=== PATIENT | female | born 1950 | race Caucasian/White ===

== ENCOUNTER → 2019-10-11 17:50 | Outpatient (CLI) | payer MEDICARE, SELFPAY ==
--- NOTE | 2019-10-11 17:54 | DI.MRI.S_ITS ---
PROCEDURE: MR LUMBAR SPINE WO CON INDICATIONS: LUMBAGO WITH SCIATICA LEFT SIDE TECHNIQUE: Noncontrast sagittal T1 spin echo and T2 fast echo, sagittal STIR, axial T1 and T2 fast spin echo through the lumbar spine. In cases with scoliosis, additional coronal T2 fast spin echo may be performed. COMPARISON: None. FINDINGS: Image quality: Excellent. Alignment and Curvature: There is a mild degree of extra scoliosis centered at the thoracolumbar junction. Bone Marrow: Marrow is of normal overall signal. No acute vertebral body compression fractures. Spinal Cord: Conus medullaris terminates at the T12-L1 level. Visualized cord demonstrates normal signal and size. Paraspinous Soft Tissues: No paravertebral masses. L1-L2: Slight degenerative disc disease, no disc bulge or herniation. Minimal facet osteoarthritis without spinal or foraminal stenosis. L2-L3: Mild to moderate degenerative disc disease, mild facet osteoarthritis. A small Schmorl's node is present at the upper endplate of L3, with slight elevated fluid signal in the upper L3 vertebral body as a result. This likely is a subacute finding, and not associated with disc bulge or herniation peripherally. No significant spinal or foraminal stenosis. L3-L4: Moderate degenerative disc disease, and there is a posterior transverse broad-based disc bulge. The facet osteoarthritis at this level is moderate in severity with ligamentum flavum hypertrophy associated and mild bilateral right greater than left foraminal stenosis due to facet hyperostosis. L4-L5: Degenerative disc disease is severe at this level and facet osteoarthritis also is severe with both ligamentum flavum hypertrophy and osseous hypertrophy greater on the left than the right. This results in near severe left and moderately severe right foraminal stenosis and also effacement of CSF from the thecal sac surrounding individual nerve roots at this level indicating severe spinal stenosis. A disc herniation is not associated. L5-S1: Moderately severe degenerative disc disease but there is only a slight posterior midline disc bulge. Mild to moderate facet osteoarthritis is present. There is right greater than left foraminal stenosis due to asymmetric facet osteoarthritis and osteophytic spurring. No significant spinal stenosis. IMPRESSION: 1. A disc herniation is not found. 2. There is a mild Schmorl's node likely subacute by a signal character of the upper L3 vertebral body marrow space. This may be associated with significant low back pain but a wedge type compression fracture is not found. 3. Degenerative disc disease and facet osteoarthritis is most pronounced over the lower 3 levels of the LS-spine, with severe spinal and foraminal stenosis present at L4-L5 greater on the left than the right. Multilevel nerve root impingement likely is present from L3 inferiorly as discussed in detail by level and the body of the report above. Dictated by: Roel Farah M.D. on 10/12/2019 at 11:03 Approved by: Roel Farah M.D. on 10/12/2019 at 11:14
== END ==
PROVIDERS: Referring Provider Physician Assistant; Visit Provider Physician Assistant
DX: M51.16 Intervertebral disc disorders with radiculopathy, lumbar region (principal); M51.46 Schmorl's nodes, lumbar region; M48.061 Spinal stenosis, lumbar region without neurogenic claudication; M47.816 Spondylosis without myelopathy or radiculopathy, lumbar region; M54.5 Low back pain
CPT/HCPCS: 72148

== ENCOUNTER → 2019-10-30 14:48 | Outpatient (CLI) | payer MEDICARE, SELFPAY | PROVIDERS: PCP Internal Medicine; Referring Provider Physician Assistant; Visit Provider Physician Assistant | DX: M85.851 Other specified disorders of bone density and structure, right thigh (principal); Z78.0 Asymptomatic menopausal state | CPT/HCPCS: 77080 ==

== ENCOUNTER → 2019-11-30 16:48 | Outpatient (CLI) | payer MEDICARE, SELFPAY ==
--- NOTE | 2019-11-30 | DI.RAD.S_ITS ---
PROCEDURE: XR HIP W PEL IF DONE LT 2V INDICATIONS: PAIN IN LEFT HIP NO RECENT INJURY TECHNIQUE: AP pelvis with lateral view(s) of the left hip(s). COMPARISON: None. FINDINGS: Bones: No fractures or dislocations. Pelvic ring appears intact. No suspicious bony lesions. There is mild left hip joint space narrowing. Soft tissues: The visualized bowel gas pattern is normal. No suspicious soft tissue calcifications. IMPRESSION: Mild left hip osteoarthritis. Dictated by: Lata Pepe M.D. on 11/30/2019 at 16:24 Approved by: Lata Pepe M.D. on 11/30/2019 at 16:25
== END ==
PROVIDERS: PCP Internal Medicine; Referring Provider Physician Assistant; Visit Provider Physician Assistant
DX: M25.552 Pain in left hip (principal); M16.12 Unilateral primary osteoarthritis, left hip
CPT/HCPCS: 73502

== ENCOUNTER → 2019-12-28 17:34 | Outpatient (CLI) | payer MEDICARE, SELFPAY ==
--- NOTE | 2019-12-28 | DI.MRI.S_ITS ---
PROCEDURE: MR HIP LT WO CON INDICATIONS: PAIN IN LEFT HIP TECHNIQUE: Noncontrast coronal T1 spin echo and STIR through the bony pelvis. Coronal and axial T2 fast spin echo with fat saturation, sagittal T1 spin echo, and oblique axial T2 fast spin echo with fat saturation through the hip. COMPARISON: None. FINDINGS: Image quality: Excellent. Bones and joints: Moderate bilateral hip joint osteoarthritic changes are seen slightly worse on the left side with joint space narrowing, and subchondral sclerosis. No marrow edema. No intraosseous lesions or fractures. No avascular necrosis of the femoral heads. The visualized lower lumbar spine appears normally aligned. Degenerative disc disease in visualized lower lumbar spine is seen. Tendons and ligaments: Mild left gluteus medius and minimus tendinosis at their insertion on left greater trochanter is seen, without associated muscle atrophy. The nearby proximal iliotibial band also appears intact. The iliopsoas tendon appears intact, without adjacent bursal fluid collections or evidence for impingement syndrome. The origin of the hamstring tendon is intact at the ischial tuberosity, as well as the associated sacrotuberous ligament. The straight and reflected heads of the rectus femoris muscle origin appear intact, as well as the conjoint tendon. The ligamentum teres appears intact where visualized. Labrum and cartilage: The acetabular labrum appears intact in the absence of intra-articular contrast. Cartilage surface of the femoral head appears thinned. The alpha angle of the femur is within normal limits at less than 55 degrees. Soft tissues: Visualized muscles demonstrate normal bulk and internal signal. Quadratus femoris muscle demonstrates no internal edema to suggest ischiofemoral impingement. The proximal sciatic neurovascular bundle appears normal adjacent to the hamstring tendons. No free pelvic fluid. Bladder wall thickness is normal. Genitourinary structures and bowel loops appear normal where visualized. IMPRESSION: 1. Moderate bilateral hip joint osteoarthritis slightly worse on the left side. No marrow edema. No fracture or dislocation. No evidence of avascular necrosis of femoral head. 2. Mild left gluteus medius and minimus tendinosis at their insertion on the greater trochanter. No other muscle or tendon signal abnormality. 3. No evidence of focal left hip labral tear in the absence of intra-articular contrast. Dictated by: Sawyer Jones M.D. on 12/29/2019 at 8:39 Approved by: Sawyer Jones M.D. on 12/29/2019 at 9:19
== END ==
PROVIDERS: PCP Internal Medicine; Referring Provider Physician Assistant; Visit Provider Physician Assistant
DX: M25.552 Pain in left hip (principal); M16.0 Bilateral primary osteoarthritis of hip
CPT/HCPCS: 73721

== ENCOUNTER → 2020-05-15 10:06 | Outpatient (CLI) | payer OTHER, SELFPAY ==
[2020-05-15 10:45] LABS: Add Manual Diff / Slide Review NO; Basophils Absolute Auto 0 /uL (0-100); Basophils Percent Auto 0.5 % (0-2); Eosinophils Absolute Auto 100 /uL (0-450); Eosinophils Percent Auto 1.4 % (2-4); Lymphocytes Absolute Auto 2000 /uL (1100-4500); Lymphocytes Percent Auto 22.9 % (25-40); Mean Corpuscular HGB Conc 32.5 % (30-36); Mean Corpuscular Hemoglobin 26.1 PG (26-34); Mean Corpuscular Volume 80.1 fL (80-100); Monocytes Absolute Auto 800 /uL (0-900); Monocytes Percent Auto 9.1 % (3-14); Neutrophils Absolute Auto 5900 /uL (1500-7000); Neutrophils Percent Auto 66.1 % (50-75); Platelet Count 356 X10^3/uL (150-400); Red Blood Cell Count 5.36 X10^6/uL (4.0-5.2); Red Cell Distribution Width 13.8 % (11.6-14.8); White Blood Cell Count 8.8 X10^3/uL (4.5-11.0)
[2020-05-15 10:51] LABS: Hemoglobin A1C% w Est Avg Glu 6.3 % (4.0-6.0)
[2020-05-15 10:57] LABS: Alanine Aminotransferase 22 IU/L (<35); Albumin 4.4 g/dL (3.5-5.0); Albumin Globulin Ratio 1.3 (1.0-2.8); Alkaline Phosphatase 70 U/L (38-126); Aspartate Aminotransferase 28 IU/L (14-36); BUN Creatinine Ratio 22.2 (6-22); Bilirubin Total 0.5 mg/dL (0.2-1.3); Blood Urea Nitrogen 12 mg/dL (7-17); Calcium 9.1 mg/dL (8.4-10.2); Carbon Dioxide 27 mmol/L (22-32); Chloride 104 mmol/L (98-107); Cholesterol 172 mg/dL (140-199); Estimated Glomerular Filt Rate > 60.0 mL/min (>60); Globulin 3.3 g/dL (1.7-4.1); Glucose 130 mg/dL (80-110); HDL Cholesterol 43 mg/dL (40-60); HEMOLYSIS < 15 (0-50); LDL Cholesterol Calculated 104 mg/dL (<100); Potassium 3.7 mmol/L (3.4-5.1); Sodium 138 mmol/L (137-145); Total Protein 7.7 g/dL (6.3-8.2); Triglycerides 125 mg/dL (35-150)
[2020-05-15 11:11] LABS: Vitamin D 25 Hydroxy (D3) 95.4 ng/mL (30.0-100.0)
[2020-05-15 11:25] LABS: TSH w/ Reflex to FT4 1.01 uIU/mL (0.47-4.68)
== END ==
PROVIDERS: PCP Internal Medicine; Referring Provider Physician Assistant; Visit Provider Physician Assistant
DX: R73.03 Prediabetes (principal)
CPT/HCPCS: 36415; 80053; 80061; 82306; 83036; 84443; 85025

== ENCOUNTER → 2020-12-20 17:23 | Outpatient (CLI) | payer OTHER, SELFPAY ==
--- NOTE | 2020-12-20 | DI.RAD.S_ITS ---
PROCEDURE: XR HIP W PEL IF DONE LT 2V INDICATIONS: Pain In Left Hip TECHNIQUE: AP pelvis with lateral view of the left hip COMPARISON: None. FINDINGS: Bones: No acute fractures or dislocations. Pelvic ring appears intact. No suspicious bony lesions. Degenerative changes are seen in the included lumbar spine. Minimal degenerative changes in the hips. Soft tissues: The visualized bowel gas pattern is normal. A nonspecific calcification is seen projecting just superior to the right femoral neck, which is of uncertain location and may be within the joint space or likely within the soft tissues anteriorly or posteriorly. IMPRESSION: No acute osseous abnormality. If clinical suspicion and/or symptoms persist, additional imaging with repeat plain films, or advanced imaging (e.g. CT, MRI) may be helpful for further assessment. Dictated by: Abdulaziz Morales M.D. on 12/20/2020 at 18:35 Approved by: Abdulaziz Morales M.D. on 12/20/2020 at 18:37
--- NOTE | 2020-12-20 17:28 | DI.RAD.S_ITS ---
PROCEDURE: XR LUMBAR SPINE MIN 4V INDICATIONS: BACK PAIN TECHNIQUE: 5 views of the lumbar spine were acquired, including bilateral oblique views. COMPARISON: [facility], MR, MR LUMBAR SPINE WO CON, 10/11/2019, 18:02. FINDINGS: Bones: 5 nonrib-bearing vertebrae are present. There is mild dextroconvex curvature of the lumbar spine. Grade 1 anterolisthesis of L4 on L5 is seen that does not appear significantly changed when compared to the MRI from 10/11/2019. Multilevel disc space narrowing and degenerative endplate changes are seen. Facet hypertrophy is seen from L2-3 through L5-S1. No vertebral body compression fractures. No suspicious bony lesions. Soft tissues: Overlying bowel gas pattern is normal. No suspicious soft tissue calcifications. Oblique images: No pars defects. IMPRESSION: 1. No acute osseous abnormality. Multilevel spondylosis. 2. Mild dextroconvex curvature of the lumbar spine. 3. Grade 1 anterolisthesis of L4 on L5. Dictated by: Abdulaziz Morales M.D. on 12/20/2020 at 18:37 Approved by: Abdulaziz Morales M.D. on 12/20/2020 at 18:39
== END ==
PROVIDERS: Family Provider Physician Assistant; PCP Physician Assistant; Referring Provider Physician Assistant; Visit Provider Physician Assistant
DX: M25.552 Pain in left hip (principal); M54.9 Dorsalgia, unspecified
CPT/HCPCS: 72110; 73502

== ENCOUNTER → 2021-02-04 17:47 | Outpatient (CLI) | payer OTHER, SELFPAY ==
--- NOTE | 2021-02-04 | DI.MG.S_ITS ---
BILATERAL DIGITAL SCREENING MAMMOGRAM 3D/2D WITH CAD: 02/04/2021 CLINICAL: Routine screening. Baseline by default. Family history of breast cancer. No prior exams were available for comparison. There are scattered fibroglandular elements in both breasts. Current study was also evaluated with a Computer Aided Detection (CAD) system. There is possible irregular equal density architectural distortion with indistinct margins in the right breast middle depth superior region seen on the mediolateral oblique view only. There is an irregular equal density asymmetry with an indistinct margin in the left breast at 1 o'clock middle depth. No other significant masses or calcifications are seen in either breast. IMPRESSION: INCOMPLETE: NEEDS ADDITIONAL IMAGING EVALUATION The possible irregular equal density architectural distortion in the right breast middle depth superior region seen on the mediolateral oblique view only is indeterminate. Mediolateral and spot compression views as well as additional views with possible ultrasound are recommended. The irregular equal density asymmetry in the left breast at 1 o'clock middle depth is indeterminate. Mediolateral and spot compression views as well as additional views with possible ultrasound are recommended. This exam was interpreted at Station ID: [id number]. NOTE: For mammograms, a report in lay terms will be sent to the patient. Approximately 15% of breast malignancies will not be visualized mammographically. In the management of a palpable breast mass, a negative mammogram must not discourage biopsy of a clinically suspicious lesion. Electronically Signed By: Emanuel desir/:02/05/2021 08:35:13 letter sent: Additional Imaging Needed ACR BI-RADS Category 0: Incomplete [id number]
== END ==
PROVIDERS: Family Provider Physician Assistant; PCP Physician Assistant; Referring Provider Physician Assistant; Visit Provider Physician Assistant
DX: Z12.31 Encounter for screening mammogram for malignant neoplasm of breast (principal); Z80.3 Family history of malignant neoplasm of breast
CPT/HCPCS: 77063; 77067

== ENCOUNTER → 2021-05-08 13:46 | Outpatient (CLI) | payer OTHER, SELFPAY ==
--- NOTE | 2021-05-08 | DI.MG.S_ITS ---
BILATERAL DIGITAL DIAGNOSTIC MAMMOGRAM 3D/2D: 05/08/2021 CLINICAL: Additional evaluation requested from prior study. Comparison is made to exam dated: 02/04/2021 [facility], [place]. There are scattered fibroglandular elements in both breasts. The previously described irregular equal density architectural distortion with an indistinct margin in the right breast middle depth superior region seen on the mediolateral oblique view only is no longer seen and not confirmeed in today's additional views. Redemonstration of previously described irregular equal density asymmetry with an indistinct margin in the left breast at 1 o'clock middle depth. This is not definitively confirmed in today's additional views. It is less prominent and decreased in size. No other significant masses or calcifications are seen in either breast. IMPRESSION: INCOMPLETE: NEEDS ADDITIONAL IMAGING EVALUATION An ultrasound is recommended to confirm the no longer seen irregular equal density architectural distortion in the right breast middle depth superior region seen on the mediolateral oblique view only. The irregular equal density asymmetry in the left breast at 1 o'clock middle depth resembles fibroglandular tissue and is indeterminate. An ultrasound is recommended. The recommended ultrasound is scheduled to immediately follow this examination. This exam was interpreted at Station ID: [id number]. NOTE: For mammograms, a report in lay terms will be sent to the patient. Approximately 15% of breast malignancies will not be visualized mammographically. In the management of a palpable breast mass, a negative mammogram must not discourage biopsy of a clinically suspicious lesion. Electronically Signed By: Dalton Griffin M.D. aty/:05/08/2021 14:57:08 ACR BI-RADS Category 0: Incomplete [id number]
--- NOTE | 2021-05-08 | DI.US.S_ITS ---
ULTRASOUND OF RIGHT BREAST: 05/08/2021 CLINICAL: Patient returns today to evaluate an asymmetry in the right breast. Comparison is made to exams dated: 05/08/2021 mammogram and 02/04/2021 mammogram - [facility]. Real-time ultrasound of the right breast was performed. Carcamo scale images of the real-time examination were reviewed. No significant abnormalities were seen sonographically in the right breast. IMPRESSION: NEGATIVE There is no sonographic evidence of malignancy. There is no abnormality seen in the right breast to correspond with the area of clinical concern and mammography finding which likely represent normal fibroglandular tissue. A 1 year screening mammogram is recommended. Findings and recommendations were conveyed to the patient during today's evaluation. This exam was interpreted at Station ID: [id number]. Electronically Signed By: Dalton Griffin M.D. aty/:05/08/2021 14:58:01 Entry: - 05/09/2021 08:25:44 Ultrasound BI-RADS: 1 Negative
--- NOTE | 2021-05-08 | DI.US.S_ITS ---
ULTRASOUND OF LEFT BREAST: 05/08/2021 Comparison is made to exams dated: 05/08/2021 mammogram and 02/04/2021 mammogram - [facility]. Color flow and real-time ultrasound of the left breast were performed. Carcamo scale images of the real-time examination were reviewed. No significant abnormalities were seen sonographically in the left breast. IMPRESSION: NEGATIVE There is no sonographic evidence of malignancy. There is no abnormality seen in the left breast to correspond with the area of clinical concern and mammography finding which likely represent normal fibroglandular tissue. A 1 year screening mammogram is recommended. Findings and recommendations were conveyed to the patient during today's evaluation. This exam was interpreted at Station ID: [id number]. Electronically Signed By: Dalton Griffin M.D. aty/:05/08/2021 14:58:44 letter sent: Normal Exam Ultrasound BI-RADS: 1 Negative
== END ==
PROVIDERS: Family Provider Physician Assistant; PCP Physician Assistant; Referring Provider Physician Assistant; Visit Provider Physician Assistant
DX: R92.8 Other abnormal and inconclusive findings on diagnostic imaging of breast (principal); N64.89 Other specified disorders of breast
CPT/HCPCS: 76642; 77066; G0279

== ENCOUNTER → 2021-08-13 11:30 | Outpatient (CLI) | payer OTHER, SELFPAY ==
--- NOTE | 2021-08-13 | DI.US.S_ITS ---
PROCEDURE: US PERIPH VENOUS LOW EXTREM RT INDICATIONS: LOCALIZED EDEMA RIGHT LEG TECHNIQUE: Real-time imaging, as well as color and pulse Doppler interrogation, were performed of the lower extremity deep veins from the inguinal ligament to the popliteal fossa. COMPARISON: None. FINDINGS: The common femoral, femoral and popliteal veins are normally compressible, and free of intraluminal thrombus. Color and pulse Doppler demonstrate normal phasic intraluminal flow. There is normal augmentation response to distal compression maneuver. A tiny likely Velasco's cyst is seen that measures up to 9 mm. IMPRESSION: Negative for deep venous thrombosis. Dictated by: Zheng Gilmore M.D. on 08/13/2021 at 11:55 Approved by: Zheng Gilmore M.D. on 08/13/2021 at 11:56
== END ==
PROVIDERS: Family Provider Physician Assistant; PCP Physician Assistant; Referring Provider Internal Medicine; Visit Provider Internal Medicine
DX: R60.0 Localized edema (principal)
CPT/HCPCS: 93971

== ENCOUNTER 2021-10-01 12:45 | Outpatient (RCR) | payer OTHER, SELFPAY ==
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
--- NOTE | 2020-08-07 13:55 | PT.OPPOC ---
Physical, Occupational & Speech Therapy [facility] Current Diagnoses Pain in left hip (08/07/20) Trochanteric bursitis, left hip (08/07/20) Other bursitis of hip, left hip (08/07/20) Visit Care Team Role Provider Type Jessica Del Rosario PA-C Attending Provider Non-Staff Family Provider Primary Care Provider Referring Provider Specialty: Internal Medicine Address: [address] [place] [address], [id number] Email: [email or web address] Plan Of Care PT-OP-T Assessment and Plan Start: 06/12/20 11:59 Freq: Status: Active Protocol: Document 08/07/20 12:07 [facility] (Rec: 08/07/20 13:54 [facility] [email or web address]) Physical Therapy Assessment Goals left sided hip pain Impairment left sided hip pain rated 5/10 Short Term Goal (STG) as of 08/07/20 her pain is a 2/ 10 some intermittent pain spasms that go higher than that but for the most part it is a 2/10 . Her pain is no longer constant but intermittent STG Duration 5 weeks Cd Mixer Helper Goal (LTG) Katelyn is able to drop her pain levels down as her pelvic floor is relaxed and no longer guarded Excellent progress as baseline of the pelvic floor has dropped to 1.5 uv LTG Duration 8 weeks urinary stress incontinence Impairment Urinary stress incontinence Cd Mixer Helper Goal (LTG) Katelyn is able to fully relax her pelvic floor so that she can work towards improved strength of her levator ani. She is able to contract her pelvic floor and sustain a contraction for 10 seconds in supine. Some progress. Treatment has emphasized reducing tone of the pelvic floor first due to pain and will then focus more on the strengthening phase. Pt has noticed some good days without leakage and some days where she still leaks LTG Duration 8 weeks urinary urgency and frequency Impairment urinary urgency and frequency Short Term Goal (STG) pt is educated in urge deference technique and bladder retraining GOAL MET STG Duration 4 weeks Cd Mixer Helper Goal (LTG) Pt is able to void every 2-3 hours during the day and is waking only 1 xm at night to void good progress pt is voiding only 1 xm at night now and seems to be voiding 1.5 -2 hours. 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 She notes it is around 2/10 now with intermittent spasms instead of daily spasms. She has been able to resume walking 30 min approx 3 times per week. Treatment has emphasized pelvic floor iliiococcygeus release as well as strengthening program for her core which has helped her. She is still complaining of Urinary incontinence at times, her urgency has decreased. I have progressed slow with the pelvic floor strengthening as Katelyn was so guarded but now as she is better able to relax her pelvic floor I have added the strengthening piece in and she is tolerating this well. She would benefit from continued PT Physical Therapy Plan Therapeutic Interventions Therapeutic Interventions Home Exercise Program,Manual Therapy,Neuromuscular Re- education,Patient/Caregiver Education,Self-Care/Home Management,Soft Tissue Mobilization,Therapeutic Exercises Modalities Biofeedback Plan of Care Dates Plan of Care Start Date 08/07/20 Plan of Care End Date 10/02/20 Electronically Signed by: Essence Hernandez, PT 08/07/20 [id number] Please Sign and Return: I have reviewed this Plan of Care and certify that the skilled therapy services above are required to meet the patient?s needs. Physician Signature Date Printed Name and Credentials Clinical Instructor Signature Printed Name and Credentials
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
--- NOTE | 2020-10-02 13:48 | PT.OPPOC ---
Physical, Occupational & Speech Therapy At [facility] Current Diagnoses Pain in left hip (10/02/20) Trochanteric bursitis, left hip (10/02/20) Other bursitis of hip, left hip (10/02/20) Visit Care Team Role Provider Type Jessica Del Rosario PA-C Attending Provider Non-Staff Family Provider Primary Care Provider Referring Provider Specialty: Internal Medicine Address: [address] [place] [address], [id number] Email: [email or web address] Of Care PT-OP-T Assessment and Plan Start: 06/12/20 11:59 Freq: Status: Active Protocol: Document 10/02/20 12:45 AMH (Rec: 10/02/20 13:41 AMH [id number]) Physical Therapy Assessment Goals left sided hip pain Impairment left sided hip pain rated 5/10 Short Term Goal (STG) as of 10/02/20 her pain is a 2/ 10 some intermittent pain spasms that go higher than that but for the most part it is a 2/10 . Her pain is no longer constant but intermittent. Katelyn has been able to return to walking 34- 40 minutes at a time STG Duration 5 weeks Snf Goal (LTG) Katelyn is able to drop her pain levels down as her pelvic floor is relaxed and no longer guarded Excellent progress as baseline of the pelvic floor has dropped to 1.5 uv LTG Duration 8 weeks urinary stress incontinence Impairment Urinary stress incontinence Snf Goal (LTG) Katelyn is able to fully relax her pelvic floor so that she can work towards improved strength of her levator ani. She is able to contract her pelvic floor and sustain a contraction for 10 seconds in supine. Some progress. Treatment has emphasized reducing tone of the pelvic floor first due to pain and will then focus more on the strengthening phase. Pt has noticed some good days without leakage and some days where she still leaks LTG Duration 8 weeks urinary urgency and frequency Impairment urinary urgency and frequency Short Term Goal (STG) pt is educated in urge deference technique and bladder retraining GOAL MET STG Duration 4 weeks Cell Manager Goal (LTG) `Pt is able to void every 2-3 hours during the day and is waking only 1 xm at night to void good progress pt is voiding only 1 xm at night now and seems to be voiding 1.5 -2 hours. 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 Her muscle spasms seem to be more present first thing in the morning and then with her stretches she is able to reduce her spasms and pain. She has been able to return to walking 35 min 3-4 times per week. Katelyn would like to continue PT at 1 xm per week. Physical Therapy Plan Frequency and Duration Frequency of Treatment 1x/Week Duration of Treatment 8 Plan of Care Start Date 10/02/20 Plan of Care End Date 11/27/20 Therapeutic Interventions Therapeutic Interventions Home Exercise Program,Manual Therapy,Neuromuscular Re- education,Patient/Caregiver Education,Self-Care/Home Management,Soft Tissue Mobilization,Therapeutic Exercises Modalities Biofeedback Next Visit Focus/Plan Next Note Type Treatment Note Next Visit Plan continue progressing hip flexibility and hip ROM, pelvic floor contract and relax, hip strengthenin Plan of Care Dates Plan of Care Start Date 10/02/20 Plan of Care End Date 11/27/20 Electronically Signed by: Essence Hernandez, PT 10/02/20 [id number] Please Sign and Return: I have reviewed this Plan of Care and certify that the skilled therapy services above are required to meet the patient?s needs. Physician Signature Date Printed Name and Credentials Clinical Instructor Signature Printed Name and Credentials
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
--- NOTE | 2020-11-06 14:17 | PT.OPPOC ---
Physical, Occupational & Speech Therapy At [facility] Current Diagnoses Pain in left hip (11/06/20) Trochanteric bursitis, left hip (11/06/20) Other bursitis of hip, left hip (11/06/20) Visit Care Team Role Provider Type Jessica Del Rosario PA-C Attending Provider Non-Staff Family Provider Primary Care Provider Referring Provider Specialty: Internal Medicine Address: [address] [place] [address], [id number] Email: [email or web address] Plan Of Care PT-OP-T Assessment and Plan Start: 06/12/20 11:59 Freq: Status: Active Protocol: Document 11/06/20 12:07 AMH (Rec: 11/06/20 12:29 AMH [id number]) Physical Therapy Assessment Goals left sided hip pain Impairment left sided hip pain rated 5/10 Short Term Goal (STG) as of 11/06/20 her pain is a 2/ 10 some intermittent pain spasms that go higher than that but for the most part it is a 2/10 . Her pain is no longer constant but intermittent and the stretches between pain are increasing. I have tried to show Katelyn self release techniques for home and these are going well. Katelyn has been able to return to walking 34-40 minutes at a time STG Duration 5 weeks Lockstitch Waistline Joiner Goal (LTG) Katelyn is able to drop her pain levels down as her pelvic floor is relaxed and no longer guarded Excellent progress as baseline of the pelvic floor has dropped to 1.5 uv LTG Duration 8 weeks urinary stress incontinence Impairment Urinary stress incontinence Lockstitch Waistline Joiner Goal (LTG) Katelyn is able to fully relax her pelvic floor so that she can work towards improved strength of her levator ani. She is able to contract her pelvic floor and sustain a contraction for 10 seconds in supine. Some progress. Treatment has emphasized reducing tone of the pelvic floor first due to pain and will then focus more on the strengthening phase. Pt has noticed some good days without leakage and some days where she still leaks LTG Duration 8 weeks urinary urgency and frequency Impairment urinary urgency and frequency Short Term Goal (STG) pt is educated in urge deference technique and bladder retraining GOAL MET STG Duration 4 weeks Residential Goal (LTG) `Pt is able to void every 2-3 hours during the day and is waking only 1 xm at night to void good progress pt is voiding only 1 xm at night now and seems to be voiding 1.5 -2 hours. 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 She has been able to walk more and is noting decreased muscle spasms overall and decreased pain. Katelyn would like to continue PT for another 8 weeks as she is moving in the right direction and she is worried about stopping at this point. Katelyn will continue working with her [employer] for self MFR and her home stretching and strengthening program. The plan will be to progress her hip strengthening as tolerated Physical Therapy Plan Frequency and Duration Frequency of Treatment 1x/Week Duration of Treatment 8 Plan of Care Start Date 11/06/20 Plan of Care End Date 01/08/21 Therapeutic Interventions Therapeutic Interventions Home Exercise Program,Manual Therapy,Neuromuscular Re- education,Patient/Caregiver Education,Self-Care/Home Management,Soft Tissue Mobilization,Therapeutic Exercises Modalities Biofeedback Next Visit Focus/Plan Next Note Type Treatment Note Next Visit Plan progress strength of the hips as pt is feeling better overall Plan of Care Dates Plan of Care Start Date 11/06/20 Plan of Care End Date 01/08/21 Electronically Signed by: Essence Hernandez, PT 11/06/20 2925 Please Sign and Return: I have reviewed this Plan of Care and certify that the skilled therapy services above are required to meet the patient?s needs. Physician Signature Date Printed Name and Credentials Clinical Instructor Signature Printed Name and Credentials
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
--- NOTE | 2021-01-08 13:57 | PT.OPPOC ---
Physical, Occupational & Speech Therapy At [facility] Current Diagnoses Pain in left hip (01/08/21) Trochanteric bursitis, left hip (01/08/21) Other bursitis of hip, left hip (01/08/21) Visit Care Team Role Provider Type Jessica Del Rosario PA-C Attending Provider Non-Staff Family Provider Primary Care Provider Referring Provider Specialty: Internal Medicine Address: [address] [place] [address], [id number] Email: [email or web address] Of Care PT-OP-T Assessment and Plan Start: 06/12/20 11:59 Freq: Status: Active Protocol: Document 01/08/21 12:00 AMH (Rec: 01/08/21 13:55 AMH [email or web address]) Physical Therapy Assessment Goals Katelyn is independent with a Home program for her low back and hip [facility] Goal (LTG) Katelyn is I with a progressive HEP and ready to work on her own with exercises LTG Duration 8 weeks left sided hip pain Impairment left sided hip pain rated 5/10 Short Term Goal (STG) as of 01/08/21 her pain is a 2 /10 some intermittent pain spasms that go higher than that but for the most part it is a 2/10 . Her pain is no longer constant but intermittent and the stretches between pain are increasing. I have tried to show Katelyn self release techniques for home and these are going well. Katelyn has been able to return to walking 45 min 6 days per week now STG Duration 5 weeks [employer] Goal (LTG) Katelyn is able to drop her pain levels down as her pelvic floor is relaxed and no longer guarded Excellent progress as baseline of the pelvic floor has dropped to 1.5 uv LTG Duration 8 weeks urinary stress incontinence Impairment Urinary stress incontinence [employer] Goal (LTG) Katelyn is able to fully relax her pelvic floor so that she can work towards improved strength of her levator ani. She is able to contract her pelvic floor and sustain a contraction for 10 seconds in supine. Some progress. Treatment has emphasized reducing tone of the pelvic floor first due to pain and will then focus more on the strengthening phase. Pt has noticed some good days without leakage and some days where she still leaks LTG Duration 8 weeks urinary urgency and frequency Impairment urinary urgency and frequency Short Term Goal (STG) pt is educated in urge deference technique and bladder retraining GOAL MET STG Duration 4 weeks [facility] Goal (LTG) `Pt is able to void every 2-3 hours during the day and is waking only 1 xm at night to void good progress pt is voiding only 1 xm at night now and seems to be voiding 1.5 -2 hours. 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 She will still wake up with left leg spasms and has intermittent c/o left leg pain . Her hip ROM is doing much better and I feel her left leg symptoms are coming from her lumbar spine. IT is recommended by Dr. Carrion for a steriod injection in the left L4-5. In PT we will be progressing her to 2 visits a month after next scheduled visit to recheck and modify exercises as needed. Physical Therapy Plan Frequency and Duration Frequency of Treatment 1x/Week Duration of Treatment 8 Plan of Care Start Date 01/08/21 Plan of Care End Date 03/05/21 Therapeutic Interventions Therapeutic Interventions Home Exercise Program,Manual Therapy,Neuromuscular Re- education,Patient/Caregiver Education,Self-Care/Home Management,Soft Tissue Mobilization,Therapeutic Exercises Modalities Biofeedback Next Visit Focus/Plan Next Note Type Treatment Note Next Visit Plan continue working on stabilization and stretches, revisit anterior quad stretch Plan of Care Dates Plan of Care Start Date 01/08/21 Plan of Care End Date 03/05/21 Electronically Signed by: Essence Hernandez, PT 01/08/21 [id number] Please Sign and Return: I have reviewed this Plan of Care and certify that the skilled therapy services above are required to meet the patient?s needs. Physician Signature Date Printed Name and Credentials Clinical Instructor Signature Printed Name and Credentials
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
--- NOTE | 2021-05-15 13:18 | PT.OPPOC ---
Physical, Occupational & Speech Therapy At [facility] Current Diagnoses Pain in left hip (05/14/21) Trochanteric bursitis, left hip (05/14/21) Other bursitis of hip, left hip (05/14/21) Visit Care Team Role Provider Type Jessica Del Rosario PA-C Attending Provider Non-Staff Family Provider Primary Care Provider Referring Provider Specialty: Internal Medicine Address: [address] [place] [address], [address] Email: [email or web address] Of Care PT-OP-T Assessment and Plan Start: 06/12/20 11:59 Freq: Status: Active Protocol: Document 05/14/21 12:50 [facility] (Rec: 05/15/21 13:16 [facility] [id number]) Physical Therapy Assessment Goals Katelyn is independent with a Home program for her low back and hip Hardness Tester Goal (LTG) Katelyn is I with a progressive HEP and ready to work on her own with exercises GOAL MET and Katelyn is working hard on her HEP and walking program LTG Duration 8 weeks left sided hip pain Impairment left sided hip pain rated 5/10 Short Term Goal (STG) as of 05/14/21 her pain is still a 2/10 some intermittent pain spasms and some days without any pain. Her pain is no longer constant but intermittent and the stretches between pain are increasing. Katelyn has been able to continue walking 45 min 6 days per week now STG Duration 5 weeks Hardness Tester Goal (LTG) Katelyn is able to drop her pain levels down as her pelvic floor is relaxed and no longer guarded GOAL MET LTG Duration 8 weeks urinary stress incontinence Impairment Urinary stress incontinence Hardness Tester Goal (LTG) Katelyn is able to fully relax her pelvic floor so that she can work towards improved strength of her levator ani. She is able to contract her pelvic floor and sustain a contraction for 10 seconds in supine. Some progress. Treatment has emphasized reducing tone of the pelvic floor first due to pain and will then focus more on the strengthening phase. Pt has noticed some good days without leakage and some days where she still leaks SOME PROGRESS LTG Duration 8 weeks urinary urgency and frequency Impairment urinary urgency and frequency Short Term Goal (STG) pt is educated in urge deference technique and bladder retraining GOAL MET STG Duration 4 weeks Hardness Tester Goal (LTG) `Pt is able to void every 2-3 hours during the day and is waking only 1 xm at night to void good progress pt is voiding only 1 xm at night now and seems to be voidnging 1.5 -2 hours. GOAL NOT YET MET LTG Duration 8 weeks hypertonicity of the left wall of the levator ani Impairment Hypertonicity of the L greater than R wall of the levator ani Short Term Goal (STG) Katelyn is educated in stretches that can help relax the pelvic floor to reduce guarding and spasm GOAL MET STG Duration 4 weeks Hardness Tester Goal (LTG) Katelyn is able to relax her pelvic floor to baseline on EMG biofeedback Excellent progress LTG Duration 8 weeks Progress Towards Goals Progress Towards Goals Progressing Toward Goals Assessment Summary Assessment Katelyn continues to make good progress with her improved mobility and flexibility of her hip. She hasn't been seen in PT since March 20 and has been able to keep up with her walking 6 days a week. She feels her gait is normalizing and she is walking further distances. She still experiences intermittent hip pain but overall it is better. She would like to continue PT for her pelvic floor and for progression of hip exercises 2 xms per month Physical Therapy Plan Frequency and Duration Frequency of Treatment Every Other Week Duration of Treatment 8 Plan of Care Start Date 05/14/21 Plan of Care End Date 07/16/21 Therapeutic Interventions Therapeutic Interventions Home Exercise Program,Manual Therapy,Neuromuscular Re- education,Patient/Caregiver Education,Self-Care/Home Management,Soft Tissue Mobilization,Therapeutic Exercises Modalities Biofeedback Next Visit Focus/Plan Next Note Type Treatment Note Next Visit Plan continue working on decompression of the lumbar spine and improved mobilization of the thoracic spine. 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 Physician Signature Date Printed Name and Credentials Clinical Instructor Signature Printed Name and Credentials
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
--- NOTE | 2021-06-25 14:15 | PT.OPPOC ---
Physical, Occupational & Speech Therapy At [facility] Current Diagnoses Pain in left hip (06/25/21) Trochanteric bursitis, left hip (06/25/21) Other bursitis of hip, left hip (06/25/21) Visit Care Team Role Provider Type Jessica Del Rosario PA-C Attending Provider Non-Staff Family Provider Primary Care Provider Referring Provider Specialty: Internal Medicine Address: [address] [place] [address], [id number] Email: [email or web address] Of Care PT-OP-T Assessment and Plan Start: 06/12/20 11:59 Freq: Status: Active Protocol: Document 06/25/21 13:04 [facility] (Rec: 06/25/21 14:10 [facility] [id number]) Physical Therapy Assessment Goals increased walking speed on the [employer] train Impairment Katelyn feels her walking speed is decreased to where it was before she started experiencing hip pain. She would like to start increasing the speed of her gait without increased pain Assisted Goal (LTG) Katelyn is able to make it to the trestle from her parked car in 15 minutes which is approximately 3/4 mile Katelyn is independent with a Home program for her low back and hip Aesthetics Instructor Goal (LTG) Katelyn is I with a progressive HEP and ready to work on her own with exercises GOAL MET and Katelyn is working hard on her HEP and walking program LTG Duration 8 weeks left sided hip pain Impairment left sided hip pain rated 5/10 Short Term Goal (STG) as of 05/14/21 her pain is still a 2/10 some intermittent pain spasms and some days without any pain. Her pain is no longer constant but intermittent and the stretches between pain are increasing. Katelyn has been able to continue walking 45 min 6 days per week now STG Duration 5 weeks Assisted Goal (LTG) Katelyn is able to drop her pain levels down as her pelvic floor is relaxed and no longer guarded GOAL MET LTG Duration 8 weeks urinary stress incontinence Impairment Urinary stress incontinence Assisted Goal (LTG) Katelyn is able to fully relax her pelvic floor so that she can work towards improved strength of her levator ani. She is able to contract her pelvic floor and sustain a contraction for 10 seconds in supine. Some progress. Treatment has emphasized reducing tone of the pelvic floor first due to pain and will then focus more on the strengthening phase. Pt has noticed some good days without leakage and some days where she still leaks SOME PROGRESS LTG Duration 8 weeks urinary urgency and frequency Impairment urinary urgency and frequency Short Term Goal (STG) pt is educated in urge deference technique and bladder retraining GOAL MET STG Duration 4 weeks Aesthetics Instructor Goal (LTG) `Pt is able to void every 2-3 hours during the day and is waking only 1 xm at night to void good progress pt is voiding only 1 xm at night now and seems to be voiding 1.5 -2 hours. 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 She continues to be able to walk and now pt has a goal of wanting to increase her speed of her gait. She would like to continue PT for her hip mobility as she feels the manual treatment really helps keep her hips mobile for walking. Her urinary Incontinence now comes and goes. She can go overnight for several days without leaking. Then she reports out of the blue she will have leakage. Katelyn would benefit from continued PT. Physical Therapy Plan Frequency and Duration Frequency of Treatment Every Other Week Duration of Treatment 12 Plan of Care Start Date 06/25/21 Plan of Care End Date 09/03/21 Plan of Care Dates Plan of Care Start Date 06/25/21 Plan of Care End Date 09/03/21 Electronically Signed by: Essence Hernandez, PT 06/25/21 [id number] Please Sign and Return: I have reviewed this Plan of Care and certify that the skilled therapy services above are required to meet the patient?s needs. Physician Signature Date Printed Name and Credentials Clinical Instructor Signature Printed Name and Credentials
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
== END 2021-10-13 12:24 ==
LOC: PHYS 12:45
PROVIDERS: Family Provider Physician Assistant; PCP Physician Assistant; Referring Provider Physician Assistant; Visit Provider Physician Assistant
DX: M70.72 Other bursitis of hip, left hip (principal); M70.62 Trochanteric bursitis, left hip; M25.552 Pain in left hip
CPT/HCPCS: 97110; 97140; 97161

== ENCOUNTER 2023-02-10 12:15 | Outpatient (RCR) | payer OTHER, SELFPAY ==
--- NOTE | 2021-11-18 17:00 | PT.OIE ---
Current Diagnoses Other chronic pain (11/18/21) Lumbago with sciatica, right side (11/18/21) Lumbago with sciatica, left side (11/18/21) Past Medical History (Last Updated 01/06/21 @ 15:57 by Chris Carrion DO) Dextroscoliosis Gait instability Lumbosacral radiculopathy at L5 Spondylolisthesis at L4-L5 level Visit Care Team Role Provider Type Jessica Del Rosario PA-C Attending Provider Non-Staff Family Provider Primary Care Provider Referring Provider Specialty: Internal Medicine Address: [address] [place] [address], [facility] Email: [email or web address] Physical Therapy Initial Evaluation PT-OP-A Visit Information Start: 11/18/21 09:48 Freq: Status: Active Protocol: Document 11/18/21 09:49 [facility] (Rec: 11/18/21 09:56 [facility] [id number]) Out-Patient Physical Therapy Visit Information Visit Information Visit Type Initial Evaluation Visit Start Time 09:49 Visit Stop Time 10:30 Total Visit Minutes 41 Visit Number 1 Evaluation Information Evaluation Date 11/18/21 PT-OP-B Current Condition Start: 11/18/21 09:48 Freq: Status: Active Protocol: Document 11/18/21 09:49 [facility] (Rec: 11/18/21 09:56 [facility] [id number]) Current Condition History of Current Condition Onset Date chronic with new onset of right sided neck pain Current Complaints left hip pain, lowback stiffness, right neck History of Current Condition stiffness in her low back and right sided neck tightness. Katelyn reports she underwent dental work tht had her in the dental chair x 5 hours. SInce that time she has had right sided neck and jaw discomfort. She is working on her home stretches for the left hip and back but continues to note discomfort and tightness. Katelyn reports has figured out how to make her exercises part of her routine, she has been trying to stretch first thing and is using the miracle balls . Treatment Goals Patient/Caregiver Goals pts goals include pain reduction to allow her to continue working and walking daily Current Functional Impairments (Reported) Functional Limitations- ADL's pain prevents her from sitting more than 1 hour and standing more than 30 min PT-OP-C Subjective Start: 11/18/21 09:48 Freq: Status: Active Protocol: Document 11/18/21 09:49 [facility] (Rec: 11/20/21 15:13 [facility] [id number]) Patient Questionnaires Oswestry Low Back Index Oswestry Score 16 Oswestry Impairment 1 to 19% Impaired (Score 1-19) OP-PT Pain Assessment Pain Assessment Grid Paper Pain Assessment Grid Completed Yes Location right sided neck pain Pain Location Details right sided neck pain Intensity 4 Scale Used Numeric (0 - 10) bilateral low back Intensity 6 Scale Used Numeric (0 - 10) left posterior hip Pain Location Details left posterior hip Intensity 5 Scale Used Numeric (0 - 10) PT-OP-J Posture/Palpation/Skin Start: 11/18/21 09:48 Freq: Status: Active Protocol: Document 11/18/21 09:49 [facility] (Rec: 11/20/21 15:10 [facility] [id number]) Posture Evaluation Position Sitting Evaluation View Lateral Head/C-Spine Posture Flexed T-Spine Posture Increased Kyphosis Comments Posture Comments pt is presenting with a increasing kyphotic posture with forward head and shoulders Palpation Assessment Location left piriformis Palpation Location left piriformis Palpation Findings Soft Tissue Tightness,Muscle Guarding,Tenderness R SCM Palpation Location R SCM Palpation Findings Soft Tissue Tightness,Muscle Guarding Palpation Details tightness and guarding from mastoid process to insertion at the clavicle PT-OP-K Range of Motion Start: 11/18/21 09:48 Freq: Status: Active Protocol: Document 11/18/21 09:49 [facility] (Rec: 11/18/21 10:30 [facility] [id number]) Cervical Spine Range of Motion Cervical Spine Active Testing Position Sitting Lateral Flexion Left 5 Lateral Flexion Right 5 ROM Limitations Soft Tissue Tightness,Pain Comments sidebend left is painful on the right side, turningher head to the right is painful Hip Goniometric Range of Motion Hip left Hip ROM WFL No Testing Position Supine Flexion w/Knee Flexed 120 Straight Leg Raise 50 Abduction 20 Internal Rotation 15 External Rotation 30 Comments no pain with hip ROM today, limited by tightness PT-OP-M Strength Start: 11/18/21 09:48 Freq: Status: Active Protocol: Document 11/18/21 09:49 [facility] (Rec: 11/20/21 15:10 [facility] [id number]) Hip Strength Hip Manual Muscle Testing Left Flexion (L2) 3 Fair Abduction 3 Fair External Rotation 3 Fair Internal Rotation 3 Fair PT-OP-Q Treatments Start: 11/18/21 09:48 Freq: Status: Active Protocol: Document 11/18/21 09:49 [facility] (Rec: 11/20/21 15:10 [facility] [id number]) Manual Therapy Treatment Soft Tissue Mobilization manual MFR over the SCM on the right side Body Location Right SCM Mobilization Type Myofascial Release Intensity/Depth Superficial Body Position Hooklying PT-OP-T Assessment and Plan Start: 11/18/21 09:48 Freq: Status: Active Protocol: Document 11/18/21 09:49 [facility] (Rec: 11/25/21 17:00 [facility] [id number]) Physical Therapy Assessment Rehab Potential Rehabilitation Potential Good Evaluation Complexity Number of Personal Factors/Comorbidities 0 Number of Body Systems Impaired 1-2 Clinical Presentation at Evaluation Stable Impairments Impairments Activity Tolerance,Functional Activities,Functional Mobility ,Gait,Pain,Posture,ROM,Soft Tissue Mobility,Tone Goals 4 Impairment left sided hip apin rated 5-6/ 10 with tightness and guarding in the piriformis Residential Goal (LTG) Katelyn reports a overall reduction in left sided hip pain and guarding is reduced LTG Duration 12 weeks 3 Impairment muscle guarding and spasm of the right SCM, suboccipitals, left piriformis Short Term Goal (STG) Katelyn is educated on stretches for her neck and she notes improved ability to turn her head while driving Residential Goal (LTG) Katelyn presents with a overall reducation in muscle spasm and guarding LTG Duration 12 weeks 2 Impairment Decreased cervical spine ROM Extractor Operator Helper Goal (LTG) Katelyn is able to perform pain free cervical spine ROM WFL LTG Duration 12 weeks 1 Impairment decreased walking speed with gait Residential Goal (LTG) Katelyn is able to walk 400-600 m on the 6 min walk test and she notes she is able to go further distance on [place] [address] increased walking speed on the [employer] train Impairment pt notes her walking spee Assessment Summary Assessment Katelyn is a 71 year old female who returns to PT with left sided posterior hip pain, low back pain and c/o right sided neck pain. Pt notes she had 5 hours of dental work done and after this started feeling the right sided neck pain. She has been walking daily and has been doing her home stretches for her hip. Her neck pain is rated 4/10 and is in the suboccipitals and SCM on the right. She is limited with cervcial ROM in all directions. Her thoracic spine is hypomobile with kyphosis and lumbar spine is guarded and weak. Decreased core strength. Hip ROM is WNL except for hip ER which is tight. She is sore in the region of the piriformis and I feel that she guards in this area to compenstate for her back. Katelyn is a good candidate for PT Physical Therapy Plan Frequency and Duration Frequency of Treatment 2x/Week Duration of Treatment 12 Plan of Care Start Date 11/25/21 Plan of Care End Date 02/25/22 Therapeutic Interventions Therapeutic Interventions Home Exercise Program,Manual Therapy,Patient/Caregiver Education,Self-Care/Home Management,Soft Tissue Mobilization,Therapeutic Exercises Next Visit Focus/Plan Next Note Type Treatment Note Next Visit Plan begin postural strengthening, stretches for the cervical spine and core stabilization exercises, manual work on the SCM and suboccipitals, left piriformis
--- NOTE | 2021-11-18 17:00 | PT.OPPOC ---
Physical, Occupational & Speech Therapy At [facility] Current Diagnoses Other chronic pain (11/18/21) Lumbago with sciatica, right side (11/18/21) Lumbago with sciatica, left side (11/18/21) Visit Care Team Role Provider Type Jessica Del Rosario PA-C Attending Provider Non-Staff Family Provider Primary Care Provider Referring Provider Specialty: Internal Medicine Address: [address] [place] [address], [id number] Email: [email or web address] Plan Of Care PT-OP-T Assessment and Plan Start: 11/18/21 09:48 Freq: Status: Active Protocol: Document 11/18/21 09:49 [facility] (Rec: 11/25/21 17:00 [facility] [id number]) Physical Therapy Assessment Rehab Potential Rehabilitation Potential Good Evaluation Complexity Number of Personal Factors/Comorbidities 0 Number of Body Systems Impaired 1-2 Clinical Presentation at Evaluation Stable Impairments Impairments Activity Tolerance,Functional Activities,Functional Mobility ,Gait,Pain,Posture,ROM,Soft Tissue Mobility,Tone Goals 4 Impairment left sided hip pain rated 5-6/ 10 with tightness and guarding in the piriformis Fpc Goal (LTG) Katelyn reports a overall reduction in left sided hip pain and guarding is reduced LTG Duration 12 weeks 3 Impairment muscle guarding and spasm of the right SCM, suboccipitals, left piriformis Short Term Goal (STG) Katelyn is educated on stretches for her neck and she notes improved ability to turn her head while driving Fpc Goal (LTG) Katelyn presents with a overall reduction in muscle spasm and guarding LTG Duration 12 weeks 2 Impairment Decreased cervical spine ROM Architectural Administrative Assistant Goal (LTG) Katelyn is able to perform pain free cervical spine ROM WFL LTG Duration 12 weeks 1 Impairment decreased walking speed with gait Architectural Administrative Assistant Goal (LTG) Katelyn is able to walk 400-600 m on the 6 min walk test and she notes she is able to go further distance on [employer] trail increased walking speed on the [place] train Impairment pt notes her walking spee Assessment Summary Assessment Katelyn is a 71 year old female who returns to PT with left sided posterior hip pain, low back pain and c/o right sided neck pain. Pt notes she had 5 hours of dental work done and after this started feeling the right sided neck pain. She has been walking daily and has been doing her home stretches for her hip. Her neck pain is rated 4/10 and is in the suboccipitals and SCM on the right. She is limited with cervcial ROM in all directions. Her thoracic spine is hypomobile with kyphosis and lumbar spine is guarded and weak. Decreased core strength. Hip ROM is WNL except for hip ER which is tight. She is sore in the region of the piriformis and I feel that she guards in this area to compensate for her back. Katelyn is a good candidate for PT Physical Therapy Plan Frequency and Duration Frequency of Treatment 2x/Week Duration of Treatment 12 Plan of Care Start Date 11/25/21 Plan of Care End Date 02/25/22 Therapeutic Interventions Therapeutic Interventions Home Exercise Program,Manual Therapy,Patient/Caregiver Education,Self-Care/Home Management,Soft Tissue Mobilization,Therapeutic Exercises Next Visit Focus/Plan Next Note Type Treatment Note Next Visit Plan begin postural strengthening, stretches for the cervical spine and core stabilization exercises, manual work on the SCM and suboccipitals, left piriformis Plan of Care Dates Plan of Care Start Date 11/25/21 Plan of Care End Date 02/25/22 Electronically Signed by: Essence Hernandez, PT 11/25/21 1700 If you are in agreement with this Plan of Care, please return a signed and dated copy. I have reviewed this Plan of Care and certify that the skilled therapy services above are required to meet the patient?s needs. Physician Signature Date Printed Name and Credentials Clinical Instructor Signature Printed Name and Credentials
--- NOTE | 2021-11-26 13:53 | PT.OTN ---
Current Diagnoses Other chronic pain (11/26/21) Lumbago with sciatica, right side (11/26/21) Lumbago with sciatica, left side (11/26/21) Physical Therapy Treatment Note PT-OP-A Visit Information Start: 11/18/21 09:48 Freq: Status: Active Protocol: Document 11/26/21 12:56 [facility] (Rec: 11/26/21 13:53 [facility] [id number]) Out-Patient Physical Therapy Visit Information Visit Information Visit Type Treatment Note Visit Start Time 12:55 Visit Stop Time 13:35 Total Visit Minutes 40 Visit Number 2 PT-OP-B Current Condition Start: 11/18/21 09:48 Freq: Status: Active Protocol: Document 11/18/21 09:49 [facility] (Rec: 11/18/21 09:56 [facility] [id number]) Current Condition History of Current Condition Onset Date chronic with new onset of right sided neck pain Current Complaints left hip pain, lowback stiffness, right neck History of Current Condition stiffness in her low back and right sided neck tightness. Katelyn reports she underwent dental work tht had her in the dental chair x 5 hours. SInce that time she has had right sided neck and jaw discomfort. She is working on her home stretches for the left hip and back but continues to note discomfort and tightness. Katelyn reports has figured out how to make her exercises part of her routine, she has been trying to stretch first thing and is using the miracle balls . Treatment Goals Patient/Caregiver Goals pts goals include pain reduction to allow her to continue working and walking daily Current Functional Impairments (Reported) Functional Limitations- ADL's pain prevents her from sitting more than 1 hour and standing more than 30 min PT-OP-C Subjective Start: 11/18/21 09:48 Freq: Status: Active Protocol: Document 11/26/21 12:56 [facility] (Rec: 11/26/21 13:53 [facility] [id number]) OP-PT Subjective Patient Comments Patient Comments pt notes last visit really helped and he neck is not as tight PT-OP-J Posture/Palpation/Skin Start: 11/18/21 09:48 Freq: Status: Active Protocol: Document 11/18/21 09:49 [facility] (Rec: 11/20/21 15:10 [facility] [id number]) Posture Evaluation Position Sitting Evaluation View Lateral Head/C-Spine Posture Flexed T-Spine Posture Increased Kyphosis Comments Posture Comments pt is presenting with a increasing kyphotic posture with forward head and shoulders Palpation Assessment Location left piriformis Palpation Location left piriformis Palpation Findings Soft Tissue Tightness,Muscle Guarding,Tenderness R SCM Palpation Location R SCM Palpation Findings Soft Tissue Tightness,Muscle Guarding Palpation Details tightness and guarding from mastoid process to insertion at the clavicle PT-OP-K Range of Motion Start: 11/18/21 09:48 Freq: Status: Active Protocol: Document 11/18/21 09:49 [facility] (Rec: 11/18/21 10:30 [facility] [id number]) Cervical Spine Range of Motion Cervical Spine Active Testing Position Sitting Lateral Flexion Left 5 Lateral Flexion Right 5 ROM Limitations Soft Tissue Tightness,Pain Comments sidebend left is painful on the right side, turningher head to the right is painful Hip Goniometric Range of Motion Hip left Hip ROM WFL No Testing Position Supine Flexion w/Knee Flexed 120 Straight Leg Raise 50 Abduction 20 Internal Rotation 15 External Rotation 30 Comments no pain with hip ROM today, limited by tightness PT-OP-M Strength Start: 11/18/21 09:48 Freq: Status: Active Protocol: Document 11/18/21 09:49 [facility] (Rec: 11/20/21 15:10 [facility] [id number]) Hip Strength Hip Manual Muscle Testing Left Flexion (L2) 3 Fair Abduction 3 Fair External Rotation 3 Fair Internal Rotation 3 Fair PT-OP-Q Treatments Start: 11/18/21 09:48 Freq: Status: Active Protocol: Document 11/26/21 12:56 [facility] (Rec: 11/26/21 13:53 [facility] [id number]) Manual Therapy Treatment Soft Tissue Mobilization piriformis release left side Body Location left piriformis Mobilization Type Myofascial Release Intensity/Depth Superficial Body Position Prone manual MFR over the SCM on the right side Body Location Right SCM Mobilization Type Myofascial Release Intensity/Depth Superficial Body Position Hooklying Manual Techniques sacral decompression Type MET for sacral decompression Reps/Duration x 5 reps Comments MET for sacral decompression and into sacral counternutation thoracic spine mobilizations Body Location thoracic spine Body Position Prone Comments PA glides thoracic spine, good tolerance PT-OP-T Assessment and Plan Start: 11/18/21 09:48 Freq: Status: Active Protocol: Document 11/26/21 12:56 [facility] (Rec: 11/26/21 13:53 [facility] [id number]) Physical Therapy Assessment Assessment Summary Assessment Katelyn presented with decreased tightness today on the right side of her neck, SCM was not as tight and ROM is improving. She needs continued work on her thoracic mobility and she is using miracle balls at home for chest opening. Left piriformis tightness is still present. Will do the 6 minute walk test next visit to look at gait speed Physical Therapy Plan Frequency and Duration Frequency of Treatment 2x/Week Duration of Treatment 12 Plan of Care Start Date 11/25/21 Plan of Care End Date 02/25/22 Therapeutic Interventions Therapeutic Interventions Home Exercise Program,Manual Therapy,Patient/Caregiver Education,Self-Care/Home Management,Soft Tissue Mobilization,Therapeutic Exercises Next Visit Focus/Plan Next Note Type Treatment Note Next Visit Plan time pt on the 6 min walk test next visit, continue with POC
--- NOTE | 2021-12-10 13:58 | PT.OTN ---
Current Diagnoses Other chronic pain (12/10/21) Lumbago with sciatica, right side (12/10/21) Lumbago with sciatica, left side (12/10/21) Physical Therapy Treatment Note PT-OP-A Visit Information Start: 11/18/21 09:48 Freq: Status: Active Protocol: Document 12/10/21 10:31 [facility] (Rec: 12/10/21 10:38 [facility] [id number]) Out-Patient Physical Therapy Visit Information Visit Information Visit Type Treatment Note Visit Start Time 10:35 Visit Stop Time 11:15 Total Visit Minutes 40 Visit Number 3 PT-OP-B Current Condition Start: 11/18/21 09:48 Freq: Status: Active Protocol: Document 11/18/21 09:49 [facility] (Rec: 11/18/21 09:56 [facility] [id number]) Current Condition History of Current Condition Onset Date chronic with new onset of right sided neck pain Current Complaints left hip pain, lowback stiffness, right neck History of Current Condition stiffness in her low back and right sided neck tightness. Katelyn reports she underwent dental work tht had her in the dental chair x 5 hours. SInce that time she has had right sided neck and jaw discomfort. She is working on her home stretches for the left hip and back but continues to note discomfort and tightness. Katelyn reports has figured out how to make her exercises part of her routine, she has been trying to stretch first thing and is using the miracle balls . Treatment Goals Patient/Caregiver Goals pts goals include pain reduction to allow her to continue working and walking daily Current Functional Impairments (Reported) Functional Limitations- ADL's pain prevents her from sitting more than 1 hour and standing more than 30 min PT-OP-C Subjective Start: 11/18/21 09:48 Freq: Status: Active Protocol: Document 12/10/21 10:31 [facility] (Rec: 12/10/21 10:38 [facility] [id number]) OP-PT Subjective Patient Comments Patient Comments pt reports she spent 4.5 hours in the dental chair yesterday and her neck is tight today PT-OP-J Posture/Palpation/Skin Start: 11/18/21 09:48 Freq: Status: Active Protocol: Document 11/18/21 09:49 [facility] (Rec: 11/20/21 15:10 [facility] [id number]) Posture Evaluation Position Sitting Evaluation View Lateral Head/C-Spine Posture Flexed T-Spine Posture Increased Kyphosis Comments Posture Comments pt is presenting with a increasing kyphotic posture with forward head and shoulders Palpation Assessment Location left piriformis Palpation Location left piriformis Palpation Findings Soft Tissue Tightness,Muscle Guarding,Tenderness R SCM Palpation Location R SCM Palpation Findings Soft Tissue Tightness,Muscle Guarding Palpation Details tightness and guarding from mastoid process to insertion at the clavicle PT-OP-K Range of Motion Start: 11/18/21 09:48 Freq: Status: Active Protocol: Document 11/18/21 09:49 [facility] (Rec: 11/18/21 10:30 [facility] [id number]) Cervical Spine Range of Motion Cervical Spine Active Testing Position Sitting Lateral Flexion Left 5 Lateral Flexion Right 5 ROM Limitations Soft Tissue Tightness,Pain Comments sidebend left is painful on the right side, turningher head to the right is painful Hip Goniometric Range of Motion Hip left Hip ROM WFL No Testing Position Supine Flexion w/Knee Flexed 120 Straight Leg Raise 50 Abduction 20 Internal Rotation 15 External Rotation 30 Comments no pain with hip ROM today, limited by tightness PT-OP-M Strength Start: 11/18/21 09:48 Freq: Status: Active Protocol: Document 11/18/21 09:49 [facility] (Rec: 11/20/21 15:10 [facility] [id number]) Hip Strength Hip Manual Muscle Testing Left Flexion (L2) 3 Fair Abduction 3 Fair External Rotation 3 Fair Internal Rotation 3 Fair PT-OP-Q Treatments Start: 11/18/21 09:48 Freq: Status: Active Protocol: Document 12/10/21 10:31 [facility] (Rec: 12/10/21 10:38 [facility] [id number]) Manual Therapy Treatment Soft Tissue Mobilization manual MFR over the SCM on the right side Body Location Right SCM Mobilization Type Myofascial Release Intensity/Depth Superficial Body Position Hooklying Manual Techniques sacral decompression Type MET for sacral decompression Reps/Duration x 5 reps Comments MET for sacral decompression and into sacral counternutation thoracic spine mobilizations Body Location thoracic spine Body Position Prone Comments PA glides thoracic spine, good tolerance PT-OP-T Assessment and Plan Start: 11/18/21 09:48 Freq: Status: Active Protocol: Document 12/10/21 10:30 [facility] (Rec: 12/10/21 13:58 [facility] [id number]) Physical Therapy Assessment Assessment Summary Assessment Katelyn presented with decreased guarding today both in the right cervical spine as well as the left hip. She is walkign 5-6 times per week. Thoracic spine still is presenting with hypomobility, pt is workign on HEP for posture and using miracle balls Physical Therapy Plan Frequency and Duration Frequency of Treatment 2x/Week Duration of Treatment 12 Plan of Care Start Date 11/25/21 Plan of Care End Date 02/25/22 Therapeutic Interventions Therapeutic Interventions Home Exercise Program,Manual Therapy,Patient/Caregiver Education,Self-Care/Home Management,Soft Tissue Mobilization,Therapeutic Exercises Next Visit Focus/Plan Next Note Type Treatment Note Next Visit Plan time pt on the 6 min walk test next visit, continue with POC
--- NOTE | 2021-12-17 13:58 | PT.OTN ---
Current Diagnoses Other chronic pain (12/17/21) Lumbago with sciatica, right side (12/17/21) Lumbago with sciatica, left side (12/17/21) Physical Therapy Treatment Note PT-OP-A Visit Information Start: 11/18/21 09:48 Freq: Status: Active Protocol: Document 12/17/21 12:05 [facility] (Rec: 12/17/21 12:12 [facility] [id number]) Out-Patient Physical Therapy Visit Information Visit Information Visit Type Treatment Note Visit Start Time 12:05 Visit Stop Time 12:45 Total Visit Minutes 40 Visit Number 4 PT-OP-B Current Condition Start: 11/18/21 09:48 Freq: Status: Active Protocol: Document 11/18/21 09:49 [facility] (Rec: 11/18/21 09:56 [facility] [id number]) Current Condition History of Current Condition Onset Date chronic with new onset of right sided neck pain Current Complaints left hip pain, lowback stiffness, right neck History of Current Condition stiffness in her low back and right sided neck tightness. Katelyn reports she underwent dental work tht had her in the dental chair x 5 hours. SInce that time she has had right sided neck and jaw discomfort. She is working on her home stretches for the left hip and back but continues to note discomfort and tightness. Katelyn reports has figured out how to make her exercises part of her routine, she has been trying to stretch first thing and is using the miracle balls . 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 She is using her miracle balls and feels they are really helping her hip PT-OP-J Posture/Palpation/Skin Start: 11/18/21 09:48 Freq: Status: Active Protocol: Document 11/18/21 09:49 [facility] (Rec: 11/20/21 15:10 [facility] [id number]) Posture Evaluation Position Sitting Evaluation View Lateral Head/C-Spine Posture Flexed T-Spine Posture Increased Kyphosis Comments Posture Comments pt is presenting with a increasing kyphotic posture with forward head and shoulders Palpation Assessment Location left piriformis Palpation Location left piriformis Palpation Findings Soft Tissue Tightness,Muscle Guarding,Tenderness R SCM Palpation Location R SCM Palpation Findings Soft Tissue Tightness,Muscle Guarding Palpation Details tightness and guarding from mastoid process to insertion at the clavicle PT-OP-K Range of Motion Start: 11/18/21 09:48 Freq: Status: Active Protocol: Document 11/18/21 09:49 [facility] (Rec: 11/18/21 10:30 [facility] [id number]) Cervical Spine Range of Motion Cervical Spine Active Testing Position Sitting Lateral Flexion Left 5 Lateral Flexion Right 5 ROM Limitations Soft Tissue Tightness,Pain Comments sidebend left is painful on the right side, turningher head to the right is painful Hip Goniometric Range of Motion Hip left Hip ROM WFL No Testing Position Supine Flexion w/Knee Flexed 120 Straight Leg Raise 50 Abduction 20 Internal Rotation 15 External Rotation 30 Comments no pain with hip ROM today, limited by tightness PT-OP-M Strength Start: 11/18/21 09:48 Freq: Status: Active Protocol: Document 11/18/21 09:49 [facility] (Rec: 11/20/21 15:10 [facility] [id number]) Hip Strength Hip Manual Muscle Testing Left Flexion (L2) 3 Fair Abduction 3 Fair External Rotation 3 Fair Internal Rotation 3 Fair PT-OP-Q Treatments Start: 11/18/21 09:48 Freq: Status: Active Protocol: Document 12/17/21 12:05 [facility] (Rec: 12/17/21 13:58 [facility] [id number]) Manual Therapy Treatment Soft Tissue Mobilization piriformis release left side Body Location left piriformis Mobilization Type Myofascial Release Intensity/Depth Superficial Body Position Prone manual MFR over the SCM on the right side Body Location Right SCM Mobilization Type Myofascial Release Intensity/Depth Superficial Body Position Hooklying Nerve Glides median nerve glides Body Position Supine Comments ULTT1 median nerve glides, tight R>L Manual Techniques sacral decompression Type MET for sacral decompression Reps/Duration x 5 reps Comments MET for sacral decompression and into sacral counternutation thoracic spine mobilizations Body Location thoracic spine Body Position Prone Comments PA glides thoracic spine, good tolerance PT-OP-T Assessment and Plan Start: 11/18/21 09:48 Freq: Status: Active Protocol: Document 12/17/21 12:05 [facility] (Rec: 12/17/21 13:58 [facility] [id number]) Physical Therapy Assessment Assessment Summary Assessment worked on the right side of the neck today and introduced nerve glides to help with carpal tunnel symptoms. Pt tolerated this well Physical Therapy Plan Frequency and Duration Frequency of Treatment 2x/Week Duration of Treatment 12 Plan of Care Start Date 11/25/21 Plan of Care End Date 02/25/22 Next Visit Focus/Plan Next Note Type Treatment Note Next Visit Plan continue working on the cervical spine and neck musculature, postural exercises and stretches to decrease median nerve tightness
--- NOTE | 2021-12-25 11:15 | PT.OTN ---
Current Diagnoses Other chronic pain (12/25/21) Lumbago with sciatica, right side (12/25/21) Lumbago with sciatica, left side (12/25/21) Physical Therapy Treatment Note PT-OP-A Visit Information Start: 11/18/21 09:48 Freq: Status: Active Protocol: Document 12/25/21 10:35 [facility] (Rec: 12/25/21 14:43 [facility] [id number]) Out-Patient Physical Therapy Visit Information Visit Information Visit Type Treatment Note Visit Start Time 10:35 Visit Stop Time 11:15 Total Visit Minutes 40 Visit Number 5 PT-OP-B Current Condition Start: 11/18/21 09:48 Freq: Status: Active Protocol: Document 11/18/21 09:49 [facility] (Rec: 11/18/21 09:56 [facility] [id number]) Current Condition History of Current Condition Onset Date chronic with new onset of right sided neck pain Current Complaints left hip pain, lowback stiffness, right neck History of Current Condition stiffness in her low back and right sided neck tightness. Katelyn reports she underwent dental work tht had her in the dental chair x 5 hours. SInce that time she has had right sided neck and jaw discomfort. She is working on her home stretches for the left hip and back but continues to note discomfort and tightness. Katelyn reports has figured out how to make her exercises part of her routine, she has been trying to stretch first thing and is using the miracle balls . Treatment Goals Patient/Caregiver Goals pts goals include pain reduction to allow her to continue working and walking daily Current Functional Impairments (Reported) Functional Limitations- ADL's pain prevents her from sitting more than 1 hour and standing more than 30 min PT-OP-C Subjective Start: 11/18/21 09:48 Freq: Status: Active Protocol: Document 12/25/21 10:35 [facility] (Rec: 12/25/21 14:43 [facility] [id number]) OP-PT Subjective Patient Comments Patient Comments pt notes she has been using DMSO in a rollar bottle on her wrists and it really helped. Her hips are feeling so much better Patient Reported Progress Improving PT-OP-J Posture/Palpation/Skin Start: 11/18/21 09:48 Freq: Status: Active Protocol: Document 11/18/21 09:49 [facility] (Rec: 11/20/21 15:10 [facility] [id number]) Posture Evaluation Position Sitting Evaluation View Lateral Head/C-Spine Posture Flexed T-Spine Posture Increased Kyphosis Comments Posture Comments pt is presenting with a increasing kyphotic posture with forward head and shoulders Palpation Assessment Location left piriformis Palpation Location left piriformis Palpation Findings Soft Tissue Tightness,Muscle Guarding,Tenderness R SCM Palpation Location R SCM Palpation Findings Soft Tissue Tightness,Muscle Guarding Palpation Details tightness and guarding from mastoid process to insertion at the clavicle PT-OP-K Range of Motion Start: 11/18/21 09:48 Freq: Status: Active Protocol: Document 11/18/21 09:49 [facility] (Rec: 11/18/21 10:30 [facility] [id number]) Cervical Spine Range of Motion Cervical Spine Active Testing Position Sitting Lateral Flexion Left 5 Lateral Flexion Right 5 ROM Limitations Soft Tissue Tightness,Pain Comments sidebend left is painful on the right side, turningher head to the right is painful Hip Goniometric Range of Motion Hip left Hip ROM WFL No Testing Position Supine Flexion w/Knee Flexed 120 Straight Leg Raise 50 Abduction 20 Internal Rotation 15 External Rotation 30 Comments no pain with hip ROM today, limited by tightness PT-OP-M Strength Start: 11/18/21 09:48 Freq: Status: Active Protocol: Document 11/18/21 09:49 [facility] (Rec: 11/20/21 15:10 [facility] [id number]) Hip Strength Hip Manual Muscle Testing Left Flexion (L2) 3 Fair Abduction 3 Fair External Rotation 3 Fair Internal Rotation 3 Fair PT-OP-Q Treatments Start: 11/18/21 09:48 Freq: Status: Active Protocol: Document 12/25/21 10:35 [facility] (Rec: 12/25/21 14:43 [facility] [id number]) Therapeutic Exercises Standing Exercises doorway pec stretch Reps/Minutes hold 1-2 min Manual Therapy Treatment Soft Tissue Mobilization pec minor release B Body Location pec minor Mobilization Type Myofascial Release manual MFR over the SCM on the right side Body Location Right SCM Mobilization Type Myofascial Release Intensity/Depth Superficial Body Position Hooklying Nerve Glides median nerve glides Body Position Hooklying Comments ULTT1 median nerve glides, decreased tightness today Manual Techniques manual pec minor stretch Body Location pec minor B Body Position Hooklying thoracic spine mobilizations Body Location thoracic spine Body Position Prone Comments PA glides thoracic spine, good tolerance PT-OP-T Assessment and Plan Start: 11/18/21 09:48 Freq: Status: Active Protocol: Document 12/25/21 10:35 [facility] (Rec: 12/28/21 08:37 [facility] [id number]) Physical Therapy Assessment Assessment Summary Assessment Katelyn is doing better overall and making progress. Her hip is not as sore on the left and she is getting relief from her neck. Decreased c/o radicular symptoms into wrists Physical Therapy Plan Frequency and Duration Frequency of Treatment 2x/Week Duration of treatment (weeks) 12 Plan of Care Start Date 11/25/21 Plan of Care End Date 04/24/22 Therapeutic Interventions Therapeutic Interventions Home Exercise Program,Manual Therapy,Patient/Caregiver Education,Self-Care/Home Management,Soft Tissue Mobilization,Therapeutic Exercises Next Visit Focus/Plan Next Note Type Treatment Note Next Visit Plan continue working on the cervical spine and neck musculature, postural exercises and stretches to decrease median nerve tightness
--- NOTE | 2021-12-31 14:18 | PT.OTN ---
Current Diagnoses Other chronic pain (12/31/21) Lumbago with sciatica, right side (12/31/21) Lumbago with sciatica, left side (12/31/21) Physical Therapy Treatment Note PT-OP-A Visit Information Start: 11/18/21 09:48 Freq: Status: Active Protocol: Document 12/31/21 12:00 [facility] (Rec: 12/31/21 14:18 [facility] [id number]) Out-Patient Physical Therapy Visit Information Visit Information Visit Type Treatment Note Visit Start Time 12:05 Visit Stop Time 12:50 Total Visit Minutes 45 Visit Number 6 PT-OP-B Current Condition Start: 11/18/21 09:48 Freq: Status: Active Protocol: Document 11/18/21 09:49 [facility] (Rec: 11/18/21 09:56 [facility] [id number]) Current Condition History of Current Condition Onset Date chronic with new onset of right sided neck pain Current Complaints left hip pain, lowback stiffness, right neck History of Current Condition stiffness in her low back and right sided neck tightness. Katelyn reports she underwent dental work tht had her in the dental chair x 5 hours. SInce that time she has had right sided neck and jaw discomfort. She is working on her home stretches for the left hip and back but continues to note discomfort and tightness. Katelyn reports has figured out how to make her exercises part of her routine, she has been trying to stretch first thing and is using the miracle balls . Treatment Goals Patient/Caregiver Goals pts goals include pain reduction to allow her to continue working and walking daily Current Functional Impairments (Reported) Functional Limitations- ADL's pain prevents her from sitting more than 1 hour and standing more than 30 min PT-OP-C Subjective Start: 11/18/21 09:48 Freq: Status: Active Protocol: Document 12/31/21 12:00 [facility] (Rec: 12/31/21 14:18 [facility] [id number]) OP-PT Subjective Patient Comments Patient Comments pt notes she is getting better , her wrists feel better with supports and treatments are helping her neck PT-OP-J Posture/Palpation/Skin Start: 11/18/21 09:48 Freq: Status: Active Protocol: Document 11/18/21 09:49 [facility] (Rec: 11/20/21 15:10 [facility] [id number]) Posture Evaluation Position Sitting Evaluation View Lateral Head/C-Spine Posture Flexed T-Spine Posture Increased Kyphosis Comments Posture Comments pt is presenting with a increasing kyphotic posture with forward head and shoulders Palpation Assessment Location left piriformis Palpation Location left piriformis Palpation Findings Soft Tissue Tightness,Muscle Guarding,Tenderness R SCM Palpation Location R SCM Palpation Findings Soft Tissue Tightness,Muscle Guarding Palpation Details tightness and guarding from mastoid process to insertion at the clavicle PT-OP-K Range of Motion Start: 11/18/21 09:48 Freq: Status: Active Protocol: Document 11/18/21 09:49 [facility] (Rec: 11/18/21 10:30 [facility] [id number]) Cervical Spine Range of Motion Cervical Spine Active Testing Position Sitting Lateral Flexion Left 5 Lateral Flexion Right 5 ROM Limitations Soft Tissue Tightness,Pain Comments sidebend left is painful on the right side, turningher head to the right is painful Hip Goniometric Range of Motion Hip left Hip ROM WFL No Testing Position Supine Flexion w/Knee Flexed 120 Straight Leg Raise 50 Abduction 20 Internal Rotation 15 External Rotation 30 Comments no pain with hip ROM today, limited by tightness PT-OP-M Strength Start: 11/18/21 09:48 Freq: Status: Active Protocol: Document 11/18/21 09:49 [facility] (Rec: 11/20/21 15:10 [facility] [id number]) Hip Strength Hip Manual Muscle Testing Left Flexion (L2) 3 Fair Abduction 3 Fair External Rotation 3 Fair Internal Rotation 3 Fair PT-OP-Q Treatments Start: 11/18/21 09:48 Freq: Status: Active Protocol: Document 12/31/21 12:00 [facility] (Rec: 12/31/21 14:18 [facility] [id number]) Manual Therapy Treatment Soft Tissue Mobilization pec minor release B Body Location pec minor Mobilization Type Myofascial Release manual MFR over the SCM on the right side Body Location Right SCM Mobilization Type Myofascial Release Intensity/Depth Superficial Body Position Hooklying Nerve Glides ulnar nerve glides Comments ULTT 2 ulnar nerve glides median nerve glides Body Position Hooklying Comments ULTT1 median nerve glides, decreased tightness today Manual Techniques manual pec minor stretch Body Location pec minor B Body Position Hooklying PT-OP-T Assessment and Plan Start: 11/18/21 09:48 Freq: Status: Active Protocol: Document 12/31/21 12:00 [facility] (Rec: 12/31/21 14:18 [facility] [id number]) Physical Therapy Assessment Assessment Summary Assessment improved mobility in the pectoralis today, pt working on door way stretch for home Physical Therapy Plan Frequency and Duration Frequency of Treatment 2x/Week Duration of treatment (weeks) 12 Plan of Care Start Date 11/25/21 Plan of Care End Date 04/30/22 Therapeutic Interventions Therapeutic Interventions Home Exercise Program,Manual Therapy,Patient/Caregiver Education,Self-Care/Home Management,Soft Tissue Mobilization,Therapeutic Exercises
--- NOTE | 2022-01-06 13:57 | PT.OTN ---
Current Diagnoses Other chronic pain (01/06/22) Lumbago with sciatica, right side (01/06/22) Lumbago with sciatica, left side (01/06/22) Physical Therapy Treatment Note PT-OP-A Visit Information Start: 11/18/21 09:48 Freq: Status: Active Protocol: Document 01/06/22 13:00 [facility] (Rec: 01/06/22 13:57 [facility] [id number]) Out-Patient Physical Therapy Visit Information Visit Information Visit Type Treatment Note Visit Start Time 13:00 Visit Stop Time 13:45 Total Visit Minutes 45 Visit Number 7 PT-OP-B Current Condition Start: 11/18/21 09:48 Freq: Status: Active Protocol: Document 11/18/21 09:49 [facility] (Rec: 11/18/21 09:56 [facility] [id number]) Current Condition History of Current Condition Onset Date chronic with new onset of right sided neck pain Current Complaints left hip pain, lowback stiffness, right neck History of Current Condition stiffness in her low back and right sided neck tightness. Katelyn reports she underwent dental work tht had her in the dental chair x 5 hours. SInce that time she has had right sided neck and jaw discomfort. She is working on her home stretches for the left hip and back but continues to note discomfort and tightness. Katelyn reports has figured out how to make her exercises part of her routine, she has been trying to stretch first thing and is using the miracle balls . Treatment Goals Patient/Caregiver Goals pts goals include pain reduction to allow her to continue working and walking daily Current Functional Impairments (Reported) Functional Limitations- ADL's pain prevents her from sitting more than 1 hour and standing more than 30 min PT-OP-C Subjective Start: 11/18/21 09:48 Freq: Status: Active Protocol: Document 01/06/22 13:00 [facility] (Rec: 01/06/22 13:57 [facility] [id number]) OP-PT Subjective Patient Comments Patient Comments Katelyn reports she continues to note progress PT-OP-J Posture/Palpation/Skin Start: 11/18/21 09:48 Freq: Status: Active Protocol: Document 11/18/21 09:49 [facility] (Rec: 11/20/21 15:10 [facility] [id number]) Posture Evaluation Position Sitting Evaluation View Lateral Head/C-Spine Posture Flexed T-Spine Posture Increased Kyphosis Comments Posture Comments pt is presenting with a increasing kyphotic posture with forward head and shoulders Palpation Assessment Location left piriformis Palpation Location left piriformis Palpation Findings Soft Tissue Tightness,Muscle Guarding,Tenderness R SCM Palpation Location R SCM Palpation Findings Soft Tissue Tightness,Muscle Guarding Palpation Details tightness and guarding from mastoid process to insertion at the clavicle PT-OP-K Range of Motion Start: 11/18/21 09:48 Freq: Status: Active Protocol: Document 11/18/21 09:49 [facility] (Rec: 11/18/21 10:30 [facility] [id number]) Cervical Spine Range of Motion Cervical Spine Active Testing Position Sitting Lateral Flexion Left 5 Lateral Flexion Right 5 ROM Limitations Soft Tissue Tightness,Pain Comments sidebend left is painful on the right side, turningher head to the right is painful Hip Goniometric Range of Motion Hip left Hip ROM WFL No Testing Position Supine Flexion w/Knee Flexed 120 Straight Leg Raise 50 Abduction 20 Internal Rotation 15 External Rotation 30 Comments no pain with hip ROM today, limited by tightness PT-OP-M Strength Start: 11/18/21 09:48 Freq: Status: Active Protocol: Document 11/18/21 09:49 [facility] (Rec: 11/20/21 15:10 [facility] [id number]) Hip Strength Hip Manual Muscle Testing Left Flexion (L2) 3 Fair Abduction 3 Fair External Rotation 3 Fair Internal Rotation 3 Fair PT-OP-Q Treatments Start: 11/18/21 09:48 Freq: Status: Active Protocol: Document 01/06/22 13:00 [facility] (Rec: 01/06/22 13:57 [facility] [id number]) Manual Therapy Treatment Soft Tissue Mobilization pec minor release B Body Location pec minor Mobilization Type Myofascial Release piriformis release left side Body Location left piriformis Mobilization Type Myofascial Release Intensity/Depth Superficial Body Position Prone manual MFR over the SCM on the right side Body Location Right SCM Mobilization Type Myofascial Release Intensity/Depth Superficial Body Position Hooklying Nerve Glides ulnar nerve glides Comments ULTT 2 ulnar nerve glides median nerve glides Body Position Hooklying Comments ULTT1 median nerve glides, decreased tightness today Manual Techniques sacral decompression Type MET for sacral decompression Reps/Duration x 5 reps Comments MET for sacral decompression and into sacral counternutation thoracic spine mobilizations Body Location thoracic spine Body Position Prone Comments PA glides thoracic spine, good tolerance PT-OP-T Assessment and Plan Start: 11/18/21 09:48 Freq: Status: Active Protocol: Document 01/06/22 13:00 [facility] (Rec: 01/06/22 13:57 [facility] [id number]) Physical Therapy Assessment Assessment Summary Assessment pt experiencing decreased c/o radicular symptoms, hip pain continues to decrease. Emphasis on posture and opening up the thoracic spine for HEP Physical Therapy Plan Frequency and Duration Frequency of Treatment 2x/Week Duration of treatment (weeks) 12 Plan of Care Start Date 11/25/21 Plan of Care End Date 04/30/22 Therapeutic Interventions Therapeutic Interventions Home Exercise Program,Manual Therapy,Patient/Caregiver Education,Self-Care/Home Management,Soft Tissue Mobilization,Therapeutic Exercises Next Visit Focus/Plan Next Note Type Treatment Note Next Visit Plan continue working on the cervical spine and neck musculature, postural exercises and stretches to decrease median nerve tightness
--- NOTE | 2022-01-15 16:10 | PT.OTN ---
Current Diagnoses Other chronic pain (01/15/22) Lumbago with sciatica, right side (01/15/22) Lumbago with sciatica, left side (01/15/22) Physical Therapy Treatment Note PT-OP-A Visit Information Start: 11/18/21 09:48 Freq: Status: Active Protocol: Document 01/15/22 15:18 [facility] (Rec: 01/15/22 16:04 [facility] [id number]) Out-Patient Physical Therapy Visit Information Visit Information Visit Type Treatment Note Visit Start Time 15:15 Visit Stop Time 16:00 Total Visit Minutes 45 Visit Number 8 PT-OP-B Current Condition Start: 11/18/21 09:48 Freq: Status: Active Protocol: Document 11/18/21 09:49 [facility] (Rec: 11/18/21 09:56 [facility] [id number]) Current Condition History of Current Condition Onset Date chronic with new onset of right sided neck pain Current Complaints left hip pain, lowback stiffness, right neck History of Current Condition stiffness in her low back and right sided neck tightness. Katelyn reports she underwent dental work tht had her in the dental chair x 5 hours. SInce that time she has had right sided neck and jaw discomfort. She is working on her home stretches for the left hip and back but continues to note discomfort and tightness. Katelyn reports has figured out how to make her exercises part of her routine, she has been trying to stretch first thing and is using the miracle balls . Treatment Goals Patient/Caregiver Goals pts goals include pain reduction to allow her to continue working and walking daily Current Functional Impairments (Reported) Functional Limitations- ADL's pain prevents her from sitting more than 1 hour and standing more than 30 min PT-OP-C Subjective Start: 11/18/21 09:48 Freq: Status: Active Protocol: Document 01/15/22 15:18 [facility] (Rec: 01/15/22 16:04 [facility] [id number]) OP-PT Subjective Patient Comments Patient Comments Katelyn reports she had her final dental appt yesterday and she had 8 fillings, her neck feels tense today. She is doing better overall with her wrists Patient Reported Progress Improving PT-OP-J Posture/Palpation/Skin Start: 11/18/21 09:48 Freq: Status: Active Protocol: Document 11/18/21 09:49 [facility] (Rec: 11/20/21 15:10 [facility] [id number]) Posture Evaluation Position Sitting Evaluation View Lateral Head/C-Spine Posture Flexed T-Spine Posture Increased Kyphosis Comments Posture Comments pt is presenting with a increasing kyphotic posture with forward head and shoulders Palpation Assessment Location left piriformis Palpation Location left piriformis Palpation Findings Soft Tissue Tightness,Muscle Guarding,Tenderness R SCM Palpation Location R SCM Palpation Findings Soft Tissue Tightness,Muscle Guarding Palpation Details tightness and guarding from mastoid process to insertion at the clavicle PT-OP-K Range of Motion Start: 11/18/21 09:48 Freq: Status: Active Protocol: Document 11/18/21 09:49 [facility] (Rec: 11/18/21 10:30 [facility] [id number]) Cervical Spine Range of Motion Cervical Spine Active Testing Position Sitting Lateral Flexion Left 5 Lateral Flexion Right 5 ROM Limitations Soft Tissue Tightness,Pain Comments sidebend left is painful on the right side, turningher head to the right is painful Hip Goniometric Range of Motion Hip left Hip ROM WFL No Testing Position Supine Flexion w/Knee Flexed 120 Straight Leg Raise 50 Abduction 20 Internal Rotation 15 External Rotation 30 Comments no pain with hip ROM today, limited by tightness PT-OP-M Strength Start: 11/18/21 09:48 Freq: Status: Active Protocol: Document 11/18/21 09:49 [facility] (Rec: 11/20/21 15:10 [facility] [id number]) Hip Strength Hip Manual Muscle Testing Left Flexion (L2) 3 Fair Abduction 3 Fair External Rotation 3 Fair Internal Rotation 3 Fair PT-OP-Q Treatments Start: 11/18/21 09:48 Freq: Status: Active Protocol: Document 01/15/22 15:15 [facility] (Rec: 01/15/22 16:10 [facility] [id number]) Manual Therapy Treatment Soft Tissue Mobilization pec minor release B Body Location pec minor Mobilization Type Myofascial Release piriformis release left side Body Location left piriformis Mobilization Type Myofascial Release Intensity/Depth Superficial Body Position Prone manual MFR over the SCM on the right side Body Location Right SCM Mobilization Type Myofascial Release Intensity/Depth Superficial Body Position Hooklying Nerve Glides ulnar nerve glides Comments ULTT 2 ulnar nerve glides median nerve glides Body Position Hooklying Comments ULTT1 median nerve glides, decreased tightness today PT-OP-T Assessment and Plan Start: 11/18/21 09:48 Freq: Status: Active Protocol: Document 01/15/22 15:15 [facility] (Rec: 01/15/22 16:10 [facility] [id number]) Physical Therapy Assessment Assessment Summary Assessment pt is no longer experiencing the extent of her wrist issues and she has been able to continue with typing activities Physical Therapy Plan Frequency and Duration Frequency of Treatment 2x/Week Duration of treatment (weeks) 12 Plan of Care Start Date 11/25/21 Plan of Care End Date 04/30/22 Therapeutic Interventions Therapeutic Interventions Home Exercise Program,Manual Therapy,Patient/Caregiver Education,Self-Care/Home Management,Soft Tissue Mobilization,Therapeutic Exercises Next Visit Focus/Plan Next Note Type Treatment Note Next Visit Plan continue working on the cervical spine and neck musculature, postural exercises and stretches to decrease median nerve tightness
--- NOTE | 2022-01-29 16:15 | PT.OTN ---
Current Diagnoses Other chronic pain (01/29/22) Lumbago with sciatica, right side (01/29/22) Lumbago with sciatica, left side (01/29/22) Physical Therapy Treatment Note PT-OP-A Visit Information Start: 11/18/21 09:48 Freq: Status: Active Protocol: Document 01/29/22 15:22 [facility] (Rec: 01/29/22 16:00 [facility] [id number]) Out-Patient Physical Therapy Visit Information Visit Information Visit Type Treatment Note Visit Start Time 15:20 Visit Stop Time 16:00 Total Visit Minutes 40 Visit Number 9 PT-OP-B Current Condition Start: 11/18/21 09:48 Freq: Status: Active Protocol: Document 11/18/21 09:49 [facility] (Rec: 11/18/21 09:56 [facility] [id number]) Current Condition History of Current Condition Onset Date chronic with new onset of right sided neck pain Current Complaints left hip pain, lowback stiffness, right neck History of Current Condition stiffness in her low back and right sided neck tightness. Katelyn reports she underwent dental work tht had her in the dental chair x 5 hours. SInce that time she has had right sided neck and jaw discomfort. She is working on her home stretches for the left hip and back but continues to note discomfort and tightness. Katelyn reports has figured out how to make her exercises part of her routine, she has been trying to stretch first thing and is using the miracle balls . Treatment Goals Patient/Caregiver Goals pts goals include pain reduction to allow her to continue working and walking daily Current Functional Impairments (Reported) Functional Limitations- ADL's pain prevents her from sitting more than 1 hour and standing more than 30 min PT-OP-C Subjective Start: 11/18/21 09:48 Freq: Status: Active Protocol: Document 01/29/22 15:22 [facility] (Rec: 01/29/22 16:00 [facility] [id number]) OP-PT Subjective Patient Comments Patient Comments pt notes her wrists have been a little more achey, the hip is crankly but its not screaming like it used to be PT-OP-J Posture/Palpation/Skin Start: 11/18/21 09:48 Freq: Status: Active Protocol: Document 11/18/21 09:49 [facility] (Rec: 11/20/21 15:10 [facility] [id number]) Posture Evaluation Position Sitting Evaluation View Lateral Head/C-Spine Posture Flexed T-Spine Posture Increased Kyphosis Comments Posture Comments pt is presenting with a increasing kyphotic posture with forward head and shoulders Palpation Assessment Location left piriformis Palpation Location left piriformis Palpation Findings Soft Tissue Tightness,Muscle Guarding,Tenderness R SCM Palpation Location R SCM Palpation Findings Soft Tissue Tightness,Muscle Guarding Palpation Details tightness and guarding from mastoid process to insertion at the clavicle PT-OP-K Range of Motion Start: 11/18/21 09:48 Freq: Status: Active Protocol: Document 11/18/21 09:49 [facility] (Rec: 11/18/21 10:30 [facility] [id number]) Cervical Spine Range of Motion Cervical Spine Active Testing Position Sitting Lateral Flexion Left 5 Lateral Flexion Right 5 ROM Limitations Soft Tissue Tightness,Pain Comments sidebend left is painful on the right side, turningher head to the right is painful Hip Goniometric Range of Motion Hip left Hip ROM WFL No Testing Position Supine Flexion w/Knee Flexed 120 Straight Leg Raise 50 Abduction 20 Internal Rotation 15 External Rotation 30 Comments no pain with hip ROM today, limited by tightness PT-OP-M Strength Start: 11/18/21 09:48 Freq: Status: Active Protocol: Document 11/18/21 09:49 [facility] (Rec: 11/20/21 15:10 [facility] [id number]) Hip Strength Hip Manual Muscle Testing Left Flexion (L2) 3 Fair Abduction 3 Fair External Rotation 3 Fair Internal Rotation 3 Fair PT-OP-Q Treatments Start: 11/18/21 09:48 Freq: Status: Active Protocol: Document 01/29/22 15:20 [facility] (Rec: 01/29/22 16:11 [facility] [id number]) Manual Therapy Treatment Soft Tissue Mobilization suboccipital release Intensity/Depth supine pec minor release B Body Location pec minor Mobilization Type Myofascial Release manual MFR over the SCM on the right side Body Location B SCM Mobilization Type Myofascial Release Intensity/Depth Superficial Body Position Hooklying Nerve Glides ulnar nerve glides Comments ULTT 2 ulnar nerve glides median nerve glides Body Position Hooklying Comments ULTT1 median nerve glides, decreased tightness today Manual Techniques scalene stretch bilaterally Reps/Duration 2 reps holding 1-2 min each side PT-OP-T Assessment and Plan Start: 11/18/21 09:48 Freq: Status: Active Protocol: Document 01/29/22 15:20 [facility] (Rec: 01/29/22 16:11 [facility] [id number]) Physical Therapy Assessment Assessment Summary Assessment pt given reminders to continue with her foam roll stretches to open up her chest at home and wearing wrist splints for neutral wrists Physical Therapy Plan Frequency and Duration Frequency of Treatment 2x/Week Duration of treatment (weeks) 12 Plan of Care Start Date 11/25/21 Plan of Care End Date 04/30/22 Therapeutic Interventions Therapeutic Interventions Home Exercise Program,Manual Therapy,Patient/Caregiver Education,Self-Care/Home Management,Soft Tissue Mobilization,Therapeutic Exercises Next Visit Focus/Plan Next Note Type Treatment Note Next Visit Plan continue working on the cervical spine and neck musculature, postural exercises and stretches to decrease median nerve tightness
--- NOTE | 2022-02-17 17:36 | PT.OTN ---
Current Diagnoses Other chronic pain (02/17/22) Lumbago with sciatica, right side (02/17/22) Lumbago with sciatica, left side (02/17/22) Physical Therapy Treatment Note PT-OP-A Visit Information Start: 11/18/21 09:48 Freq: Status: Active Protocol: Document 02/17/22 11:15 [facility] (Rec: 02/17/22 11:25 [facility] [id number]) Out-Patient Physical Therapy Visit Information Visit Information Visit Type Progress Note Visit Start Time 11:15 Visit Stop Time 12:00 Total Visit Minutes 45 Visit Number 10 PT-OP-B Current Condition Start: 11/18/21 09:48 Freq: Status: Active Protocol: Document 11/18/21 09:49 [facility] (Rec: 11/18/21 09:56 [facility] [id number]) Current Condition History of Current Condition Onset Date chronic with new onset of right sided neck pain Current Complaints left hip pain, lowback stiffness, right neck History of Current Condition stiffness in her low back and right sided neck tightness. Katelyn reports she underwent dental work tht had her in the dental chair x 5 hours. SInce that time she has had right sided neck and jaw discomfort. She is working on her home stretches for the left hip and back but continues to note discomfort and tightness. Katelyn reports has figured out how to make her exercises part of her routine, she has been trying to stretch first thing and is using the miracle balls . Treatment Goals Patient/Caregiver Goals pts goals include pain reduction to allow her to continue working and walking daily Current Functional Impairments (Reported) Functional Limitations- ADL's pain prevents her from sitting more than 1 hour and standing more than 30 min PT-OP-C Subjective Start: 11/18/21 09:48 Freq: Status: Active Protocol: Document 02/17/22 11:15 [facility] (Rec: 02/17/22 11:25 [facility] [id number]) OP-PT Subjective Patient Comments Patient Comments pt notes her wrists seem to be better this week. SHe is trying to work on opening up her palms towards the ceiling when laying down PT-OP-J Posture/Palpation/Skin Start: 11/18/21 09:48 Freq: Status: Active Protocol: Document 11/18/21 09:49 [facility] (Rec: 11/20/21 15:10 [facility] [id number]) Posture Evaluation Position Sitting Evaluation View Lateral Head/C-Spine Posture Flexed T-Spine Posture Increased Kyphosis Comments Posture Comments pt is presenting with a increasing kyphotic posture with forward head and shoulders Palpation Assessment Location left piriformis Palpation Location left piriformis Palpation Findings Soft Tissue Tightness,Muscle Guarding,Tenderness R SCM Palpation Location R SCM Palpation Findings Soft Tissue Tightness,Muscle Guarding Palpation Details tightness and guarding from mastoid process to insertion at the clavicle PT-OP-K Range of Motion Start: 11/18/21 09:48 Freq: Status: Active Protocol: Document 11/18/21 09:49 [facility] (Rec: 11/18/21 10:30 [facility] [id number]) Cervical Spine Range of Motion Cervical Spine Active Testing Position Sitting Lateral Flexion Left 5 Lateral Flexion Right 5 ROM Limitations Soft Tissue Tightness,Pain Comments sidebend left is painful on the right side, turningher head to the right is painful Hip Goniometric Range of Motion Hip left Hip ROM WFL No Testing Position Supine Flexion w/Knee Flexed 120 Straight Leg Raise 50 Abduction 20 Internal Rotation 15 External Rotation 30 Comments no pain with hip ROM today, limited by tightness PT-OP-M Strength Start: 11/18/21 09:48 Freq: Status: Active Protocol: Document 11/18/21 09:49 [facility] (Rec: 11/20/21 15:10 [facility] [id number]) Hip Strength Hip Manual Muscle Testing Left Flexion (L2) 3 Fair Abduction 3 Fair External Rotation 3 Fair Internal Rotation 3 Fair PT-OP-Q Treatments Start: 11/18/21 09:48 Freq: Status: Active Protocol: Document 02/17/22 11:15 [facility] (Rec: 02/17/22 17:28 [facility] [id number]) Manual Therapy Treatment Soft Tissue Mobilization suboccipital release Intensity/Depth supine pec minor release B Body Location pec minor Mobilization Type Myofascial Release manual MFR over the SCM on the right side Body Location B SCM Mobilization Type Myofascial Release Intensity/Depth Superficial Body Position Hooklying Manual Techniques scalene stretch bilaterally Reps/Duration 2 reps holding 1-2 min each side PT-OP-T Assessment and Plan Start: 11/18/21 09:48 Freq: Status: Active Protocol: Document 02/17/22 11:15 [facility] (Rec: 02/17/22 11:25 [facility] [id number]) Physical Therapy Assessment Goals 4 Impairment left sided hip apin rated 5-6/ 10 with tightness and guarding in the piriformis Fdc Goal (LTG) Katelyn reports a overall reduction in left sided hip pain and guarding is reduced GOAL MET LTG Duration 12 weeks 3 Impairment muscle guarding and spasm of the right SCM, suboccipitals, left piriformis Short Term Goal (STG) Katelyn is educated on stretches for her neck and she notes improved ability to turn her head while driving GOAL MET Fdc Goal (LTG) Kaetlyn presents with a overall reducation in muscle spasm and guarding GOOD PROGRESS LTG Duration 12 weeks 2 Impairment Decreased cervical spine ROM Fdc Goal (LTG) Katelyn is able to perform pain free cervical spine ROM WFL GOOD PROGRESS, Katelyn remains limited in her cervical sidebending, rotation is improved bilaterally LTG Duration 12 weeks 1 Impairment decreased walking speed with gait Fdc Goal (LTG) Good progress, Katelyn is able to walk 400-600 m on the 6 min walk test and she notes she is able to go further distance on [place] trail Progress Towards Goals Progress Towards Goals Progressing Toward Goals Assessment Summary Assessment Katelyn is doing better overall with her posture and is able to continue with her typing without the pain she was experiencing. She notes her walking speed with gait continues to improve and she is trying to walk daily now. She is still noting neck tightness but this is slowly improving. We will continue to work on scalene stretches and postural modifications Physical Therapy Plan Frequency and Duration Frequency of Treatment 2x/Week Duration of treatment (weeks) 12 Plan of Care Start Date 02/17/22 Plan of Care End Date 05/19/22 Therapeutic Interventions Therapeutic Interventions Home Exercise Program,Manual Therapy,Patient/Caregiver Education,Self-Care/Home Management,Soft Tissue Mobilization,Therapeutic Exercises Next Visit Focus/Plan Next Note Type Treatment Note Next Visit Plan continue working on postural modifications, pec minor release, scalene stretching, manual therapy techniques
--- NOTE | 2022-02-17 17:37 | PT.OPPOC ---
Physical, Occupational & Speech Therapy At [facility] Current Diagnoses Other chronic pain (02/17/22) Lumbago with sciatica, right side (02/17/22) Lumbago with sciatica, left side (02/17/22) Visit Care Team Role Provider Type Jessica Del Rosario PA-C Attending Provider Physician Entry Level Installation Technician Family Provider Primary Care Provider Referring Provider Specialty: Medical Address: [address] [place] [address], [id number] Email: [email or web address] Plan Of Care PT-OP-T Assessment and Plan Start: 11/18/21 09:48 Freq: Status: Active Protocol: Document 02/17/22 11:15 [facility] (Rec: 02/17/22 11:25 [facility] [id number]) Physical Therapy Assessment Goals 4 Impairment left sided hip pain rated 5-6/ 10 with tightness and guarding in the piriformis Top Icer Goal (LTG) Katelyn reports a overall reduction in left sided hip pain and guarding is reduced GOAL MET LTG Duration 12 weeks 3 Impairment muscle guarding and spasm of the right SCM, suboccipitals, left piriformis Short Term Goal (STG) Katelyn is educated on stretches for her neck and she notes improved ability to turn her head while driving GOAL MET Top Icer Goal (LTG) Katelyn presents with a overall re-education in muscle spasm and guarding GOOD PROGRESS LTG Duration 12 weeks 2 Impairment Decreased cervical spine ROM Alf Goal (LTG) Katelyn is able to perform pain free cervical spine ROM WFL GOOD PROGRESS, Katelyn remains limited in her cervical sidebending, rotation is improved bilaterally LTG Duration 12 weeks 1 Impairment decreased walking speed with gait Alf Goal (LTG) Good progress, Katelyn is able to walk 400-600 m on the 6 min walk test and she notes she is able to go further distance on [employer] trail Progress Towards Goals Progress Towards Goals Progressing Toward Goals Assessment Summary Assessment Katelyn is doing better overall with her posture and is able to continue with her typing without the pain she was experiencing. She notes her walking speed with gait continues to improve and she is trying to walk daily now. She is still noting neck tightness but this is slowly improving. We will continue to work on scalene stretches and postural modifications Physical Therapy Plan Frequency and Duration Frequency of Treatment 2x/Week Duration of treatment (weeks) 12 Plan of Care Start Date 02/17/22 Plan of Care End Date 05/19/22 Therapeutic Interventions Therapeutic Interventions Home Exercise Program,Manual Therapy,Patient/Caregiver Education,Self-Care/Home Management,Soft Tissue Mobilization,Therapeutic Exercises Next Visit Focus/Plan Next Note Type Treatment Note Next Visit Plan continue working on postural modifications, pec minor release, scalene stretching, manual therapy techniques Plan of Care Dates Plan of Care Start Date 02/17/22 Plan of Care End Date 05/19/22 Electronically Signed by: Essence Hernandez, PT 02/17/22 [id number] If you are in agreement with this Plan of Care, please return a signed and dated copy. I have reviewed this Plan of Care and certify that the skilled therapy services above are required to meet the patient?s needs. Physician Signature Date Printed Name and Credentials Clinical Instructor Signature Printed Name and Credentials
--- NOTE | 2022-03-04 13:49 | PT.OTN ---
Current Diagnoses Other chronic pain (03/04/22) Lumbago with sciatica, right side (03/04/22) Lumbago with sciatica, left side (03/04/22) Physical Therapy Treatment Note PT-OP-A Visit Information Start: 11/18/21 09:48 Freq: Status: Active Protocol: Document 03/04/22 12:51 [facility] (Rec: 03/04/22 13:48 [facility] [id number]) Out-Patient Physical Therapy Visit Information Visit Information Visit Type Treatment Note Visit Start Time 12:50 Visit Stop Time 13:35 Total Visit Minutes 45 Visit Number 11 PT-OP-B Current Condition Start: 11/18/21 09:48 Freq: Status: Active Protocol: Document 11/18/21 09:49 [facility] (Rec: 11/18/21 09:56 [facility] [id number]) Current Condition History of Current Condition Onset Date chronic with new onset of right sided neck pain Current Complaints left hip pain, lowback stiffness, right neck History of Current Condition stiffness in her low back and right sided neck tightness. Katelyn reports she underwent dental work tht had her in the dental chair x 5 hours. SInce that time she has had right sided neck and jaw discomfort. She is working on her home stretches for the left hip and back but continues to note discomfort and tightness. Katelyn reports has figured out how to make her exercises part of her routine, she has been trying to stretch first thing and is using the miracle balls . Treatment Goals Patient/Caregiver Goals pts goals include pain reduction to allow her to continue working and walking daily Current Functional Impairments (Reported) Functional Limitations- ADL's pain prevents her from sitting more than 1 hour and standing more than 30 min PT-OP-C Subjective Start: 11/18/21 09:48 Freq: Status: Active Protocol: Document 03/04/22 12:51 [facility] (Rec: 03/04/22 13:48 [facility] [id number]) OP-PT Subjective Patient Comments Patient Comments pt notes she has more pain today in her neck and hip, she notes she has been trying to work on her postural exercises PT-OP-J Posture/Palpation/Skin Start: 11/18/21 09:48 Freq: Status: Active Protocol: Document 11/18/21 09:49 [facility] (Rec: 11/20/21 15:10 [facility] [id number]) Posture Evaluation Position Sitting Evaluation View Lateral Head/C-Spine Posture Flexed T-Spine Posture Increased Kyphosis Comments Posture Comments pt is presenting with a increasing kyphotic posture with forward head and shoulders Palpation Assessment Location left piriformis Palpation Location left piriformis Palpation Findings Soft Tissue Tightness,Muscle Guarding,Tenderness R SCM Palpation Location R SCM Palpation Findings Soft Tissue Tightness,Muscle Guarding Palpation Details tightness and guarding from mastoid process to insertion at the clavicle PT-OP-K Range of Motion Start: 11/18/21 09:48 Freq: Status: Active Protocol: Document 11/18/21 09:49 [facility] (Rec: 11/18/21 10:30 [facility] [id number]) Cervical Spine Range of Motion Cervical Spine Active Testing Position Sitting Lateral Flexion Left 5 Lateral Flexion Right 5 ROM Limitations Soft Tissue Tightness,Pain Comments sidebend left is painful on the right side, turningher head to the right is painful Hip Goniometric Range of Motion Hip left Hip ROM WFL No Testing Position Supine Flexion w/Knee Flexed 120 Straight Leg Raise 50 Abduction 20 Internal Rotation 15 External Rotation 30 Comments no pain with hip ROM today, limited by tightness PT-OP-M Strength Start: 11/18/21 09:48 Freq: Status: Active Protocol: Document 11/18/21 09:49 [facility] (Rec: 11/20/21 15:10 [facility] [id number]) Hip Strength Hip Manual Muscle Testing Left Flexion (L2) 3 Fair Abduction 3 Fair External Rotation 3 Fair Internal Rotation 3 Fair PT-OP-Q Treatments Start: 11/18/21 09:48 Freq: Status: Active Protocol: Document 03/04/22 12:51 [facility] (Rec: 03/04/22 13:48 [facility] [id number]) Manual Therapy Treatment Soft Tissue Mobilization suboccipital release Intensity/Depth supine pec minor release B Body Location pec minor Mobilization Type Myofascial Release piriformis release left side Body Location left piriformis Mobilization Type Myofascial Release Intensity/Depth Superficial Body Position Prone manual MFR over the SCM on the right side Body Location B SCM Mobilization Type Myofascial Release Intensity/Depth Superficial Body Position Hooklying PT-OP-T Assessment and Plan Start: 11/18/21 09:48 Freq: Status: Active Protocol: Document 03/04/22 12:51 [facility] (Rec: 03/04/22 13:48 [facility] [id number]) Physical Therapy Assessment Assessment Summary Assessment Katelyn was complaining of both neck as well as hip pain today . She had company x 5 days and felt she was holding tension when her company was here. She also has been typing a lot more. She felt relief following manual work today and her HEP for stretching her anterior chest, neck, and hip with HEP. Pt continues to walk daily Physical Therapy Plan Frequency and Duration Frequency of Treatment 2x/Week Duration of treatment (weeks) 12 Plan of Care Start Date 02/17/22 Plan of Care End Date 05/19/22
--- NOTE | 2022-03-18 13:44 | PT.OTN ---
Current Diagnoses Other chronic pain (03/18/22) Lumbago with sciatica, right side (03/18/22) Lumbago with sciatica, left side (03/18/22) Physical Therapy Treatment Note PT-OP-A Visit Information Start: 11/18/21 09:48 Freq: Status: Active Protocol: Document 03/18/22 12:50 [facility] (Rec: 03/18/22 13:44 [facility] [id number]) Out-Patient Physical Therapy Visit Information Visit Information Visit Type Treatment Note Visit Start Time 12:50 Visit Stop Time 13:35 Total Visit Minutes 45 Visit Number 12 PT-OP-B Current Condition Start: 11/18/21 09:48 Freq: Status: Active Protocol: Document 11/18/21 09:49 [facility] (Rec: 11/18/21 09:56 [facility] [id number]) Current Condition History of Current Condition Onset Date chronic with new onset of right sided neck pain Current Complaints left hip pain, lowback stiffness, right neck History of Current Condition stiffness in her low back and right sided neck tightness. Katelyn reports she underwent dental work tht had her in the dental chair x 5 hours. SInce that time she has had right sided neck and jaw discomfort. She is working on her home stretches for the left hip and back but continues to note discomfort and tightness. Katelyn reports has figured out how to make her exercises part of her routine, she has been trying to stretch first thing and is using the miracle balls . Treatment Goals Patient/Caregiver Goals pts goals include pain reduction to allow her to continue working and walking daily Current Functional Impairments (Reported) Functional Limitations- ADL's pain prevents her from sitting more than 1 hour and standing more than 30 min PT-OP-C Subjective Start: 11/18/21 09:48 Freq: Status: Active Protocol: Document 03/18/22 12:50 [facility] (Rec: 03/18/22 13:44 [facility] [id number]) OP-PT Subjective Patient Comments Patient Comments pt notes she tripped over a cord on wednesday with her left leg and emily her hip PT-OP-J Posture/Palpation/Skin Start: 11/18/21 09:48 Freq: Status: Active Protocol: Document 11/18/21 09:49 [facility] (Rec: 11/20/21 15:10 [facility] [id number]) Posture Evaluation Position Sitting Evaluation View Lateral Head/C-Spine Posture Flexed T-Spine Posture Increased Kyphosis Comments Posture Comments pt is presenting with a increasing kyphotic posture with forward head and shoulders Palpation Assessment Location left piriformis Palpation Location left piriformis Palpation Findings Soft Tissue Tightness,Muscle Guarding,Tenderness R SCM Palpation Location R SCM Palpation Findings Soft Tissue Tightness,Muscle Guarding Palpation Details tightness and guarding from mastoid process to insertion at the clavicle PT-OP-K Range of Motion Start: 11/18/21 09:48 Freq: Status: Active Protocol: Document 11/18/21 09:49 [facility] (Rec: 11/18/21 10:30 [facility] [id number]) Cervical Spine Range of Motion Cervical Spine Active Testing Position Sitting Lateral Flexion Left 5 Lateral Flexion Right 5 ROM Limitations Soft Tissue Tightness,Pain Comments sidebend left is painful on the right side, turningher head to the right is painful Hip Goniometric Range of Motion Hip left Hip ROM WFL No Testing Position Supine Flexion w/Knee Flexed 120 Straight Leg Raise 50 Abduction 20 Internal Rotation 15 External Rotation 30 Comments no pain with hip ROM today, limited by tightness PT-OP-M Strength Start: 11/18/21 09:48 Freq: Status: Active Protocol: Document 11/18/21 09:49 [facility] (Rec: 11/20/21 15:10 [facility] [id number]) Hip Strength Hip Manual Muscle Testing Left Flexion (L2) 3 Fair Abduction 3 Fair External Rotation 3 Fair Internal Rotation 3 Fair PT-OP-Q Treatments Start: 11/18/21 09:48 Freq: Status: Active Protocol: Document 03/18/22 12:50 [facility] (Rec: 03/18/22 13:44 [facility] [id number]) Therapeutic Exercises Supine Exercises piriformis stretch Reps/Minutes hold 1-2 minutes Prone Exercises prone hip IR/ER Reps/Minutes x 10 Manual Therapy Treatment Soft Tissue Mobilization upper trapezius release B Mobilization Type Myofascial Release Body Position prone with body pillow piriformis release left side Body Location left piriformis Mobilization Type Myofascial Release Intensity/Depth Superficial Body Position Prone Manual Techniques sacral decompression Type MET for sacral decompression Reps/Duration x 5 reps Comments MET for sacral decompression and into sacral counternutation thoracic spine mobilizations Body Location thoracic spine Body Position Prone Comments PA glides thoracic spine, good tolerance PT-OP-T Assessment and Plan Start: 11/18/21 09:48 Freq: Status: Active Protocol: Document 03/18/22 12:50 [facility] (Rec: 03/18/22 13:44 [facility] [id number]) Physical Therapy Assessment Assessment Summary Assessment Treatment today focused on aligning the sacrum as Katelyn was nutated and rotated to the left. Her piriformis was guarded and tight on the left side as well. I also worked on thoracic spine mobilizations and releasing the upper trapezius region Physical Therapy Plan Frequency and Duration Frequency of Treatment 2x/Week Duration of treatment (weeks) 12 Plan of Care Start Date 02/17/22 Plan of Care End Date 05/19/22 Therapeutic Interventions Therapeutic Interventions Home Exercise Program,Manual Therapy,Patient/Caregiver Education,Self-Care/Home Management,Soft Tissue Mobilization,Therapeutic Exercises Next Visit Focus/Plan Next Note Type Treatment Note Next Visit Plan continue working on postural modifications, pec minor release, scalene stretching, manual therapy techniques, reassess left sided hip tightness next visit
--- NOTE | 2022-04-01 14:03 | PT.OTN ---
Current Diagnoses Other chronic pain (04/01/22) Lumbago with sciatica, right side (04/01/22) Lumbago with sciatica, left side (04/01/22) Physical Therapy Treatment Note PT-OP-A Visit Information Start: 11/18/21 09:48 Freq: Status: Active Protocol: Document 04/01/22 13:02 [facility] (Rec: 04/01/22 14:02 [facility] [id number]) Out-Patient Physical Therapy Visit Information Visit Information Visit Type Treatment Note Visit Start Time 13:00 Visit Stop Time 13:45 Total Visit Minutes 45 Visit Number 13 PT-OP-B Current Condition Start: 11/18/21 09:48 Freq: Status: Active Protocol: Document 11/18/21 09:49 [facility] (Rec: 11/18/21 09:56 [facility] [id number]) Current Condition History of Current Condition Onset Date chronic with new onset of right sided neck pain Current Complaints left hip pain, lowback stiffness, right neck History of Current Condition stiffness in her low back and right sided neck tightness. Katelyn reports she underwent dental work tht had her in the dental chair x 5 hours. SInce that time she has had right sided neck and jaw discomfort. She is working on her home stretches for the left hip and back but continues to note discomfort and tightness. Katelyn reports has figured out how to make her exercises part of her routine, she has been trying to stretch first thing and is using the miracle balls . Treatment Goals Patient/Caregiver Goals pts goals include pain reduction to allow her to continue working and walking daily Current Functional Impairments (Reported) Functional Limitations- ADL's pain prevents her from sitting more than 1 hour and standing more than 30 min PT-OP-C Subjective Start: 11/18/21 09:48 Freq: Status: Active Protocol: Document 04/01/22 13:02 [facility] (Rec: 04/01/22 14:02 [facility] [id number]) OP-PT Subjective Patient Comments Patient Comments pt notes she hasn't been able to seeher chiropractor and she feels pain into her arms and both sides of hips PT-OP-J Posture/Palpation/Skin Start: 11/18/21 09:48 Freq: Status: Active Protocol: Document 11/18/21 09:49 [facility] (Rec: 11/20/21 15:10 [facility] [id number]) Posture Evaluation Position Sitting Evaluation View Lateral Head/C-Spine Posture Flexed T-Spine Posture Increased Kyphosis Comments Posture Comments pt is presenting with a increasing kyphotic posture with forward head and shoulders Palpation Assessment Location left piriformis Palpation Location left piriformis Palpation Findings Soft Tissue Tightness,Muscle Guarding,Tenderness R SCM Palpation Location R SCM Palpation Findings Soft Tissue Tightness,Muscle Guarding Palpation Details tightness and guarding from mastoid process to insertion at the clavicle PT-OP-K Range of Motion Start: 11/18/21 09:48 Freq: Status: Active Protocol: Document 11/18/21 09:49 [facility] (Rec: 11/18/21 10:30 [facility] [id number]) Cervical Spine Range of Motion Cervical Spine Active Testing Position Sitting Lateral Flexion Left 5 Lateral Flexion Right 5 ROM Limitations Soft Tissue Tightness,Pain Comments sidebend left is painful on the right side, turningher head to the right is painful Hip Goniometric Range of Motion Hip left Hip ROM WFL No Testing Position Supine Flexion w/Knee Flexed 120 Straight Leg Raise 50 Abduction 20 Internal Rotation 15 External Rotation 30 Comments no pain with hip ROM today, limited by tightness PT-OP-M Strength Start: 11/18/21 09:48 Freq: Status: Active Protocol: Document 11/18/21 09:49 [facility] (Rec: 11/20/21 15:10 [facility] [id number]) Hip Strength Hip Manual Muscle Testing Left Flexion (L2) 3 Fair Abduction 3 Fair External Rotation 3 Fair Internal Rotation 3 Fair PT-OP-Q Treatments Start: 11/18/21 09:48 Freq: Status: Active Protocol: Document 04/01/22 13:02 [facility] (Rec: 04/01/22 14:02 [facility] [id number]) Manual Therapy Treatment Soft Tissue Mobilization upper trapezius release B Mobilization Type Myofascial Release Body Position prone with body pillow suboccipital release Intensity/Depth supine piriformis release left side Body Location bilateral piriformis release Mobilization Type Myofascial Release Intensity/Depth Superficial Body Position Prone Comments pt has been sore on B sides after she tripped and emily herself a few weeks ago manual MFR over the SCM on the right side Body Location B SCM Mobilization Type Myofascial Release Intensity/Depth Superficial Body Position Hooklying Comments Katelyn has been having right sided jaw tightness. We discussed her stretches and using a heat pack followed by ROM exercises at home Manual Techniques scalene stretch bilaterally Reps/Duration 2 reps holding 1-2 min each side thoracic spine mobilizations Body Location thoracic spine Body Position Prone Comments PA glides thoracic spine, good tolerance PT-OP-T Assessment and Plan Start: 11/18/21 09:48 Freq: Status: Active Protocol: Document 04/01/22 13:02 [facility] (Rec: 04/01/22 14:02 [facility] [id number]) Physical Therapy Assessment Assessment Summary Assessment Katelyn has been sore since she tripped a couple of weeks ago. I worked today on releasing the thoracic spine and the tightness around her hips as well as in the upper neck region. Katelyn was advised to try heat at home on her neck followed by stretches Physical Therapy Plan Frequency and Duration Frequency of Treatment 2x/Week Duration of treatment (weeks) 12 Plan of Care Start Date 02/17/22 Plan of Care End Date 05/19/22 Therapeutic Interventions Therapeutic Interventions Home Exercise Program,Manual Therapy,Patient/Caregiver Education,Self-Care/Home Management,Soft Tissue Mobilization,Therapeutic Exercises Next Visit Focus/Plan Next Note Type Treatment Note Next Visit Plan continue working on postural modifications, pec minor release, scalene stretching, manual therapy techniques, reassess left sided hip tightness next visit
--- NOTE | 2022-04-14 17:41 | PT.OTN ---
Current Diagnoses Other chronic pain (04/14/22) Lumbago with sciatica, right side (04/14/22) Lumbago with sciatica, left side (04/14/22) Physical Therapy Treatment Note PT-OP-A Visit Information Start: 11/18/21 09:48 Freq: Status: Active Protocol: Document 04/14/22 14:35 [facility] (Rec: 04/14/22 15:15 [facility] [id number]) Out-Patient Physical Therapy Visit Information Visit Information Visit Type Treatment Note Visit Start Time 14:30 Visit Stop Time 15:15 Total Visit Minutes 45 Visit Number 14 PT-OP-B Current Condition Start: 11/18/21 09:48 Freq: Status: Active Protocol: Document 11/18/21 09:49 [facility] (Rec: 11/18/21 09:56 [facility] [id number]) Current Condition History of Current Condition Onset Date chronic with new onset of right sided neck pain Current Complaints left hip pain, lowback stiffness, right neck History of Current Condition stiffness in her low back and right sided neck tightness. Katelyn reports she underwent dental work tht had her in the dental chair x 5 hours. SInce that time she has had right sided neck and jaw discomfort. She is working on her home stretches for the left hip and back but continues to note discomfort and tightness. Katelyn reports has figured out how to make her exercises part of her routine, she has been trying to stretch first thing and is using the miracle balls . Treatment Goals Patient/Caregiver Goals pts goals include pain reduction to allow her to continue working and walking daily Current Functional Impairments (Reported) Functional Limitations- ADL's pain prevents her from sitting more than 1 hour and standing more than 30 min PT-OP-C Subjective Start: 11/18/21 09:48 Freq: Status: Active Protocol: Document 04/14/22 14:35 [facility] (Rec: 04/14/22 15:15 [facility] [id number]) OP-PT Subjective Patient Comments Patient Comments both her hands and her hips are really bothering her today PT-OP-J Posture/Palpation/Skin Start: 11/18/21 09:48 Freq: Status: Active Protocol: Document 11/18/21 09:49 [facility] (Rec: 11/20/21 15:10 [facility] [id number]) Posture Evaluation Position Sitting Evaluation View Lateral Head/C-Spine Posture Flexed T-Spine Posture Increased Kyphosis Comments Posture Comments pt is presenting with a increasing kyphotic posture with forward head and shoulders Palpation Assessment Location left piriformis Palpation Location left piriformis Palpation Findings Soft Tissue Tightness,Muscle Guarding,Tenderness R SCM Palpation Location R SCM Palpation Findings Soft Tissue Tightness,Muscle Guarding Palpation Details tightness and guarding from mastoid process to insertion at the clavicle PT-OP-K Range of Motion Start: 11/18/21 09:48 Freq: Status: Active Protocol: Document 11/18/21 09:49 [facility] (Rec: 11/18/21 10:30 [facility] [id number]) Cervical Spine Range of Motion Cervical Spine Active Testing Position Sitting Lateral Flexion Left 5 Lateral Flexion Right 5 ROM Limitations Soft Tissue Tightness,Pain Comments sidebend left is painful on the right side, turningher head to the right is painful Hip Goniometric Range of Motion Hip left Hip ROM WFL No Testing Position Supine Flexion w/Knee Flexed 120 Straight Leg Raise 50 Abduction 20 Internal Rotation 15 External Rotation 30 Comments no pain with hip ROM today, limited by tightness PT-OP-M Strength Start: 11/18/21 09:48 Freq: Status: Active Protocol: Document 11/18/21 09:49 [facility] (Rec: 11/20/21 15:10 [facility] [id number]) Hip Strength Hip Manual Muscle Testing Left Flexion (L2) 3 Fair Abduction 3 Fair External Rotation 3 Fair Internal Rotation 3 Fair PT-OP-Q Treatments Start: 11/18/21 09:48 Freq: Status: Active Protocol: Document 04/14/22 14:30 [facility] (Rec: 04/14/22 17:41 [facility] [id number]) Therapeutic Exercises Other Exercises thread the needle Reps/Minutes x 10 each side Comments in quadruped position cat cow Reps/Minutes x 10 reps Manual Therapy Treatment Soft Tissue Mobilization piriformis release left side Body Location bilateral piriformis release Mobilization Type Myofascial Release Intensity/Depth Superficial Body Position Prone Comments pt has been sore on B sides after she tripped and emily herself a few weeks ago Manual Techniques sacral decompression Type MET for sacral decompression Reps/Duration x 5 reps Comments MET for sacral decompression and into sacral counternutation thoracic spine mobilizations Body Location thoracic spine Body Position Prone Comments PA glides thoracic spine, good tolerance PT-OP-T Assessment and Plan Start: 11/18/21 09:48 Freq: Status: Active Protocol: Document 04/14/22 14:35 [facility] (Rec: 04/14/22 15:15 [facility] [id number]) Physical Therapy Assessment Assessment Summary Assessment I added in quadruped cat cow and thread the needle for Katelyn and she tolerated this well. This is in a effort to increase movement in her thoracic spine. Physical Therapy Plan Frequency and Duration Frequency of Treatment 2x/Week Duration of treatment (weeks) 12 Plan of Care Start Date 02/17/22 Plan of Care End Date 05/19/22 Next Visit Focus/Plan Next Note Type Treatment Note Next Visit Plan continue working on postural modifications, pec minor release, scalene stretching, manual therapy techniques, reassess left sided hip tightness next visit Reassess new exercises in quadruped next visit
--- NOTE | 2022-05-07 10:47 | PT.OTN ---
Current Diagnoses Other chronic pain (05/07/22) Lumbago with sciatica, right side (05/07/22) Lumbago with sciatica, left side (05/07/22) Physical Therapy Treatment Note PT-OP-A Visit Information Start: 11/18/21 09:48 Freq: Status: Active Protocol: Document 05/07/22 09:49 [facility] (Rec: 05/07/22 10:34 [facility]ES [facility] [id number]) Out-Patient Physical Therapy Visit Information Visit Information Visit Type Treatment Note Visit Start Time 09:47 Visit Stop Time 10:30 Total Visit Minutes 45 Visit Number 15 PT-OP-B Current Condition Start: 11/18/21 09:48 Freq: Status: Active Protocol: Document 11/18/21 09:49 [facility] (Rec: 11/18/21 09:56 [facility] [id number]) Current Condition History of Current Condition Onset Date chronic with new onset of right sided neck pain Current Complaints left hip pain, lowback stiffness, right neck History of Current Condition stiffness in her low back and right sided neck tightness. Katelyn reports she underwent dental work tht had her in the dental chair x 5 hours. SInce that time she has had right sided neck and jaw discomfort. She is working on her home stretches for the left hip and back but continues to note discomfort and tightness. Katelyn reports has figured out how to make her exercises part of her routine, she has been trying to stretch first thing and is using the miracle balls . Treatment Goals Patient/Caregiver Goals pts goals include pain reduction to allow her to continue working and walking daily Current Functional Impairments (Reported) Functional Limitations- ADL's pain prevents her from sitting more than 1 hour and standing more than 30 min PT-OP-C Subjective Start: 11/18/21 09:48 Freq: Status: Active Protocol: Document 05/07/22 09:49 [facility] (Rec: 05/07/22 10:34 [facility]CLUDES THE [facility] [id number]) OP-PT Subjective Patient Comments Patient Comments Katelyn is feeling stiffness in her mid back today. SHe notes it seized up yesterday. She has been typing more. PT-OP-J Posture/Palpation/Skin Start: 11/18/21 09:48 Freq: Status: Active Protocol: Document 11/18/21 09:49 [facility] (Rec: 11/20/21 15:10 [facility] [id number]) Posture Evaluation Position Sitting Evaluation View Lateral Head/C-Spine Posture Flexed T-Spine Posture Increased Kyphosis Comments Posture Comments pt is presenting with a increasing kyphotic posture with forward head and shoulders Palpation Assessment Location left piriformis Palpation Location left piriformis Palpation Findings Soft Tissue Tightness,Muscle Guarding,Tenderness R SCM Palpation Location R SCM Palpation Findings Soft Tissue Tightness,Muscle Guarding Palpation Details tightness and guarding from mastoid process to insertion at the clavicle PT-OP-K Range of Motion Start: 11/18/21 09:48 Freq: Status: Active Protocol: Document 11/18/21 09:49 [facility] (Rec: 11/18/21 10:30 COUNT INCLUDES THE [facility] [id number]) Cervical Spine Range of Motion Cervical Spine Active Testing Position Sitting Lateral Flexion Left 5 Lateral Flexion Right 5 ROM Limitations Soft Tissue Tightness,Pain Comments sidebend left is painful on the right side, turningher head to the right is painful Hip Goniometric Range of Motion Hip left Hip ROM WFL No Testing Position Supine Flexion w/Knee Flexed 120 Straight Leg Raise 50 Abduction 20 Internal Rotation 15 External Rotation 30 Comments no pain with hip ROM today, limited by tightness PT-OP-M Strength Start: 11/18/21 09:48 Freq: Status: Active Protocol: Document 11/18/21 09:49 [facility] (Rec: 11/20/21 15:10 [facility] [id number]) Hip Strength Hip Manual Muscle Testing Left Flexion (L2) 3 Fair Abduction 3 Fair External Rotation 3 Fair Internal Rotation 3 Fair PT-OP-Q Treatments Start: 11/18/21 09:48 Freq: Status: Active Protocol: Document 05/07/22 10:45 [facility] (Rec: 05/07/22 10:47 [facility] [id number]) Therapeutic Exercises Supine Exercises piriformis stretch Reps/Minutes hold 1-2 minutes Prone Exercises prone hip IR/ER Reps/Minutes x 10 Standing Exercises standing rows Equipment Used level 2 theraband Reps/Minutes 3 x 10 reps Manual Therapy Treatment Soft Tissue Mobilization piriformis release left side Body Location bilateral piriformis release Mobilization Type Myofascial Release Intensity/Depth Superficial Body Position Prone Comments pt has been sore on B sides after she tripped and emily herself a few weeks ago Manual Techniques sacral decompression Type MET for sacral decompression Reps/Duration x 5 reps Comments MET for sacral decompression and into sacral counternutation thoracic spine mobilizations Body Location thoracic spine Body Position Prone Comments PA glides thoracic spine, good tolerance PT-OP-T Assessment and Plan Start: 11/18/21 09:48 Freq: Status: Active Protocol: Document 05/07/22 10:45 COUNT INCLUDES THE [facility] (Rec: 05/07/22 10:47 COUNT INCLUDES THE [facility] [id number]) Physical Therapy Assessment Assessment Summary Assessment Katelyn needs continued work on the thoracic spine region as she is doing more typing at home. Added in standing rows with level 2 theraband for her and reviewed HEP Physical Therapy Plan Frequency and Duration Frequency of Treatment 2x/Week Duration of treatment (weeks) 12 Plan of Care Start Date 02/17/22 Plan of Care End Date 05/19/22 Therapeutic Interventions Therapeutic Interventions Home Exercise Program,Manual Therapy,Patient/Caregiver Education,Self-Care/Home Management,Soft Tissue Mobilization,Therapeutic Exercises Next Visit Focus/Plan Next Note Type Treatment Note Next Visit Plan continue working on postural modifications, pec minor release, scalene stretching, manual therapy techniques, reassess left sided hip tightness next visit Reassess new exercises in quadruped next visit
--- NOTE | 2022-06-10 13:49 | PT.OTN ---
Current Diagnoses Other chronic pain (06/10/22) Lumbago with sciatica, right side (06/10/22) Lumbago with sciatica, left side (06/10/22) Physical Therapy Treatment Note PT-OP-A Visit Information Start: 11/18/21 09:48 Freq: Status: Active Protocol: Document 06/10/22 13:44 [facility] (Rec: 06/10/22 13:48 [facility] [id number]) Out-Patient Physical Therapy Visit Information Visit Information Visit Type Progress Note Visit Start Time 12:50 Visit Stop Time 13:30 Total Visit Minutes 45 Visit Number 16 PT-OP-B Current Condition Start: 11/18/21 09:48 Freq: Status: Active Protocol: Document 11/18/21 09:49 [facility] (Rec: 11/18/21 09:56 [facility] [id number]) Current Condition History of Current Condition Onset Date chronic with new onset of right sided neck pain Current Complaints left hip pain, lowback stiffness, right neck History of Current Condition stiffness in her low back and right sided neck tightness. Katelyn reports she underwent dental work tht had her in the dental chair x 5 hours. SInce that time she has had right sided neck and jaw discomfort. She is working on her home stretches for the left hip and back but continues to note discomfort and tightness. Katelyn reports has figured out how to make her exercises part of her routine, she has been trying to stretch first thing and is using the miracle balls . Treatment Goals Patient/Caregiver Goals pts goals include pain reduction to allow her to continue working and walking daily Current Functional Impairments (Reported) Functional Limitations- ADL's pain prevents her from sitting more than 1 hour and standing more than 30 min PT-OP-C Subjective Start: 11/18/21 09:48 Freq: Status: Active Protocol: Document 06/10/22 13:44 [facility] (Rec: 06/10/22 13:48 [facility] [id number]) OP-PT Subjective Patient Comments Patient Comments pr reports she is doing better overall with her walking and hip pain is slowly decreasing. She has been able to continue with typing as well. She is describing lateral calf pain that has been bothering her with walking PT-OP-J Posture/Palpation/Skin Start: 11/18/21 09:48 Freq: Status: Active Protocol: Document 11/18/21 09:49 [facility] (Rec: 11/20/21 15:10 [facility] [id number]) Posture Evaluation Position Sitting Evaluation View Lateral Head/C-Spine Posture Flexed T-Spine Posture Increased Kyphosis Comments Posture Comments pt is presenting with a increasing kyphotic posture with forward head and shoulders Palpation Assessment Location left piriformis Palpation Location left piriformis Palpation Findings Soft Tissue Tightness,Muscle Guarding,Tenderness R SCM Palpation Location R SCM Palpation Findings Soft Tissue Tightness,Muscle Guarding Palpation Details tightness and guarding from mastoid process to insertion at the clavicle PT-OP-K Range of Motion Start: 11/18/21 09:48 Freq: Status: Active Protocol: Document 11/18/21 09:49 [facility] (Rec: 11/18/21 10:30 [facility] [id number]) Cervical Spine Range of Motion Cervical Spine Active Testing Position Sitting Lateral Flexion Left 5 Lateral Flexion Right 5 ROM Limitations Soft Tissue Tightness,Pain Comments sidebend left is painful on the right side, turningher head to the right is painful Hip Goniometric Range of Motion Hip left Hip ROM WFL No Testing Position Supine Flexion w/Knee Flexed 120 Straight Leg Raise 50 Abduction 20 Internal Rotation 15 External Rotation 30 Comments no pain with hip ROM today, limited by tightness PT-OP-M Strength Start: 11/18/21 09:48 Freq: Status: Active Protocol: Document 11/18/21 09:49 [facility] (Rec: 11/20/21 15:10 [facility] [id number]) Hip Strength Hip Manual Muscle Testing Left Flexion (L2) 3 Fair Abduction 3 Fair External Rotation 3 Fair Internal Rotation 3 Fair PT-OP-Q Treatments Start: 11/18/21 09:48 Freq: Status: Active Protocol: Document 06/10/22 13:44 [facility] (Rec: 06/10/22 13:48 [facility] [id number]) Therapeutic Exercises Supine Exercises itb stretch Reps/Minutes hold 1-2 min piriformis stretch Reps/Minutes hold 1-2 minutes Prone Exercises prone hip IR/ER Reps/Minutes x 10 Standing Exercises standing rows Equipment Used level 2 theraband Reps/Minutes 3 x 10 reps doorway pec stretch Reps/Minutes hold 1-2 min Manual Therapy Treatment Soft Tissue Mobilization piriformis release left side Body Location bilateral piriformis release Mobilization Type Myofascial Release Intensity/Depth Superficial Body Position Prone Comments pt has been sore on B sides after she tripped and emily herself a few weeks ago Manual Techniques sacral decompression Type MET for sacral decompression Reps/Duration x 5 reps Comments MET for sacral decompression and into sacral counternutation thoracic spine mobilizations Body Location thoracic spine Body Position Prone Comments PA glides thoracic spine, good tolerance PT-OP-T Assessment and Plan Start: 11/18/21 09:48 Freq: Status: Active Protocol: Document 06/10/22 13:44 [facility] (Rec: 06/10/22 13:48 [facility] [id number]) Physical Therapy Assessment Goals 4 Impairment left sided hip apin rated 5-6/ 10 with tightness and guarding in the piriformis Assisted Goal (LTG) Katelyn reports a overall reduction in left sided hip pain and guarding is reduced GOAL MET LTG Duration 12 weeks 3 Impairment muscle guarding and spasm of the right SCM, suboccipitals, left piriformis Short Term Goal (STG) Katelyn is educated on stretches for her neck and she notes improved ability to turn her head while driving GOAL MET De Alcoholizer Goal (LTG) Katelyn presents with a overall reducation in muscle spasm and guarding GOOD PROGRESS LTG Duration 12 weeks 2 Impairment Decreased cervical spine ROM De Alcoholizer Goal (LTG) Katelyn is able to perform pain free cervical spine ROM WFL GOOD PROGRESS, Katelyn remains limited in her cervical sidebending, rotation is improved bilaterally LTG Duration 12 weeks 1 Impairment decreased walking speed with gait De Alcoholizer Goal (LTG) Good progress, Katelyn is able to walk 400-600 m on the 6 min walk test and she notes she is able to go further distance on [employer] trail Assessment Summary Assessment Katelyn is progressing overall and hip pain is decreased. She is still noting the decreased speed with gait and neck tightness. 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 Katelyn would benefit from continued PT Physical Therapy Plan Frequency and Duration Frequency of Treatment Every Other Week Duration of treatment (weeks) 12 Plan of Care Start Date 05/19/22 Plan of Care End Date 08/18/22 Therapeutic Interventions Therapeutic Interventions Home Exercise Program,Manual Therapy,Patient/Caregiver Education,Self-Care/Home Management,Soft Tissue Mobilization,Therapeutic Exercises
--- NOTE | 2022-06-10 13:49 | PT.OPPOC ---
Physical, Occupational & Speech Therapy At [facility] Current Diagnoses Other chronic pain (06/10/22) Lumbago with sciatica, right side (06/10/22) Lumbago with sciatica, left side (06/10/22) Visit Care Team Role Provider Type Jessica Del Rosario PA-C Attending Provider Physician Manager Furniture Family Provider Primary Care Provider Referring Provider Specialty: Medical Address: [address] [place] [address], [id number] Email: [email or web address] Plan Of Care PT-OP-T Assessment and Plan Start: 11/18/21 09:48 Freq: Status: Active Protocol: Document 06/10/22 13:44 [facility] (Rec: 06/10/22 13:48 [facility] [id number]) Physical Therapy Assessment Goals 4 Impairment left sided hip apin rated 5-6/ 10 with tightness and guarding in the piriformis Hoist Operator Goal (LTG) Katelyn reports a overall reduction in left sided hip pain and guarding is reduced GOAL MET LTG Duration 12 weeks 3 Impairment muscle guarding and spasm of the right SCM, suboccipitals, left piriformis Short Term Goal (STG) Katelyn is educated on stretches for her neck and she notes improved ability to turn her head while driving GOAL MET Hoist Operator Goal (LTG) Katelyn presents with a overall reducation in muscle spasm and guarding GOOD PROGRESS LTG Duration 12 weeks 2 Impairment Decreased cervical spine ROM Hoist Operator Goal (LTG) Katelyn is able to perform pain free cervical spine ROM WFL GOOD PROGRESS, Katelyn remains limited in her cervical sidebending, rotation is improved bilaterally LTG Duration 12 weeks 1 Impairment decreased walking speed with gait Hoist Operator Goal (LTG) Good progress, Katelyn is able to walk 400-600 m on the 6 min walk test and she notes she is able to go further distance on [employer] trail Assessment Summary Assessment Katelyn is progressing overall and hip pain is decreased. She is still noting the decreased speed with gait and neck tightness. 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 Katelyn would benefit from continued PT Physical Therapy Plan Frequency and Duration Frequency of Treatment Every Other Week Duration of treatment (weeks) 12 Plan of Care Start Date 05/19/22 Plan of Care End Date 08/18/22 Therapeutic Interventions Therapeutic Interventions Home Exercise Program,Manual Therapy,Patient/Caregiver Education,Self-Care/Home Management,Soft Tissue Mobilization,Therapeutic Exercises Plan of Care Dates Plan of Care Start Date 05/19/22 Plan of Care End Date 08/18/22 Electronically Signed by: Essence Hernandez, PT 06/10/22 3054 If you are in agreement with this Plan of Care, please return a signed and dated copy. I have reviewed this Plan of Care and certify that the skilled therapy services above are required to meet the patient?s needs. Physician Signature Date Printed Name and Credentials Clinical Instructor Signature Printed Name and Credentials
--- NOTE | 2022-06-23 09:52 | PT.OTN ---
Current Diagnoses Other chronic pain (06/23/22) Lumbago with sciatica, right side (06/23/22) Lumbago with sciatica, left side (06/23/22) Physical Therapy Treatment Note PT-OP-A Visit Information Start: 11/18/21 09:48 Freq: Status: Active Protocol: Document 06/23/22 09:05 [facility] (Rec: 06/23/22 09:46 [facility] [id number]) Out-Patient Physical Therapy Visit Information Visit Information Visit Type Treatment Note Visit Start Time 09:05 Visit Stop Time 09:45 Total Visit Minutes 40 Visit Number 17 PT-OP-B Current Condition Start: 11/18/21 09:48 Freq: Status: Active Protocol: Document 11/18/21 09:49 [facility] (Rec: 11/18/21 09:56 [facility] [id number]) Current Condition History of Current Condition Onset Date chronic with new onset of right sided neck pain Current Complaints left hip pain, lowback stiffness, right neck History of Current Condition stiffness in her low back and right sided neck tightness. Katelyn reports she underwent dental work tht had her in the dental chair x 5 hours. SInce that time she has had right sided neck and jaw discomfort. She is working on her home stretches for the left hip and back but continues to note discomfort and tightness. Katelyn reports has figured out how to make her exercises part of her routine, she has been trying to stretch first thing and is using the miracle balls . Treatment Goals Patient/Caregiver Goals pts goals include pain reduction to allow her to continue working and walking daily Current Functional Impairments (Reported) Functional Limitations- ADL's pain prevents her from sitting more than 1 hour and standing more than 30 min PT-OP-C Subjective Start: 11/18/21 09:48 Freq: Status: Active Protocol: Document 06/23/22 09:05 [facility] (Rec: 06/23/22 09:46 [facility] [id number]) OP-PT Subjective Patient Comments Patient Comments pt reports she has been working with the miracle balls on her back to open up her chest and has been doing her rows. She is still walking 6 days per week. PT-OP-J Posture/Palpation/Skin Start: 11/18/21 09:48 Freq: Status: Active Protocol: Document 11/18/21 09:49 [facility] (Rec: 11/20/21 15:10 [facility] [id number]) Posture Evaluation Position Sitting Evaluation View Lateral Head/C-Spine Posture Flexed T-Spine Posture Increased Kyphosis Comments Posture Comments pt is presenting with a increasing kyphotic posture with forward head and shoulders Palpation Assessment Location left piriformis Palpation Location left piriformis Palpation Findings Soft Tissue Tightness,Muscle Guarding,Tenderness R SCM Palpation Location R SCM Palpation Findings Soft Tissue Tightness,Muscle Guarding Palpation Details tightness and guarding from mastoid process to insertion at the clavicle PT-OP-K Range of Motion Start: 11/18/21 09:48 Freq: Status: Active Protocol: Document 11/18/21 09:49 [facility] (Rec: 11/18/21 10:30 [facility] [id number]) Cervical Spine Range of Motion Cervical Spine Active Testing Position Sitting Lateral Flexion Left 5 Lateral Flexion Right 5 ROM Limitations Soft Tissue Tightness,Pain Comments sidebend left is painful on the right side, turningher head to the right is painful Hip Goniometric Range of Motion Hip left Hip ROM WFL No Testing Position Supine Flexion w/Knee Flexed 120 Straight Leg Raise 50 Abduction 20 Internal Rotation 15 External Rotation 30 Comments no pain with hip ROM today, limited by tightness PT-OP-M Strength Start: 11/18/21 09:48 Freq: Status: Active Protocol: Document 11/18/21 09:49 [facility] (Rec: 11/20/21 15:10 [facility] [id number]) Hip Strength Hip Manual Muscle Testing Left Flexion (L2) 3 Fair Abduction 3 Fair External Rotation 3 Fair Internal Rotation 3 Fair PT-OP-Q Treatments Start: 11/18/21 09:48 Freq: Status: Active Protocol: Document 06/23/22 09:49 [facility] (Rec: 06/23/22 09:50 [facility] [id number]) Manual Therapy Treatment Soft Tissue Mobilization piriformis release left side Body Location bilateral piriformis release Mobilization Type Myofascial Release Intensity/Depth Superficial Body Position Prone Comments pt has been sore on B sides after she tripped and emily herself a few weeks ago Manual Techniques sacral decompression Type MET for sacral decompression Reps/Duration x 5 reps Comments MET for sacral decompression and into sacral counternutation thoracic spine mobilizations Body Location thoracic spine Body Position Prone Comments PA glides thoracic spine, good tolerance PT-OP-T Assessment and Plan Start: 11/18/21 09:48 Freq: Status: Active Protocol: Document 06/23/22 09:05 [facility] (Rec: 06/23/22 09:46 [facility] [id number]) Physical Therapy Assessment Assessment Summary Assessment Katelyn has been able to continue walking 6 days per week. Worked on thoracic mobility today and Katelyn needs to continue with her stretches and strengthening for mid back Physical Therapy Plan Frequency and Duration Frequency of Treatment Every Other Week Duration of treatment (weeks) 12 Plan of Care Start Date 05/19/22 Plan of Care End Date 08/18/22 Next Visit Focus/Plan Next Note Type Treatment Note Next Visit Plan continue working on postural modifications, pec minor release, scalene stretching, manual therapy techniques, reassess left sided hip tightness next visit Reassess new exercises in quadruped next visit
--- NOTE | 2022-07-16 15:09 | PT.OTN ---
Current Diagnoses Other chronic pain (07/16/22) Lumbago with sciatica, right side (07/16/22) Lumbago with sciatica, left side (07/16/22) Physical Therapy Treatment Note PT-OP-A Visit Information Start: 11/18/21 09:48 Freq: Status: Active Protocol: Document 07/16/22 09:58 [facility] (Rec: 07/16/22 09:59 [facility] [id number]) Out-Patient Physical Therapy Visit Information Visit Information Visit Type Treatment Note Visit Start Time 09:50 Visit Stop Time 10:30 Total Visit Minutes 40 Visit Number 18 PT-OP-B Current Condition Start: 11/18/21 09:48 Freq: Status: Active Protocol: Document 11/18/21 09:49 [facility] (Rec: 11/18/21 09:56 [facility] [id number]) Current Condition History of Current Condition Onset Date chronic with new onset of right sided neck pain Current Complaints left hip pain, lowback stiffness, right neck History of Current Condition stiffness in her low back and right sided neck tightness. Katelyn reports she underwent dental work tht had her in the dental chair x 5 hours. SInce that time she has had right sided neck and jaw discomfort. She is working on her home stretches for the left hip and back but continues to note discomfort and tightness. Katelyn reports has figured out how to make her exercises part of her routine, she has been trying to stretch first thing and is using the miracle balls . Treatment Goals Patient/Caregiver Goals pts goals include pain reduction to allow her to continue working and walking daily Current Functional Impairments (Reported) Functional Limitations- ADL's pain prevents her from sitting more than 1 hour and standing more than 30 min PT-OP-C Subjective Start: 11/18/21 09:48 Freq: Status: Active Protocol: Document 07/16/22 09:58 [facility] (Rec: 07/16/22 09:59 [facility] [id number]) OP-PT Subjective Patient Comments Patient Comments pt notes she has been walking 7 days per week now Patient Reported Progress Improving PT-OP-J Posture/Palpation/Skin Start: 11/18/21 09:48 Freq: Status: Active Protocol: Document 11/18/21 09:49 [facility] (Rec: 11/20/21 15:10 [facility] [id number]) Posture Evaluation Position Sitting Evaluation View Lateral Head/C-Spine Posture Flexed T-Spine Posture Increased Kyphosis Comments Posture Comments pt is presenting with a increasing kyphotic posture with forward head and shoulders Palpation Assessment Location left piriformis Palpation Location left piriformis Palpation Findings Soft Tissue Tightness,Muscle Guarding,Tenderness R SCM Palpation Location R SCM Palpation Findings Soft Tissue Tightness,Muscle Guarding Palpation Details tightness and guarding from mastoid process to insertion at the clavicle PT-OP-K Range of Motion Start: 11/18/21 09:48 Freq: Status: Active Protocol: Document 11/18/21 09:49 [facility] (Rec: 11/18/21 10:30 [facility] [id number]) Cervical Spine Range of Motion Cervical Spine Active Testing Position Sitting Lateral Flexion Left 5 Lateral Flexion Right 5 ROM Limitations Soft Tissue Tightness,Pain Comments sidebend left is painful on the right side, turningher head to the right is painful Hip Goniometric Range of Motion Hip left Hip ROM WFL No Testing Position Supine Flexion w/Knee Flexed 120 Straight Leg Raise 50 Abduction 20 Internal Rotation 15 External Rotation 30 Comments no pain with hip ROM today, limited by tightness PT-OP-M Strength Start: 11/18/21 09:48 Freq: Status: Active Protocol: Document 11/18/21 09:49 [facility] (Rec: 11/20/21 15:10 [facility] [id number]) Hip Strength Hip Manual Muscle Testing Left Flexion (L2) 3 Fair Abduction 3 Fair External Rotation 3 Fair Internal Rotation 3 Fair PT-OP-Q Treatments Start: 11/18/21 09:48 Freq: Status: Active Protocol: Document 07/16/22 15:07 [facility] (Rec: 07/16/22 15:09 [facility] [id number]) Therapeutic Exercises Standing Exercises standing calf stretch Reps/Minutes hold 1-2 min Manual Therapy Treatment Soft Tissue Mobilization piriformis release left side Body Location bilateral piriformis release Mobilization Type Myofascial Release Intensity/Depth Superficial Body Position Prone Comments pt has been sore on B sides after she tripped and emily herself a few weeks ago Manual Techniques sacral decompression Type MET for sacral decompression Reps/Duration x 5 reps Comments MET for sacral decompression and into sacral counternutation thoracic spine mobilizations Body Location thoracic spine Body Position Prone Comments PA glides thoracic spine, good tolerance PT-OP-T Assessment and Plan Start: 11/18/21 09:48 Freq: Status: Active Protocol: Document 07/16/22 15:07 [facility] (Rec: 07/16/22 15:09 [facility] [id number]) Physical Therapy Assessment Assessment Summary Assessment katelyn continues to make progress, she was tight in her calf muscles today with the increase in walking, I added on standing calf stretch to her program. She is tolerating her exercises well Physical Therapy Plan Frequency and Duration Frequency of Treatment Every Other Week Duration of treatment (weeks) 12 Plan of Care Start Date 05/19/22 Plan of Care End Date 08/18/22 Next Visit Focus/Plan Next Note Type Treatment Note Next Visit Plan reassess core stabilization exercises next visit, continue with sacral release and piriformis release with manual therapy
--- NOTE | 2022-07-30 14:53 | PT.OTN ---
Current Diagnoses Other chronic pain (07/30/22) Lumbago with sciatica, right side (07/30/22) Lumbago with sciatica, left side (07/30/22) Physical Therapy Treatment Note PT-OP-A Visit Information Start: 11/18/21 09:48 Freq: Status: Active Protocol: Document 07/30/22 14:37 [facility] (Rec: 07/30/22 14:51 [facility] [id number]) Out-Patient Physical Therapy Visit Information Visit Information Visit Type Treatment Note Visit Note treatment number 4 on new plan of care Visit Start Time 13:50 Visit Stop Time 14:35 Total Visit Minutes 45 Visit Number 19 PT-OP-B Current Condition Start: 11/18/21 09:48 Freq: Status: Active Protocol: Document 11/18/21 09:49 [facility] (Rec: 11/18/21 09:56 [facility] [id number]) Current Condition History of Current Condition Onset Date chronic with new onset of right sided neck pain Current Complaints left hip pain, lowback stiffness, right neck History of Current Condition stiffness in her low back and right sided neck tightness. Katelyn reports she underwent dental work tht had her in the dental chair x 5 hours. SInce that time she has had right sided neck and jaw discomfort. She is working on her home stretches for the left hip and back but continues to note discomfort and tightness. Katelyn reports has figured out how to make her exercises part of her routine, she has been trying to stretch first thing and is using the miracle balls . Treatment Goals Patient/Caregiver Goals pts goals include pain reduction to allow her to continue working and walking daily Current Functional Impairments (Reported) Functional Limitations- ADL's pain prevents her from sitting more than 1 hour and standing more than 30 min PT-OP-C Subjective Start: 11/18/21 09:48 Freq: Status: Active Protocol: Document 07/30/22 13:55 [facility] (Rec: 07/30/22 13:57 [facility] [id number]) OP-PT Subjective Patient Comments Patient Comments pt notes she feels really stiff across her mid back PT-OP-J Posture/Palpation/Skin Start: 11/18/21 09:48 Freq: Status: Active Protocol: Document 11/18/21 09:49 [facility] (Rec: 11/20/21 15:10 [facility] [id number]) Posture Evaluation Position Sitting Evaluation View Lateral Head/C-Spine Posture Flexed T-Spine Posture Increased Kyphosis Comments Posture Comments pt is presenting with a increasing kyphotic posture with forward head and shoulders Palpation Assessment Location left piriformis Palpation Location left piriformis Palpation Findings Soft Tissue Tightness,Muscle Guarding,Tenderness R SCM Palpation Location R SCM Palpation Findings Soft Tissue Tightness,Muscle Guarding Palpation Details tightness and guarding from mastoid process to insertion at the clavicle PT-OP-K Range of Motion Start: 11/18/21 09:48 Freq: Status: Active Protocol: Document 11/18/21 09:49 [facility] (Rec: 11/18/21 10:30 [facility] [id number]) Cervical Spine Range of Motion Cervical Spine Active Testing Position Sitting Lateral Flexion Left 5 Lateral Flexion Right 5 ROM Limitations Soft Tissue Tightness,Pain Comments sidebend left is painful on the right side, turningher head to the right is painful Hip Goniometric Range of Motion Hip left Hip ROM WFL No Testing Position Supine Flexion w/Knee Flexed 120 Straight Leg Raise 50 Abduction 20 Internal Rotation 15 External Rotation 30 Comments no pain with hip ROM today, limited by tightness PT-OP-M Strength Start: 11/18/21 09:48 Freq: Status: Active Protocol: Document 11/18/21 09:49 [facility] (Rec: 11/20/21 15:10 [facility] [id number]) Hip Strength Hip Manual Muscle Testing Left Flexion (L2) 3 Fair Abduction 3 Fair External Rotation 3 Fair Internal Rotation 3 Fair PT-OP-Q Treatments Start: 11/18/21 09:48 Freq: Status: Active Protocol: Document 07/30/22 14:37 [facility] (Rec: 07/30/22 14:51 [facility] [id number]) Manual Therapy Treatment Soft Tissue Mobilization upper trapezius release B Mobilization Type Myofascial Release Body Position prone with body pillow piriformis release left side Body Location bilateral piriformis release Mobilization Type Myofascial Release Intensity/Depth Superficial Body Position Prone Comments pt has been sore on B sides after she tripped and emily herself a few weeks ago Manual Techniques sacral decompression Type MET for sacral decompression Reps/Duration x 5 reps Comments MET for sacral decompression and into sacral counternutation thoracic spine mobilizations Body Location thoracic spine Body Position Prone Comments PA glides thoracic spine, good tolerance PT-OP-T Assessment and Plan Start: 11/18/21 09:48 Freq: Status: Active Protocol: Document 07/30/22 13:57 [facility] (Rec: 07/30/22 14:36 [facility] [id number]) Physical Therapy Assessment Assessment Summary Assessment katelyn is progressing well and is now walking 7 days per week . 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 She was reminded of her home exercise program for posture and thoracic spine was tighter today Physical Therapy Plan Frequency and Duration Frequency of Treatment Every Other Week Duration of treatment (weeks) 12 Plan of Care Start Date 05/19/22 Plan of Care End Date 08/18/22 Therapeutic Interventions Therapeutic Interventions Home Exercise Program,Manual Therapy,Patient/Caregiver Education,Self-Care/Home Management,Soft Tissue Mobilization,Therapeutic Exercises Next Visit Focus/Plan Next Note Type Progress Note Next Visit Plan reassess core stabilization exercises next visit, continue with sacral release and piriformis release with manual therapy
--- NOTE | 2022-08-13 14:21 | PT.OTN ---
Current Diagnoses Other chronic pain (08/13/22) Lumbago with sciatica, right side (08/13/22) Lumbago with sciatica, left side (08/13/22) Physical Therapy Treatment Note PT-OP-A Visit Information Start: 11/18/21 09:48 Freq: Status: Active Protocol: Document 08/13/22 12:15 [facility] (Rec: 08/13/22 13:30 [facility] [id number]) Out-Patient Physical Therapy Visit Information Visit Information Visit Type Treatment Note Visit Start Time 12:20 Visit Stop Time 13:00 Total Visit Minutes 40 Visit Number 20 PT-OP-B Current Condition Start: 11/18/21 09:48 Freq: Status: Active Protocol: Document 11/18/21 09:49 [facility] (Rec: 11/18/21 09:56 [facility] [id number]) Current Condition History of Current Condition Onset Date chronic with new onset of right sided neck pain Current Complaints left hip pain, lowback stiffness, right neck History of Current Condition stiffness in her low back and right sided neck tightness. Katelyn reports she underwent dental work tht had her in the dental chair x 5 hours. SInce that time she has had right sided neck and jaw discomfort. She is working on her home stretches for the left hip and back but continues to note discomfort and tightness. Katelyn reports has figured out how to make her exercises part of her routine, she has been trying to stretch first thing and is using the miracle balls . Treatment Goals Patient/Caregiver Goals pts goals include pain reduction to allow her to continue working and walking daily Current Functional Impairments (Reported) Functional Limitations- ADL's pain prevents her from sitting more than 1 hour and standing more than 30 min PT-OP-C Subjective Start: 11/18/21 09:48 Freq: Status: Active Protocol: Document 08/13/22 12:15 [facility] (Rec: 08/13/22 13:39 [facility] [id number]) OP-PT Subjective Patient Comments Patient Comments pt reports she decided to stop using the walking stick as she felt like she was gripping it with her right hand creating more wrist pain Patient Reported Progress Improving PT-OP-J Posture/Palpation/Skin Start: 11/18/21 09:48 Freq: Status: Active Protocol: Document 11/18/21 09:49 [facility] (Rec: 11/20/21 15:10 [facility] [id number]) Posture Evaluation Position Sitting Evaluation View Lateral Head/C-Spine Posture Flexed T-Spine Posture Increased Kyphosis Comments Posture Comments pt is presenting with a increasing kyphotic posture with forward head and shoulders Palpation Assessment Location left piriformis Palpation Location left piriformis Palpation Findings Soft Tissue Tightness,Muscle Guarding,Tenderness R SCM Palpation Location R SCM Palpation Findings Soft Tissue Tightness,Muscle Guarding Palpation Details tightness and guarding from mastoid process to insertion at the clavicle PT-OP-K Range of Motion Start: 11/18/21 09:48 Freq: Status: Active Protocol: Document 11/18/21 09:49 [facility] (Rec: 11/18/21 10:30 [facility] [id number]) Cervical Spine Range of Motion Cervical Spine Active Testing Position Sitting Lateral Flexion Left 5 Lateral Flexion Right 5 ROM Limitations Soft Tissue Tightness,Pain Comments sidebend left is painful on the right side, turningher head to the right is painful Hip Goniometric Range of Motion Hip left Hip ROM WFL No Testing Position Supine Flexion w/Knee Flexed 120 Straight Leg Raise 50 Abduction 20 Internal Rotation 15 External Rotation 30 Comments no pain with hip ROM today, limited by tightness PT-OP-M Strength Start: 11/18/21 09:48 Freq: Status: Active Protocol: Document 11/18/21 09:49 [facility] (Rec: 11/20/21 15:10 [facility] [id number]) Hip Strength Hip Manual Muscle Testing Left Flexion (L2) 3 Fair Abduction 3 Fair External Rotation 3 Fair Internal Rotation 3 Fair PT-OP-Q Treatments Start: 11/18/21 09:48 Freq: Status: Active Protocol: Document 08/13/22 12:15 [facility] (Rec: 08/13/22 13:45 [facility] [id number]) Therapeutic Exercises Standing Exercises standing sidebends to the left Reps/Minutes 1-2 reps hold 30-60 sec Comments to open up the right side as pt is leaning right Manual Therapy Treatment Soft Tissue Mobilization piriformis release left side Body Location bilateral piriformis release Mobilization Type Myofascial Release Intensity/Depth Superficial Body Position Prone Comments pt has been sore on B sides after she tripped and emily herself a few weeks ago Manual Techniques sacral decompression Type MET for sacral decompression Reps/Duration x 5 reps Comments MET for sacral decompression and into sacral counternutation thoracic spine mobilizations Body Location thoracic spine Body Position Prone Comments PA glides thoracic spine, good tolerance PT-OP-T Assessment and Plan Start: 11/18/21 09:48 Freq: Status: Active Protocol: Document 08/13/22 12:15 [facility] (Rec: 08/13/22 13:45 [facility] [id number]) Physical Therapy Assessment Goals 4 Impairment left sided hip apin rated 5-6/ 10 with tightness and guarding in the piriformis Enamel Drier Goal (LTG) Katelyn reports a overall reduction in left sided hip pain and guarding is reduced GOAL MET LTG Duration 12 weeks 3 Impairment muscle guarding and spasm of the right SCM, suboccipitals, left piriformis Short Term Goal (STG) Katelyn is educated on stretches for her neck and she notes improved ability to turn her head while driving GOAL MET Enamel Drier Goal (LTG) Katelyn presents with a overall reducation in muscle spasm and guarding GOOD PROGRESS LTG Duration 12 weeks 2 Impairment Decreased cervical spine ROM Residential Goal (LTG) Katelyn is able to perform pain free cervical spine ROM WFL GOOD PROGRESS, Katelyn remains limited in her cervical sidebending, rotation is improved bilaterally LTG Duration 12 weeks 1 Impairment decreased walking speed with gait Enamel Drier Goal (LTG) Good progress, Katelyn is able to walk 400-600 m on the 6 min walk test and she notes she is able to go further distance on [employer] trail Assessment Summary Assessment Katelyn continues to make progress. She feels the PT is helping her continue with being able to walk 7 days per week. Physical Therapy Plan Frequency and Duration Frequency of Treatment Every Other Week Duration of treatment (weeks) 8 Plan of Care Start Date 08/13/22 Plan of Care End Date 10/08/22 Next Visit Focus/Plan Next Note Type Treatment Note Next Visit Plan reassess core stabilization exercises next visit, continue with sacral release and piriformis release with manual therapy
--- NOTE | 2022-08-13 16:25 | PT.OPPOC ---
Physical, Occupational & Speech Therapy At [facility] Current Diagnoses Other chronic pain (08/13/22) Lumbago with sciatica, right side (08/13/22) Lumbago with sciatica, left side (08/13/22) Visit Care Team Role Provider Type Jessica Del Rosario PA-C Attending Provider Non-Staff Family Provider Primary Care Provider Referring Provider Specialty: Medical Address: [address] [place] [address], [id number] Email: [email or web address] Of Care PT-OP-T Assessment and Plan Start: 11/18/21 09:48 Freq: Status: Active Protocol: Document 08/13/22 12:15 [facility] (Rec: 08/13/22 13:45 [facility] [id number]) Physical Therapy Assessment Goals 4 Impairment left sided hip apin rated 5-6/ 10 with tightness and guarding in the piriformis Senior Care Goal (LTG) Katelyn reports a overall reduction in left sided hip pain and guarding is reduced GOAL MET LTG Duration 12 weeks 3 Impairment muscle guarding and spasm of the right SCM, suboccipitals, left piriformis Short Term Goal (STG) Katelyn is educated on stretches for her neck and she notes improved ability to turn her head while driving GOAL MET Senior Care Goal (LTG) Katelyn presents with a overall reducation in muscle spasm and guarding GOOD PROGRESS LTG Duration 12 weeks 2 Impairment Decreased cervical spine ROM Senior Care Goal (LTG) Katelyn is able to perform pain free cervical spine ROM WFL GOOD PROGRESS, Katelyn remains limited in her cervical sidebending, rotation is improved bilaterally LTG Duration 12 weeks 1 Impairment decreased walking speed with gait Senior Care Goal (LTG) Good progress, Katelyn is able to walk 400-600 m on the 6 min walk test and she notes she is able to go further distance on [address] [facility] trail Assessment Summary Assessment Katelyn continues to make progress. She feels the PT is helping her continue with being able to walk 7 days per week. Physical Therapy Plan Frequency and Duration Frequency of Treatment Every Other Week Duration of treatment (weeks) 8 Plan of Care Start Date 08/13/22 Plan of Care End Date 10/08/22 Next Visit Focus/Plan Next Note Type Treatment Note Next Visit Plan reassess core stabilization exercises next visit, continue with sacral release and piriformis release with manual therapy Plan of Care Dates Plan of Care Start Date 08/13/22 Plan of Care End Date 10/08/22 Electronically Signed by: Essence Hernandez, PT 08/13/22 0358 If you are in agreement with this Plan of Care, please return a signed and dated copy. I have reviewed this Plan of Care and certify that the skilled therapy services above are required to meet the patient?s needs. Physician Signature Date Printed Name and Credentials Clinical Instructor Signature Printed Name and Credentials
--- NOTE | 2022-08-27 14:42 | PT.OTN ---
Current Diagnoses Other chronic pain (08/27/22) Lumbago with sciatica, right side (08/27/22) Lumbago with sciatica, left side (08/27/22) Physical Therapy Treatment Note PT-OP-A Visit Information Start: 11/18/21 09:48 Freq: Status: Active Protocol: Document 08/27/22 12:17 [facility] (Rec: 08/27/22 13:03 [facility] [id number]) Out-Patient Physical Therapy Visit Information Visit Information Visit Type Treatment Note Visit Start Time 12:15 Visit Stop Time 13:00 Total Visit Minutes 45 Visit Number 21 PT-OP-B Current Condition Start: 11/18/21 09:48 Freq: Status: Active Protocol: Document 11/18/21 09:49 [facility] (Rec: 11/18/21 09:56 [facility] [id number]) Current Condition History of Current Condition Onset Date chronic with new onset of right sided neck pain Current Complaints left hip pain, lowback stiffness, right neck History of Current Condition stiffness in her low back and right sided neck tightness. Katelyn reports she underwent dental work tht had her in the dental chair x 5 hours. SInce that time she has had right sided neck and jaw discomfort. She is working on her home stretches for the left hip and back but continues to note discomfort and tightness. Katelyn reports has figured out how to make her exercises part of her routine, she has been trying to stretch first thing and is using the miracle balls . Treatment Goals Patient/Caregiver Goals pts goals include pain reduction to allow her to continue working and walking daily Current Functional Impairments (Reported) Functional Limitations- ADL's pain prevents her from sitting more than 1 hour and standing more than 30 min PT-OP-C Subjective Start: 11/18/21 09:48 Freq: Status: Active Protocol: Document 08/27/22 12:17 [facility] (Rec: 08/27/22 13:03 [facility] [id number]) OP-PT Subjective Patient Comments Patient Comments pt reports she felt like a claw grabbed her mid back and she went into spasm She is walking 2 times per day x 30 min PT-OP-J Posture/Palpation/Skin Start: 11/18/21 09:48 Freq: Status: Active Protocol: Document 11/18/21 09:49 [facility] (Rec: 11/20/21 15:10 [facility] [id number]) Posture Evaluation Position Sitting Evaluation View Lateral Head/C-Spine Posture Flexed T-Spine Posture Increased Kyphosis Comments Posture Comments pt is presenting with a increasing kyphotic posture with forward head and shoulders Palpation Assessment Location left piriformis Palpation Location left piriformis Palpation Findings Soft Tissue Tightness,Muscle Guarding,Tenderness R SCM Palpation Location R SCM Palpation Findings Soft Tissue Tightness,Muscle Guarding Palpation Details tightness and guarding from mastoid process to insertion at the clavicle PT-OP-K Range of Motion Start: 11/18/21 09:48 Freq: Status: Active Protocol: Document 11/18/21 09:49 [facility] (Rec: 11/18/21 10:30 [facility] [id number]) Cervical Spine Range of Motion Cervical Spine Active Testing Position Sitting Lateral Flexion Left 5 Lateral Flexion Right 5 ROM Limitations Soft Tissue Tightness,Pain Comments sidebend left is painful on the right side, turningher head to the right is painful Hip Goniometric Range of Motion Hip left Hip ROM WFL No Testing Position Supine Flexion w/Knee Flexed 120 Straight Leg Raise 50 Abduction 20 Internal Rotation 15 External Rotation 30 Comments no pain with hip ROM today, limited by tightness PT-OP-M Strength Start: 11/18/21 09:48 Freq: Status: Active Protocol: Document 11/18/21 09:49 [facility] (Rec: 11/20/21 15:10 [facility] [id number]) Hip Strength Hip Manual Muscle Testing Left Flexion (L2) 3 Fair Abduction 3 Fair External Rotation 3 Fair Internal Rotation 3 Fair PT-OP-Q Treatments Start: 11/18/21 09:48 Freq: Status: Active Protocol: Document 08/27/22 14:40 [facility] (Rec: 08/27/22 14:42 [facility] [id number]) Manual Therapy Treatment Soft Tissue Mobilization piriformis release left side Body Location bilateral piriformis release Mobilization Type Myofascial Release Intensity/Depth Superficial Body Position Prone Comments pt has been sore on B sides after she tripped and emily herself a few weeks ago Manual Techniques sacral decompression Type MET for sacral decompression Reps/Duration x 5 reps Comments MET for sacral decompression and into sacral counternutation thoracic spine mobilizations Body Location thoracic spine Body Position Prone Comments PA glides thoracic spine, good tolerance PT-OP-T Assessment and Plan Start: 11/18/21 09:48 Freq: Status: Active Protocol: Document 08/27/22 14:40 [facility] (Rec: 08/27/22 14:42 [facility] [id number]) Physical Therapy Assessment Assessment Summary Assessment Katelyn is now able to walk 2 times per day x 30 min each. She is making good functinal progress Physical Therapy Plan Frequency and Duration Frequency of Treatment Every Other Week Duration of treatment (weeks) 8 Plan of Care Start Date 08/13/22 Plan of Care End Date 10/08/22 Therapeutic Interventions Therapeutic Interventions Home Exercise Program,Manual Therapy,Patient/Caregiver Education,Self-Care/Home Management,Soft Tissue Mobilization,Therapeutic Exercises Next Visit Focus/Plan Next Note Type Treatment Note Next Visit Plan reassess core stabilization exercises next visit, continue with sacral release and piriformis release with manual therapy
--- NOTE | 2022-09-17 17:22 | PT.OTN ---
Current Diagnoses Other chronic pain (09/17/22) Lumbago with sciatica, right side (09/17/22) Lumbago with sciatica, left side (09/17/22) Physical Therapy Treatment Note PT-OP-A Visit Information Start: 11/18/21 09:48 Freq: Status: Active Protocol: Document 09/17/22 15:46 [facility] (Rec: 09/17/22 16:03 [facility] [id number]) Out-Patient Physical Therapy Visit Information Visit Information Visit Type Treatment Note Visit Start Time 15:05 Visit Stop Time 15:45 Total Visit Minutes 40 Visit Number 22 PT-OP-B Current Condition Start: 11/18/21 09:48 Freq: Status: Active Protocol: Document 11/18/21 09:49 [facility] (Rec: 11/18/21 09:56 [facility] [id number]) Current Condition History of Current Condition Onset Date chronic with new onset of right sided neck pain Current Complaints left hip pain, lowback stiffness, right neck History of Current Condition stiffness in her low back and right sided neck tightness. Katelyn reports she underwent dental work tht had her in the dental chair x 5 hours. SInce that time she has had right sided neck and jaw discomfort. She is working on her home stretches for the left hip and back but continues to note discomfort and tightness. Katelyn reports has figured out how to make her exercises part of her routine, she has been trying to stretch first thing and is using the miracle balls . Treatment Goals Patient/Caregiver Goals pts goals include pain reduction to allow her to continue working and walking daily Current Functional Impairments (Reported) Functional Limitations- ADL's pain prevents her from sitting more than 1 hour and standing more than 30 min PT-OP-C Subjective Start: 11/18/21 09:48 Freq: Status: Active Protocol: Document 09/17/22 17:09 [facility] (Rec: 09/17/22 17:21 [facility] [id number]) OP-PT Subjective Patient Comments Patient Comments pt notes her right medial scapula is really tight and she is concerned that her scoliosis is worsening. She continues to walk 2 times per day and notes she is able to walk further now as she has a faster speed Patient Reported Progress Improving PT-OP-J Posture/Palpation/Skin Start: 11/18/21 09:48 Freq: Status: Active Protocol: Document 11/18/21 09:49 [facility] (Rec: 11/20/21 15:10 [facility] [id number]) Posture Evaluation Position Sitting Evaluation View Lateral Head/C-Spine Posture Flexed T-Spine Posture Increased Kyphosis Comments Posture Comments pt is presenting with a increasing kyphotic posture with forward head and shoulders Palpation Assessment Location left piriformis Palpation Location left piriformis Palpation Findings Soft Tissue Tightness,Muscle Guarding,Tenderness R SCM Palpation Location R SCM Palpation Findings Soft Tissue Tightness,Muscle Guarding Palpation Details tightness and guarding from mastoid process to insertion at the clavicle PT-OP-K Range of Motion Start: 11/18/21 09:48 Freq: Status: Active Protocol: Document 11/18/21 09:49 [facility] (Rec: 11/18/21 10:30 [facility] [id number]) Cervical Spine Range of Motion Cervical Spine Active Testing Position Sitting Lateral Flexion Left 5 Lateral Flexion Right 5 ROM Limitations Soft Tissue Tightness,Pain Comments sidebend left is painful on the right side, turningher head to the right is painful Hip Goniometric Range of Motion Hip left Hip ROM WFL No Testing Position Supine Flexion w/Knee Flexed 120 Straight Leg Raise 50 Abduction 20 Internal Rotation 15 External Rotation 30 Comments no pain with hip ROM today, limited by tightness PT-OP-M Strength Start: 11/18/21 09:48 Freq: Status: Active Protocol: Document 11/18/21 09:49 [facility] (Rec: 11/20/21 15:10 [facility] [id number]) Hip Strength Hip Manual Muscle Testing Left Flexion (L2) 3 Fair Abduction 3 Fair External Rotation 3 Fair Internal Rotation 3 Fair PT-OP-Q Treatments Start: 11/18/21 09:48 Freq: Status: Active Protocol: Document 09/17/22 17:09 [facility] (Rec: 09/17/22 17:21 [facility] [id number]) Therapeutic Exercises Supine Exercises piriformis stretch Reps/Minutes hold 1-2 minutes Prone Exercises prone cobra stretch Reps/Minutes x 10 reps holding 5 seconds prone hip IR/ER Reps/Minutes x 10 Manual Therapy Treatment Soft Tissue Mobilization piriformis release left side Body Location bilateral piriformis release Mobilization Type Myofascial Release Intensity/Depth Superficial Body Position Prone Comments pt has been sore on B sides after she tripped and emily herself a few weeks ago Manual Techniques sacral decompression Type MET for sacral decompression Reps/Duration x 5 reps Comments MET for sacral decompression and into sacral counternutation thoracic spine mobilizations Body Location thoracic spine Body Position Prone Comments PA glides thoracic spine, good tolerance PT-OP-T Assessment and Plan Start: 11/18/21 09:48 Freq: Status: Active Protocol: Document 09/17/22 17:09 [facility] (Rec: 09/17/22 17:21 [facility] [id number]) Physical Therapy Assessment Assessment Summary Assessment Added in cobra stretch for thoracic extension today. Her pain pain is decreasing and she is able to tolerate increased speed with gait. Pt was tight in thoracic spine today and lacks thoracic extension. Scoliosis curve is to the right and she does feel tighter today. Encouraged home foam roll stretch Physical Therapy Plan Frequency and Duration Frequency of Treatment Every Other Week Duration of treatment (weeks) 8 Plan of Care Start Date 08/13/22 Plan of Care End Date 10/08/22 Therapeutic Interventions Therapeutic Interventions Home Exercise Program,Manual Therapy,Patient/Caregiver Education,Self-Care/Home Management,Soft Tissue Mobilization,Therapeutic Exercises Next Visit Focus/Plan Next Note Type Treatment Note Next Visit Plan review cobra stretch and foam roll stretches continue with thoracic mobilizations and manual stretches
--- NOTE | 2022-10-01 17:06 | PT.OPPOC ---
Physical, Occupational & Speech Therapy At Current Diagnoses Other chronic pain (10/01/22) Lumbago with sciatica, right side (10/01/22) Lumbago with sciatica, left side (10/01/22) Visit Care Team Role Provider Type Jessica Del Rosario PA-C Attending Provider Non-Staff Family Provider Primary Care Provider Referring Provider Specialty: Medical Address: [address] [place] [address], [id number] Email: [email or web address] Plan Of Care PT-OP-T Assessment and Plan Start: 11/18/21 09:48 Freq: Status: Active Protocol: Document 10/01/22 16:59 [facility] (Rec: 10/01/22 17:05 [facility] [id number]) Physical Therapy Assessment Goals 4 Impairment left sided hip apin rated 5-6/ 10 with tightness and guarding in the piriformis Usp Goal (LTG) Katelyn reports a overall reduction in left sided hip pain and guarding is reduced GOAL MET LTG Duration 12 weeks 3 Impairment muscle guarding and spasm of the right SCM, suboccipitals, left piriformis Short Term Goal (STG) Katelyn is educated on stretches for her neck and she notes improved ability to turn her head while driving GOAL MET Usp Goal (LTG) Katelyn presents with a overall reducation in muscle spasm and guarding GOOD PROGRESS she is still having guarding in the left piriformis LTG Duration 12 weeks 2 Impairment Decreased cervical spine ROM Principal Web Developer Goal (LTG) Katelyn is able to perform pain free cervical spine ROM WFL GOAL MET LTG Duration 12 weeks 1 Impairment decreased walking speed with gait Principal Web Developer Goal (LTG) excellent progress, Katelyn is able to walk 400-600 m on the 6 min walk test and she notes she is able to go further distance on [address] Assessment Summary Assessment I added in hamstring stretches and double knee to chest and Katelyn tolerated well. She has been doing great with her walking and is able to walk 2 times per day now at a faster speed. Katelyn would like to continue PT at 2 times per month to continue working on the left hip. Physical Therapy Plan Frequency and Duration Frequency of Treatment Every Other Week Duration of treatment (weeks) 8 Plan of Care Start Date 10/01/22 Plan of Care End Date 11/26/22 Therapeutic Interventions Therapeutic Interventions Home Exercise Program,Manual Therapy,Patient/Caregiver Education,Self-Care/Home Management,Soft Tissue Mobilization,Therapeutic Exercises Next Visit Focus/Plan Next Note Type Treatment Note Next Visit Plan reassess core stabilization exercises next visit, continue with sacral release and piriformis release with manual therapy Plan of Care Dates Plan of Care Start Date 10/01/22 Plan of Care End Date 11/26/22 Electronically Signed by: Essence Hernandez, PT 10/01/22 [id number] If you are in agreement with this Plan of Care, please return a signed and dated copy. I have reviewed this Plan of Care and certify that the skilled therapy services above are required to meet the patient?s needs. Physician Signature Date Printed Name and Credentials Clinical Instructor Signature Printed Name and Credentials
--- NOTE | 2022-10-01 17:06 | PT.OTN ---
Current Diagnoses Other chronic pain (10/01/22) Lumbago with sciatica, right side (10/01/22) Lumbago with sciatica, left side (10/01/22) Physical Therapy Treatment Note PT-OP-A Visit Information Start: 11/18/21 09:48 Freq: Status: Active Protocol: Document 10/01/22 14:19 [facility] (Rec: 10/01/22 15:00 [facility] [id number]) Out-Patient Physical Therapy Visit Information Visit Information Visit Type Progress Note Visit Start Time 14:15 Visit Stop Time 15:00 Total Visit Minutes 45 Visit Number 23 PT-OP-B Current Condition Start: 11/18/21 09:48 Freq: Status: Active Protocol: Document 11/18/21 09:49 [facility] (Rec: 11/18/21 09:56 [facility] [id number]) Current Condition History of Current Condition Onset Date chronic with new onset of right sided neck pain Current Complaints left hip pain, lowback stiffness, right neck History of Current Condition stiffness in her low back and right sided neck tightness. Katelyn reports she underwent dental work tht had her in the dental chair x 5 hours. SInce that time she has had right sided neck and jaw discomfort. She is working on her home stretches for the left hip and back but continues to note discomfort and tightness. Katelyn reports has figured out how to make her exercises part of her routine, she has been trying to stretch first thing and is using the miracle balls . Treatment Goals Patient/Caregiver Goals pts goals include pain reduction to allow her to continue working and walking daily Current Functional Impairments (Reported) Functional Limitations- ADL's pain prevents her from sitting more than 1 hour and standing more than 30 min PT-OP-C Subjective Start: 11/18/21 09:48 Freq: Status: Active Protocol: Document 10/01/22 14:19 [facility] (Rec: 10/01/22 15:00 [facility] [id number]) OP-PT Subjective Patient Comments Patient Comments pt has been walking 2 times per day, the scapula pain has gone away and her low back feels achey today PT-OP-J Posture/Palpation/Skin Start: 11/18/21 09:48 Freq: Status: Active Protocol: Document 11/18/21 09:49 [facility] (Rec: 11/20/21 15:10 [facility] [id number]) Posture Evaluation Position Sitting Evaluation View Lateral Head/C-Spine Posture Flexed T-Spine Posture Increased Kyphosis Comments Posture Comments pt is presenting with a increasing kyphotic posture with forward head and shoulders Palpation Assessment Location left piriformis Palpation Location left piriformis Palpation Findings Soft Tissue Tightness,Muscle Guarding,Tenderness R SCM Palpation Location R SCM Palpation Findings Soft Tissue Tightness,Muscle Guarding Palpation Details tightness and guarding from mastoid process to insertion at the clavicle PT-OP-K Range of Motion Start: 11/18/21 09:48 Freq: Status: Active Protocol: Document 11/18/21 09:49 [facility] (Rec: 11/18/21 10:30 [facility] [id number]) Cervical Spine Range of Motion Cervical Spine Active Testing Position Sitting Lateral Flexion Left 5 Lateral Flexion Right 5 ROM Limitations Soft Tissue Tightness,Pain Comments sidebend left is painful on the right side, turningher head to the right is painful Hip Goniometric Range of Motion Hip left Hip ROM WFL No Testing Position Supine Flexion w/Knee Flexed 120 Straight Leg Raise 50 Abduction 20 Internal Rotation 15 External Rotation 30 Comments no pain with hip ROM today, limited by tightness PT-OP-M Strength Start: 11/18/21 09:48 Freq: Status: Active Protocol: Document 11/18/21 09:49 [facility] (Rec: 11/20/21 15:10 [facility] [id number]) Hip Strength Hip Manual Muscle Testing Left Flexion (L2) 3 Fair Abduction 3 Fair External Rotation 3 Fair Internal Rotation 3 Fair PT-OP-Q Treatments Start: 11/18/21 09:48 Freq: Status: Active Protocol: Document 10/01/22 14:19 [facility] (Rec: 10/01/22 15:00 [facility] [id number]) Therapeutic Exercises Supine Exercises double knee to chest stretch Reps/Minutes hold 30 sec x 2 reps hamstring stretch Reps/Minutes hands behind the knee and straighten leg 1-2 reps holding 30 sec Prone Exercises prone cobra stretch Reps/Minutes x 10 reps holding 5 seconds Manual Therapy Treatment Soft Tissue Mobilization piriformis release left side Body Location bilateral piriformis release Mobilization Type Myofascial Release Intensity/Depth Superficial Body Position Prone Comments pt has been sore on B sides after she tripped and emily herself a few weeks ago Manual Techniques lumbar paraspinal MFR Body Location lumbar spine Body Position Prone sacral decompression Type MET for sacral decompression Reps/Duration x 5 reps Comments MET for sacral decompression and into sacral counternutation thoracic spine mobilizations Body Location thoracic spine Body Position Prone Comments PA glides thoracic spine, good tolerance PT-OP-T Assessment and Plan Start: 11/18/21 09:48 Freq: Status: Active Protocol: Document 10/01/22 16:59 [facility] (Rec: 10/01/22 17:05 [facility] [id number]) Physical Therapy Assessment Goals 4 Impairment left sided hip apin rated 5-6/ 10 with tightness and guarding in the piriformis Prison Goal (LTG) Katelyn reports a overall reduction in left sided hip pain and guarding is reduced GOAL MET LTG Duration 12 weeks 3 Impairment muscle guarding and spasm of the right SCM, suboccipitals, left piriformis Short Term Goal (STG) Katelyn is educated on stretches for her neck and she notes improved ability to turn her head while driving GOAL MET Prison Goal (LTG) Katelyn presents with a overall reducation in muscle spasm and guarding GOOD PROGRESS she is still having guarding in the left piriformis LTG Duration 12 weeks 2 Impairment Decreased cervical spine ROM Grade Checker Goal (LTG) Katelyn is able to perform pain free cervical spine ROM WFL GOAL MET LTG Duration 12 weeks 1 Impairment decreased walking speed with gait Prison Goal (LTG) excellent progress, Katelyn is able to walk 400-600 m on the 6 min walk test and she notes she is able to go further distance on [place] [address] Assessment Summary Assessment I added in hamstring stretches and double knee to chest and Katelyn tolerated well. She has been doing great with her walking and is able to walk 2 times per day now at a faster speed. Katelyn would like to continue PT at 2 times per month to continue working on the left hip. Physical Therapy Plan Frequency and Duration Frequency of Treatment Every Other Week Duration of treatment (weeks) 8 Plan of Care Start Date 10/01/22 Plan of Care End Date 11/26/22 Therapeutic Interventions Therapeutic Interventions Home Exercise Program,Manual Therapy,Patient/Caregiver Education,Self-Care/Home Management,Soft Tissue Mobilization,Therapeutic Exercises Next Visit Focus/Plan Next Note Type Treatment Note Next Visit Plan reassess core stabilization exercises next visit, continue with sacral release and piriformis release with manual therapy
--- NOTE | 2022-10-22 16:34 | PT.OTN ---
Current Diagnoses Other chronic pain (10/22/22) Lumbago with sciatica, right side (10/22/22) Lumbago with sciatica, left side (10/22/22) Physical Therapy Treatment Note PT-OP-A Visit Information Start: 11/18/21 09:48 Freq: Status: Active Protocol: Document 10/22/22 14:11 [facility] (Rec: 10/22/22 15:01 [facility] [id number]) Out-Patient Physical Therapy Visit Information Visit Information Visit Type Treatment Note Visit Start Time 14:05 Visit Stop Time 14:50 Total Visit Minutes 45 Visit Number 24 PT-OP-B Current Condition Start: 11/18/21 09:48 Freq: Status: Active Protocol: Document 11/18/21 09:49 [facility] (Rec: 11/18/21 09:56 [facility] [id number]) Current Condition History of Current Condition Onset Date chronic with new onset of right sided neck pain Current Complaints left hip pain, lowback stiffness, right neck History of Current Condition stiffness in her low back and right sided neck tightness. Katelyn reports she underwent dental work tht had her in the dental chair x 5 hours. SInce that time she has had right sided neck and jaw discomfort. She is working on her home stretches for the left hip and back but continues to note discomfort and tightness. Katelyn reports has figured out how to make her exercises part of her routine, she has been trying to stretch first thing and is using the miracle balls . Treatment Goals Patient/Caregiver Goals pts goals include pain reduction to allow her to continue working and walking daily Current Functional Impairments (Reported) Functional Limitations- ADL's pain prevents her from sitting more than 1 hour and standing more than 30 min PT-OP-C Subjective Start: 11/18/21 09:48 Freq: Status: Active Protocol: Document 10/22/22 16:29 [facility] (Rec: 10/22/22 16:33 [facility] [id number]) OP-PT Subjective Patient Comments Patient Comments Katelyn reports she is now able to walk from the [place] the [place] the [place] of the [place] in 15 min. She is happy with her increase in speed. She is feeling tight in her upper traps and thoracic spine today. PT-OP-J Posture/Palpation/Skin Start: 11/18/21 09:48 Freq: Status: Active Protocol: Document 11/18/21 09:49 [facility] (Rec: 11/20/21 15:10 [facility] [id number]) Posture Evaluation Position Sitting Evaluation View Lateral Head/C-Spine Posture Flexed T-Spine Posture Increased Kyphosis Comments Posture Comments pt is presenting with a increasing kyphotic posture with forward head and shoulders Palpation Assessment Location left piriformis Palpation Location left piriformis Palpation Findings Soft Tissue Tightness,Muscle Guarding,Tenderness R SCM Palpation Location R SCM Palpation Findings Soft Tissue Tightness,Muscle Guarding Palpation Details tightness and guarding from mastoid process to insertion at the clavicle PT-OP-K Range of Motion Start: 11/18/21 09:48 Freq: Status: Active Protocol: Document 11/18/21 09:49 [facility] (Rec: 11/18/21 10:30 [facility] [id number]) Cervical Spine Range of Motion Cervical Spine Active Testing Position Sitting Lateral Flexion Left 5 Lateral Flexion Right 5 ROM Limitations Soft Tissue Tightness,Pain Comments sidebend left is painful on the right side, turningher head to the right is painful Hip Goniometric Range of Motion Hip left Hip ROM WFL No Testing Position Supine Flexion w/Knee Flexed 120 Straight Leg Raise 50 Abduction 20 Internal Rotation 15 External Rotation 30 Comments no pain with hip ROM today, limited by tightness PT-OP-M Strength Start: 11/18/21 09:48 Freq: Status: Active Protocol: Document 11/18/21 09:49 [facility] (Rec: 11/20/21 15:10 [facility] [id number]) Hip Strength Hip Manual Muscle Testing Left Flexion (L2) 3 Fair Abduction 3 Fair External Rotation 3 Fair Internal Rotation 3 Fair PT-OP-Q Treatments Start: 11/18/21 09:48 Freq: Status: Active Protocol: Document 10/22/22 16:29 [facility] (Rec: 10/22/22 16:33 [facility] [id number]) Manual Therapy Treatment Soft Tissue Mobilization upper trapezius release B Mobilization Type Myofascial Release Body Position prone with body pillow piriformis release left side Body Location bilateral piriformis release Mobilization Type Myofascial Release Intensity/Depth Superficial Body Position Prone Comments pt has been sore on B sides after she tripped and emily herself a few weeks ago PT-OP-T Assessment and Plan Start: 11/18/21 09:48 Freq: Status: Active Protocol: Document 10/22/22 16:29 [facility] (Rec: 10/22/22 16:33 [facility] [id number]) Physical Therapy Assessment Assessment Summary Assessment Katelyn is working hard on her stretches at home and this has been helping with her walking speed and ability to walk the distance she wants to walk Physical Therapy Plan Frequency and Duration Frequency of Treatment Every Other Week Duration of treatment (weeks) 8 Plan of Care Start Date 10/01/22 Plan of Care End Date 11/26/22 Therapeutic Interventions Therapeutic Interventions Home Exercise Program,Manual Therapy,Patient/Caregiver Education,Self-Care/Home Management,Soft Tissue Mobilization,Therapeutic Exercises Next Visit Focus/Plan Next Note Type Treatment Note Next Visit Plan continue working on piriformis and sacral release and progress stabilization exercises
--- NOTE | 2022-10-29 14:58 | PT.OTN ---
Current Diagnoses Other chronic pain (10/29/22) Lumbago with sciatica, right side (10/29/22) Lumbago with sciatica, left side (10/29/22) Physical Therapy Treatment Note PT-OP-A Visit Information Start: 11/18/21 09:48 Freq: Status: Active Protocol: Document 10/29/22 14:00 [facility] (Rec: 10/29/22 14:58 [facility] [id number]) Out-Patient Physical Therapy Visit Information Visit Information Visit Type Treatment Note Visit Start Time 14:00 Visit Stop Time 14:45 Total Visit Minutes 45 Visit Number 25 PT-OP-B Current Condition Start: 11/18/21 09:48 Freq: Status: Active Protocol: Document 11/18/21 09:49 [facility] (Rec: 11/18/21 09:56 [facility] [id number]) Current Condition History of Current Condition Onset Date chronic with new onset of right sided neck pain Current Complaints left hip pain, lowback stiffness, right neck History of Current Condition stiffness in her low back and right sided neck tightness. Katelyn reports she underwent dental work tht had her in the dental chair x 5 hours. SInce that time she has had right sided neck and jaw discomfort. She is working on her home stretches for the left hip and back but continues to note discomfort and tightness. Katelyn reports has figured out how to make her exercises part of her routine, she has been trying to stretch first thing and is using the miracle balls . Treatment Goals Patient/Caregiver Goals pts goals include pain reduction to allow her to continue working and walking daily Current Functional Impairments (Reported) Functional Limitations- ADL's pain prevents her from sitting more than 1 hour and standing more than 30 min PT-OP-C Subjective Start: 11/18/21 09:48 Freq: Status: Active Protocol: Document 10/29/22 14:00 [facility] (Rec: 10/29/22 14:58 [facility] [id number]) OP-PT Subjective Patient Comments Patient Comments Katelyn continues to note she is doing her exercises and is aware of her posture with walking PT-OP-J Posture/Palpation/Skin Start: 11/18/21 09:48 Freq: Status: Active Protocol: Document 11/18/21 09:49 [facility] (Rec: 11/20/21 15:10 [facility] [id number]) Posture Evaluation Position Sitting Evaluation View Lateral Head/C-Spine Posture Flexed T-Spine Posture Increased Kyphosis Comments Posture Comments pt is presenting with a increasing kyphotic posture with forward head and shoulders Palpation Assessment Location left piriformis Palpation Location left piriformis Palpation Findings Soft Tissue Tightness,Muscle Guarding,Tenderness R SCM Palpation Location R SCM Palpation Findings Soft Tissue Tightness,Muscle Guarding Palpation Details tightness and guarding from mastoid process to insertion at the clavicle PT-OP-K Range of Motion Start: 11/18/21 09:48 Freq: Status: Active Protocol: Document 11/18/21 09:49 [facility] (Rec: 11/18/21 10:30 [facility] [id number]) Cervical Spine Range of Motion Cervical Spine Active Testing Position Sitting Lateral Flexion Left 5 Lateral Flexion Right 5 ROM Limitations Soft Tissue Tightness,Pain Comments sidebend left is painful on the right side, turningher head to the right is painful Hip Goniometric Range of Motion Hip left Hip ROM WFL No Testing Position Supine Flexion w/Knee Flexed 120 Straight Leg Raise 50 Abduction 20 Internal Rotation 15 External Rotation 30 Comments no pain with hip ROM today, limited by tightness PT-OP-M Strength Start: 11/18/21 09:48 Freq: Status: Active Protocol: Document 11/18/21 09:49 [facility] (Rec: 11/20/21 15:10 [facility] [id number]) Hip Strength Hip Manual Muscle Testing Left Flexion (L2) 3 Fair Abduction 3 Fair External Rotation 3 Fair Internal Rotation 3 Fair PT-OP-Q Treatments Start: 11/18/21 09:48 Freq: Status: Active Protocol: Document 10/29/22 14:00 [facility] (Rec: 10/29/22 14:58 [facility] [id number]) Therapeutic Exercises Standing Exercises standing sidebends to the left Reps/Minutes 1-2 reps hold 30-60 sec Comments to open up the right side as pt is leaning right standing calf stretch Reps/Minutes hold 1-2 min Manual Therapy Treatment Soft Tissue Mobilization upper trapezius release B Mobilization Type Myofascial Release Body Position prone with body pillow piriformis release left side Body Location bilateral piriformis release Mobilization Type Myofascial Release Intensity/Depth Superficial Body Position Prone Comments pt has been sore on B sides after she tripped and emily herself a few weeks ago Manual Techniques lumbar paraspinal MFR Body Location lumbar spine Body Position Prone sacral decompression Type MET for sacral decompression Reps/Duration x 5 reps Comments MET for sacral decompression and into sacral counternutation thoracic spine mobilizations Body Location thoracic spine Body Position Prone Comments PA glides thoracic spine, good tolerance PT-OP-T Assessment and Plan Start: 11/18/21 09:48 Freq: Status: Active Protocol: Document 10/29/22 14:00 [facility] (Rec: 10/29/22 14:58 [facility] [id number]) Physical Therapy Assessment Assessment Summary Assessment Katelyn is making continued progress with stride length and speed of gait, no longer needing her walking sticks Physical Therapy Plan Frequency and Duration Frequency of Treatment Every Other Week Duration of treatment (weeks) 8 Plan of Care Start Date 10/01/22 Plan of Care End Date 11/26/22 Therapeutic Interventions Therapeutic Interventions Home Exercise Program,Manual Therapy,Patient/Caregiver Education,Self-Care/Home Management,Soft Tissue Mobilization,Therapeutic Exercises Next Visit Focus/Plan Next Note Type Treatment Note Next Visit Plan continue working on piriformis and sacral release and progress stabilization exercises
--- NOTE | 2022-11-10 14:07 | PT.OTN ---
Current Diagnoses Other chronic pain (11/10/22) Lumbago with sciatica, right side (11/10/22) Lumbago with sciatica, left side (11/10/22) Physical Therapy Treatment Note PT-OP-A Visit Information Start: 11/18/21 09:48 Freq: Status: Active Protocol: Document 11/10/22 13:25 [facility] (Rec: 11/10/22 14:07 [facility] [id number]) Out-Patient Physical Therapy Visit Information Visit Information Visit Type Treatment Note Visit Start Time 13:20 Visit Stop Time 14:00 Total Visit Minutes 40 Visit Number 26 PT-OP-B Current Condition Start: 11/18/21 09:48 Freq: Status: Active Protocol: Document 11/18/21 09:49 [facility] (Rec: 11/18/21 09:56 [facility] [id number]) Current Condition History of Current Condition Onset Date chronic with new onset of right sided neck pain Current Complaints left hip pain, lowback stiffness, right neck History of Current Condition stiffness in her low back and right sided neck tightness. Katelyn reports she underwent dental work tht had her in the dental chair x 5 hours. SInce that time she has had right sided neck and jaw discomfort. She is working on her home stretches for the left hip and back but continues to note discomfort and tightness. Katelyn reports has figured out how to make her exercises part of her routine, she has been trying to stretch first thing and is using the miracle balls . Treatment Goals Patient/Caregiver Goals pts goals include pain reduction to allow her to continue working and walking daily Current Functional Impairments (Reported) Functional Limitations- ADL's pain prevents her from sitting more than 1 hour and standing more than 30 min PT-OP-C Subjective Start: 11/18/21 09:48 Freq: Status: Active Protocol: Document 11/10/22 13:25 [facility] (Rec: 11/10/22 14:07 [facility] [id number]) OP-PT Subjective Patient Comments Patient Comments katelyn notes her sacrum felt out of alignment this week. She has continued to work on her exercises and walking PT-OP-J Posture/Palpation/Skin Start: 11/18/21 09:48 Freq: Status: Active Protocol: Document 11/18/21 09:49 [facility] (Rec: 11/20/21 15:10 [facility] [id number]) Posture Evaluation Position Sitting Evaluation View Lateral Head/C-Spine Posture Flexed T-Spine Posture Increased Kyphosis Comments Posture Comments pt is presenting with a increasing kyphotic posture with forward head and shoulders Palpation Assessment Location left piriformis Palpation Location left piriformis Palpation Findings Soft Tissue Tightness,Muscle Guarding,Tenderness R SCM Palpation Location R SCM Palpation Findings Soft Tissue Tightness,Muscle Guarding Palpation Details tightness and guarding from mastoid process to insertion at the clavicle PT-OP-K Range of Motion Start: 11/18/21 09:48 Freq: Status: Active Protocol: Document 11/18/21 09:49 [facility] (Rec: 11/18/21 10:30 [facility] [id number]) Cervical Spine Range of Motion Cervical Spine Active Testing Position Sitting Lateral Flexion Left 5 Lateral Flexion Right 5 ROM Limitations Soft Tissue Tightness,Pain Comments sidebend left is painful on the right side, turningher head to the right is painful Hip Goniometric Range of Motion Hip left Hip ROM WFL No Testing Position Supine Flexion w/Knee Flexed 120 Straight Leg Raise 50 Abduction 20 Internal Rotation 15 External Rotation 30 Comments no pain with hip ROM today, limited by tightness PT-OP-M Strength Start: 11/18/21 09:48 Freq: Status: Active Protocol: Document 11/18/21 09:49 [facility] (Rec: 11/20/21 15:10 [facility] [id number]) Hip Strength Hip Manual Muscle Testing Left Flexion (L2) 3 Fair Abduction 3 Fair External Rotation 3 Fair Internal Rotation 3 Fair PT-OP-Q Treatments Start: 11/18/21 09:48 Freq: Status: Active Protocol: Document 11/10/22 13:25 [facility] (Rec: 11/10/22 14:07 [facility] [id number]) Manual Therapy Treatment Soft Tissue Mobilization piriformis release left side Body Location bilateral piriformis release Mobilization Type Myofascial Release Intensity/Depth Superficial Body Position Prone Comments pt has been sore on B sides after she tripped and emily herself a few weeks ago Manual Techniques MET for left anterior innominant rotation Reps/Duration x 5 reps lumbar paraspinal MFR Body Location lumbar spine Body Position Prone sacral decompression Type MET for sacral decompression Reps/Duration x 5 reps Comments MET for sacral decompression and into sacral counternutation thoracic spine mobilizations Body Location thoracic spine Body Position Prone Comments PA glides thoracic spine, good tolerance PT-OP-T Assessment and Plan Start: 11/18/21 09:48 Freq: Status: Active Protocol: Document 11/10/22 13:25 [facility] (Rec: 11/10/22 14:07 [facility] [id number]) Physical Therapy Assessment Assessment Summary Assessment Katelyn's leg length was left leg longer but after MET she was even. She has been able to continue with her walking. She was tight in her piriformis today Physical Therapy Plan Frequency and Duration Frequency of Treatment Every Other Week Duration of treatment (weeks) 8 Plan of Care Start Date 10/01/22 Plan of Care End Date 11/26/22 Therapeutic Interventions Therapeutic Interventions Home Exercise Program,Manual Therapy,Patient/Caregiver Education,Self-Care/Home Management,Soft Tissue Mobilization,Therapeutic Exercises Next Visit Focus/Plan Next Note Type Treatment Note Next Visit Plan continue working on piriformis and sacral release and progress stabilization exercises
--- NOTE | 2022-11-24 14:25 | PT.OTN ---
Current Diagnoses Other chronic pain (11/24/22) Lumbago with sciatica, right side (11/24/22) Lumbago with sciatica, left side (11/24/22) Physical Therapy Treatment Note PT-OP-A Visit Information Start: 11/18/21 09:48 Freq: Status: Active Protocol: Document 11/24/22 12:35 [facility] (Rec: 11/24/22 13:19 [facility] [id number]) Out-Patient Physical Therapy Visit Information Visit Information Visit Type Treatment Note Visit Start Time 12:35 Visit Stop Time 13:15 Total Visit Minutes 40 Visit Number 27 PT-OP-B Current Condition Start: 11/18/21 09:48 Freq: Status: Active Protocol: Document 11/18/21 09:49 [facility] (Rec: 11/18/21 09:56 [facility] [id number]) Current Condition History of Current Condition Onset Date chronic with new onset of right sided neck pain Current Complaints left hip pain, lowback stiffness, right neck History of Current Condition stiffness in her low back and right sided neck tightness. Katelyn reports she underwent dental work tht had her in the dental chair x 5 hours. SInce that time she has had right sided neck and jaw discomfort. She is working on her home stretches for the left hip and back but continues to note discomfort and tightness. Katelyn reports has figured out how to make her exercises part of her routine, she has been trying to stretch first thing and is using the miracle balls . Treatment Goals Patient/Caregiver Goals pts goals include pain reduction to allow her to continue working and walking daily Current Functional Impairments (Reported) Functional Limitations- ADL's pain prevents her from sitting more than 1 hour and standing more than 30 min PT-OP-C Subjective Start: 11/18/21 09:48 Freq: Status: Active Protocol: Document 11/24/22 12:35 [facility] (Rec: 11/24/22 13:19 [facility] [id number]) OP-PT Subjective Patient Comments Patient Comments pt reports she is getting some tingling into her left anterior chand PT-OP-J Posture/Palpation/Skin Start: 11/18/21 09:48 Freq: Status: Active Protocol: Document 11/18/21 09:49 [facility] (Rec: 11/20/21 15:10 [facility] [id number]) Posture Evaluation Position Sitting Evaluation View Lateral Head/C-Spine Posture Flexed T-Spine Posture Increased Kyphosis Comments Posture Comments pt is presenting with a increasing kyphotic posture with forward head and shoulders Palpation Assessment Location left piriformis Palpation Location left piriformis Palpation Findings Soft Tissue Tightness,Muscle Guarding,Tenderness R SCM Palpation Location R SCM Palpation Findings Soft Tissue Tightness,Muscle Guarding Palpation Details tightness and guarding from mastoid process to insertion at the clavicle PT-OP-K Range of Motion Start: 11/18/21 09:48 Freq: Status: Active Protocol: Document 11/18/21 09:49 [facility] (Rec: 11/18/21 10:30 [facility] [id number]) Cervical Spine Range of Motion Cervical Spine Active Testing Position Sitting Lateral Flexion Left 5 Lateral Flexion Right 5 ROM Limitations Soft Tissue Tightness,Pain Comments sidebend left is painful on the right side, turningher head to the right is painful Hip Goniometric Range of Motion Hip left Hip ROM WFL No Testing Position Supine Flexion w/Knee Flexed 120 Straight Leg Raise 50 Abduction 20 Internal Rotation 15 External Rotation 30 Comments no pain with hip ROM today, limited by tightness PT-OP-M Strength Start: 11/18/21 09:48 Freq: Status: Active Protocol: Document 11/18/21 09:49 [facility] (Rec: 11/20/21 15:10 [facility] [id number]) Hip Strength Hip Manual Muscle Testing Left Flexion (L2) 3 Fair Abduction 3 Fair External Rotation 3 Fair Internal Rotation 3 Fair PT-OP-Q Treatments Start: 11/18/21 09:48 Freq: Status: Active Protocol: Document 11/24/22 12:30 [facility] (Rec: 11/24/22 14:24 [facility] [id number]) Therapeutic Exercises Supine Exercises double knee to chest stretch Reps/Minutes hold 30 sec x 2 reps Sitting Exercises seated chin tucks Reps/Minutes x 10 reps hold x 5 seconds each Standing Exercises standing rows Equipment Used level 2 theraband Reps/Minutes 3 x 10 reps doorway pec stretch Reps/Minutes hold 1-2 min Manual Therapy Treatment Soft Tissue Mobilization piriformis release left side Body Location bilateral piriformis release Mobilization Type Myofascial Release Intensity/Depth Superficial Body Position Prone Comments pt has been sore on B sides after she tripped and emily herself a few weeks ago Manual Techniques sacral decompression Type MET for sacral decompression Reps/Duration x 5 reps Comments MET for sacral decompression and into sacral counternutation thoracic spine mobilizations Body Location thoracic spine Body Position Prone Comments PA glides thoracic spine, good tolerance PT-OP-T Assessment and Plan Start: 11/18/21 09:48 Freq: Status: Active Protocol: Document 11/24/22 12:30 [facility] (Rec: 11/24/22 14:24 [facility] [id number]) Physical Therapy Assessment Goals 4 Impairment left sided hip apin rated 5-6/ 10 with tightness and guarding in the piriformis Tray Line Supervisor Goal (LTG) Katelyn reports a overall reduction in left sided hip pain and guarding is reduced Good progress LTG Duration 12 weeks 3 Impairment muscle guarding and spasm of the right SCM, suboccipitals, left piriformis Short Term Goal (STG) Katelyn is educated on stretches for her neck and she notes improved ability to turn her head while driving GOAL MET Skilled Nursing Goal (LTG) Katelyn presents with a overall reducation in muscle spasm and guarding GOOD PROGRESS she is still having guarding in the left piriformis but pain is much reduced LTG Duration 12 weeks 2 Impairment Decreased cervical spine ROM Skilled Nursing Goal (LTG) Katleyn is able to perform pain free cervical spine ROM WFL GOAL MET LTG Duration 12 weeks 1 Impairment decreased walking speed with gait Tray Line Supervisor Goal (LTG) excellent progress, Katelyn is able to walk 400-600 m on the 6 min walk test and she notes she is able to go further distance on [employer] [place] Assessment Summary Assessment Kateyln continues to make progress and has been able to take two walks daily. She has not been able to see her chiropractor as he is out with a injury so she has been feeling much tighter in her neck and upper back. Postural exercises were reviewed today Physical Therapy Plan Frequency and Duration Frequency of Treatment Every Other Week Duration of treatment (weeks) 8 Plan of Care Start Date 11/24/22 Plan of Care End Date 01/19/23 Therapeutic Interventions Therapeutic Interventions Home Exercise Program,Manual Therapy,Patient/Caregiver Education,Self-Care/Home Management,Soft Tissue Mobilization,Therapeutic Exercises Next Visit Focus/Plan Next Note Type Treatment Note Next Visit Plan review postural exercises next visit and stabilization exercises, manual therapy techniques for hips and low back
--- NOTE | 2022-11-24 14:26 | PT.OPPOC ---
Physical, Occupational & Speech Therapy At [facility] Current Diagnoses Other chronic pain (11/24/22) Lumbago with sciatica, right side (11/24/22) Lumbago with sciatica, left side (11/24/22) Visit Care Team Role Provider Type Jessica Del Rosario PA-C Attending Provider Non-Staff Family Provider Primary Care Provider Referring Provider Specialty: Medical Address: [address] [place] [address], [id number] Email: [email or web address] Plan Of Care PT-OP-T Assessment and Plan Start: 11/18/21 09:48 Freq: Status: Active Protocol: Document 11/24/22 12:30 [facility] (Rec: 11/24/22 14:24 [facility] [id number]) Physical Therapy Assessment Goals 4 Impairment left sided hip apin rated 5-6/ 10 with tightness and guarding in the piriformis Fpc Goal (LTG) Katelyn reports a overall reduction in left sided hip pain and guarding is reduced Good progress LTG Duration 12 weeks 3 Impairment muscle guarding and spasm of the right SCM, suboccipitals, left piriformis Short Term Goal (STG) Katelyn is educated on stretches for her neck and she notes improved ability to turn her head while driving GOAL MET Piano Machine Operator Goal (LTG) Katelyn presents with a overall re-education in muscle spasm and guarding GOOD PROGRESS she is still having guarding in the left piriformis but pain is much reduced LTG Duration 12 weeks 2 Impairment Decreased cervical spine ROM Fpc Goal (LTG) Katelyn is able to perform pain free cervical spine ROM WFL GOAL MET LTG Duration 12 weeks 1 Impairment decreased walking speed with gait Piano Machine Operator Goal (LTG) excellent progress, Katelyn is able to walk 400-600 m on the 6 min walk test and she notes she is able to go further distance [place] [address] Assessment Summary Assessment Katelyn continues to make progress and has been able to take two walks daily. She has not been able to see her chiropractor as he is out with a injury so she has been feeling much tighter in her neck and upper back. Postural exercises were reviewed today Physical Therapy Plan Frequency and Duration Frequency of Treatment Every Other Week Duration of treatment (weeks) 8 Plan of Care Start Date 11/24/22 Plan of Care End Date 01/19/23 Therapeutic Interventions Therapeutic Interventions Home Exercise Program,Manual Therapy,Patient/Caregiver Education,Self-Care/Home Management,Soft Tissue Mobilization,Therapeutic Exercises Next Visit Focus/Plan Next Note Type Treatment Note Next Visit Plan review postural exercises next visit and stabilization exercises, manual therapy techniques for hips and low back Plan of Care Dates Plan of Care Start Date 11/24/22 Plan of Care End Date 01/19/23 Electronically Signed by: Essence Hernandez, PT 11/24/22 0810 If you are in agreement with this Plan of Care, please return a signed and dated copy. I have reviewed this Plan of Care and certify that the skilled therapy services above are required to meet the patient?s needs. Physician Signature Date Printed Name and Credentials Clinical Instructor Signature Printed Name and Credentials
--- NOTE | 2022-11-24 14:29 | PT-OP ANOTE ---
plan of care was sent to pts provider Jessica Del Rosario however she is no longer at [facility]
--- NOTE | 2022-12-23 13:12 | PT.OTN ---
Current Diagnoses Other chronic pain (12/23/22) Lumbago with sciatica, right side (12/23/22) Lumbago with sciatica, left side (12/23/22) Physical Therapy Treatment Note PT-OP-A Visit Information Start: 11/18/21 09:48 Freq: Status: Active Protocol: Document 12/23/22 10:38 [facility] (Rec: 12/23/22 11:19 [facility] [id number]) Out-Patient Physical Therapy Visit Information Visit Information Visit Type Treatment Note Visit Start Time 10:35 Visit Stop Time 11:15 Total Visit Minutes 40 Visit Number 28 PT-OP-B Current Condition Start: 11/18/21 09:48 Freq: Status: Active Protocol: Document 11/18/21 09:49 [facility] (Rec: 11/18/21 09:56 [facility] [id number]) Current Condition History of Current Condition Onset Date chronic with new onset of right sided neck pain Current Complaints left hip pain, lowback stiffness, right neck History of Current Condition stiffness in her low back and right sided neck tightness. Katelyn reports she underwent dental work tht had her in the dental chair x 5 hours. SInce that time she has had right sided neck and jaw discomfort. She is working on her home stretches for the left hip and back but continues to note discomfort and tightness. Katelyn reports has figured out how to make her exercises part of her routine, she has been trying to stretch first thing and is using the miracle balls . Treatment Goals Patient/Caregiver Goals pts goals include pain reduction to allow her to continue working and walking daily Current Functional Impairments (Reported) Functional Limitations- ADL's pain prevents her from sitting more than 1 hour and standing more than 30 min PT-OP-C Subjective Start: 11/18/21 09:48 Freq: Status: Active Protocol: Document 12/23/22 10:38 [facility] (Rec: 12/23/22 11:19 [facility] [id number]) OP-PT Subjective Patient Comments Patient Comments Katelyn states she feels achey today and has had a cold so she is not sure if the acheyness is from being sick or not. She has still been able to do her two walks per day Patient Reported Progress Improving PT-OP-J Posture/Palpation/Skin Start: 11/18/21 09:48 Freq: Status: Active Protocol: Document 11/18/21 09:49 [facility] (Rec: 11/20/21 15:10 [facility] [id number]) Posture Evaluation Position Sitting Evaluation View Lateral Head/C-Spine Posture Flexed T-Spine Posture Increased Kyphosis Comments Posture Comments pt is presenting with a increasing kyphotic posture with forward head and shoulders Palpation Assessment Location left piriformis Palpation Location left piriformis Palpation Findings Soft Tissue Tightness,Muscle Guarding,Tenderness R SCM Palpation Location R SCM Palpation Findings Soft Tissue Tightness,Muscle Guarding Palpation Details tightness and guarding from mastoid process to insertion at the clavicle PT-OP-K Range of Motion Start: 11/18/21 09:48 Freq: Status: Active Protocol: Document 11/18/21 09:49 [facility] (Rec: 11/18/21 10:30 [facility] [id number]) Cervical Spine Range of Motion Cervical Spine Active Testing Position Sitting Lateral Flexion Left 5 Lateral Flexion Right 5 ROM Limitations Soft Tissue Tightness,Pain Comments sidebend left is painful on the right side, turningher head to the right is painful Hip Goniometric Range of Motion Hip left Hip ROM WFL No Testing Position Supine Flexion w/Knee Flexed 120 Straight Leg Raise 50 Abduction 20 Internal Rotation 15 External Rotation 30 Comments no pain with hip ROM today, limited by tightness PT-OP-M Strength Start: 11/18/21 09:48 Freq: Status: Active Protocol: Document 11/18/21 09:49 [facility] (Rec: 11/20/21 15:10 [facility] [id number]) Hip Strength Hip Manual Muscle Testing Left Flexion (L2) 3 Fair Abduction 3 Fair External Rotation 3 Fair Internal Rotation 3 Fair PT-OP-Q Treatments Start: 11/18/21 09:48 Freq: Status: Active Protocol: Document 12/23/22 10:35 [facility] (Rec: 12/23/22 13:12 [facility] [id number]) Manual Therapy Treatment Soft Tissue Mobilization upper trapezius release B Mobilization Type Myofascial Release Body Position prone with body pillow piriformis release left side Body Location bilateral piriformis release Mobilization Type Myofascial Release Intensity/Depth Superficial Body Position Prone Comments pt has been sore on B sides after she tripped and emily herself a few weeks ago Manual Techniques lumbar paraspinal MFR Body Location lumbar spine Body Position Prone sacral decompression Type MET for sacral decompression Reps/Duration x 5 reps Comments MET for sacral decompression and into sacral counternutation thoracic spine mobilizations Body Location thoracic spine Body Position Prone Comments PA glides thoracic spine, good tolerance PT-OP-T Assessment and Plan Start: 11/18/21 09:48 Freq: Status: Active Protocol: Document 12/23/22 10:38 [facility] (Rec: 12/23/22 11:19 [facility] [id number]) Physical Therapy Assessment Assessment Summary Assessment Katelyn has not been seen x 1 month and she did feel a little tighter today in her upper back but has also been sick. She has been able to keep up with her walking but has not been able to see her chiropractor since he has been injured. Walking has not been affected. Physical Therapy Plan Frequency and Duration Frequency of Treatment Every Other Week Duration of treatment (weeks) 8 Plan of Care Start Date 11/24/22 Plan of Care End Date 01/19/23 Therapeutic Interventions Therapeutic Interventions Home Exercise Program,Manual Therapy,Patient/Caregiver Education,Self-Care/Home Management,Soft Tissue Mobilization,Therapeutic Exercises Next Visit Focus/Plan Next Note Type Treatment Note Next Visit Plan review postural exercises next visit and stabilization exercises, manual therapy techniques for hips and low back
--- NOTE | 2022-12-30 12:19 | PT.OTN ---
Current Diagnoses Other chronic pain (12/30/22) Lumbago with sciatica, right side (12/30/22) Lumbago with sciatica, left side (12/30/22) Physical Therapy Treatment Note PT-OP-A Visit Information Start: 11/18/21 09:48 Freq: Status: Active Protocol: Document 12/30/22 10:33 [facility] (Rec: 12/30/22 11:20 [facility] [id number]) Out-Patient Physical Therapy Visit Information Visit Information Visit Type Treatment Note Visit Start Time 10:33 Visit Stop Time 11:15 Total Visit Minutes 43 Visit Number 29 PT-OP-B Current Condition Start: 11/18/21 09:48 Freq: Status: Active Protocol: Document 11/18/21 09:49 [facility] (Rec: 11/18/21 09:56 [facility] [id number]) Current Condition History of Current Condition Onset Date chronic with new onset of right sided neck pain Current Complaints left hip pain, lowback stiffness, right neck History of Current Condition stiffness in her low back and right sided neck tightness. Katelyn reports she underwent dental work tht had her in the dental chair x 5 hours. SInce that time she has had right sided neck and jaw discomfort. She is working on her home stretches for the left hip and back but continues to note discomfort and tightness. Katelyn reports has figured out how to make her exercises part of her routine, she has been trying to stretch first thing and is using the miracle balls . Treatment Goals Patient/Caregiver Goals pts goals include pain reduction to allow her to continue working and walking daily Current Functional Impairments (Reported) Functional Limitations- ADL's pain prevents her from sitting more than 1 hour and standing more than 30 min PT-OP-C Subjective Start: 11/18/21 09:48 Freq: Status: Active Protocol: Document 12/30/22 10:33 [facility] (Rec: 12/30/22 11:20 [facility] [id number]) OP-PT Subjective Patient Comments Patient Comments Katelyn notes he cold has till been lingering but she tested and does not have covid, Katelyn states she has deon ble to keep with walking 2 times each day and she is happy she is able to do that Patient Reported Progress Improving PT-OP-J Posture/Palpation/Skin Start: 11/18/21 09:48 Freq: Status: Active Protocol: Document 11/18/21 09:49 [facility] (Rec: 11/20/21 15:10 [facility] [id number]) Posture Evaluation Position Sitting Evaluation View Lateral Head/C-Spine Posture Flexed T-Spine Posture Increased Kyphosis Comments Posture Comments pt is presenting with a increasing kyphotic posture with forward head and shoulders Palpation Assessment Location left piriformis Palpation Location left piriformis Palpation Findings Soft Tissue Tightness,Muscle Guarding,Tenderness R SCM Palpation Location R SCM Palpation Findings Soft Tissue Tightness,Muscle Guarding Palpation Details tightness and guarding from mastoid process to insertion at the clavicle PT-OP-K Range of Motion Start: 11/18/21 09:48 Freq: Status: Active Protocol: Document 11/18/21 09:49 [facility] (Rec: 11/18/21 10:30 [facility] [id number]) Cervical Spine Range of Motion Cervical Spine Active Testing Position Sitting Lateral Flexion Left 5 Lateral Flexion Right 5 ROM Limitations Soft Tissue Tightness,Pain Comments sidebend left is painful on the right side, turningher head to the right is painful Hip Goniometric Range of Motion Hip left Hip ROM WFL No Testing Position Supine Flexion w/Knee Flexed 120 Straight Leg Raise 50 Abduction 20 Internal Rotation 15 External Rotation 30 Comments no pain with hip ROM today, limited by tightness PT-OP-M Strength Start: 11/18/21 09:48 Freq: Status: Active Protocol: Document 11/18/21 09:49 [facility] (Rec: 11/20/21 15:10 [facility] [id number]) Hip Strength Hip Manual Muscle Testing Left Flexion (L2) 3 Fair Abduction 3 Fair External Rotation 3 Fair Internal Rotation 3 Fair PT-OP-Q Treatments Start: 11/18/21 09:48 Freq: Status: Active Protocol: Document 12/30/22 10:33 [facility] (Rec: 12/30/22 12:17 [facility] [id number]) Manual Therapy Treatment Soft Tissue Mobilization piriformis release left side Body Location bilateral piriformis release Mobilization Type Myofascial Release Intensity/Depth Superficial Body Position Prone Comments pt has been sore on B sides after she tripped and emily herself a few weeks ago Manual Techniques lumbar paraspinal MFR Body Location lumbar spine Body Position Prone Comments worked on B lumbar paraspinals asd both were tight today sacral decompression Type MET for sacral decompression Reps/Duration x 5 reps Comments MET for sacral decompression and into sacral counternutation thoracic spine mobilizations Body Location thoracic spine Body Position Prone Comments PA glides thoracic spine, good tolerance PT-OP-T Assessment and Plan Start: 11/18/21 09:48 Freq: Status: Active Protocol: Document 12/30/22 10:33 [facility] (Rec: 12/30/22 11:20 [facility] [id number]) Physical Therapy Assessment Assessment Summary Assessment Katelyn continues to present with a cold but has been able to continue walking. I have encouraged her to continue with her stretching routine for her hips as she was tight today in the left piriformis. Physical Therapy Plan Frequency and Duration Frequency of Treatment Every Other Week Duration of treatment (weeks) 8 Plan of Care Start Date 11/24/22 Plan of Care End Date 01/19/23 Next Visit Focus/Plan Next Note Type Treatment Note Next Visit Plan next visit will be Katelyn's last visit on this referral. Review full HEP
--- NOTE | 2023-01-20 13:35 | PT.OTN ---
Current Diagnoses Other chronic pain (01/20/23) Lumbago with sciatica, right side (01/20/23) Lumbago with sciatica, left side (01/20/23) Physical Therapy Treatment Note PT-OP-A Visit Information Start: 11/18/21 09:48 Freq: Status: Active Protocol: Document 01/20/23 10:32 [facility] (Rec: 01/20/23 11:16 [facility] [id number]) Out-Patient Physical Therapy Visit Information Visit Information Visit Type Progress Note Visit Start Time 10:30 Visit Stop Time 11:15 Total Visit Minutes 45 Visit Number 30 PT-OP-B Current Condition Start: 11/18/21 09:48 Freq: Status: Active Protocol: Document 11/18/21 09:49 [facility] (Rec: 11/18/21 09:56 [facility] [id number]) Current Condition History of Current Condition Onset Date chronic with new onset of right sided neck pain Current Complaints left hip pain, lowback stiffness, right neck History of Current Condition stiffness in her low back and right sided neck tightness. Katelyn reports she underwent dental work tht had her in the dental chair x 5 hours. SInce that time she has had right sided neck and jaw discomfort. She is working on her home stretches for the left hip and back but continues to note discomfort and tightness. Katelyn reports has figured out how to make her exercises part of her routine, she has been trying to stretch first thing and is using the miracle balls . Treatment Goals Patient/Caregiver Goals pts goals include pain reduction to allow her to continue working and walking daily Current Functional Impairments (Reported) Functional Limitations- ADL's pain prevents her from sitting more than 1 hour and standing more than 30 min PT-OP-C Subjective Start: 11/18/21 09:48 Freq: Status: Active Protocol: Document 01/20/23 10:32 [facility] (Rec: 01/20/23 11:16 [facility] [id number]) OP-PT Subjective Patient Comments Patient Comments pt notes she is getting a tingling througout her whole body. SHe feels that she has not had a appitite. SHe is feeling pain in her thoracic spine at the bra line. PT-OP-J Posture/Palpation/Skin Start: 11/18/21 09:48 Freq: Status: Active Protocol: Document 11/18/21 09:49 [facility] (Rec: 11/20/21 15:10 [facility] [id number]) Posture Evaluation Position Sitting Evaluation View Lateral Head/C-Spine Posture Flexed T-Spine Posture Increased Kyphosis Comments Posture Comments pt is presenting with a increasing kyphotic posture with forward head and shoulders Palpation Assessment Location left piriformis Palpation Location left piriformis Palpation Findings Soft Tissue Tightness,Muscle Guarding,Tenderness R SCM Palpation Location R SCM Palpation Findings Soft Tissue Tightness,Muscle Guarding Palpation Details tightness and guarding from mastoid process to insertion at the clavicle PT-OP-K Range of Motion Start: 11/18/21 09:48 Freq: Status: Active Protocol: Document 11/18/21 09:49 [facility] (Rec: 11/18/21 10:30 [facility] [id number]) Cervical Spine Range of Motion Cervical Spine Active Testing Position Sitting Lateral Flexion Left 5 Lateral Flexion Right 5 ROM Limitations Soft Tissue Tightness,Pain Comments sidebend left is painful on the right side, turningher head to the right is painful Hip Goniometric Range of Motion Hip left Hip ROM WFL No Testing Position Supine Flexion w/Knee Flexed 120 Straight Leg Raise 50 Abduction 20 Internal Rotation 15 External Rotation 30 Comments no pain with hip ROM today, limited by tightness PT-OP-M Strength Start: 11/18/21 09:48 Freq: Status: Active Protocol: Document 11/18/21 09:49 [facility] (Rec: 11/20/21 15:10 [facility] [id number]) Hip Strength Hip Manual Muscle Testing Left Flexion (L2) 3 Fair Abduction 3 Fair External Rotation 3 Fair Internal Rotation 3 Fair PT-OP-Q Treatments Start: 11/18/21 09:48 Freq: Status: Active Protocol: Document 01/20/23 10:32 [facility] (Rec: 01/20/23 13:30 [facility] [id number]) Therapeutic Exercises Standing Exercises standing rows Equipment Used level 2 theraband Reps/Minutes 3 x 10 reps Manual Therapy Treatment Soft Tissue Mobilization piriformis release left side Body Location bilateral piriformis release Mobilization Type Myofascial Release Intensity/Depth Superficial Body Position Prone Comments pt has been sore on B sides after she tripped and emily herself a few weeks ago Manual Techniques sacral decompression Type MET for sacral decompression Reps/Duration x 5 reps Comments MET for sacral decompression and into sacral counternutation thoracic spine mobilizations Body Location thoracic spine Body Position Prone Comments PA glides thoracic spine, good tolerance PT-OP-T Assessment and Plan Start: 11/18/21 09:48 Freq: Status: Active Protocol: Document 01/20/23 10:32 [facility] (Rec: 01/20/23 13:30 [facility] [id number]) Physical Therapy Assessment Goals 4 Impairment left sided hip pain rated 5-6/ 10 with tightness and guarding in the piriformis Production Line Mechanic Goal (LTG) Katelyn reports a overall reduction in left sided hip pain and guarding is reduced Good progress LTG Duration 12 weeks 3 Impairment muscle guarding and spasm of the right SCM, suboccipitals, left piriformis Short Term Goal (STG) Katelyn is educated on stretches for her neck and she notes improved ability to turn her head while driving GOAL MET Long-Term Goal (LTG) Katelyn presents with a overall reducation in muscle spasm and guarding GOOD PROGRESS she is still having guarding in the left piriformis but pain is much reduced LTG Duration 12 weeks 2 Impairment Decreased cervical spine ROM Long-Term Goal (LTG) Katelyn is able to perform pain free cervical spine ROM WFL GOAL MET LTG Duration 12 weeks 1 Impairment decreased walking speed with gait Production Line Mechanic Goal (LTG) excellent progress, Katelyn is able to walk 400-600 m on the 6 min walk test and she notes she is able to go further distance on [employer] trail GOAL MET Progress Towards Goals Progress Towards Goals Progressing Toward Goals Assessment Summary Assessment Katelyn has been sick the past few weeks and felt pretty shakey today. we reviewed standing rows with her as her mid thoracic spine is giving her more pain today. She felt a little dizzy after that so exercises were stopped and the focus was on manual therapy to help reduce tension. She has been able to continue walking 1-2 times per day. She has two visits left with PT to ensure full HEP and after that will be discharged to a I HEP Physical Therapy Plan Frequency and Duration Frequency of Treatment Every Other Week Duration of treatment (weeks) 4 Plan of Care Start Date 01/20/23 Plan of Care End Date 02/16/23 Next Visit Focus/Plan Next Note Type Treatment Note Next Visit Plan Katelyn has 2 visits left scheduled and will then be discharged. Review HEP
--- NOTE | 2023-01-20 13:36 | PT.OPPOC ---
Physical, Occupational & Speech Therapy At [facility] Current Diagnoses Other chronic pain (01/20/23) Lumbago with sciatica, right side (01/20/23) Lumbago with sciatica, left side (01/20/23) Visit Care Team Role Provider Type Jessica Del Rosario PA-C Attending Provider Non-Staff Family Provider Primary Care Provider Referring Provider Specialty: Medical Address: [address] [place] [address], [id number] Email: [email or web address] Plan Of Care PT-OP-T Assessment and Plan Start: 11/18/21 09:48 Freq: Status: Active Protocol: Document 01/20/23 10:32 [facility] (Rec: 01/20/23 13:30 [facility] [id number]) Physical Therapy Assessment Goals 4 Impairment left sided hip pain rated 5-6/ 10 with tightness and guarding in the piriformis Jail Goal (LTG) Katelyn reports a overall reduction in left sided hip pain and guarding is reduced Good progress LTG Duration 12 weeks 3 Impairment muscle guarding and spasm of the right SCM, suboccipitals, left piriformis Short Term Goal (STG) Katelyn is educated on stretches for her neck and she notes improved ability to turn her head while driving GOAL MET Awning Frame Maker Goal (LTG) Katelyn presents with a overall reducation in muscle spasm and guarding GOOD PROGRESS she is still having guarding in the left piriformis but pain is much reduced LTG Duration 12 weeks 2 Impairment Decreased cervical spine ROM Jail Goal (LTG) Katelyn is able to perform pain free cervical spine ROM WFL GOAL MET LTG Duration 12 weeks 1 Impairment decreased walking speed with gait Jail Goal (LTG) excellent progress, Katelyn is able to walk 400-600 m on the 6 min walk test and she notes she is able to go further distance on [address] GOAL MET Progress Towards Goals Progress Towards Goals Progressing Toward Goals Assessment Summary Assessment Katelyn has been sick the past few weeks and felt pretty shakey today. we reviewed standing rows with her as her mid thoracic spine is giving her more pain today. She felt a little dizzy after that so exercises were stopped and the focus was on manual therapy to help reduce tension. She has been able to continue walking 1-2 times per day. She has two visits left with PT to ensure full HEP and after that will be discharged to a HEP Physical Therapy Plan Frequency and Duration Frequency of Treatment Every Other Week Duration of treatment (weeks) 4 Plan of Care Start Date 01/20/23 Plan of Care End Date 02/16/23 Next Visit Focus/Plan Next Note Type Treatment Note Next Visit Plan Katelyn has 2 visits left scheduled and will then be discharged. Review HEP Plan of Care Dates Plan of Care Start Date 01/20/23 Plan of Care End Date 02/16/23 Electronically Signed by: Essence Hernandez, PT 01/20/23 [id number] If you are in agreement with this Plan of Care, please return a signed and dated copy. I have reviewed this Plan of Care and certify that the skilled therapy services above are required to meet the patient?s needs. Physician Signature Date Printed Name and Credentials Clinical Instructor Signature Printed Name and Credentials
--- NOTE | 2023-01-27 13:25 | PT.OTN ---
Current Diagnoses Other chronic pain (01/27/23) Lumbago with sciatica, right side (01/27/23) Lumbago with sciatica, left side (01/27/23) Physical Therapy Treatment Note PT-OP-A Visit Information Start: 11/18/21 09:48 Freq: Status: Active Protocol: Document 01/27/23 11:34 [facility] (Rec: 01/27/23 12:15 [facility] [id number]) Out-Patient Physical Therapy Visit Information Visit Information Visit Type Treatment Note Visit Start Time 11:32 Visit Stop Time 12:15 Total Visit Minutes 43 Visit Number 31 PT-OP-B Current Condition Start: 11/18/21 09:48 Freq: Status: Active Protocol: Document 11/18/21 09:49 [facility] (Rec: 11/18/21 09:56 [facility] [id number]) Current Condition History of Current Condition Onset Date chronic with new onset of right sided neck pain Current Complaints left hip pain, lowback stiffness, right neck History of Current Condition stiffness in her low back and right sided neck tightness. Katelyn reports she underwent dental work tht had her in the dental chair x 5 hours. SInce that time she has had right sided neck and jaw discomfort. She is working on her home stretches for the left hip and back but continues to note discomfort and tightness. Katelyn reports has figured out how to make her exercises part of her routine, she has been trying to stretch first thing and is using the miracle balls . Treatment Goals Patient/Caregiver Goals pts goals include pain reduction to allow her to continue working and walking daily Current Functional Impairments (Reported) Functional Limitations- ADL's pain prevents her from sitting more than 1 hour and standing more than 30 min PT-OP-C Subjective Start: 11/18/21 09:48 Freq: Status: Active Protocol: Document 01/27/23 11:34 [facility] (Rec: 01/27/23 12:15 [facility] [id number]) OP-PT Subjective Patient Comments Patient Comments pt notes the tingling has let up a little bit, her mid back is not as bad today. She has been able to continue her walking PT-OP-J Posture/Palpation/Skin Start: 11/18/21 09:48 Freq: Status: Active Protocol: Document 11/18/21 09:49 [facility] (Rec: 11/20/21 15:10 [facility] [id number]) Posture Evaluation Position Sitting Evaluation View Lateral Head/C-Spine Posture Flexed T-Spine Posture Increased Kyphosis Comments Posture Comments pt is presenting with a increasing kyphotic posture with forward head and shoulders Palpation Assessment Location left piriformis Palpation Location left piriformis Palpation Findings Soft Tissue Tightness,Muscle Guarding,Tenderness R SCM Palpation Location R SCM Palpation Findings Soft Tissue Tightness,Muscle Guarding Palpation Details tightness and guarding from mastoid process to insertion at the clavicle PT-OP-K Range of Motion Start: 11/18/21 09:48 Freq: Status: Active Protocol: Document 11/18/21 09:49 [facility] (Rec: 11/18/21 10:30 [facility] [id number]) Cervical Spine Range of Motion Cervical Spine Active Testing Position Sitting Lateral Flexion Left 5 Lateral Flexion Right 5 ROM Limitations Soft Tissue Tightness,Pain Comments sidebend left is painful on the right side, turningher head to the right is painful Hip Goniometric Range of Motion Hip left Hip ROM WFL No Testing Position Supine Flexion w/Knee Flexed 120 Straight Leg Raise 50 Abduction 20 Internal Rotation 15 External Rotation 30 Comments no pain with hip ROM today, limited by tightness PT-OP-M Strength Start: 11/18/21 09:48 Freq: Status: Active Protocol: Document 11/18/21 09:49 [facility] (Rec: 11/20/21 15:10 [facility] [id number]) Hip Strength Hip Manual Muscle Testing Left Flexion (L2) 3 Fair Abduction 3 Fair External Rotation 3 Fair Internal Rotation 3 Fair PT-OP-Q Treatments Start: 11/18/21 09:48 Freq: Status: Active Protocol: Document 01/27/23 11:34 [facility] (Rec: 01/27/23 12:15 [facility] [id number]) Manual Therapy Treatment Soft Tissue Mobilization piriformis release left side Body Location bilateral piriformis release Mobilization Type Myofascial Release Intensity/Depth Superficial Body Position Prone Comments pt has been sore on B sides after she tripped and emily herself a few weeks ago Manual Techniques lumbar paraspinal MFR Body Location lumbar spine Body Position Prone Comments worked on B lumbar paraspinals asd both were tight today sacral decompression Type MET for sacral decompression Reps/Duration x 5 reps Comments MET for sacral decompression and into sacral counternutation thoracic spine mobilizations Body Location thoracic spine Body Position Prone Comments PA glides thoracic spine, good tolerance PT-OP-T Assessment and Plan Start: 11/18/21 09:48 Freq: Status: Active Protocol: Document 01/27/23 11:30 [facility] (Rec: 01/27/23 13:25 [facility] [id number]) Physical Therapy Assessment Assessment Summary Assessment Katelyn is doing better overall. She has one visit left to review HEP and she will then be discharged from PT Physical Therapy Plan Frequency and Duration Frequency of Treatment Every Other Week Duration of treatment (weeks) 4 Plan of Care Start Date 01/20/23 Plan of Care End Date 02/16/23 Therapeutic Interventions Therapeutic Interventions Home Exercise Program,Manual Therapy,Patient/Caregiver Education,Self-Care/Home Management,Soft Tissue Mobilization,Therapeutic Exercises Next Visit Focus/Plan Next Note Type Treatment Note Next Visit Plan This will be Katelyn's last PT apointment. Review all established exercises for HEP
--- NOTE | 2023-02-10 13:12 | PT.OTN ---
Current Diagnoses Other chronic pain (02/10/23) Lumbago with sciatica, right side (02/10/23) Lumbago with sciatica, left side (02/10/23) Physical Therapy Treatment Note PT-OP-A Visit Information Start: 11/18/21 09:48 Freq: Status: Active Protocol: Document 02/10/23 12:16 [facility] (Rec: 02/10/23 13:11 [facility] [id number]) Out-Patient Physical Therapy Visit Information Visit Information Visit Type Treatment Note Visit Start Time 12:15 Visit Stop Time 13:00 Total Visit Minutes 45 Visit Number 32 PT-OP-B Current Condition Start: 11/18/21 09:48 Freq: Status: Active Protocol: Document 11/18/21 09:49 [facility] (Rec: 11/18/21 09:56 [facility] [id number]) Current Condition History of Current Condition Onset Date chronic with new onset of right sided neck pain Current Complaints left hip pain, lowback stiffness, right neck History of Current Condition stiffness in her low back and right sided neck tightness. Katelyn reports she underwent dental work tht had her in the dental chair x 5 hours. SInce that time she has had right sided neck and jaw discomfort. She is working on her home stretches for the left hip and back but continues to note discomfort and tightness. Katelyn reports has figured out how to make her exercises part of her routine, she has been trying to stretch first thing and is using the miracle balls . Treatment Goals Patient/Caregiver Goals pts goals include pain reduction to allow her to continue working and walking daily Current Functional Impairments (Reported) Functional Limitations- ADL's pain prevents her from sitting more than 1 hour and standing more than 30 min PT-OP-C Subjective Start: 11/18/21 09:48 Freq: Status: Active Protocol: Document 02/10/23 12:16 [facility] (Rec: 02/10/23 13:11 [facility] [id number]) OP-PT Subjective Patient Comments Patient Comments Katelyn notes her wrists are more effected now and she feels like she has a tremor in her wrists. This is aggravated with typing. She also is noting some dizzyness that seems to be with her all day. SHe feels more wobbly on her feet. PT-OP-J Posture/Palpation/Skin Start: 11/18/21 09:48 Freq: Status: Active Protocol: Document 11/18/21 09:49 [facility] (Rec: 11/20/21 15:10 [facility] [id number]) Posture Evaluation Position Sitting Evaluation View Lateral Head/C-Spine Posture Flexed T-Spine Posture Increased Kyphosis Comments Posture Comments pt is presenting with a increasing kyphotic posture with forward head and shoulders Palpation Assessment Location left piriformis Palpation Location left piriformis Palpation Findings Soft Tissue Tightness,Muscle Guarding,Tenderness R SCM Palpation Location R SCM Palpation Findings Soft Tissue Tightness,Muscle Guarding Palpation Details tightness and guarding from mastoid process to insertion at the clavicle PT-OP-K Range of Motion Start: 11/18/21 09:48 Freq: Status: Active Protocol: Document 11/18/21 09:49 [facility] (Rec: 11/18/21 10:30 [facility] [id number]) Cervical Spine Range of Motion Cervical Spine Active Testing Position Sitting Lateral Flexion Left 5 Lateral Flexion Right 5 ROM Limitations Soft Tissue Tightness,Pain Comments sidebend left is painful on the right side, turningher head to the right is painful Hip Goniometric Range of Motion Hip left Hip ROM WFL No Testing Position Supine Flexion w/Knee Flexed 120 Straight Leg Raise 50 Abduction 20 Internal Rotation 15 External Rotation 30 Comments no pain with hip ROM today, limited by tightness PT-OP-M Strength Start: 11/18/21 09:48 Freq: Status: Active Protocol: Document 11/18/21 09:49 [facility] (Rec: 11/20/21 15:10 [facility] [id number]) Hip Strength Hip Manual Muscle Testing Left Flexion (L2) 3 Fair Abduction 3 Fair External Rotation 3 Fair Internal Rotation 3 Fair PT-OP-Q Treatments Start: 11/18/21 09:48 Freq: Status: Active Protocol: Document 02/10/23 12:16 [facility] (Rec: 02/10/23 13:11 [facility] [id number]) Therapeutic Exercises Supine Exercises median nerve gliding exercise Reps/Minutes x 10 reps each side piriformis stretch Reps/Minutes hold 1-2 minutes Prone Exercises prone hip IR/ER Reps/Minutes x 10 Standing Exercises doorway pec stretch Reps/Minutes hold 1-2 min Manual Therapy Treatment Soft Tissue Mobilization upper trapezius release B Mobilization Type Myofascial Release Body Position prone with body pillow pec minor release B Body Location pec minor Mobilization Type Myofascial Release piriformis release left side Body Location bilateral piriformis release Mobilization Type Myofascial Release Intensity/Depth Superficial Body Position Prone Comments pt has been sore on B sides after she tripped and emily herself a few weeks ago Nerve Glides median nerve glides Body Position Hooklying Comments ULTT1 median nerve glides, decreased tightness today Manual Techniques lumbar paraspinal MFR Body Location lumbar spine Body Position Prone Comments worked on B lumbar paraspinals asd both were tight today manual pec minor stretch Body Location pec minor B Body Position Hooklying sacral decompression Type MET for sacral decompression Reps/Duration x 5 reps Comments MET for sacral decompression and into sacral counternutation thoracic spine mobilizations Body Location thoracic spine Body Position Prone Comments PA glides thoracic spine, good tolerance PT-OP-T Assessment and Plan Start: 11/18/21 09:48 Freq: Status: Active Protocol: Document 02/10/23 12:16 [facility] (Rec: 02/10/23 13:11 [facility] [id number]) Physical Therapy Assessment Goals 4 Impairment left sided hip pain rated 5-6/ 10 with tightness and guarding in the piriformis Wage And Salary Administrator Goal (LTG) Katelyn reports a overall reduction in left sided hip pain and guarding is reduced Goal met LTG Duration 12 weeks 3 Impairment muscle guarding and spasm of the right SCM, suboccipitals, left piriformis Short Term Goal (STG) Katelyn is educated on stretches for her neck and she notes improved ability to turn her head while driving GOAL MET Halfway Goal (LTG) Katelyn presents with a overall reducation in muscle spasm and guarding GOal met LTG Duration 12 weeks 2 Impairment Decreased cervical spine ROM Halfway Goal (LTG) Katelyn is able to perform pain free cervical spine ROM WFL GOAL MET LTG Duration 12 weeks 1 Impairment decreased walking speed with gait Halfway Goal (LTG) excellent progress, Katelyn is able to walk 400-600 m on the 6 min walk test and she notes she is able to go further distance on [address] GOAL MET Assessment Summary Assessment Katelyn will be discharged at this time to a [facility]. She is feeling better overall and has been able to continue with her walks 2 times per day. She will be seeing a new doctor and will let him know of her symptoms of dizzyness. Physical Therapy Plan Discharge Physical Therapy Discharge Reasons Goals Met Discharge Comments overall hip pain is no longer a problem and she has been able to continue walking
== END 2023-02-16 10:00 | disposition home or self-care (01) ==
LOC: PHYS 12:15
PROVIDERS: Family Provider Physician Assistant; PCP Physician Assistant; Referring Provider Physician Assistant; Visit Provider Physician Assistant
DX: M54.42 Lumbago with sciatica, left side (principal); M54.41 Lumbago with sciatica, right side; G89.29 Other chronic pain
CPT/HCPCS: 97110; 97140; 97161

== ENCOUNTER → 2023-06-14 09:21 | Outpatient (CLI) | payer OTHER, SELFPAY ==
[2023-06-14 10:29] LABS: Hematocrit 41.2 % (36-46); Hemoglobin 13.9 g/dL (12.0-16.0); Mean Corpuscular HGB Conc 33.6 % (30-36); Mean Corpuscular Hemoglobin 27.5 PG (26-34); Mean Corpuscular Volume 81.7 fL (80-100); Platelet Count 310 X10^3/uL (150-400); Red Blood Cell Count 5.04 X10^6/uL (4.0-5.2); Red Cell Distribution Width 13.4 % (11.6-14.8)
[2023-06-14 10:49] LABS: Alanine Aminotransferase 30 IU/L (<35); Albumin Globulin Ratio 1.4 (1.0-2.8); Alkaline Phosphatase 72 U/L (38-126); Aspartate Aminotransferase 30 IU/L (14-36); BUN Creatinine Ratio 16.4 (6-22); Blood Urea Nitrogen 12 mg/dL (7-17); Calcium 9.3 mg/dL (8.4-10.2); Carbon Dioxide 28 mmol/L (22-32); Chloride 108 mmol/L (98-107); Cholesterol 141 mg/dL (140-199); Estimated Glomerular Filt Rate > 60 mL/min (>60); Globulin 2.9 g/dL (1.7-4.1); Glucose 113 mg/dL (80-110); HDL Cholesterol 53 mg/dL (40-60); HEMOLYSIS < 15 (0-50); LDL Cholesterol Calculated 73 mg/dL (<100); Sodium 140 mmol/L (137-145); Total Protein 6.9 g/dL (6.3-8.2); Triglycerides 74 mg/dL (35-150)
[2023-06-14 11:19] LABS: TSH w/ Reflex to FT4 2.04 uIU/mL (0.47-4.68)
== END ==
PROVIDERS: Family Provider Physician Assistant; PCP Registered Nurse Diabetes Educator; Referring Provider Registered Nurse Diabetes Educator; Visit Provider Registered Nurse Diabetes Educator
DX: I25.10 Atherosclerotic heart disease of native coronary artery without angina pectoris (principal); I10 Essential (primary) hypertension
CPT/HCPCS: 36415; 80053; 80061; 84443; 85027

== ENCOUNTER 2023-10-06 09:45 | Outpatient (RCR) | payer MEDICARE, SELFPAY ==
--- NOTE | 2023-03-17 17:45 | PT.OIE ---
Current Diagnoses Other chronic pain (03/17/23) Lumbago with sciatica, left side (03/17/23) Past Medical History (Last Updated 01/06/21 @ 15:57 by Chris Carrion DO) Dextroscoliosis Gait instability Lumbosacral radiculopathy at L5 Spondylolisthesis at L4-L5 level Visit Care Team Role Provider Type Jessica Del Rosario PA-C Family Provider Non-Staff Specialty: Medical Address: [address] [place] [address], [id number] Email: [email or web address] Rachael Mitchell PA-C Attending Provider Advanced Pretzel Twister Primary Care Provider Referring Provider Specialty: Medical Address: [address] [place] [address], [address] Email: Physical Therapy Initial Evaluation PT-OP-A Visit Information Start: 03/17/23 10:02 Freq: Status: Active Protocol: Document 03/17/23 10:08 [facility] (Rec: 03/17/23 10:48 [facility] [id number]) Out-Patient Physical Therapy Visit Information Visit Information Visit Type Initial Evaluation Visit Start Time 09:55 Visit Stop Time 10:45 Total Visit Minutes 40 Visit Number 1 Evaluation Information Evaluation Date 03/17/23 PT-OP-B Current Condition Start: 03/17/23 10:02 Freq: Status: Active Protocol: Document 03/17/23 09:45 [facility] (Rec: 03/23/23 17:44 [facility] [id number]) Current Condition History of Current Condition Onset Date chronic Current Complaints thoracic pain, stiffness in the neck, low back and hip pain with sciatic sx History of Current Condition Puja is a 73 year old female who returns to PT today with ongoing thoracic and lumbar pain as well as left hip pain with sciatic symtoms. 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 She has noted increased thightness in her thoracic spine and low back with this. Treatment Goals Patient/Caregiver Goals Puja's goals include decreasing pain and allowing her to continue with her walking routine and typing without increased pain PT-OP-C Subjective Start: 03/17/23 10:02 Freq: Status: Active Protocol: Document 03/17/23 09:45 [facility] (Rec: 03/23/23 17:44 [facility] [id number]) Patient Questionnaires Oswestry Low Back Index Oswestry Score 21 Oswestry Impairment 20 to 39% Impaired (Score 20- 39) OP-PT Pain Assessment Pain Assessment Grid Paper Pain Assessment Grid Completed Yes Location right hip Intensity 4 Scale Used Numeric (0 - 10) Description Pressure,Spasm left hip Intensity 6 Scale Used Numeric (0 - 10) Description Radiating,Spasm,Throbbing,With Movement right side thoracic pain Pain Location Details right side thoracic pain Intensity 6 Scale Used Numeric (0 - 10) Description Pressure,Pulling,Tightness Frequency Frequent Pain Duration worse with sitting and typing Pain Aggravating Factors Sitting PT-OP-F Manual Assessment Start: 03/17/23 10:50 Freq: Status: Active Protocol: Document 03/17/23 09:45 [facility] (Rec: 03/23/23 17:44 [facility] [id number]) Manual Assessments Soft Tissue Assessment Soft Tissue Mobility Assessment left piriformis tightness and soft tissue guarding thoracic paraspinal guarding and tightness R SCM tightness and guarding Joint Mobility Assessment Joint Mobility Assessment hypomobility thoracic spine with increased kyphosis PT-OP-K Range of Motion Start: 03/17/23 10:50 Freq: Status: Active Protocol: Document 03/17/23 09:45 [facility] (Rec: 03/23/23 17:44 [facility] [id number]) Cervical Spine Range of Motion Cervical Spine Active Rotation Left 10 Rotation Right 10 Lateral Flexion Left 5 Lateral Flexion Right 5 ROM Limitations Soft Tissue Tightness Hip Goniometric Range of Motion Hip Left Testing Position Supine Flexion w/Knee Flexed 110 Straight Leg Raise 55 Abduction 20 Internal Rotation 15 Hip ROM Limitations Hip ROM Limitations Soft Tissue Tightness Comments hamstring, piriformis, and adductor tightness, PT-OP-Q Treatments Start: 03/17/23 10:50 Freq: Status: Active Protocol: Document 03/17/23 10:50 [facility] (Rec: 03/17/23 10:51 [facility] [id number]) Therapeutic Exercises Supine Exercises iliopsoas stretch Reps/Minutes hold 1-2 min Comments in contreras test position Standing Exercises standing hamstring curls Side bilateral Reps/Minutes x 10 reps each leg Comments working on dynamically stretching out the quad PT-OP-T Assessment and Plan Start: 03/17/23 10:50 Freq: Status: Active Protocol: Document 03/17/23 09:45 [facility] (Rec: 03/23/23 17:44 [facility] [id number]) Physical Therapy Assessment Rehab Potential Rehabilitation Potential Excellent Evaluation Complexity Number of Personal Factors/Comorbidities 0 Number of Body Systems Impaired 1-2 Clinical Presentation at Evaluation Stable Impairments Impairments Activity Tolerance,Functional Activities,Functional Mobility ,Pain,Posture,Soft Tissue Mobility Goals 4 Impairment left sided hip pain rated 5-6/ 10 with tightness and guarding in the piriformis Short Term Goal (STG) Puja is educated on a HEP to reduce piriformis tightness and guarding STG Duration 4 weeks 3 Impairment muscle guarding and spasm of the right SCM, suboccipitals, left piriformis Head Paper Tester Goal (LTG) Puja presents with improved cervical spine ROM as well as improve thoracic mobility to decrease strain to the cervical spine LTG Duration 12 weeks 2 Impairment Decreased cervical spine ROM Snf Goal (LTG) puja presents with pain free cervical spine ROM that is WFL 1 Impairment modified oswestry score of 21 Snf Goal (LTG) Puja has been able to lower her score on the modified oswestry by 5-10 points demonstrating improved function LTG Duration 12 weeks Assessment Summary Assessment Puja is a 73 year old female who returns to PT today with left sided posterior hip pain, low back pain, neck pain, with referral of pain into the gluteals. She has started working towards her degree in [employer] work and this involves a great deal of computer work. She is also complaining of hand numbness and I told her she needs to talk to her doctor about including this in her PT referral or obtaining a seperate referral for this. She has been walking 2 times her day. She stands in a kyphotic posture with rounded thoracic spine and shoulder IR . There is tightness in the thoracic and lumbar paraspinals as well as the piriformis. Puja will benefit from a home stretching and strengtheing program and manual therapy techniques to reduce tension and muscle spasm. She is a good candidate for PT Physical Therapy Plan Frequency and Duration Frequency of Treatment 1x/Week Duration of treatment (weeks) 12 Plan of Care Start Date 03/17/23 Plan of Care End Date 06/09/23 Therapeutic Interventions Therapeutic Interventions Home Exercise Program,Joint Mobilizations,Manual Therapy, Patient/Caregiver Education, Self-Care/Home Management,Soft Tissue Mobilization, Therapeutic Exercises
--- NOTE | 2023-03-17 17:45 | PT.OPPOC ---
Physical, Occupational & Speech Therapy At [facility] Current Diagnoses Other chronic pain (03/17/23) Lumbago with sciatica, left side (03/17/23) Visit Care Team Role Provider Type Jessica Del Rosario PA-C Family Provider Non-Staff Specialty: Medical Address: [address] [place] [address], [id number] Email: [email or web address] Rachael Mitchell PA-C Attending Provider Advanced Dye Automation Operator Primary Care Provider Referring Provider Specialty: Medical Address: [address] [place] [address], [id number] Email: Plan Of Care PT-OP-T Assessment and Plan Start: 03/17/23 10:50 Freq: Status: Active Protocol: Document 03/17/23 09:45 [facility] (Rec: 03/23/23 17:44 [facility] [id number]) Physical Therapy Assessment Rehab Potential Rehabilitation Potential Excellent Evaluation Complexity Number of Personal Factors/Comorbidities 0 Number of Body Systems Impaired 1-2 Clinical Presentation at Evaluation Stable Impairments Impairments Activity Tolerance,Functional Activities,Functional Mobility ,Pain,Posture,Soft Tissue Mobility Goals 4 Impairment left sided hip pain rated 5-6/ 10 with tightness and guarding in the piriformis Short Term Goal (STG) Puja is educated on a HEP to reduce piriformis tightness and guarding STG Duration 4 weeks 3 Impairment muscle guarding and spasm of the right SCM, suboccipitals, left piriformis Milk Route Supervisor Goal (LTG) Puja presents with improved cervical spine ROM as well as improve thoracic mobility to decrease strain to the cervical spine LTG Duration 12 weeks 2 Impairment Decreased cervical spine ROM Longterm Goal (LTG) puja presents with pain free cervical spine ROM that is WFL 1 Impairment modified oswestry score of 21 Milk Route Supervisor Goal (LTG) Puja has been able to lower her score on the modified oswestry by 5-10 points demonstrating improved function LTG Duration 12 weeks Assessment Summary Assessment Puja is a 73 year old female who returns to PT today with left sided posterior hip pain, low back pain, neck pain, with referral of pain into the gluteals. 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 She is also complaining of hand numbness and I told her she needs to talk to her doctor about including this in her PT referral or obtaining a separate referral for this. She has been walking 2 times her day. She stands in a kyphotic posture with rounded thoracic spine and shoulder IR . There is tightness in the thoracic and lumbar paraspinals as well as the piriformis. Puja will benefit from a home stretching and strengthening program and manual therapy techniques to reduce tension and muscle spasm. She is a good candidate for PT Physical Therapy Plan Frequency and Duration Frequency of Treatment 1x/Week Duration of treatment (weeks) 12 Plan of Care Start Date 03/17/23 Plan of Care End Date 06/09/23 Therapeutic Interventions Therapeutic Interventions Home Exercise Program,Joint Mobilizations,Manual Therapy, Patient/Caregiver Education, Self-Care/Home Management,Soft Tissue Mobilization, Therapeutic Exercises Plan of Care Dates Plan of Care Start Date 03/17/23 Plan of Care End Date 06/09/23 Electronically Signed by: Essence Hernandez, PT 03/23/23 [id number] If you are in agreement with this Plan of Care, please return a signed and dated copy. I have reviewed this Plan of Care and certify that the skilled therapy services above are required to meet the patient?s needs. Physician Signature Date Printed Name and Credentials Clinical Instructor Signature Printed Name and Credentials
--- NOTE | 2023-03-30 15:45 | PT.OTN ---
Current Diagnoses Other chronic pain (03/30/23) Lumbago with sciatica, left side (03/30/23) Physical Therapy Treatment Note PT-OP-A Visit Information Start: 03/17/23 10:02 Freq: Status: Active Protocol: Document 03/30/23 11:20 [facility] (Rec: 03/30/23 12:04 [facility] [id number]) Out-Patient Physical Therapy Visit Information Visit Information Visit Type Treatment Note Visit Start Time 11:20 Visit Stop Time 12:00 Total Visit Minutes 40 Visit Number 2 Evaluation Information Evaluation Date 03/17/23 PT-OP-B Current Condition Start: 03/17/23 10:02 Freq: Status: Active Protocol: Document 03/17/23 09:45 [facility] (Rec: 03/23/23 17:44 [facility] [id number]) Current Condition History of Current Condition Onset Date chronic Current Complaints thoracic pain, stiffness in the neck, low back and hip pain with sciatic sx History of Current Condition Katelyn is a 73 year old female who returns to PT today with ongoing thoracic and lumbar pain as well as left hip pain with sciatic symtoms. 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 She has noted increased thightness in her thoracic spine and low back with this. Treatment Goals Patient/Caregiver Goals Katelyn's goals include decreasing pain and allowing her to continue with her walking routine and typing without increased pain PT-OP-C Subjective Start: 03/17/23 10:02 Freq: Status: Active Protocol: Document 03/30/23 11:20 [facility] (Rec: 03/30/23 12:04 [facility] [id number]) OP-PT Subjective Patient Comments Patient Comments pt reports she is not sure what she did to her low back yesterday but it is sore today PT-OP-F Manual Assessment Start: 03/17/23 10:50 Freq: Status: Active Protocol: Document 03/17/23 09:45 [facility] (Rec: 03/23/23 17:44 [facility] [id number]) Manual Assessments Soft Tissue Assessment Soft Tissue Mobility Assessment left piriformis tightness and soft tissue guarding thoracic paraspinal guarding and tightness R SCM tightness and guarding Joint Mobility Assessment Joint Mobility Assessment hypomobility thoracic spine with increased kyphosis PT-OP-K Range of Motion Start: 03/17/23 10:50 Freq: Status: Active Protocol: Document 03/17/23 09:45 [facility] (Rec: 03/23/23 17:44 [facility] [id number]) Cervical Spine Range of Motion Cervical Spine Active Rotation Left 10 Rotation Right 10 Lateral Flexion Left 5 Lateral Flexion Right 5 ROM Limitations Soft Tissue Tightness Hip Goniometric Range of Motion Hip Left Testing Position Supine Flexion w/Knee Flexed 110 Straight Leg Raise 55 Abduction 20 Internal Rotation 15 Hip ROM Limitations Hip ROM Limitations Soft Tissue Tightness Comments hamstring, piriformis, and adductor tightness, PT-OP-Q Treatments Start: 03/17/23 10:50 Freq: Status: Active Protocol: Document 03/30/23 11:20 [facility] (Rec: 03/30/23 12:04 [facility] [id number]) Therapeutic Exercises Supine Exercises piriformis stretch Side bilateral Reps/Minutes hold 1 min each side hamstring stretch Side bilateral Reps/Minutes hold 1 min each single knee to chest stretch Side bilateral Reps/Minutes hold 30 sec x 2 iliopsoas stretch Side bilateral Reps/Minutes hold 1 min each Comments in contreras test position Manual Therapy Treatment Soft Tissue Mobilization manual release of the left piriformis Body Location left piriformis Mobilization Type Myofascial Release Intensity/Depth Superficial Body Position Prone Joint Mobilizations thoracic T2-T10 PA mobs Direction PA Grade II Body Position Prone Manual Techniques sacral counternutation Type MET Body Location sacrum Body Position Prone PT-OP-T Assessment and Plan Start: 03/17/23 10:50 Freq: Status: Active Protocol: Document 03/30/23 11:20 [facility] (Rec: 03/30/23 13:44 [facility] [id number]) Physical Therapy Assessment Assessment Summary Assessment left greater than right sided hip tightness today and left anterior innominant rotation. Katelyn was educated in stretches for the hip and I worked on sacral alignment as well as innominant alignment. Katelyn tolerated this well Physical Therapy Plan Frequency and Duration Frequency of Treatment 1x/Week Duration of treatment (weeks) 12 Plan of Care Start Date 03/17/23 Plan of Care End Date 06/09/23 Therapeutic Interventions Therapeutic Interventions Home Exercise Program,Joint Mobilizations,Manual Therapy, Patient/Caregiver Education, Self-Care/Home Management,Soft Tissue Mobilization, Therapeutic Exercises Next Visit Focus/Plan Next Note Type Treatment Note Next Visit Plan review all exercises, begin TB rows and lat pull down for posture and abdominal stabilization
--- NOTE | 2023-04-06 16:22 | PT.OTN ---
Current Diagnoses Other chronic pain (04/06/23) Lumbago with sciatica, left side (04/06/23) Physical Therapy Treatment Note PT-OP-A Visit Information Start: 03/17/23 10:02 Freq: Status: Active Protocol: Document 04/06/23 10:34 [facility] (Rec: 04/06/23 11:30 [facility] [id number]) Out-Patient Physical Therapy Visit Information Visit Information Visit Type Treatment Note Visit Start Time 10:34 Visit Stop Time 11:20 Total Visit Minutes 44 Visit Number 3 PT-OP-B Current Condition Start: 03/17/23 10:02 Freq: Status: Active Protocol: Document 03/17/23 09:45 [facility] (Rec: 03/23/23 17:44 [facility] [id number]) Current Condition History of Current Condition Onset Date chronic Current Complaints thoracic pain, stiffness in the neck, low back and hip pain with sciatic sx History of Current Condition Katelyn is a 73 year old female who returns to PT today with ongoing thoracic and lumbar pain as well as left hip pain with sciatic symtoms. 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 She has noted increased thightness in her thoracic spine and low back with this. Treatment Goals Patient/Caregiver Goals Katelyn's goals include decreasing pain and allowing her to continue with her walking routine and typing without increased pain PT-OP-C Subjective Start: 03/17/23 10:02 Freq: Status: Active Protocol: Document 04/06/23 10:34 [facility] (Rec: 04/06/23 11:30 [facility] [id number]) OP-PT Subjective Patient Comments Patient Comments pt notes she woke up with wrist pain, she hasn't been on the computer much at all. she is still doing the two wallks per day. SHe will feel the hip pain when she starts and then it fades. PT-OP-F Manual Assessment Start: 03/17/23 10:50 Freq: Status: Active Protocol: Document 03/17/23 09:45 [facility] (Rec: 03/23/23 17:44 [facility] [id number]) Manual Assessments Soft Tissue Assessment Soft Tissue Mobility Assessment left piriformis tightness and soft tissue guarding thoracic paraspinal guarding and tightness R SCM tightness and guarding Joint Mobility Assessment Joint Mobility Assessment hypomobility thoracic spine with increased kyphosis PT-OP-K Range of Motion Start: 03/17/23 10:50 Freq: Status: Active Protocol: Document 03/17/23 09:45 [facility] (Rec: 03/23/23 17:44 [facility] [id number]) Cervical Spine Range of Motion Cervical Spine Active Rotation Left 10 Rotation Right 10 Lateral Flexion Left 5 Lateral Flexion Right 5 ROM Limitations Soft Tissue Tightness Hip Goniometric Range of Motion Hip Left Testing Position Supine Flexion w/Knee Flexed 110 Straight Leg Raise 55 Abduction 20 Internal Rotation 15 Hip ROM Limitations Hip ROM Limitations Soft Tissue Tightness Comments hamstring, piriformis, and adductor tightness, PT-OP-Q Treatments Start: 03/17/23 10:50 Freq: Status: Active Protocol: Document 04/06/23 10:34 [facility] (Rec: 04/06/23 11:30 [facility] [id number]) Therapeutic Exercises Other Exercises shoulder wall slides Reps/Minutes x 10 each side standing pec minor stretch Reps/Minutes hold 1-2 min standing shoulder extension Reps/Minutes x 10 reps theraband shoulder extension Reps/Minutes 3 x 10 reps theraband rows Reps/Minutes 3 x 10 reps Manual Therapy Treatment Soft Tissue Mobilization Right upper trap Body Location right upper trap Mobilization Type Myofascial Release Comments worked on releasing the upper trap on the right Joint Mobilizations thoracic T2-T10 PA mobs Direction PA Grade II Body Position Prone Manual Techniques median nerve glides R Reps/Duration x 10 reps Comments good tolerance PT-OP-T Assessment and Plan Start: 03/17/23 10:50 Freq: Status: Active Protocol: Document 04/06/23 10:34 [facility] (Rec: 04/06/23 11:30 [facility] [id number]) Physical Therapy Assessment Assessment Summary Assessment Treatment focused on postural exercises today and improving thoracic mobility as well as stretching the anterior chest as pt has been typing a lot lately and is presenting with tightness of the anterior chest and rounding of the thoracic spine. Katelyn tolerated exercises well and felt better afterwards Physical Therapy Plan Frequency and Duration Frequency of Treatment 1x/Week Duration of treatment (weeks) 12 Plan of Care Start Date 03/17/23 Plan of Care End Date 06/09/23 Therapeutic Interventions Therapeutic Interventions Home Exercise Program,Joint Mobilizations,Manual Therapy, Patient/Caregiver Education, Self-Care/Home Management,Soft Tissue Mobilization, Therapeutic Exercises Next Visit Focus/Plan Next Note Type Treatment Note Next Visit Plan review exersises that were established today and trial of 1/2 foam roll for stretching
--- NOTE | 2023-04-13 16:41 | PT.OTN ---
Current Diagnoses Other chronic pain (04/13/23) Lumbago with sciatica, left side (04/13/23) Physical Therapy Treatment Note PT-OP-A Visit Information Start: 03/17/23 10:02 Freq: Status: Active Protocol: Document 04/13/23 10:35 [facility] (Rec: 04/13/23 10:47 [facility] [id number]) Out-Patient Physical Therapy Visit Information Visit Information Visit Type Treatment Note Visit Start Time 10:35 Visit Stop Time 11:15 Total Visit Minutes 40 Visit Number 4 PT-OP-B Current Condition Start: 03/17/23 10:02 Freq: Status: Active Protocol: Document 03/17/23 09:45 [facility] (Rec: 03/23/23 17:44 [facility] [id number]) Current Condition History of Current Condition Onset Date chronic Current Complaints thoracic pain, stiffness in the neck, low back and hip pain with sciatic sx History of Current Condition Katelyn is a 73 year old female who returns to PT today with ongoing thoracic and lumbar pain as well as left hip pain with sciatic symtoms. 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 She has noted increased thightness in her thoracic spine and low back with this. Treatment Goals Patient/Caregiver Goals Katelyn's goals include decreasing pain and allowing her to continue with her walking routine and typing without increased pain PT-OP-C Subjective Start: 03/17/23 10:02 Freq: Status: Active Protocol: Document 04/13/23 10:35 [facility] (Rec: 04/13/23 16:41 [facility] [id number]) OP-PT Subjective Patient Comments Patient Comments Katelyn notes she felt better in her wrist after last visit Patient Reported Progress Improving PT-OP-F Manual Assessment Start: 03/17/23 10:50 Freq: Status: Active Protocol: Document 03/17/23 09:45 [facility] (Rec: 03/23/23 17:44 [facility] [id number]) Manual Assessments Soft Tissue Assessment Soft Tissue Mobility Assessment left piriformis tightness and soft tissue guarding thoracic paraspinal guarding and tightness R SCM tightness and guarding Joint Mobility Assessment Joint Mobility Assessment hypomobility thoracic spine with increased kyphosis PT-OP-K Range of Motion Start: 03/17/23 10:50 Freq: Status: Active Protocol: Document 03/17/23 09:45 [facility] (Rec: 03/23/23 17:44 [facility] [id number]) Cervical Spine Range of Motion Cervical Spine Active Rotation Left 10 Rotation Right 10 Lateral Flexion Left 5 Lateral Flexion Right 5 ROM Limitations Soft Tissue Tightness Hip Goniometric Range of Motion Hip Left Testing Position Supine Flexion w/Knee Flexed 110 Straight Leg Raise 55 Abduction 20 Internal Rotation 15 Hip ROM Limitations Hip ROM Limitations Soft Tissue Tightness Comments hamstring, piriformis, and adductor tightness, PT-OP-Q Treatments Start: 03/17/23 10:50 Freq: Status: Active Protocol: Document 04/13/23 10:35 [facility] (Rec: 04/13/23 10:47 [facility] [id number]) Therapeutic Exercises Other Exercises shoulder wall slides Reps/Minutes x 10 each side standing pec minor stretch Reps/Minutes hold 1-2 min standing shoulder extension Reps/Minutes x 10 reps theraband shoulder extension Reps/Minutes 3 x 10 reps Manual Therapy Treatment Soft Tissue Mobilization Right upper trap Body Location right upper trap Mobilization Type Myofascial Release Comments worked on releasing the upper trap on the right PT-OP-T Assessment and Plan Start: 03/17/23 10:50 Freq: Status: Active Protocol: Document 04/13/23 10:35 [facility] (Rec: 04/13/23 16:41 [facility] [id number]) Physical Therapy Assessment Assessment Summary Assessment Katelyn is doing well with postural activities and thoracic pain has decreased. Physical Therapy Plan Frequency and Duration Frequency of Treatment 1x/Week Duration of treatment (weeks) 12 Plan of Care Start Date 03/17/23 Plan of Care End Date 06/09/23 Therapeutic Interventions Therapeutic Interventions Home Exercise Program,Joint Mobilizations,Manual Therapy, Patient/Caregiver Education, Self-Care/Home Management,Soft Tissue Mobilization, Therapeutic Exercises Next Visit Focus/Plan Next Note Type Treatment Note Next Visit Plan continue with postural exercises and stretches
--- NOTE | 2023-04-20 16:34 | PT.OTN ---
Current Diagnoses Other chronic pain (04/20/23) Lumbago with sciatica, left side (04/20/23) Physical Therapy Treatment Note PT-OP-A Visit Information Start: 03/17/23 10:02 Freq: Status: Active Protocol: Document 04/20/23 16:30 [facility] (Rec: 04/20/23 16:33 [facility] [id number]) Out-Patient Physical Therapy Visit Information Visit Information Visit Type Treatment Note Visit Start Time 10:35 Visit Stop Time 11:15 Total Visit Minutes 40 Visit Number 5 PT-OP-B Current Condition Start: 03/17/23 10:02 Freq: Status: Active Protocol: Document 03/17/23 09:45 [facility] (Rec: 03/23/23 17:44 [facility] [id number]) Current Condition History of Current Condition Onset Date chronic Current Complaints thoracic pain, stiffness in the neck, low back and hip pain with sciatic sx History of Current Condition Katelyn is a 73 year old female who returns to PT today with ongoing thoracic and lumbar pain as well as left hip pain with sciatic symtoms. 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 She has noted increased thightness in her thoracic spine and low back with this. Treatment Goals Patient/Caregiver Goals Katelyn's goals include decreasing pain and allowing her to continue with her walking routine and typing without increased pain PT-OP-C Subjective Start: 03/17/23 10:02 Freq: Status: Active Protocol: Document 04/20/23 16:30 [facility] (Rec: 04/20/23 16:33 [facility] [id number]) OP-PT Subjective Patient Comments Patient Comments Katelyn reports right sided thoracic pain today as if something is caught in her posterior shoulder blade PT-OP-F Manual Assessment Start: 03/17/23 10:50 Freq: Status: Active Protocol: Document 03/17/23 09:45 [facility] (Rec: 03/23/23 17:44 [facility] [id number]) Manual Assessments Soft Tissue Assessment Soft Tissue Mobility Assessment left piriformis tightness and soft tissue guarding thoracic paraspinal guarding and tightness R SCM tightness and guarding Joint Mobility Assessment Joint Mobility Assessment hypomobility thoracic spine with increased kyphosis PT-OP-K Range of Motion Start: 03/17/23 10:50 Freq: Status: Active Protocol: Document 03/17/23 09:45 [facility] (Rec: 03/23/23 17:44 [facility] [id number]) Cervical Spine Range of Motion Cervical Spine Active Rotation Left 10 Rotation Right 10 Lateral Flexion Left 5 Lateral Flexion Right 5 ROM Limitations Soft Tissue Tightness Hip Goniometric Range of Motion Hip Left Testing Position Supine Flexion w/Knee Flexed 110 Straight Leg Raise 55 Abduction 20 Internal Rotation 15 Hip ROM Limitations Hip ROM Limitations Soft Tissue Tightness Comments hamstring, piriformis, and adductor tightness, PT-OP-Q Treatments Start: 03/17/23 10:50 Freq: Status: Active Protocol: Document 04/20/23 16:30 [facility] (Rec: 04/20/23 16:33 [facility] [id number]) Therapeutic Exercises Other Exercises shoulder wall slides Reps/Minutes x 10 each side standing pec minor stretch Reps/Minutes hold 1-2 min standing shoulder extension Reps/Minutes x 10 reps theraband shoulder extension Reps/Minutes 3 x 10 reps theraband rows Reps/Minutes 3 x 10 reps Manual Therapy Treatment Soft Tissue Mobilization MFR over the thoracic paraspinals Mobilization Type Myofascial Release Intensity/Depth Moderate Body Position prone over body pillow Joint Mobilizations thoracic T2-T10 PA mobs Direction PA Grade II Body Position Prone PT-OP-T Assessment and Plan Start: 03/17/23 10:50 Freq: Status: Active Protocol: Document 04/20/23 16:30 [facility] (Rec: 04/20/23 16:33 [facility] [id number]) Physical Therapy Assessment Assessment Summary Assessment Katelyn tolerates all exercises well and she did feel a little loser today after her exercises on the right side Physical Therapy Plan Frequency and Duration Frequency of Treatment 1x/Week Duration of treatment (weeks) 12 Plan of Care Start Date 03/17/23 Plan of Care End Date 06/09/23 Therapeutic Interventions Therapeutic Interventions Home Exercise Program,Joint Mobilizations,Manual Therapy, Patient/Caregiver Education, Self-Care/Home Management,Soft Tissue Mobilization, Therapeutic Exercises Next Visit Focus/Plan Next Note Type Treatment Note Next Visit Plan continue with postural exercises and stretches
--- NOTE | 2023-04-27 11:23 | PT.OTN ---
Current Diagnoses Other chronic pain (04/27/23) Lumbago with sciatica, left side (04/27/23) Physical Therapy Treatment Note PT-OP-A Visit Information Start: 03/17/23 10:02 Freq: Status: Active Protocol: Document 04/27/23 10:37 [facility] (Rec: 04/27/23 10:38 [facility] [id number]) Out-Patient Physical Therapy Visit Information Visit Information Visit Type Treatment Note Visit Start Time 10:35 Visit Stop Time 11:15 Total Visit Minutes 40 PT-OP-B Current Condition Start: 03/17/23 10:02 Freq: Status: Active Protocol: Document 03/17/23 09:45 [facility] (Rec: 03/23/23 17:44 [facility] [id number]) Current Condition History of Current Condition Onset Date chronic Current Complaints thoracic pain, stiffness in the neck, low back and hip pain with sciatic sx History of Current Condition Katelyn is a 73 year old female who returns to PT today with ongoing thoracic and lumbar pain as well as left hip pain with sciatic symtoms. 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 She has noted increased thightness in her thoracic spine and low back with this. Treatment Goals Patient/Caregiver Goals Katelyn's goals include decreasing pain and allowing her to continue with her walking routine and typing without increased pain PT-OP-C Subjective Start: 03/17/23 10:02 Freq: Status: Active Protocol: Document 04/27/23 11:17 [facility] (Rec: 04/27/23 11:22 [facility] [id number]) OP-PT Subjective Patient Comments Patient Comments Katelyn reports she was house bound with the weather and felt her hips locked up on her PT-OP-F Manual Assessment Start: 03/17/23 10:50 Freq: Status: Active Protocol: Document 03/17/23 09:45 [facility] (Rec: 03/23/23 17:44 [facility] [id number]) Manual Assessments Soft Tissue Assessment Soft Tissue Mobility Assessment left piriformis tightness and soft tissue guarding thoracic paraspinal guarding and tightness R SCM tightness and guarding Joint Mobility Assessment Joint Mobility Assessment hypomobility thoracic spine with increased kyphosis PT-OP-K Range of Motion Start: 03/17/23 10:50 Freq: Status: Active Protocol: Document 03/17/23 09:45 [facility] (Rec: 03/23/23 17:44 [facility] [id number]) Cervical Spine Range of Motion Cervical Spine Active Rotation Left 10 Rotation Right 10 Lateral Flexion Left 5 Lateral Flexion Right 5 ROM Limitations Soft Tissue Tightness Hip Goniometric Range of Motion Hip Left Testing Position Supine Flexion w/Knee Flexed 110 Straight Leg Raise 55 Abduction 20 Internal Rotation 15 Hip ROM Limitations Hip ROM Limitations Soft Tissue Tightness Comments hamstring, piriformis, and adductor tightness, PT-OP-Q Treatments Start: 03/17/23 10:50 Freq: Status: Active Protocol: Document 04/27/23 11:17 [facility] (Rec: 04/27/23 11:22 [facility] [id number]) Therapeutic Exercises Prone Exercises prone thora ic extension with scapular slide Reps/Minutes x 10 reps, palms face table Other Exercises shoulder wall slides Reps/Minutes x 10 each side standing pec minor stretch Reps/Minutes hold 1-2 min standing shoulder extension Reps/Minutes x 10 reps theraband shoulder extension Reps/Minutes 3 x 10 reps theraband rows Reps/Minutes 3 x 10 reps Manual Therapy Treatment Soft Tissue Mobilization MFR over the thoracic paraspinals Mobilization Type Myofascial Release Intensity/Depth Moderate Body Position prone over body pillow Right upper trap Body Location right upper trap Mobilization Type Myofascial Release Comments worked on releasing the upper trap on the right manual release of the left piriformis Body Location left piriformis Mobilization Type Myofascial Release Intensity/Depth Superficial Body Position Prone Joint Mobilizations thoracic T2-T10 PA mobs Direction PA Grade II Body Position Prone PT-OP-T Assessment and Plan Start: 03/17/23 10:50 Freq: Status: Active Protocol: Document 04/27/23 11:17 [facility] (Rec: 04/27/23 11:22 [facility] [id number]) Physical Therapy Assessment Goals 4 Impairment left sided hip pain rated 5-6/ 10 with tightness and guarding in the piriformis Short Term Goal (STG) Katelyn is educated on a HEP to reduce piriformis tightness and guarding STG Duration 4 weeks 3 Impairment muscle guarding and spasm of the right SCM, suboccipitals, left piriformis Fdc Goal (LTG) Katelyn presents with improved cervical spine ROM as well as improve thoracic mobility to decrease strain to the cervical spine LTG Duration 12 weeks 2 Impairment Decreased cervical spine ROM Paper Counter Goal (LTG) katelyn presents with pain free cervical spine ROM that is WFL 1 Impairment modified oswestry score of 21 Paper Counter Goal (LTG) Katelyn has been able to lower her score on the modified oswestry by 5-10 points demonstrating improved function LTG Duration 12 weeks Assessment Summary Assessment Katelyn was tighter in the left piriformis today. She was able to return to walking which has helped. She is still experiencing the right sided wrist pain. She is tighter on the right side in her upper trap as well as right side thoracic paraspinals Physical Therapy Plan Frequency and Duration Frequency of Treatment 1x/Week Duration of treatment (weeks) 12 Plan of Care Start Date 03/17/23 Plan of Care End Date 06/09/23 Therapeutic Interventions Therapeutic Interventions Home Exercise Program,Joint Mobilizations,Manual Therapy, Patient/Caregiver Education, Self-Care/Home Management,Soft Tissue Mobilization, Therapeutic Exercises Next Visit Focus/Plan Next Note Type Treatment Note Next Visit Plan add in upper trapezius stretches next visit and revisit all of the LE stretches
--- NOTE | 2023-05-04 17:00 | PT.OTN ---
Current Diagnoses Other chronic pain (05/04/23) Lumbago with sciatica, left side (05/04/23) Physical Therapy Treatment Note PT-OP-A Visit Information Start: 03/17/23 10:02 Freq: Status: Active Protocol: Document 05/04/23 10:35 [facility] (Rec: 05/04/23 10:43 [facility] [id number]) Out-Patient Physical Therapy Visit Information Visit Information Visit Type Treatment Note Visit Start Time 10:35 Visit Stop Time 11:15 Visit Number 7 PT-OP-B Current Condition Start: 03/17/23 10:02 Freq: Status: Active Protocol: Document 03/17/23 09:45 [facility] (Rec: 03/23/23 17:44 [facility] [id number]) Current Condition History of Current Condition Onset Date chronic Current Complaints thoracic pain, stiffness in the neck, low back and hip pain with sciatic sx History of Current Condition Katelyn is a 73 year old female who returns to PT today with ongoing thoracic and lumbar pain as well as left hip pain with sciatic symtoms. 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 She has noted increased thightness in her thoracic spine and low back with this. Treatment Goals Patient/Caregiver Goals Katelyn's goals include decreasing pain and allowing her to continue with her walking routine and typing without increased pain PT-OP-C Subjective Start: 03/17/23 10:02 Freq: Status: Active Protocol: Document 05/04/23 10:35 [facility] (Rec: 05/04/23 11:22 [facility] [id number]) OP-PT Subjective Patient Comments Patient Comments Katelyn notes she has been feeling a little more of tremmors and left hip feels tight at the beginning of her walks but she has been able to keep walking 2 xms per day for a hour total PT-OP-F Manual Assessment Start: 03/17/23 10:50 Freq: Status: Active Protocol: Document 03/17/23 09:45 [facility] (Rec: 03/23/23 17:44 [facility] [id number]) Manual Assessments Soft Tissue Assessment Soft Tissue Mobility Assessment left piriformis tightness and soft tissue guarding thoracic paraspinal guarding and tightness R SCM tightness and guarding Joint Mobility Assessment Joint Mobility Assessment hypomobility thoracic spine with increased kyphosis PT-OP-K Range of Motion Start: 03/17/23 10:50 Freq: Status: Active Protocol: Document 03/17/23 09:45 [facility] (Rec: 03/23/23 17:44 [facility] [id number]) Cervical Spine Range of Motion Cervical Spine Active Rotation Left 10 Rotation Right 10 Lateral Flexion Left 5 Lateral Flexion Right 5 ROM Limitations Soft Tissue Tightness Hip Goniometric Range of Motion Hip Left Testing Position Supine Flexion w/Knee Flexed 110 Straight Leg Raise 55 Abduction 20 Internal Rotation 15 Hip ROM Limitations Hip ROM Limitations Soft Tissue Tightness Comments hamstring, piriformis, and adductor tightness, PT-OP-Q Treatments Start: 03/17/23 10:50 Freq: Status: Active Protocol: Document 05/04/23 10:35 [facility] (Rec: 05/04/23 11:22 [facility] [id number]) Therapeutic Exercises Other Exercises shoulder wall slides Reps/Minutes x 10 each side standing pec minor stretch Reps/Minutes hold 1-2 min standing shoulder extension Reps/Minutes x 10 reps theraband shoulder extension Reps/Minutes 3 x 10 reps theraband rows Reps/Minutes 3 x 10 reps Manual Therapy Treatment Soft Tissue Mobilization MFR over the thoracic paraspinals Mobilization Type Myofascial Release Intensity/Depth Moderate Body Position prone over body pillow manual release of the left piriformis Body Location left piriformis Mobilization Type Myofascial Release Intensity/Depth Superficial Body Position Prone Joint Mobilizations thoracic T2-T10 PA mobs Direction PA Grade II Body Position Prone PT-OP-T Assessment and Plan Start: 03/17/23 10:50 Freq: Status: Active Protocol: Document 05/04/23 10:35 [facility] (Rec: 05/04/23 11:22 [facility] [id number]) Physical Therapy Assessment Assessment Summary Assessment Katelyn has complaints of right sided wrist pain that I encouraged her to talk to her doctor about at today's visit. Continue progressing postural exercises as thoracic paraspinals are guarded and tight. Physical Therapy Plan Frequency and Duration Frequency of Treatment 1x/Week Duration of treatment (weeks) 12 Plan of Care Start Date 03/17/23 Plan of Care End Date 06/09/23 Therapeutic Interventions Therapeutic Interventions Home Exercise Program,Joint Mobilizations,Manual Therapy, Patient/Caregiver Education, Self-Care/Home Management,Soft Tissue Mobilization, Therapeutic Exercises Next Visit Focus/Plan Next Note Type Treatment Note Next Visit Plan add in upper trapezius stretches next visit and revisit all of the LE stretches, progress postural exercises
--- NOTE | 2023-05-20 16:44 | PT.OTN ---
Current Diagnoses Other chronic pain (05/20/23) Lumbago with sciatica, left side (05/20/23) Physical Therapy Treatment Note PT-OP-A Visit Information Start: 03/17/23 10:02 Freq: Status: Active Protocol: Document 05/20/23 13:22 [facility] (Rec: 05/20/23 13:46 [facility] [id number]) Out-Patient Physical Therapy Visit Information Visit Information Visit Type Treatment Note Visit Start Time 13:00 Visit Stop Time 13:45 Visit Number 8 PT-OP-B Current Condition Start: 03/17/23 10:02 Freq: Status: Active Protocol: Document 03/17/23 09:45 [facility] (Rec: 03/23/23 17:44 [facility] [id number]) Current Condition History of Current Condition Onset Date chronic Current Complaints thoracic pain, stiffness in the neck, low back and hip pain with sciatic sx History of Current Condition Katelyn is a 73 year old female who returns to PT today with ongoing thoracic and lumbar pain as well as left hip pain with sciatic symtoms. 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 She has noted increased thightness in her thoracic spine and low back with this. Treatment Goals Patient/Caregiver Goals Katelyn's goals include decreasing pain and allowing her to continue with her walking routine and typing without increased pain PT-OP-C Subjective Start: 03/17/23 10:02 Freq: Status: Active Protocol: Document 05/20/23 13:10 [facility] (Rec: 05/20/23 13:10 [facility] [id number]) OP-PT Subjective Patient Comments Patient Comments Katelyn notes she has felt a shift in her thoracic spine and she feels she is leaning more to the right now PT-OP-F Manual Assessment Start: 03/17/23 10:50 Freq: Status: Active Protocol: Document 03/17/23 09:45 [facility] (Rec: 03/23/23 17:44 [facility] [id number]) Manual Assessments Soft Tissue Assessment Soft Tissue Mobility Assessment left piriformis tightness and soft tissue guarding thoracic paraspinal guarding and tightness R SCM tightness and guarding Joint Mobility Assessment Joint Mobility Assessment hypomobility thoracic spine with increased kyphosis PT-OP-K Range of Motion Start: 03/17/23 10:50 Freq: Status: Active Protocol: Document 03/17/23 09:45 [facility] (Rec: 03/23/23 17:44 [facility] [id number]) Cervical Spine Range of Motion Cervical Spine Active Rotation Left 10 Rotation Right 10 Lateral Flexion Left 5 Lateral Flexion Right 5 ROM Limitations Soft Tissue Tightness Hip Goniometric Range of Motion Hip Left Testing Position Supine Flexion w/Knee Flexed 110 Straight Leg Raise 55 Abduction 20 Internal Rotation 15 Hip ROM Limitations Hip ROM Limitations Soft Tissue Tightness Comments hamstring, piriformis, and adductor tightness, PT-OP-Q Treatments Start: 03/17/23 10:50 Freq: Status: Active Protocol: Document 05/20/23 16:41 [facility] (Rec: 05/20/23 16:44 [facility] [id number]) Therapeutic Exercises Prone Exercises prone thora ic extension with scapular slide Reps/Minutes x 10 reps, palms face table Other Exercises standing sidebends left Reps/Minutes x 10 reps shoulder wall slides Reps/Minutes x 10 each side standing pec minor stretch Reps/Minutes hold 1-2 min standing shoulder extension Reps/Minutes x 10 reps theraband shoulder extension Reps/Minutes 3 x 10 reps theraband rows Reps/Minutes 3 x 10 reps Manual Therapy Treatment Soft Tissue Mobilization MFR over the thoracic paraspinals Mobilization Type Myofascial Release Intensity/Depth Moderate Body Position prone over body pillow Joint Mobilizations thoracic T2-T10 PA mobs Direction PA Grade II Body Position Prone PT-OP-T Assessment and Plan Start: 03/17/23 10:50 Freq: Status: Active Protocol: Document 05/20/23 16:41 [facility] (Rec: 05/20/23 16:44 [facility] [id number]) Physical Therapy Assessment Assessment Summary Assessment Katelyn was more shifted to the right side today in standing and she notes increased pain this past week in her mid thoracic spine. We worked on thoracic extension and i added in left sided sidebends for her as well Physical Therapy Plan Frequency and Duration Frequency of Treatment 1x/Week Duration of treatment (weeks) 12 Plan of Care Start Date 03/17/23 Plan of Care End Date 06/09/23 Therapeutic Interventions Therapeutic Interventions Home Exercise Program,Joint Mobilizations,Manual Therapy, Patient/Caregiver Education, Self-Care/Home Management,Soft Tissue Mobilization, Therapeutic Exercises Next Visit Focus/Plan Next Note Type Treatment Note Next Visit Plan review postural exercises next visit and continue progressing thoracic extension
--- NOTE | 2023-06-02 08:06 | PT.OTN ---
Current Diagnoses Other chronic pain (06/01/23) Lumbago with sciatica, left side (06/01/23) Physical Therapy Treatment Note PT-OP-A Visit Information Start: 03/17/23 10:02 Freq: Status: Active Protocol: Document 06/01/23 13:00 [facility] (Rec: 06/01/23 13:47 [facility] [id number]) Out-Patient Physical Therapy Visit Information Visit Information Visit Type Progress Note Visit Start Time 13:00 Visit Stop Time 13:45 Visit Number 9 PT-OP-B Current Condition Start: 03/17/23 10:02 Freq: Status: Active Protocol: Document 03/17/23 09:45 [facility] (Rec: 03/23/23 17:44 [facility] [id number]) Current Condition History of Current Condition Onset Date chronic Current Complaints thoracic pain, stiffness in the neck, low back and hip pain with sciatic sx History of Current Condition Katelyn is a 73 year old female who returns to PT today with ongoing thoracic and lumbar pain as well as left hip pain with sciatic symtoms. 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 She has noted increased thightness in her thoracic spine and low back with this. Treatment Goals Patient/Caregiver Goals Katelyn's goals include decreasing pain and allowing her to continue with her walking routine and typing without increased pain PT-OP-C Subjective Start: 03/17/23 10:02 Freq: Status: Active Protocol: Document 06/01/23 13:00 [facility] (Rec: 06/01/23 17:12 [facility] [id number]) OP-PT Subjective Patient Comments Patient Comments Katelyn notes she is not feeling the right sided back discomfort she was feeling last week and she feels the stretching exercise to the left is really helping Patient Reported Progress Improving PT-OP-F Manual Assessment Start: 03/17/23 10:50 Freq: Status: Active Protocol: Document 03/17/23 09:45 [facility] (Rec: 03/23/23 17:44 [facility] [id number]) Manual Assessments Soft Tissue Assessment Soft Tissue Mobility Assessment left piriformis tightness and soft tissue guarding thoracic paraspinal guarding and tightness R SCM tightness and guarding Joint Mobility Assessment Joint Mobility Assessment hypomobility thoracic spine with increased kyphosis PT-OP-K Range of Motion Start: 03/17/23 10:50 Freq: Status: Active Protocol: Document 03/17/23 09:45 [facility] (Rec: 03/23/23 17:44 [facility] [id number]) Cervical Spine Range of Motion Cervical Spine Active Rotation Left 10 Rotation Right 10 Lateral Flexion Left 5 Lateral Flexion Right 5 ROM Limitations Soft Tissue Tightness Hip Goniometric Range of Motion Hip Left Testing Position Supine Flexion w/Knee Flexed 110 Straight Leg Raise 55 Abduction 20 Internal Rotation 15 Hip ROM Limitations Hip ROM Limitations Soft Tissue Tightness Comments hamstring, piriformis, and adductor tightness, PT-OP-Q Treatments Start: 03/17/23 10:50 Freq: Status: Active Protocol: Document 06/01/23 13:00 [facility] (Rec: 06/01/23 17:12 [facility] [id number]) Therapeutic Exercises Prone Exercises prone thora ic extension with scapular slide Reps/Minutes x 10 reps, palms face table Other Exercises standing sidebends left Reps/Minutes x 10 reps shoulder wall slides Reps/Minutes x 10 each side standing pec minor stretch Reps/Minutes hold 1-2 min standing shoulder extension Reps/Minutes x 10 reps theraband shoulder extension Reps/Minutes 3 x 10 reps theraband rows Reps/Minutes 3 x 10 reps Manual Therapy Treatment Soft Tissue Mobilization MFR over the thoracic paraspinals Mobilization Type Myofascial Release Intensity/Depth Moderate Body Position prone over body pillow manual release of the left piriformis Body Location left piriformis Mobilization Type Myofascial Release Intensity/Depth Superficial Body Position Prone PT-OP-T Assessment and Plan Start: 03/17/23 10:50 Freq: Status: Active Protocol: Document 06/01/23 13:00 [facility] (Rec: 06/01/23 17:12 [facility] [id number]) Physical Therapy Assessment Goals 4 Impairment left sided hip pain rated 5-6/ 10 with tightness and guarding in the piriformis Short Term Goal (STG) Katelyn is educated on a HEP to reduce piriformis tightness and guarding excellent progress and decreased compaints of hip pain to 2-3/10 STG Duration 4 weeks 3 Impairment muscle guarding and spasm of the right SCM, suboccipitals, left piriformis [place] [employer] Goal (LTG) Katelyn presents with improved cervical spine ROM as well as improve thoracic mobility to decrease strain to the cervical spine Good progress and still working on this goal LTG Duration 12 weeks 2 Impairment Decreased cervical spine ROM Long-Term Goal (LTG) katelyn presents with pain free cervical spine ROM that is WFL Good progress 1 Impairment decreased walking speed with gait [employer]er Goal (LTG) Katelyn has been able to lower her score on the modified oswestry by 5-10 points demonstrating improved function LTG Duration 12 weeks Assessment Summary Assessment katelyn is doing better overall with her thoracic stabilization and stretching program, tightness is decreasing in both the thoracic and hip regions. Katelyn would benefit from continuing PT to focus on HEP stabilization exercises Physical Therapy Plan Frequency and Duration Frequency of Treatment 1x/Week Duration of treatment (weeks) 8 Plan of Care Start Date 06/01/23 Plan of Care End Date 07/27/23 Therapeutic Interventions Therapeutic Interventions Home Exercise Program,Joint Mobilizations,Manual Therapy, Patient/Caregiver Education, Self-Care/Home Management,Soft Tissue Mobilization, Therapeutic Exercises Next Visit Focus/Plan Next Note Type Progress Note Next Visit Plan review postural exercises next visit and continue progressing thoracic extension , continue with manual therapy techniques for the thoracic paraspinals
--- NOTE | 2023-06-02 08:09 | PT.OPPOC ---
Physical, Occupational & Speech Therapy At [facility] Current Diagnoses Other chronic pain (06/01/23) Lumbago with sciatica, left side (06/01/23) Visit Care Team Role Provider Type Jessica Del Rosario PA-C Family Provider Non-Staff Specialty: Medical Address: [address] [place] [address], [id number] Email: [email or web address] [facility] Rachael Mitchell PA-C Attending Provider [employer] Director Primary Care Provider Referring Provider Specialty: Medical Address: [address] [place] [address], [id number] Email: Plan Of Care PT-OP-T Assessment and Plan Start: 03/17/23 10:50 Freq: Status: Active Protocol: Document 06/01/23 13:00 [facility] (Rec: 06/01/23 17:12 [facility] [id number]) Physical Therapy Assessment Goals 4 Impairment left sided hip pain rated 5-6/ 10 with tightness and guarding in the piriformis Short Term Goal (STG) Puja is educated on a HEP to reduce piriformis tightness and guarding excellent progress and decreased compaints of hip pain to 2-3/10 STG Duration 4 weeks 3 Impairment muscle guarding and spasm of the right SCM, suboccipitals, left piriformis Research Physiologist Goal (LTG) Puja presents with improved cervical spine ROM as well as improve thoracic mobility to decrease strain to the cervical spine Good progress and still working on this goal LTG Duration 8 weeks 2 Impairment Decreased cervical spine ROM [facility] Goal (LTG) puja presents with pain free cervical spine ROM that is WFL Good progress LTG Duration 8 weeks 1 Impairment decreased walking speed with gait Research Physiologist Goal (LTG) Puja has been able to lower her score on the modified oswestry by 5-10 points demonstrating improved function good progress and Puja is walking 2 times per day now LTG Duration 8 weeks Assessment Summary Assessment puja is doing better overall with her thoracic stabilization and stretching program, tightness is decreasing in both the thoracic and hip regions. Puja would benefit from continuing PT to focus on HEP stabilization exercises Physical Therapy Plan Frequency and Duration Frequency of Treatment 1x/Week Duration of treatment (weeks) 8 Plan of Care Start Date 06/01/23 Plan of Care End Date 07/27/23 Therapeutic Interventions Therapeutic Interventions Home Exercise Program,Joint Mobilizations,Manual Therapy, Patient/Caregiver Education, Self-Care/Home Management,Soft Tissue Mobilization, Therapeutic Exercises Next Visit Focus/Plan Next Note Type Progress Note Next Visit Plan review postural exercises next visit and continue progressing thoracic extension , continue with manual therapy techniques for the thoracic paraspinals Plan of Care Dates Plan of Care Start Date 06/01/23 Plan of Care End Date 07/27/23 Electronically Signed by: Essence Hernandez, PT 06/02/23 0809 If you are in agreement with this Plan of Care, please return a signed and dated copy. I have reviewed this Plan of Care and certify that the skilled therapy services above are required to meet the patient?s needs. Physician Signature Date Printed Name and Credentials Clinical Instructor Signature Printed Name and Credentials
--- NOTE | 2023-06-15 17:04 | PT.OTN ---
Current Diagnoses Other chronic pain (06/15/23) Lumbago with sciatica, left side (06/15/23) Physical Therapy Treatment Note PT-OP-A Visit Information Start: 03/17/23 10:02 Freq: Status: Active Protocol: Document 06/15/23 17:00 [facility] (Rec: 06/15/23 17:03 [facility] [id number]) Out-Patient Physical Therapy Visit Information Visit Information Visit Type Treatment Note Visit Start Time 10:30 Visit Stop Time 11:15 Visit Number 10 PT-OP-B Current Condition Start: 03/17/23 10:02 Freq: Status: Active Protocol: Document 03/17/23 09:45 [facility] (Rec: 03/23/23 17:44 [facility] [id number]) Current Condition History of Current Condition Onset Date chronic Current Complaints thoracic pain, stiffness in the neck, low back and hip pain with sciatic sx History of Current Condition Katelyn is a 73 year old female who returns to PT today with ongoing thoracic and lumbar pain as well as left hip pain with sciatic symtoms. 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 She has noted increased thightness in her thoracic spine and low back with this. Treatment Goals Patient/Caregiver Goals Katelyn's goals include decreasing pain and allowing her to continue with her walking routine and typing without increased pain PT-OP-C Subjective Start: 03/17/23 10:02 Freq: Status: Active Protocol: Document 06/15/23 17:00 [facility] (Rec: 06/15/23 17:03 [facility] [id number]) OP-PT Subjective Patient Comments Patient Comments katelyn notes the right side of her back is feeling better and she is not feeling the gluteal pain as much now. She has been working on a lot of sidebend stretches PT-OP-F Manual Assessment Start: 03/17/23 10:50 Freq: Status: Active Protocol: Document 03/17/23 09:45 [facility] (Rec: 03/23/23 17:44 [facility] [id number]) Manual Assessments Soft Tissue Assessment Soft Tissue Mobility Assessment left piriformis tightness and soft tissue guarding thoracic paraspinal guarding and tightness R SCM tightness and guarding Joint Mobility Assessment Joint Mobility Assessment hypomobility thoracic spine with increased kyphosis PT-OP-K Range of Motion Start: 03/17/23 10:50 Freq: Status: Active Protocol: Document 03/17/23 09:45 [facility] (Rec: 03/23/23 17:44 [facility] [id number]) Cervical Spine Range of Motion Cervical Spine Active Rotation Left 10 Rotation Right 10 Lateral Flexion Left 5 Lateral Flexion Right 5 ROM Limitations Soft Tissue Tightness Hip Goniometric Range of Motion Hip Left Testing Position Supine Flexion w/Knee Flexed 110 Straight Leg Raise 55 Abduction 20 Internal Rotation 15 Hip ROM Limitations Hip ROM Limitations Soft Tissue Tightness Comments hamstring, piriformis, and adductor tightness, PT-OP-Q Treatments Start: 03/17/23 10:50 Freq: Status: Active Protocol: Document 06/15/23 17:00 [facility] (Rec: 06/15/23 17:03 [facility] [id number]) Therapeutic Exercises Supine Exercises piriformis stretch Side bilateral Reps/Minutes hold 1 min each side Other Exercises standing sidebends left Reps/Minutes x 10 reps shoulder wall slides Reps/Minutes x 10 each side standing pec minor stretch Reps/Minutes hold 1-2 min standing shoulder extension Reps/Minutes x 10 reps theraband shoulder extension Reps/Minutes 3 x 10 reps theraband rows Reps/Minutes 3 x 10 reps Manual Therapy Treatment Soft Tissue Mobilization MFR over the thoracic paraspinals Mobilization Type Myofascial Release Intensity/Depth Moderate Body Position prone over body pillow Right upper trap Body Location right upper trap Mobilization Type Myofascial Release Comments worked on releasing the upper trap on the right manual release of the left piriformis Body Location left piriformis Mobilization Type Myofascial Release Intensity/Depth Superficial Body Position Prone Joint Mobilizations thoracic T2-T10 PA mobs Direction PA Grade II Body Position Prone PT-OP-T Assessment and Plan Start: 03/17/23 10:50 Freq: Status: Active Protocol: Document 06/15/23 17:00 [facility] (Rec: 06/15/23 17:03 [facility] [id number]) Physical Therapy Assessment Assessment Summary Assessment Katelyn is doing well with her home program and has been adding stretches more into her walking routine Physical Therapy Plan Frequency and Duration Frequency of Treatment 1x/Week Duration of treatment (weeks) 8 Plan of Care Start Date 06/01/23 Plan of Care End Date 07/27/23 Next Visit Focus/Plan Next Note Type Treatment Note Next Visit Plan review all of her hip stretches next visit to make sure she continues with these, start adding in core stabilization for her spine
--- NOTE | 2023-07-01 12:52 | PT.OTN ---
Current Diagnoses Other chronic pain (07/01/23) Lumbago with sciatica, left side (07/01/23) Physical Therapy Treatment Note PT-OP-A Visit Information Start: 03/17/23 10:02 Freq: Status: Active Protocol: Document 07/01/23 12:48 [facility] (Rec: 07/01/23 12:52 [facility] [id number]) Out-Patient Physical Therapy Visit Information Visit Information Visit Type Treatment Note Visit Start Time 11:15 Visit Stop Time 12:00 Visit Number 11 PT-OP-B Current Condition Start: 03/17/23 10:02 Freq: Status: Active Protocol: Document 03/17/23 09:45 [facility] (Rec: 03/23/23 17:44 [facility] [id number]) Current Condition History of Current Condition Onset Date chronic Current Complaints thoracic pain, stiffness in the neck, low back and hip pain with sciatic sx History of Current Condition Katelyn is a 73 year old female who returns to PT today with ongoing thoracic and lumbar pain as well as left hip pain with sciatic symtoms. 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 She has noted increased thightness in her thoracic spine and low back with this. Treatment Goals Patient/Caregiver Goals Katelyn's goals include decreasing pain and allowing her to continue with her walking routine and typing without increased pain PT-OP-C Subjective Start: 03/17/23 10:02 Freq: Status: Active Protocol: Document 07/01/23 11:19 [facility] (Rec: 07/01/23 11:31 [facility] [id number]) OP-PT Subjective Patient Comments Patient Comments pt notes she bumped the front of her right chand and it has been sore this week. Her back is feeling better and she has been really working on her home exercise program. She is wanting to combine walks to one, the hip has been pretty quite Patient Reported Progress Improving PT-OP-F Manual Assessment Start: 03/17/23 10:50 Freq: Status: Active Protocol: Document 03/17/23 09:45 [facility] (Rec: 03/23/23 17:44 [facility] [id number]) Manual Assessments Soft Tissue Assessment Soft Tissue Mobility Assessment left piriformis tightness and soft tissue guarding thoracic paraspinal guarding and tightness R SCM tightness and guarding Joint Mobility Assessment Joint Mobility Assessment hypomobility thoracic spine with increased kyphosis PT-OP-K Range of Motion Start: 03/17/23 10:50 Freq: Status: Active Protocol: Document 03/17/23 09:45 [facility] (Rec: 03/23/23 17:44 [facility] [id number]) Cervical Spine Range of Motion Cervical Spine Active Rotation Left 10 Rotation Right 10 Lateral Flexion Left 5 Lateral Flexion Right 5 ROM Limitations Soft Tissue Tightness Hip Goniometric Range of Motion Hip Left Testing Position Supine Flexion w/Knee Flexed 110 Straight Leg Raise 55 Abduction 20 Internal Rotation 15 Hip ROM Limitations Hip ROM Limitations Soft Tissue Tightness Comments hamstring, piriformis, and adductor tightness, PT-OP-Q Treatments Start: 03/17/23 10:50 Freq: Status: Active Protocol: Document 07/01/23 12:48 [facility] (Rec: 07/01/23 12:52 [facility] [id number]) Therapeutic Exercises Supine Exercises piriformis stretch Side bilateral Reps/Minutes hold 1 min each side hamstring stretch Side bilateral Reps/Minutes hold 1 min each single knee to chest stretch Side bilateral Reps/Minutes hold 30 sec x 2 iliopsoas stretch Side bilateral Reps/Minutes hold 1 min each Comments in contreras test position Other Exercises standing sidebends left Reps/Minutes x 10 reps shoulder wall slides Reps/Minutes x 10 each side standing pec minor stretch Reps/Minutes hold 1-2 min standing shoulder extension Reps/Minutes x 10 reps theraband shoulder extension Reps/Minutes 3 x 10 reps theraband rows Reps/Minutes 3 x 10 reps Manual Therapy Treatment Soft Tissue Mobilization MFR over the thoracic paraspinals Mobilization Type Myofascial Release Intensity/Depth Moderate Body Position prone over body pillow Joint Mobilizations thoracic T2-T10 PA mobs Direction PA Grade II Body Position Prone PT-OP-T Assessment and Plan Start: 03/17/23 10:50 Freq: Status: Active Protocol: Document 07/01/23 12:48 [facility] (Rec: 07/01/23 12:52 [facility] [id number]) Physical Therapy Assessment Assessment Summary Assessment Katelyn continues to progress well and her back pain is decreasing. She is working on combining her two walks into one longer walk Physical Therapy Plan Frequency and Duration Frequency of Treatment 1x/Week Duration of treatment (weeks) 8 Plan of Care Start Date 06/01/23 Plan of Care End Date 07/27/23 Therapeutic Interventions Therapeutic Interventions Home Exercise Program,Joint Mobilizations,Manual Therapy, Patient/Caregiver Education, Self-Care/Home Management,Soft Tissue Mobilization, Therapeutic Exercises Next Visit Focus/Plan Next Note Type Treatment Note Next Visit Plan continue working on spinal stabilization and exercises for posture and core, manual therapy techniques
--- NOTE | 2023-07-22 12:30 | PT.OTN ---
Current Diagnoses Other chronic pain (07/22/23) Lumbago with sciatica, left side (07/22/23) Physical Therapy Treatment Note PT-OP-A Visit Information Start: 03/17/23 10:02 Freq: Status: Active Protocol: Document 07/22/23 09:50 [facility] (Rec: 07/22/23 10:30 [facility] [id number]) Out-Patient Physical Therapy Visit Information Visit Information Visit Type Treatment Note Visit Start Time 09:50 Visit Stop Time 10:30 Visit Number 12 PT-OP-B Current Condition Start: 03/17/23 10:02 Freq: Status: Active Protocol: Document 03/17/23 09:45 [facility] (Rec: 03/23/23 17:44 [facility] [id number]) Current Condition History of Current Condition Onset Date chronic Current Complaints thoracic pain, stiffness in the neck, low back and hip pain with sciatic sx History of Current Condition Katelyn is a 73 year old female who returns to PT today with ongoing thoracic and lumbar pain as well as left hip pain with sciatic symtoms. 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 She has noted increased thightness in her thoracic spine and low back with this. Treatment Goals Patient/Caregiver Goals Katelyn's goals include decreasing pain and allowing her to continue with her walking routine and typing without increased pain PT-OP-C Subjective Start: 03/17/23 10:02 Freq: Status: Active Protocol: Document 07/22/23 09:50 [facility] (Rec: 07/22/23 10:30 [facility] [id number]) OP-PT Subjective Patient Comments Patient Comments pt notes she has been having some anterior leg pain with walking PT-OP-F Manual Assessment Start: 03/17/23 10:50 Freq: Status: Active Protocol: Document 03/17/23 09:45 [facility] (Rec: 03/23/23 17:44 [facility] [id number]) Manual Assessments Soft Tissue Assessment Soft Tissue Mobility Assessment left piriformis tightness and soft tissue guarding thoracic paraspinal guarding and tightness R SCM tightness and guarding Joint Mobility Assessment Joint Mobility Assessment hypomobility thoracic spine with increased kyphosis PT-OP-K Range of Motion Start: 03/17/23 10:50 Freq: Status: Active Protocol: Document 03/17/23 09:45 [facility] (Rec: 03/23/23 17:44 [facility] [id number]) Cervical Spine Range of Motion Cervical Spine Active Rotation Left 10 Rotation Right 10 Lateral Flexion Left 5 Lateral Flexion Right 5 ROM Limitations Soft Tissue Tightness Hip Goniometric Range of Motion Hip Left Testing Position Supine Flexion w/Knee Flexed 110 Straight Leg Raise 55 Abduction 20 Internal Rotation 15 Hip ROM Limitations Hip ROM Limitations Soft Tissue Tightness Comments hamstring, piriformis, and adductor tightness, PT-OP-Q Treatments Start: 03/17/23 10:50 Freq: Status: Active Protocol: Document 07/22/23 09:50 [facility] (Rec: 07/22/23 10:30 [facility] [id number]) Therapeutic Exercises Supine Exercises piriformis stretch Side bilateral Reps/Minutes hold 1 min each side hamstring stretch Side bilateral Reps/Minutes hold 1 min each single knee to chest stretch Side bilateral Reps/Minutes hold 30 sec x 2 iliopsoas stretch Side bilateral Reps/Minutes hold 1 min each Comments in contreras test position Other Exercises standing calf stretch Other Exercise Name standing calf stretch Side bilateral Reps/Minutes hold 1-2 min Manual Therapy Treatment Manual Techniques manual calf release Body Location bilateral gastroc/soleus Body Position Supine PT-OP-T Assessment and Plan Start: 03/17/23 10:50 Freq: Status: Active Protocol: Document 07/22/23 09:50 [facility] (Rec: 07/22/23 10:37 [facility] [id number]) Physical Therapy Assessment Assessment Summary Assessment worked on calf stretches today for Karens walking program and worked on side body stretches for the right side of her body to reduce compression on the right side Physical Therapy Plan Frequency and Duration Frequency of Treatment 1x/Week Duration of treatment (weeks) 8 Plan of Care Start Date 06/01/23 Plan of Care End Date 07/27/23
--- NOTE | 2023-08-12 16:00 | PT.OPPOC ---
Physical, Occupational & Speech Therapy At [facility] Current Diagnoses Other chronic pain (08/12/23) Lumbago with sciatica, left side (08/12/23) Visit Care Team Role Provider Type Jessica Del Rosario PA-C Family Provider Non-Staff Specialty: Medical Address: [address] [place] [address], [id number] Email: [email or web address] Mitchell PA-C Attending Provider [employer] Cook Primary Care Provider Referring Provider Specialty: Medical Address: [address] [place] [address], [id number] Email: Plan Of Care PT-OP-T Assessment and Plan Start: 03/17/23 10:50 Freq: Status: Active Protocol: Document 08/12/23 09:45 [facility] (Rec: 08/17/23 08:56 [facility] [id number]) Physical Therapy Assessment Goals 4 Impairment left sided hip pain rated 5-6/ 10 with tightness and guarding in the piriformis Short Term Goal (STG) Puja is educated on a HEP to reduce piriformis tightness and guarding excellent progress and decreased complaints of hip pain to 2-3/10 STG Duration 4 weeks 3 Impairment muscle guarding and spasm of the right SCM, suboccipitals, left piriformis Jail Goal (LTG) Puja presents with improved cervical spine ROM as well as improve thoracic mobility to decrease strain to the cervical spine Good progress and still working on this goal LTG Duration 8 weeks 2 Impairment Decreased cervical spine ROM Jail Goal (LTG) puja presents with pain free cervical spine ROM that is WFL Good progress LTG Duration 8 weeks 1 Impairment decreased walking speed with gait Medical Clerk Goal (LTG) Puja has been able to lower her score on the modified oswestry by 5-10 points demonstrating improved function good progress and Puja is walking 2 times per day now LTG Duration 8 weeks Physical Therapy Plan Frequency and Duration Frequency of Treatment 1x/Week Duration of treatment (weeks) 8 Plan of Care Start Date 08/12/23 Plan of Care End Date 10/07/23 Therapeutic Interventions Therapeutic Interventions Home Exercise Program,Joint Mobilizations,Manual Therapy, Patient/Caregiver Education, Self-Care/Home Management,Soft Tissue Mobilization, Therapeutic Exercises Next Visit Focus/Plan Next Note Type Treatment Note Next Visit Plan continue working on spinal stabilization and exercises for posture and core, manual therapy techniques Plan of Care Dates Plan of Care Start Date 08/12/23 Plan of Care End Date 10/07/23 Electronically Signed by: Essence Hernandez, PT 08/17/23 0857 If you are in agreement with this Plan of Care, please return a signed and dated copy. I have reviewed this Plan of Care and certify that the skilled therapy services above are required to meet the patient?s needs. Physician Signature Date Printed Name and Credentials Clinical Instructor Signature Printed Name and Credentials
--- NOTE | 2023-08-12 16:00 | PT.OTN ---
Current Diagnoses Other chronic pain (08/12/23) Lumbago with sciatica, left side (08/12/23) Physical Therapy Treatment Note PT-OP-A Visit Information Start: 03/17/23 10:02 Freq: Status: Active Protocol: Document 08/12/23 09:45 [facility] (Rec: 08/17/23 08:56 [facility] [id number]) Out-Patient Physical Therapy Visit Information Visit Information Visit Type Progress Note Visit Start Time 09:45 Visit Stop Time 10:30 Visit Number 13 PT-OP-B Current Condition Start: 03/17/23 10:02 Freq: Status: Active Protocol: Document 03/17/23 09:45 [facility] (Rec: 03/23/23 17:44 [facility] [id number]) Current Condition History of Current Condition Onset Date chronic Current Complaints thoracic pain, stiffness in the neck, low back and hip pain with sciatic sx History of Current Condition Katelyn is a 73 year old female who returns to PT today with ongoing thoracic and lumbar pain as well as left hip pain with sciatic symtoms. 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 She has noted increased thightness in her thoracic spine and low back with this. Treatment Goals Patient/Caregiver Goals Katelyn's goals include decreasing pain and allowing her to continue with her walking routine and typing without increased pain PT-OP-C Subjective Start: 03/17/23 10:02 Freq: Status: Active Protocol: Document 08/12/23 09:48 [facility] (Rec: 08/12/23 10:32 [facility] [id number]) OP-PT Subjective Patient Comments Patient Comments Katelyn reports she feels that the thoracic vertebra are more sensitve this week, she is getting more tingling in the right>Left LE. PT-OP-F Manual Assessment Start: 03/17/23 10:50 Freq: Status: Active Protocol: Document 03/17/23 09:45 [facility] (Rec: 03/23/23 17:44 [facility] [id number]) Manual Assessments Soft Tissue Assessment Soft Tissue Mobility Assessment left piriformis tightness and soft tissue guarding thoracic paraspinal guarding and tightness R SCM tightness and guarding Joint Mobility Assessment Joint Mobility Assessment hypomobility thoracic spine with increased kyphosis PT-OP-K Range of Motion Start: 03/17/23 10:50 Freq: Status: Active Protocol: Document 03/17/23 09:45 [facility] (Rec: 03/23/23 17:44 [facility] [id number]) Cervical Spine Range of Motion Cervical Spine Active Rotation Left 10 Rotation Right 10 Lateral Flexion Left 5 Lateral Flexion Right 5 ROM Limitations Soft Tissue Tightness Hip Goniometric Range of Motion Hip Left Testing Position Supine Flexion w/Knee Flexed 110 Straight Leg Raise 55 Abduction 20 Internal Rotation 15 Hip ROM Limitations Hip ROM Limitations Soft Tissue Tightness Comments hamstring, piriformis, and adductor tightness, PT-OP-Q Treatments Start: 03/17/23 10:50 Freq: Status: Active Protocol: Document 08/12/23 09:48 [facility] (Rec: 08/12/23 10:32 [facility] [id number]) Therapeutic Exercises Supine Exercises soft foam roll stretch Equipment Used flexion, abduction, ER Reps/Minutes 5 min Other Exercises standing foam roll on wall thoracic extension Reps/Minutes x 20 reps PT-OP-T Assessment and Plan Start: 03/17/23 10:50 Freq: Status: Active Protocol: Document 08/12/23 09:45 [facility] (Rec: 08/17/23 08:56 [facility] [id number]) Physical Therapy Assessment Goals 4 Impairment left sided hip pain rated 5-6/ 10 with tightness and guarding in the piriformis Short Term Goal (STG) Katelyn is educated on a HEP to reduce piriformis tightness and guarding excellent progress and decreased compaints of hip pain to 2-3/10 STG Duration 4 weeks 3 Impairment muscle guarding and spasm of the right SCM, suboccipitals, left piriformis Regulatory Technician Goal (LTG) Katelyn presents with improved cervical spine ROM as well as improve thoracic mobility to decrease strain to the cervical spine Good progress and still working on this goal LTG Duration 8 weeks 2 Impairment Decreased cervical spine ROM [facility] Living Goal (LTG) katelyn presents with pain free cervical spine ROM that is WFL Good progress LTG Duration 8 weeks 1 Impairment decreased walking speed with gait Regulatory Technician Goal (LTG) Katelyn has been able to lower her score on the modified oswestry by 5-10 points demonstrating improved function good progress and Katelyn is walking 2 times per day now LTG Duration 8 weeks Physical Therapy Plan Frequency and Duration Frequency of Treatment 1x/Week Duration of treatment (weeks) 8 Plan of Care Start Date 08/12/23 Plan of Care End Date 10/07/23 Therapeutic Interventions Therapeutic Interventions Home Exercise Program,Joint Mobilizations,Manual Therapy, Patient/Caregiver Education, Self-Care/Home Management,Soft Tissue Mobilization, Therapeutic Exercises Next Visit Focus/Plan Next Note Type Treatment Note Next Visit Plan continue working on spinal stabilization and exercises for posture and core, manual therapy techniques
--- NOTE | 2023-09-07 17:30 | PT.OTN ---
Current Diagnoses Other chronic pain (09/07/23) Lumbago with sciatica, left side (09/07/23) Physical Therapy Treatment Note PT-OP-A Visit Information Start: 03/17/23 10:02 Freq: Status: Active Protocol: Document 09/07/23 10:37 [facility] (Rec: 09/07/23 11:16 [facility] [id number]) Out-Patient Physical Therapy Visit Information Visit Information Visit Type Treatment Note Visit Start Time 10:35 Visit Stop Time 11:15 Visit Number 14 PT-OP-B Current Condition Start: 03/17/23 10:02 Freq: Status: Active Protocol: Document 03/17/23 09:45 [facility] (Rec: 03/23/23 17:44 [facility] [id number]) Current Condition History of Current Condition Onset Date chronic Current Complaints thoracic pain, stiffness in the neck, low back and hip pain with sciatic sx History of Current Condition Katelyn is a 73 year old female who returns to PT today with ongoing thoracic and lumbar pain as well as left hip pain with sciatic symtoms. 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 She has noted increased thightness in her thoracic spine and low back with this. Treatment Goals Patient/Caregiver Goals Katelyn's goals include decreasing pain and allowing her to continue with her walking routine and typing without increased pain PT-OP-C Subjective Start: 03/17/23 10:02 Freq: Status: Active Protocol: Document 09/07/23 10:37 [facility] (Rec: 09/07/23 11:16 [facility] [id number]) OP-PT Subjective Patient Comments Patient Comments Katelyn reports her back is feeling a little better this week PT-OP-F Manual Assessment Start: 03/17/23 10:50 Freq: Status: Active Protocol: Document 03/17/23 09:45 [facility] (Rec: 03/23/23 17:44 [facility] [id number]) Manual Assessments Soft Tissue Assessment Soft Tissue Mobility Assessment left piriformis tightness and soft tissue guarding thoracic paraspinal guarding and tightness R SCM tightness and guarding Joint Mobility Assessment Joint Mobility Assessment hypomobility thoracic spine with increased kyphosis PT-OP-K Range of Motion Start: 03/17/23 10:50 Freq: Status: Active Protocol: Document 03/17/23 09:45 [facility] (Rec: 03/23/23 17:44 [facility] [id number]) Cervical Spine Range of Motion Cervical Spine Active Rotation Left 10 Rotation Right 10 Lateral Flexion Left 5 Lateral Flexion Right 5 ROM Limitations Soft Tissue Tightness Hip Goniometric Range of Motion Hip Left Testing Position Supine Flexion w/Knee Flexed 110 Straight Leg Raise 55 Abduction 20 Internal Rotation 15 Hip ROM Limitations Hip ROM Limitations Soft Tissue Tightness Comments hamstring, piriformis, and adductor tightness, PT-OP-Q Treatments Start: 03/17/23 10:50 Freq: Status: Active Protocol: Document 09/07/23 10:37 [facility] (Rec: 09/07/23 11:16 [facility] [id number]) Manual Therapy Treatment Soft Tissue Mobilization MFR over the thoracic paraspinals Mobilization Type Myofascial Release Intensity/Depth Moderate Body Position prone over body pillow manual release of the left piriformis Body Location left piriformis Mobilization Type Myofascial Release Intensity/Depth Superficial Body Position Prone Joint Mobilizations thoracic T2-T10 PA mobs Direction PA Grade II Body Position Prone PT-OP-T Assessment and Plan Start: 03/17/23 10:50 Freq: Status: Active Protocol: Document 09/07/23 17:29 [facility] (Rec: 09/07/23 17:30 [facility] [id number]) Physical Therapy Assessment Assessment Summary Assessment Katelyn is not having the calf cramping this week and is doing better with her back. Progress with HEP instruction to manage her symptoms at home Physical Therapy Plan Frequency and Duration Frequency of Treatment 1x/Week Duration of treatment (weeks) 8 Plan of Care Start Date 08/12/23 Plan of Care End Date 10/07/23 Next Visit Focus/Plan Next Note Type Treatment Note Next Visit Plan continue working on spinal stabilization and exercises for posture and core, manual therapy techniques
--- NOTE | 2023-09-14 17:18 | PT.OTN ---
Current Diagnoses Other chronic pain (09/14/23) Lumbago with sciatica, left side (09/14/23) Physical Therapy Treatment Note PT-OP-A Visit Information Start: 03/17/23 10:02 Freq: Status: Active Protocol: Document 09/14/23 17:14 [facility] (Rec: 09/14/23 17:17 [facility] [id number]) Out-Patient Physical Therapy Visit Information Visit Information Visit Type Treatment Note Visit Start Time 08:15 Visit Stop Time 09:00 Visit Number 15 PT-OP-B Current Condition Start: 03/17/23 10:02 Freq: Status: Active Protocol: Document 03/17/23 09:45 [facility] (Rec: 03/23/23 17:44 [facility] [id number]) Current Condition History of Current Condition Onset Date chronic Current Complaints thoracic pain, stiffness in the neck, low back and hip pain with sciatic sx History of Current Condition Katelyn is a 73 year old female who returns to PT today with ongoing thoracic and lumbar pain as well as left hip pain with sciatic symtoms. 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 She has noted increased thightness in her thoracic spine and low back with this. Treatment Goals Patient/Caregiver Goals Katelyn's goals include decreasing pain and allowing her to continue with her walking routine and typing without increased pain PT-OP-C Subjective Start: 03/17/23 10:02 Freq: Status: Active Protocol: Document 09/14/23 17:14 [facility] (Rec: 09/14/23 17:17 [facility] [id number]) OP-PT Subjective Patient Comments Patient Comments Katelyn notes she is having some pain that wraps around the right side of her sidebody from the thoracic spine PT-OP-F Manual Assessment Start: 03/17/23 10:50 Freq: Status: Active Protocol: Document 03/17/23 09:45 [facility] (Rec: 03/23/23 17:44 [facility] [id number]) Manual Assessments Soft Tissue Assessment Soft Tissue Mobility Assessment left piriformis tightness and soft tissue guarding thoracic paraspinal guarding and tightness R SCM tightness and guarding Joint Mobility Assessment Joint Mobility Assessment hypomobility thoracic spine with increased kyphosis PT-OP-K Range of Motion Start: 03/17/23 10:50 Freq: Status: Active Protocol: Document 03/17/23 09:45 [facility] (Rec: 03/23/23 17:44 [facility] [id number]) Cervical Spine Range of Motion Cervical Spine Active Rotation Left 10 Rotation Right 10 Lateral Flexion Left 5 Lateral Flexion Right 5 ROM Limitations Soft Tissue Tightness Hip Goniometric Range of Motion Hip Left Testing Position Supine Flexion w/Knee Flexed 110 Straight Leg Raise 55 Abduction 20 Internal Rotation 15 Hip ROM Limitations Hip ROM Limitations Soft Tissue Tightness Comments hamstring, piriformis, and adductor tightness, PT-OP-Q Treatments Start: 03/17/23 10:50 Freq: Status: Active Protocol: Document 09/14/23 17:14 [facility] (Rec: 09/14/23 17:17 [facility] [id number]) Therapeutic Exercises Other Exercises standing foam roll on wall thoracic extension Reps/Minutes x 20 reps standing sidebends left Reps/Minutes x 10 reps shoulder wall slides Reps/Minutes x 10 each side theraband shoulder extension Reps/Minutes 3 x 10 reps theraband rows Reps/Minutes 3 x 10 reps Manual Therapy Treatment Soft Tissue Mobilization MFR over the thoracic paraspinals Mobilization Type Myofascial Release Intensity/Depth Moderate Body Position prone over body pillow Joint Mobilizations thoracic T2-T10 PA mobs Direction PA Grade II Body Position Prone PT-OP-T Assessment and Plan Start: 03/17/23 10:50 Freq: Status: Active Protocol: Document 09/14/23 17:14 [facility] (Rec: 09/14/23 17:17 [facility] [id number]) Physical Therapy Assessment Assessment Summary Assessment Katelyn has been spending a lot of time on her computer at home and this is most likely affecting her upper thoracic spine. All thoracic exercises were reviewed today for her HEP and she was encouraged to get up and move every hour Physical Therapy Plan Frequency and Duration Frequency of Treatment 1x/Week Duration of treatment (weeks) 8 Plan of Care Start Date 08/12/23 Plan of Care End Date 10/07/23 Therapeutic Interventions Therapeutic Interventions Home Exercise Program,Joint Mobilizations,Manual Therapy, Patient/Caregiver Education, Self-Care/Home Management,Soft Tissue Mobilization, Therapeutic Exercises
--- NOTE | 2023-09-22 08:14 | PT.OTN ---
Current Diagnoses Other chronic pain (09/21/23) Lumbago with sciatica, left side (09/21/23) Physical Therapy Treatment Note PT-OP-A Visit Information Start: 03/17/23 10:02 Freq: Status: Active Protocol: Document 09/21/23 09:04 [facility] (Rec: 09/21/23 09:41 [facility] [id number]) Out-Patient Physical Therapy Visit Information Visit Information Visit Type Treatment Note Visit Start Time 09:00 Visit Stop Time 09:45 Visit Number 16 PT-OP-B Current Condition Start: 03/17/23 10:02 Freq: Status: Active Protocol: Document 03/17/23 09:45 [facility] (Rec: 03/23/23 17:44 [facility] [id number]) Current Condition History of Current Condition Onset Date chronic Current Complaints thoracic pain, stiffness in the neck, low back and hip pain with sciatic sx History of Current Condition Katelyn is a 73 year old female who returns to PT today with ongoing thoracic and lumbar pain as well as left hip pain with sciatic symtoms. 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 She has noted increased thightness in her thoracic spine and low back with this. Treatment Goals Patient/Caregiver Goals Katelyn's goals include decreasing pain and allowing her to continue with her walking routine and typing without increased pain PT-OP-C Subjective Start: 03/17/23 10:02 Freq: Status: Active Protocol: Document 09/21/23 09:04 [facility] (Rec: 09/21/23 16:28 [facility] [id number]) OP-PT Subjective Patient Comments Patient Comments Katelyn reports she has been doing better with her stretches and her back feels better this week Patient Reported Progress Improving PT-OP-F Manual Assessment Start: 03/17/23 10:50 Freq: Status: Active Protocol: Document 03/17/23 09:45 [facility] (Rec: 03/23/23 17:44 [facility] [id number]) Manual Assessments Soft Tissue Assessment Soft Tissue Mobility Assessment left piriformis tightness and soft tissue guarding thoracic paraspinal guarding and tightness R SCM tightness and guarding Joint Mobility Assessment Joint Mobility Assessment hypomobility thoracic spine with increased kyphosis PT-OP-K Range of Motion Start: 03/17/23 10:50 Freq: Status: Active Protocol: Document 03/17/23 09:45 [facility] (Rec: 03/23/23 17:44 [facility] [id number]) Cervical Spine Range of Motion Cervical Spine Active Rotation Left 10 Rotation Right 10 Lateral Flexion Left 5 Lateral Flexion Right 5 ROM Limitations Soft Tissue Tightness Hip Goniometric Range of Motion Hip Left Testing Position Supine Flexion w/Knee Flexed 110 Straight Leg Raise 55 Abduction 20 Internal Rotation 15 Hip ROM Limitations Hip ROM Limitations Soft Tissue Tightness Comments hamstring, piriformis, and adductor tightness, PT-OP-Q Treatments Start: 03/17/23 10:50 Freq: Status: Active Protocol: Document 09/21/23 09:04 [facility] (Rec: 09/21/23 16:28 [facility] [id number]) Therapeutic Exercises Other Exercises standing foam roll on wall thoracic extension Reps/Minutes x 20 reps standing pec minor stretch Reps/Minutes hold 1-2 min standing shoulder extension Reps/Minutes x 10 reps theraband shoulder extension Reps/Minutes 3 x 10 reps theraband rows Reps/Minutes 3 x 10 reps Manual Therapy Treatment Soft Tissue Mobilization MFR over the thoracic paraspinals Mobilization Type Myofascial Release Intensity/Depth Moderate Body Position prone over body pillow Joint Mobilizations thoracic T2-T10 PA mobs Direction PA Grade II Body Position Prone PT-OP-T Assessment and Plan Start: 03/17/23 10:50 Freq: Status: Active Protocol: Document 09/21/23 09:04 [facility] (Rec: 09/21/23 16:28 [facility] [id number]) Physical Therapy Assessment Assessment Summary Assessment Katelyn is doing better with her home program at this time. She has one visit in PT left and then we will plan on DC to I HEP Physical Therapy Plan Frequency and Duration Frequency of Treatment 1x/Week Duration of treatment (weeks) 8 Plan of Care Start Date 08/12/23 Plan of Care End Date 10/07/23 Therapeutic Interventions Therapeutic Interventions Home Exercise Program,Joint Mobilizations,Manual Therapy, Patient/Caregiver Education, Self-Care/Home Management,Soft Tissue Mobilization, Therapeutic Exercises Next Visit Focus/Plan Next Note Type Treatment Note Next Visit Plan review HEP, manual therapy techniques for the thoracic spine and review postural corrections for home
--- NOTE | 2023-10-06 12:19 | PT.OTN ---
Current Diagnoses Other chronic pain (10/06/23) Lumbago with sciatica, left side (10/06/23) Physical Therapy Treatment Note PT-OP-A Visit Information Start: 03/17/23 10:02 Freq: Status: Active Protocol: Document 10/06/23 09:53 [facility] (Rec: 10/06/23 09:55 [facility] [id number]) Out-Patient Physical Therapy Visit Information Visit Information Visit Type Treatment Note Visit Start Time 09:45 Visit Stop Time 10:30 Visit Number 17 PT-OP-B Current Condition Start: 03/17/23 10:02 Freq: Status: Active Protocol: Document 03/17/23 09:45 [facility] (Rec: 03/23/23 17:44 [facility] [id number]) Current Condition History of Current Condition Onset Date chronic Current Complaints thoracic pain, stiffness in the neck, low back and hip pain with sciatic sx History of Current Condition Katelyn is a 73 year old female who returns to PT today with ongoing thoracic and lumbar pain as well as left hip pain with sciatic symtoms. 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 She has noted increased thightness in her thoracic spine and low back with this. Treatment Goals Patient/Caregiver Goals Katelyn's goals include decreasing pain and allowing her to continue with her walking routine and typing without increased pain PT-OP-C Subjective Start: 03/17/23 10:02 Freq: Status: Active Protocol: Document 10/06/23 09:53 [facility] (Rec: 10/06/23 09:55 [facility] [id number]) OP-PT Subjective Patient Comments Patient Comments feeling the left side gluteal tightness today, mid back is feeling much better overall and she has been working on her home stretching program Patient Reported Progress Improving PT-OP-F Manual Assessment Start: 03/17/23 10:50 Freq: Status: Active Protocol: Document 03/17/23 09:45 [facility] (Rec: 03/23/23 17:44 [facility] [id number]) Manual Assessments Soft Tissue Assessment Soft Tissue Mobility Assessment left piriformis tightness and soft tissue guarding thoracic paraspinal guarding and tightness R SCM tightness and guarding Joint Mobility Assessment Joint Mobility Assessment hypomobility thoracic spine with increased kyphosis PT-OP-K Range of Motion Start: 03/17/23 10:50 Freq: Status: Active Protocol: Document 03/17/23 09:45 [facility] (Rec: 03/23/23 17:44 [facility] [id number]) Cervical Spine Range of Motion Cervical Spine Active Rotation Left 10 Rotation Right 10 Lateral Flexion Left 5 Lateral Flexion Right 5 ROM Limitations Soft Tissue Tightness Hip Goniometric Range of Motion Hip Left Testing Position Supine Flexion w/Knee Flexed 110 Straight Leg Raise 55 Abduction 20 Internal Rotation 15 Hip ROM Limitations Hip ROM Limitations Soft Tissue Tightness Comments hamstring, piriformis, and adductor tightness, PT-OP-Q Treatments Start: 03/17/23 10:50 Freq: Status: Active Protocol: Document 10/06/23 09:53 [facility] (Rec: 10/06/23 09:55 [facility] [id number]) Manual Therapy Treatment Soft Tissue Mobilization MFR over the thoracic paraspinals Mobilization Type Myofascial Release Intensity/Depth Moderate Body Position prone over body pillow manual release of the left piriformis Body Location left piriformis Mobilization Type Myofascial Release Intensity/Depth Superficial Body Position Prone Manual Techniques manual quad stretch in prone Body Location quad stretch Body Position Prone Reps/Duration 2 times each side holding 30 sec PT-OP-T Assessment and Plan Start: 03/17/23 10:50 Freq: Status: Active Protocol: Document 10/06/23 12:17 [facility] (Rec: 10/06/23 12:18 [facility] [id number]) Physical Therapy Assessment Goals 4 Impairment left sided hip pain rated 5-6/ 10 with tightness and guarding in the piriformis Short Term Goal (STG) Katelyn is educated on a HEP to reduce piriformis tightness and guarding excellent progress and decreased compaints of hip pain to 2-3/10 STG Duration 4 weeks 3 Impairment muscle guarding and spasm of the right SCM, suboccipitals, left piriformis Group Home Goal (LTG) Katelyn presents with improved cervical spine ROM as well as improve thoracic mobility to decrease strain to the cervical spine Good progress and still working on this goal LTG Duration 8 weeks 2 Impairment Decreased cervical spine ROM Deputy [employer] Goal (LTG) katelyn presents with pain free cervical spine ROM that is WFL Good progress LTG Duration 8 weeks 1 Impairment decreased walking speed with gait Deputy [employer] Goal (LTG) Katelyn has been able to lower her score on the modified oswestry by 5-10 points demonstrating improved function good progress and Katelyn is walking 2 times per day now LTG Duration 8 weeks Assessment Summary Assessment At this time Katelyn is doing well with her home program and has been able to decrease her pain levels in her thoracic spine. Her left hip does tend to get tight and she will continue to work on stretches. She has been able to walk daily for 60 minutes and this has helped her overall strength. At this point Katelyn will be discharged to a [facility] Physical Therapy Plan Discharge Physical Therapy Discharge Reasons No Longer Attending PT
== END 2023-10-12 14:39 | disposition home or self-care (01) ==
LOC: PHYS 09:45
PROVIDERS: Family Provider Physician Assistant; PCP Physician Assistant; Referring Provider Physician Assistant; Visit Provider Physician Assistant
DX: M54.42 Lumbago with sciatica, left side (principal); G89.29 Other chronic pain
CPT/HCPCS: 97035; 97110; 97140; 97161

== ENCOUNTER 2023-11-21 02:14 | Observation (INO) | payer MEDICARE, SELFPAY ==
[2023-11-21] VITALS (19 sets, daily range): BP systolic 116–226; BP diastolic 65–112; PULSE 64–97; RESP 14–29; TEMP 36.1–37.1; O2SAT 93–99; BMI 28.3
--- NOTE | 2023-11-21 02:38 | DI.RAD.S_ITS ---
PROCEDURE: XR CHEST 1V INDICATIONS: altered mental status TECHNIQUE: One view of the chest was acquired. COMPARISON: None. FINDINGS: Surgical changes and devices: None. Lungs and pleura: Lungs are clear. No pleural effusions or pneumothorax. Mediastinum: Mediastinal contours appear normal. Heart size is normal. Bones and chest wall: No suspicious bony lesions. Overlying soft tissues appear unremarkable. IMPRESSION: No acute cardiopulmonary abnormality is seen. Note: This final report is concordant with the preliminary after-hours interpretation provided by [facility] Approved by: Anurag Garibay M.D. on 11/21/2023 at 8:57
--- NOTE | 2023-11-21 02:42 | ED_ITS ---
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 She reports that she went to high school reunion earlier tonight she got off the [employer] [place] [employer] and got lost and very confused driving around. She says she has been driving around 4 hours unable to find her way. She could not pull up a correct map. She reports that she ultimately called EMS and 911 who brought her in. She has no numbness tingling or weakness. No chest pain or palpitations. EMS report that police found her wandering picked her up and brought her home however patient did not feel comfortable staying at her house and did not recognize her surroundings they did not feel comfortable leaving her there. Patient was previously seen by primary care provider in June of 2023 does not appear to be confused based on that note. 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 Related Data Home Medications Medication Instructions Recorded Confirmed ascorbic acid (vitamin C) 500 mg mg PO 01/06/21 06/21/23 capsule cholecalciferol (vitamin D3) 50 50 mcg PO DAILY 01/06/21 06/21/23 mcg (2,000 unit) capsule zinc 50 mg tablet 50 mg PO DAILY 01/06/21 06/21/23 BioAdreno PO 06/21/23 06/21/23 Iodine Synergy PO 06/21/23 06/21/23 Jonas stress PO 06/21/23 06/21/23 Thymus PO 06/21/23 06/21/23 Thyroid Plus PO 06/21/23 06/21/23 KELLIE PO 06/21/23 06/21/23 carditone PO blood pressure 06/21/23 lipogaard PO 06/21/23 06/21/23 Saccharomyces boulardii 250 mg 250 mg PO BID 06/23/23 capsule arginine (L-arginine) 500 mg tablet 500 mg PO DAILY 06/23/23 citrulline 600 mg capsule 1.8 g PO TID 06/23/23 inositol 750 mg capsule mg PO 06/23/23 melatonin 3 mg capsule 3 mg PO BEDTIME PRN 06/23/23 quercetin 500 mg capsule mg PO 06/23/23 theanine 50 mg disintegrating mg PO 06/23/23 tablet Allergies Allergy/AdvReac Type Severity Reaction Status Date / Time PT STATES SHE IS ALLERGIC TO Allergy Unknown STATES SHE Uncoded 05/04/23 14:15 ALL MEDS HAS TERRIBLE REACTIONS Patient History Medical History Vision decreased Allergies Headache Hip pain (~1997) Mumps Measles Chicken pox Anemia Heavy menstrual period History of kidney disease Skin cancer History of ID (myocardial infarction) (~2013) Coronary artery disease Essential hypertension Gait instability Lumbosacral radiculopathy at L5 Spondylolisthesis at L4-L5 level Dextroscoliosis Surgical History Anesthesia History of oophorectomy (~1993) History of hysterectomy (~1992) Social History Smoking Status: Never smoker Smoking Status: Never smoker Exam Initial Vital Signs Initial Vital Signs: Vital Signs Temperature 97 F L 11/21/23 02:18 Pulse Rate 69 11/21/23 02:18 Respiratory Rate 18 11/21/23 02:18 Blood Pressure 116/79 11/21/23 02:18 Pulse Oximetry 97 11/21/23 02:18 Oxygen Delivery Method Room Air 11/21/23 02:18 GENERAL: Alert pleasantly confused 73-year-old female and in no acute distress. HEENT: Head atraumatic,EOMI, pupils reactive, face symmetric, moist mucous membranes CARDIOVASCULAR: Regular rate and rhythm without murmurs, rubs or gallops. RESPIRATORY: Breath sounds equal bilaterally, no wheezes rales or rhonchi. ABDOMEN: Soft, nontender. Normoactive bowel sounds all 4 quadrants. No guarding or rebound. EXTREMITIES: Normal range of motion, no clubbing or edema. Neurovascularly intact NEUROLOGICAL: Alert and oriented x4.Normal gait and speech. Cranial nerves II through XII grossly intact. Good enmxfa-wk-ndja, good ipga-wq-tleb, strength equal bilaterally, no dysarthria or aphasia, sensation in tact to soft touch bilaterally, no visual changes, no facial droop SKIN: Warm, dry, no laceration, no petechiae, no rashes or lesions. Scores NIH Stroke Scale Level of Conciousness: Alert, keenly responsive Ask month/age: Answers both questions correctly. Open/close eyes, close hand: Performs both tasks correctly Best gaze horizontal: Normal Visual bull: No visual loss Facial palsy: Normal symetrical movement Left arm drift: No drift for full 10 sec Right arm drift: No drift for full 10 sec Left leg drift: No drift for full 5 sec Right leg drift: No drift for full 5 sec Limb ataxia: Absent Sensory on face/arms/legs: Normal, no sensory loss Best language: No aphasia, normal Dysarthria: Normal Extinction or inattention: No abnormality Total NIH Stroke scale score: 0 Course Orders Ordered: ED Orders 11/21/23 02:38 XR chest 1V Stat EKG-12 Lead Stat 11/21/23 02:47 Complete Blood Count AUTO DIFF Stat Comprehensive Metabolic Panel Stat TSH [Thyroid Stimulating Hormone] Stat Troponin & CK Cardiac Panel Stat 11/21/23 02:54 CT angio head and neck Stat CT head/brain wo con Stat 11/21/23 03:10 Urine Culture Stat Urine Drug Screen, Rapid Stat Urine Microscopic Stat Acetaminophen (Acetaminophen 325 Mg Tablet) 650 mg PO Q6H PRN PRN Reason: Fever/Mild Pain (1-3) Al Hydrox/Mg Hydrox/Simethicone (Mag Hydrox/Alum/Simeth 30 Ml Udc) 30 ml PO Q6HR PRN PRN Reason: Dyspepsia Calcium Carbonate (Calcium Carbonate 500 Mg Tab) 1,000 mg PO Q4HR PRN PRN Reason: Dyspepsia Naloxone HCl (Naloxone 0.4 Mg/Ml Vial) 0.2 mg IV Q2MIN PRN PRN Reason: Opiate Reversal Ondansetron HCl (Ondansetron 4 Mg/2 Ml Inj) 4 mg IV Q8HR PRN PRN Reason: Nausea And Vomiting Potassium Chloride (Potassium Chloride 20 Meq/15 Ml Udc) 20 meq PO BIDWM ROEL Discontinued Medications Aspirin (Aspirin Ec 325 Mg Tablet) 325 mg PO NOW ONE Stop: 11/21/23 03:56 Last Admin: 11/21/23 04:43 Dose: 325 mg Documented By: STANLEY Ceftriaxone Sodium 1,000 mg/ (Sodium Chloride) 100 mls @ 200 mls/hr IV NOW ONE Stop: 11/21/23 03:44 Last Admin: 11/21/23 04:43 Dose: Not Given Documented By: STANLEY Vital Signs Vital signs: Vital Signs - 8 hr 11/21/23 02:18 11/21/23 02:28 11/21/23 02:29 Temperature 97 F L Pulse Rate 69 78 Respiratory Rate 18 Blood Pressure 116/79 184/80 H Pulse Oximetry 97 97 Oxygen Delivery Method Room Air 11/21/23 02:29 11/21/23 02:30 11/21/23 02:31 Temperature Pulse Rate 72 67 Respiratory Rate Blood Pressure 180/83 H Pulse Oximetry 98 98 Oxygen Delivery Method 11/21/23 02:31 11/21/23 03:00 11/21/23 03:01 Temperature Pulse Rate 69 67 Respiratory Rate 29 H Blood Pressure 190/86 H Pulse Oximetry 98 96 Oxygen Delivery Method Room Air 11/21/23 03:01 11/21/23 03:35 11/21/23 03:35 Temperature Pulse Rate 67 69 Respiratory Rate 23 17 Blood Pressure 226/112 H Pulse Oximetry 97 99 Oxygen Delivery Method 11/21/23 04:00 11/21/23 04:01 11/21/23 04:01 Temperature Pulse Rate 64 65 Respiratory Rate 22 18 Blood Pressure 188/78 H Pulse Oximetry 93 97 Oxygen Delivery Method 11/21/23 04:30 11/21/23 04:31 11/21/23 04:31 Temperature Pulse Rate 66 66 Respiratory Rate 16 15 Blood Pressure 182/81 H Pulse Oximetry 97 97 Oxygen Delivery Method MDM - Altered Mental Status Lab Data 11/21/23 02:47 11/21/23 02:47 Labs: Lab Results 11/21/23 11/21/23 Range/Units 02:47 03:10 WBC 8.8 (4.5-11.0) X10^3/uL RBC 5.10 (4.0-5.2) X10^6/uL Hgb 14.2 (12.0-16.0) g/dL Hct 41.9 (36-46) % MCV 82.1 (80-100) fL MCH 27.8 (26-34) PG MCHC 33.9 (30-36) % RDW 13.3 (11.6-14.8) % Plt Count 260 (150-400) X10^3/uL Neut % (Auto) 61.0 (50-75) % Lymph % (Auto) 25.6 (25-40) % [place] % (Auto) 12.0 (3-14) % Eos % (Auto) 0.9 L (2-4) % Baso % (Auto) 0.5 (0-2) % Neut # (Auto) 5400 (7997-0329) /uL Lymph # (Auto) 2300 (6136-8098) /uL [place] # (Auto) 1100 H (0-900) /uL Eos # (Auto) 100 (0-450) /uL Baso # (Auto) 0 (0-100) /uL Sodium 143 (137-145) mmol/L Potassium 3.3 L (3.4-5.1) mmol/L Chloride 113 H (98-107) mmol/L Carbon Dioxide 20 L (22-32) mmol/L BUN 14 (7-17) mg/dL Creatinine 0.71 (0.52-1.04) mg/dL Estimated GFR > 60 (>60) mL/min BUN/Creatinine Ratio 19.7 (6-22) Glucose 129 H (80-110) mg/dL Calcium 9.4 (8.4-10.2) mg/dL Total Bilirubin 0.6 (0.2-1.3) mg/dL AST 27 (14-36) IU/L ALT 21 (<35) IU/L Alkaline Phosphatase 99 (38-126) U/L Total Creatine Kinase 119 (30-135) U/L Troponin I < 0.012 (0.01-0.034) ng/mL Total Protein 6.8 (6.3-8.2) g/dL Albumin 4.1 (3.5-5.0) g/dL Globulin 2.7 (1.7-4.1) g/dL Albumin/Globulin Ratio 1.5 (1.0-2.8) TSH 3.76 (0.47-4.68) uIU/mL Urine RBC 0-1/hpf (0-5/HPF) Urine WBC 5-10/hpf H (0-5/HPF) Ur Squamous Epith Cells 1-5 /hpf (0-5/HPF) Calcium Oxalate Crystal Moderate H Urine Bacteria Few (2-10) H (None) Hyaline Casts 0-1/lpf (None) Urine Mucus 1+ H (Negative) Ur Culture Indicated? Specimen cultured Vol Urine Centrifuged 10ml (spun) U Opiates 300ng/mL cut Negative (Negative) Ur Oxycodone Screen Negative (Negative) Urine Methadone Screen Negative (Negative) Ur Barbiturates Screen Negative (Negative) U Tricyclic Antidepress Negative (Negative) Ur Phencyclidine Scrn Negative (Negative) Ur Amphetamines Screen Negative (Negative) U Methamphetamines Scrn Negative (Negative) Ur MDMA Scrn (Ecstasy) Negative (Negative) U Benzodiazepines Scrn Negative (Negative) Urine Cocaine Screen Negative (Negative) U Marijuana (THC) Screen Negative (Negative) Urine pH Normal (Normal) Urine Specific [place] Normal (Normal) Ur Creatinine Normal (Normal) Point of Care Testing Glucose POC 113 Urine Dip Bedside Urine Glucose Negative Bedside Urine Bilirubin - Negative Bedside Urine Ketone - Negative Urine Specific [place] 1.025 Bedside Urine Occult Blood + Bedside Urine pH 6.0 Bedside Urine Protein - Negative Bedside Urine Urobilinogen - Negative Bedside Urine Nitrite - Negative Bedside Urine Leukocytes + [address] scan - head: Radiologist's Impression: Preliminary report no intracranial abnormality CTA - brain/neck: Radiologist's Impression: Preliminary report no evidence of significant stenosis or occlusion of right or left carotid and vertebral arteries Chest x-ray: Radiologist's Impression: No cardiopulmonary abnormality is identified ECG Data Attestation: I personally reviewed and interpreted this ECG as follows: Prior ECG tracings: available for review Interpretation: Normal sinus rhythm rate 63 LA interval 150 QRS 94 QTC 470 PVC noted no acute ischemia T-wave inversion noted in lead 3 V4 V5 previous EKGs in 2013 [facility] Narrative Medical decision making narrative: [facility] CC: Confusion Complicating co-morbidities: Prior ID noncompliance with medication Data collected from: EMS and patient Medical records reviewed: Previous PCP visit in June of 2023 Differential considered: Sepsis confusion CVA hypertensive emergency Exam documented above, pertinent findings include: Patient is confused she has a hard time coming up with words but she has no focal deficits facial droop visual change or obvious unilateral weakness Lab Test results independently reviewed as above. Pertinent findings: WBC 8.8 hemoglobin 14.2 hematocrit 41.9 platelets 260, 0.43 potassium 3.3 chloride with 30th carbon dioxide 20 BUN 14 creatinine 0.7 glucose 129 troponin negative TSH is 3.76 Urinalysis positive for bacteria calcium oxalate and leukocytes negative for nitrates Independently reviewed EKG as above some T-wave inversion noted prior EKGs from 2013 she has a known prior ID Imaging studies independently reviewed: Head CT no acute intracranial hemorrhage CT angio no large vessel occlusion Consultations: Dr. Alberts accepts Treatments: Rocephin--patient refused, aspirin Re-evaluations: Patient re-evaluated she definitely does seem better story continues to change. Hard to differentiate between what is true and what is not true. She really has no focal deficits NIH stroke scale of 0. However she was very confused early on in the evening. Discussion: Patient presenting today with severe confusion. She ultimately called 911 herself because she could not find her way home after driving around for multiple hours. On exam she is mildly confused but no obvious focal deficits. Concern for infection versus CVA. She was have leukocytes in her urine but no obvious sinus sepsis. She does have known coronary artery disease for which he is noncompliant with all sorts of medication. She is found to be severely hypertensive as well, correlating with potentially CVA. She has no slurring of words she can identify objects but definitely confused and can not remember. Based on previous records I do not think this is patient has normal Katelyn does have some bacteria and leukocytes possible UTI. I ordered Rocephin for her however she refused this and would like a more natural way to treat her possible bladder infection. At this time since she has not septic we agreed to wait for culture and sensitivity of urine. Discharge Plan Departure Patient Disposition: Admitted as Observation Clinical Impression: Brain TIA Admit Date/Time: 11/21/23 04:35 Admit Provider: Chan Ramos
--- NOTE | 2023-11-21 02:54 | DI.CT.S_ITS ---
PROCEDURE: CT ANGIO HEAD AND NECK INDICATIONS: confusion TECHNIQUE: After the administration of intravenous contrast, 1 mm thick sections acquired from the aortic arch through the [place] of [place]. MIP reformats of the arterial vasculature were utilized. For radiation dose reduction, the following was used: automated exposure control, adjustment of mA and/or kV according to patient size. COMPARISON: [facility], MR, MR HEAD/BRAIN WO CON, 11/21/2023, 7:18. FINDINGS: Cerebral CT Angiogram: Internal carotid arteries: No acute findings. Intracranial ICA are patent with no significant stenosis. No occlusion. No aneurysm. Left supraclinoid aneurysm as below. Anterior cerebral arteries: Unremarkable. No significant stenosis. No occlusion. No aneurysm. Middle cerebral arteries: Unremarkable. No significant stenosis. No occlusion. No aneurysm. Posterior cerebral arteries: There is a wide-mouth bilobed 4 mm left infundibular aneurysm with the left posterior communicating artery arising medially Basilar artery: Unremarkable. No significant stenosis. No occlusion. No aneurysm. Vertebral arteries: Unremarkable as visualized. Dural venous sinuses: Unremarkable given phase of enhancement. Other: Arterial phase brain parenchyma is unremarkable. Neck CT Angiogram: Internal carotid arteries: Fusiform aneurysm the mid right cervical ICA measures up to 7 mm. No significant stenosis. No dissection or occlusion. Common carotid arteries: Unremarkable. No significant stenosis. No dissection or occlusion. External carotid arteries: Unremarkable. No occlusion. Vertebral arteries: Left vertebral artery arises directly off the aortic arch, and anatomic variant Other: None. Aortic Arch and Mediastinum: Partially visualized aortic arch unremarkable without evidence of aneurysm. Origins of the great vessels unremarkable. 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 The PCOM arises from the medial wall of the aneurysm. 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 Pre and post normal diameter is 4-5 mm. No evidence of significant stenosis large vessel occlusion or vascular malformation. Note: Discrepancy report will be submitted to the preliminary service on the next business day Approved by: Anurag Garibay M.D. on 11/21/2023 at 9:22
--- NOTE | 2023-11-21 02:54 | DI.CT.S_ITS ---
PROCEDURE: CT HEAD/BRAIN WO CON INDICATIONS: confusion TECHNIQUE: Noncontrast 4.5 mm thick angled axial sections acquired from the foramen magnum to the vertex, with coronal and sagittal reformats. For radiation dose reduction, the following was used: automated exposure control, adjustment of mA and/or kV according to patient size. COMPARISON: None. FINDINGS: Image quality: Diagnostic. CSF spaces: Basal cisterns are patent. No extra-axial fluid collections. Ventricles are normal in size and shape. Brain: No midline shift. No intracranial masses or hemorrhage. [place]-white matter interface is normal. Skull and face: Calvarium and visualized facial bones are intact, without suspicious lesions. Sinuses: Visualized sinuses and mastoids are clear. IMPRESSION: Mild atrophy and white matter chronic ischemic change Note: This final report is concordant with the preliminary after-hours interpretation provided by [facility] Approved by: Anurag Garibay M.D. on 11/21/2023 at 9:23
[2023-11-21 02:58] LABS: Add Manual Diff / Slide Review NO; Basophils Absolute Auto 0 /uL (0-100); Basophils Percent Auto 0.5 % (0-2); Eosinophils Absolute Auto 100 /uL (0-450); Eosinophils Percent Auto 0.9 % (2-4); Hematocrit 41.9 % (36-46); Hemoglobin 14.2 g/dL (12.0-16.0); Lymphocytes Absolute Auto 2300 /uL (1100-4500); Lymphocytes Percent Auto 25.6 % (25-40); Mean Corpuscular HGB Conc 33.9 % (30-36); Mean Corpuscular Hemoglobin 27.8 PG (26-34); Mean Corpuscular Volume 82.1 fL (80-100); Monocytes Absolute Auto 1100 /uL (0-900); Neutrophils Absolute Auto 5400 /uL (1500-7000); Platelet Count 260 X10^3/uL (150-400); Red Cell Distribution Width 13.3 % (11.6-14.8); White Blood Cell Count 8.8 X10^3/uL (4.5-11.0)
--- NOTE | 2023-11-21 02:58 | EKG_ITS ---
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
[2023-11-21 03:09] LABS: Alanine Aminotransferase 21 IU/L (<35); Albumin 4.1 g/dL (3.5-5.0); Albumin Globulin Ratio 1.5 (1.0-2.8); Alkaline Phosphatase 99 U/L (38-126); Aspartate Aminotransferase 27 IU/L (14-36); BUN Creatinine Ratio 19.7 (6-22); Bilirubin Total 0.6 mg/dL (0.2-1.3); Blood Urea Nitrogen 14 mg/dL (7-17); Calcium 9.4 mg/dL (8.4-10.2); Carbon Dioxide 20 mmol/L (22-32); Chloride 113 mmol/L (98-107); Creatine Kinase 119 U/L (30-135); Estimated Glomerular Filt Rate > 60 mL/min (>60); Globulin 2.7 g/dL (1.7-4.1); Glucose 129 mg/dL (80-110); HEMOLYSIS < 15 (0-50); Potassium 3.3 mmol/L (3.4-5.1); Sodium 143 mmol/L (137-145); Total Protein 6.8 g/dL (6.3-8.2)
[2023-11-21 03:21] LABS: Troponin I < 0.012 ng/mL (0.01-0.034)
[2023-11-21 03:33] LABS: Bacteria Urine Few (2-10); Calcium Oxalate Crystals Urine Moderate; Squamous Epithelial Cell Urine 1-5 /HPF (0-5/HPF); Urine Volume 10mL (spun)
[2023-11-21 03:34] LABS: Hyaline Casts Urine 0-1/LPF; Mucus Urine 1+ (Negative); RBC Urine 0-1/HPF (0-5/HPF); WBC Urine 5-10/HPF (0-5/HPF)
[2023-11-21 03:35] LABS: Culture Indicated Urine Specimen Cultured
[2023-11-21 03:38] LABS: UR Morphine/Opiate cutoff 300 Negative (Negative); Ur Creatinine Normal (Normal); Ur Specific Gravity Normal (Normal); Urine Amphetamines Negative (Negative); Urine Barbiturates Negative (Negative); Urine Benzodiazepines Negative (Negative); Urine Cocaine Negative (Negative); Urine MDMA Negative (Negative); Urine Methadone Negative (Negative); Urine Methamphetamines Negative (Negative); Urine Oxycodone Negative (Negative); Urine Phencyclidine Negative (Negative); Urine Tetrahydrocannabinol Negative (Negative); Urine Tricyclic Antidepressant Negative (Negative); Urine pH Normal (Normal)
[2023-11-21 03:40] LABS: Thyroid Stimulating Hormone 3.76 uIU/mL (0.47-4.68)
[2023-11-21] MEDS: ASPIRIN EC 325 MG TABLET PO (04:43)
--- NOTE | 2023-11-21 04:45 | DI.MRI.S_ITS ---
PROCEDURE: MR HEAD/BRAIN WO CON INDICATIONS: transient amnesia TECHNIQUE: Non-contrast axial T1 spin echo, axial T2 fast spin echo, sagittal and axial FLAIR, coronal T2 fast spin echo, axial gradient echo, axial diffusion and ADC through the brain. COMPARISON: [facility], CT, CT ANGIO HEAD AND NECK, 11/21/2023, 3:20. [facility], CT, CT HEAD/BRAIN WO CON, 11/21/2023, 3:20. FINDINGS: Image quality: Diagnostic CSF spaces: Ventricles appear symmetric in size and shape. Basal cisterns are patent. No extra-axial fluid collections. Brain: No intracranial bleeds or mass effects. There is cerebral volume loss for age. There are periventricular and deep white matter chronic small vessel ischemic changes. Brainstem appears normal. Diffusion-weighted images show no acute infarct. No chronic ischemic insults. Normal intravascular flow voids are present. Skull and face: Calvarial bone marrow is normal in signal. Orbits are normal. Sinuses: Sinuses and mastoids are clear. IMPRESSION: MRI brain without acute intracranial abnormalities. No evidence for acute cerebral infarction. No intracranial mass or mass effect. Age related senescent changes and sequela of chronic small vessel ischemic disease. Dictated by: Dalton Griffin M.D. on 11/21/2023 at 8:04 Approved by: Dalton Griffin M.D. on 11/21/2023 at 8:07
--- NOTE | 2023-11-21 06:43 | PM.HP.1 ---
History of Present Illness History of Present Illness Date Patient Seen: 11/21/23 Time Patient Seen: 06:44 Chief complaint: AMS Narrative: The pt is a 73 yo who was driving home from a high school reunion when she became confused while driving home. She got lost and had difficulty finding her way home but eventually found her home. She was not having change in vision, difficulty with speech, she has perfect recollection of the drive and no loss of memory or LOC. She denies any alcohol or recreational drug use. There has been no weakness in the arms or legs, no trouble with balance, no recent infection, N/V/ D. She scored a 0 on the NIH in the ER and when presenting to the floor. Only on review of systems does she admit to having a diagnosis of functional autism. She explains that she has a 20% auditory comprehension and learning difficulties. [facility] Medical History Vision decreased Allergies Headache Hip pain (~1997) Mumps Measles Chicken pox Anemia Heavy menstrual period History of kidney disease Skin cancer History of [place] (myocardial infarction) (~2013) Coronary artery disease Essential hypertension Gait instability Lumbosacral radiculopathy at L5 Spondylolisthesis at L4-L5 level Dextroscoliosis Surgical History Anesthesia History of oophorectomy (~1993) History of hysterectomy (~1992) Social History household members: none Smoking Status: Never smoker alcohol intake: former Meds Home Medications and Allergies Home Medications Medication Instructions Recorded Confirmed Type ascorbic acid (vitamin C) 500 mg mg PO 01/06/21 06/21/23 History capsule cholecalciferol (vitamin D3) 50 50 mcg PO DAILY 01/06/21 06/21/23 History mcg (2,000 unit) capsule zinc 50 mg tablet 50 mg PO DAILY 01/06/21 06/21/23 History BioAdreno PO 06/21/23 06/21/23 History Iodine Synergy PO 06/21/23 06/21/23 History Jonas stress PO 06/21/23 06/21/23 History Thymus PO 06/21/23 06/21/23 History Thyroid Plus PO 06/21/23 06/21/23 History KELLIE PO 06/21/23 06/21/23 History carditone PO blood pressure 06/21/23 History lipogaard PO 06/21/23 06/21/23 History Saccharomyces boulardii 250 mg 250 mg PO BID 06/23/23 History capsule arginine (L-arginine) 500 mg tablet 500 mg PO DAILY 06/23/23 History citrulline 600 mg capsule 1.8 g PO TID 06/23/23 History inositol 750 mg capsule mg PO 06/23/23 History melatonin 3 mg capsule 3 mg PO BEDTIME PRN 06/23/23 History quercetin 500 mg capsule mg PO 06/23/23 History theanine 50 mg disintegrating mg PO 06/23/23 History tablet Allergies Allergy/AdvReac Type Severity Reaction Status Date / Time PT STATES SHE IS ALLERGIC TO Allergy Unknown STATES SHE Uncoded 05/04/23 14:15 ALL MEDS HAS TERRIBLE REACTIONS Exam Vital Signs (past 8 hours): - 11/21/23 02:18 11/21/23 02:28 11/21/23 02:29 Temperature 97 F L Pulse Rate 69 78 Respiratory Rate 18 Blood Pressure 116/79 184/80 H Pulse Oximetry 97 97 Oxygen Delivery Method Room Air Oxygen Flow Rate 11/21/23 02:29 11/21/23 02:30 11/21/23 02:31 Temperature Pulse Rate 72 67 Respiratory Rate Blood Pressure 180/83 H Pulse Oximetry 98 98 Oxygen Delivery Method Oxygen Flow Rate 11/21/23 02:31 11/21/23 03:00 11/21/23 03:01 Temperature Pulse Rate 69 67 Respiratory Rate 29 H Blood Pressure 190/86 H Pulse Oximetry 98 96 Oxygen Delivery Method Room Air Oxygen Flow Rate 11/21/23 03:01 11/21/23 03:35 11/21/23 03:35 Temperature Pulse Rate 67 69 Respiratory Rate 23 17 Blood Pressure 226/112 H Pulse Oximetry 97 99 Oxygen Delivery Method Oxygen Flow Rate 11/21/23 04:00 11/21/23 04:01 11/21/23 04:01 Temperature Pulse Rate 64 65 Respiratory Rate 22 18 Blood Pressure 188/78 H Pulse Oximetry 93 97 Oxygen Delivery Method Oxygen Flow Rate 11/21/23 04:30 11/21/23 04:31 11/21/23 04:31 Temperature Pulse Rate 66 66 Respiratory Rate 16 15 Blood Pressure 182/81 H Pulse Oximetry 97 97 Oxygen Delivery Method Oxygen Flow Rate 11/21/23 05:00 11/21/23 05:01 11/21/23 05:01 Temperature Pulse Rate 64 66 Respiratory Rate 20 25 H Blood Pressure 146/72 H Pulse Oximetry 98 98 Oxygen Delivery Method Oxygen Flow Rate 11/21/23 05:30 11/21/23 05:31 11/21/23 05:31 Temperature Pulse Rate 66 66 Respiratory Rate 18 14 Blood Pressure 134/65 Pulse Oximetry Oxygen Delivery Method Oxygen Flow Rate 11/21/23 06:03 Temperature 97.6 F Pulse Rate 97 H Respiratory Rate 17 Blood Pressure 162/86 H Pulse Oximetry 97 Oxygen Delivery Method Oxygen Flow Rate 0 Oxygen Delivery Method Room Air Oxygen Flow Rate 0 Const General: cooperative, healthy appearing, comfortable and well developed Resp Auscultation: clear to auscultation bilaterally Cardio Rate: regular rate Rhythm: regular rhythm GI Inspection: normal to inspection Objective Labs 11/21/23 02:47 11/21/23 02:47 Labs: Laboratory Results - last 24 hr 11/21/23 11/21/23 02:47 03:10 WBC 8.8 RBC 5.10 Hgb 14.2 Hct 41.9 MCV 82.1 MCH 27.8 MCHC 33.9 RDW 13.3 Plt Count 260 Neut % (Auto) 61.0 Lymph % (Auto) 25.6 [place] % (Auto) 12.0 Eos % (Auto) 0.9 L Baso % (Auto) 0.5 Neut # (Auto) 5400 Lymph # (Auto) 2300 [place] # (Auto) 1100 H Eos # (Auto) 100 Baso # (Auto) 0 Sodium 143 Potassium 3.3 L Chloride 113 H Carbon Dioxide 20 L BUN 14 Creatinine 0.71 Estimated GFR > 60 BUN/Creatinine Ratio 19.7 Glucose 129 H Calcium 9.4 Total Bilirubin 0.6 AST 27 ALT 21 Alkaline Phosphatase 99 Total Creatine Kinase 119 Troponin I < 0.012 Total Protein 6.8 Albumin 4.1 Globulin 2.7 Albumin/Globulin Ratio 1.5 TSH 3.76 Urine RBC 0-1/hpf Urine WBC 5-10/hpf H Ur Squamous Epith Cells 1-5 /hpf Calcium Oxalate Crystal Moderate H Urine Bacteria Few (2-10) H Hyaline Casts 0-1/lpf Urine Mucus 1+ H Ur Culture Indicated? Specimen cultured Vol Urine Centrifuged 10ml (spun) U Opiates 300ng/mL cut Negative Ur Oxycodone Screen Negative Urine Methadone Screen Negative Ur Barbiturates Screen Negative U Tricyclic Antidepress Negative Ur Phencyclidine Scrn Negative Ur Amphetamines Screen Negative U Methamphetamines Scrn Negative Ur MDMA Scrn (Ecstasy) Negative U Benzodiazepines Scrn Negative Urine Cocaine Screen Negative U Marijuana (THC) Screen Negative Urine pH Normal Urine Specific [place] Normal Ur Creatinine Normal Assessment & Plan Assessment & Plan narrative: Transient neurological deficit/ TIA- I have spoken with the ER provider regarding symptoms, labs and imaging and agree with the decision for admission. THe pt is without any neurological deficits during my interview, in no distress. In light of her basleine as a autistic person per her own decsription, it is difficult to tell if there are any changes or not. A MRI of the head is ordered, continue neurological checks, labs were reviewed that showed a potassium of 3.0 which we are replacing, BP is elevated but the pt reports that she normally has high BP. this could be the cause of her confusion, will start hypertensive meds, hopefully reducing the systolic by 10-20% Time-Based Coding :: [TOTAL MINUTES] spent with patient and on the chart (including review of chart, obtaining history, exam, reviewing outside data, placing orders, documenting exam and treatment plan, and counseling patient) on [DATE].
[2023-11-21 06:45] LABS: Cholesterol 148 mg/dL (140-199); HDL Cholesterol 50 mg/dL (40-60); LDL Cholesterol Calculated 83 mg/dL (<100); Magnesium 2.1 mg/dL (1.6-2.3); Triglycerides 74 mg/dL (35-150)
--- NOTE | 2023-11-21 07:26 | P.HP_ITS ---
History of Present Illness History of Present Illness Date Patient Seen: 11/21/23 Chief complaint: AMS Narrative: From night doctor: The pt is a 73 yo who was driving home from a high school reunion when she became confused while driving home. She got lost and had difficulty finding her way home but eventually found her home. She was not having change in vision, difficulty with speech, she has perfect recollection of the drive and no loss of memory or LOC. She denies any alcohol or recreational drug use. There has been no weakness in the arms or legs, no trouble with balance, no recent infection, N/V/ D. She scored a 0 on the NIH in the ER and when presenting to the floor. Only on review of systems does she admit to having a diagnosis of functional autism. Additional information: She really describes a period of confusion. She was returning back from [place] to [place] last night in the dark. She was at a school reunion yesterday. After getting off the [place] she basically got lost and would be [place] and was circling around for some time before she called for help. She then may have back to [place] in her car and had the same problem not be able to find her neighborhood her house. Ultimately police were involved and she was brought to the ED. There she had no focal neurologic symptoms. Initial CT imaging was negative. MRI was performed over the course of the night and there was no evidence of stroke. She had no current neurologic symptoms or signs including speech difficulties, visual changes, no numbness weakness of arms or legs. She has no history of TIA or stroke. This morning, she feels back to normal other than she was slow to recall some answers to questions. She notes that this is progression over the last months to years. She recites a long history of autism with poor audible learning. [facility] Medical History Vision decreased Allergies Headache Hip pain (~1997) Mumps Measles Chicken pox Anemia Heavy menstrual period History of kidney disease Skin cancer History of [place] (myocardial infarction) (~2013) Coronary artery disease Essential hypertension Gait instability Lumbosacral radiculopathy at L5 Spondylolisthesis at L4-L5 level Dextroscoliosis Surgical History Anesthesia History of oophorectomy (~1993) History of hysterectomy (~1992) Social History household members: none Smoking Status: Never smoker alcohol intake: former Meds Home Medications and Allergies Home Medications Medication Instructions Recorded Confirmed Type ascorbic acid (vitamin C) 500 mg 500 mg PO DAILY 01/06/21 11/21/23 History capsule cholecalciferol (vitamin D3) 50 2,000 unit PO DAILY 01/06/21 11/21/23 History mcg (2,000 unit) capsule BioAdreno 1 cap PO DAILY 06/21/23 11/21/23 History Jonas stress 1 cap PO DAILY 06/21/23 11/21/23 History Thymus 1 cap PO DAILY 06/21/23 11/21/23 History Thyroid Plus 1 cap PO DAILY 06/21/23 11/21/23 History carditone 1 cap PO DAILY blood pressure 06/21/23 11/21/23 History lipogaard 1 cap PO DAILY 06/21/23 11/21/23 History Saccharomyces boulardii 250 mg 250 mg PO BID 06/23/23 11/21/23 History capsule arginine (L-arginine) 500 mg tablet 500 mg PO DAILY 06/23/23 11/21/23 History citrulline 600 mg capsule 1.8 g PO TID 06/23/23 11/21/23 History inositol 750 mg capsule 750 mg PO DAILY 06/23/23 11/21/23 History melatonin 3 mg capsule 3 mg PO BEDTIME PRN Sleep 06/23/23 11/21/23 History quercetin 500 mg capsule 500 mg PO DAILY 06/23/23 11/21/23 History theanine 50 mg disintegrating 50 mg PO DAILY 06/23/23 11/21/23 History tablet Allergies Allergy/AdvReac Type Severity Reaction Status Date / Time PT STATES SHE IS ALLERGIC TO Allergy Unknown STATES SHE Uncoded 05/04/23 14:15 ALL MEDS HAS TERRIBLE REACTIONS Review of Systems Review of Systems Narrative: All else reviewed and otherwise unremarkable except as noted in the history and physical. Exam Vital Signs (past 8 hours): - 11/21/23 02:18 11/21/23 02:28 11/21/23 02:29 Temperature 97 F L Pulse Rate 69 78 Respiratory Rate 18 Blood Pressure 116/79 184/80 H Pulse Oximetry 97 97 Oxygen Delivery Method Room Air Oxygen Flow Rate 11/21/23 02:29 11/21/23 02:30 11/21/23 02:31 Temperature Pulse Rate 72 67 Respiratory Rate Blood Pressure 180/83 H Pulse Oximetry 98 98 Oxygen Delivery Method Oxygen Flow Rate 11/21/23 02:31 11/21/23 03:00 11/21/23 03:01 Temperature Pulse Rate 69 67 Respiratory Rate 29 H Blood Pressure 190/86 H Pulse Oximetry 98 96 Oxygen Delivery Method Room Air Oxygen Flow Rate 11/21/23 03:01 11/21/23 03:35 11/21/23 03:35 Temperature Pulse Rate 67 69 Respiratory Rate 23 17 Blood Pressure 226/112 H Pulse Oximetry 97 99 Oxygen Delivery Method Oxygen Flow Rate 11/21/23 04:00 11/21/23 04:01 11/21/23 04:01 Temperature Pulse Rate 64 65 Respiratory Rate 22 18 Blood Pressure 188/78 H Pulse Oximetry 93 97 Oxygen Delivery Method Oxygen Flow Rate 11/21/23 04:30 11/21/23 04:31 11/21/23 04:31 Temperature Pulse Rate 66 66 Respiratory Rate 16 15 Blood Pressure 182/81 H Pulse Oximetry 97 97 Oxygen Delivery Method Oxygen Flow Rate 11/21/23 05:00 11/21/23 05:01 11/21/23 05:01 Temperature Pulse Rate 64 66 Respiratory Rate 20 25 H Blood Pressure 146/72 H Pulse Oximetry 98 98 Oxygen Delivery Method Oxygen Flow Rate 11/21/23 05:30 11/21/23 05:31 11/21/23 05:31 Temperature Pulse Rate 66 66 Respiratory Rate 18 14 Blood Pressure 134/65 Pulse Oximetry Oxygen Delivery Method Oxygen Flow Rate 11/21/23 06:03 Temperature 97.6 F Pulse Rate 97 H Respiratory Rate 17 Blood Pressure 162/86 H Pulse Oximetry 97 Oxygen Delivery Method Oxygen Flow Rate 0 Oxygen Delivery Method Room Air Oxygen Flow Rate 0 Narrative Exam Narrative: NAD, alert and oriented, fluent speech, calm. Normocephalic skull, EOMI, anicteric sclera, symmetric pupils. Oropharynx unremarkable, no droop. Neck supple, midline trachea, no adenopathy. Lungs clear, normal rate and effort. Heart regular, no murmur gallop or rub. Abdomen is soft, non distended and non tender. Extremities are free of edema. Skin is free of rash or lesions. Joints are not swollen or deformed. Judgment appears to be normal. Neuro: Normal neurologic exam, cranial nerves are intact. Speech is normal. Speech is fluent. Judgment appears to be normal. Her motor strength is 5/5 in arms and legs. Her gait is normal. The patient does have some issues with processing in his slow to answer some questions. She was unable to answer the question of who is the president. Objective ECG Impression: Sinus rhythm with occasional premature ventricular complexes Cannot rule out Anterior infarct , age undetermined Imaging CT scan - head: Radiologist's impression: CT brain and CTA head and neck are unremarkable. MRI - head: Radiologist's impression: IMPRESSION: MRI brain without acute intracranial abnormalities. No evidence for acute cerebral infarction. No intracranial mass or mass effect. Age related senescent changes and sequela of chronic small vessel ischemic disease. Labs 11/21/23 02:47 11/21/23 02:47 Labs: Laboratory Results - last 24 hr 11/21/23 11/21/23 02:47 03:10 WBC 8.8 RBC 5.10 Hgb 14.2 Hct 41.9 MCV 82.1 MCH 27.8 MCHC 33.9 RDW 13.3 Plt Count 260 Neut % (Auto) 61.0 Lymph % (Auto) 25.6 [place] % (Auto) 12.0 Eos % (Auto) 0.9 L Baso % (Auto) 0.5 Neut # (Auto) 5400 Lymph # (Auto) 2300 [place] # (Auto) 1100 H Eos # (Auto) 100 Baso # (Auto) 0 Sodium 143 Potassium 3.3 L Chloride 113 H Carbon Dioxide 20 L BUN 14 Creatinine 0.71 Estimated GFR > 60 BUN/Creatinine Ratio 19.7 Glucose 129 H Calcium 9.4 Magnesium 2.1 Total Bilirubin 0.6 AST 27 ALT 21 Alkaline Phosphatase 99 Total Creatine Kinase 119 Troponin I < 0.012 Total Protein 6.8 Albumin 4.1 Globulin 2.7 Albumin/Globulin Ratio 1.5 Triglycerides 74 Cholesterol 148 LDL Cholesterol, Calc 83 HDL Cholesterol 50 TSH 3.76 Urine RBC 0-1/hpf Urine WBC 5-10/hpf H Ur Squamous Epith Cells 1-5 /hpf Calcium Oxalate Crystal Moderate H Urine Bacteria Few (2-10) H Hyaline Casts 0-1/lpf Urine Mucus 1+ H Ur Culture Indicated? Specimen cultured Vol Urine Centrifuged 10ml (spun) U Opiates 300ng/mL cut Negative Ur Oxycodone Screen Negative Urine Methadone Screen Negative Ur Barbiturates Screen Negative U Tricyclic Antidepress Negative Ur Phencyclidine Scrn Negative Ur Amphetamines Screen Negative U Methamphetamines Scrn Negative Ur MDMA Scrn (Ecstasy) Negative U Benzodiazepines Scrn Negative Urine Cocaine Screen Negative U Marijuana (THC) Screen Negative Urine pH Normal Urine Specific [place] Normal Ur Creatinine Normal Assessment & Plan Assessment & Plan narrative: 1. Transient confusional state in context of probable chronic cognitive impairment, present on admission and improved. 2. Essential hypertension, present on admission and active. 3. History of CAD with possible myocardial infarction in 2014, present on admission and stable. Plan: -MRI brain ruled out stroke. -2D echo rule out structural abnormality of heart, PFO. -monitor blood pressure. -telemetry to rule out arrhythmia. -physical therapy evaluation and cognitive screening. Patient was admitted to observation status, anticipate a 1 night stay. Full resuscitation. Time-Based Coding :: 30 min spent with patient and on the chart (including review of chart, obtaining history, exam, reviewing outside data, placing orders, documenting exam and treatment plan, and counseling patient) on 11/19. Quality MIPS - Admit I confirm the patient?s Advance Care Plan is present, Code status is documented, Surrogate decision maker is in patient?s record [If Yes, STOP here]: Yes MIPS - Meds 'Current medications' to include all prescriptions, [id number] products, herbals, cannabis/cannabidiol products, and vitamin/mineral/dietary (nutritional) supplements. I have utilized all available resources to obtain, update, or review the patient?s current medications. [If Yes, STOP here]: Yes
[2023-11-21] MEDS: POTASSIUM CHLORIDE 20 MEQ/15 ML UDC PO (08:05)
[2023-11-21] MEDS: AMLODIPINE 5 MG TABLET PO (08:05)
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
--- NOTE | 2023-11-21 12:55 | CM.DANOTE ---
Patient is a 73 yo female who was admitted OBS Status on 11/21/23 for AMS. Pt has AARP MCR under [employer] and her PCP is Grant Gutierrez. EMR was reviewed. Per MD, pt was admitted for TIA r/o but MRI negative and pt worked with PT and seems to be resolved and medically stable to discharge home today with outpt f/u. Per PT, pt was able to participate and recommending home and attempted SLUMS for cog assess due to pt's initial AMS at admission and pt scored 14/30 but admits that she is on the autism spectrum and does not process auditory messages in a typical way which could impact her score. 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 Pt does not anticipate any needs at discharge and preference is to discharge home today. Plan: Patient to discharge home today via private POV and outpt f/u with her PCP and TE[facility]ER [facility] on [facility]. RICH Mccracken Discharge Planning/Care Management CM Discharge Assessment Start: 11/21/23 12:51 Freq: Status: Active Protocol: Document 11/21/23 12:51 BF (Rec: 11/21/23 12:53 BF [id number]) Discharge Planning Assessment Assigned Mechanical Developer Prover RICH Garces DPOA/Assigned Designee Name none Advance Directives? No Advance Directives on File No History Provided By Patient,Medical Record Has Patient been admitted in last 30 No days? Prior Living Arrangements Apartment/Condo Household Members none Type of transporation used prior to Drives own vehicle admit Independent with ADL's Yes Is patient alert and oriented? Yes Caregiver for Another No Barriers to Discharge No Discharge Plan Home Transportation Arrangement Has own vehicle Referrals Initiated None needed Whiteboard Updated in Patient Room with Yes name and ext. # of Mechanical Developer Prover Review Status In Process Please Provide Date Initial DC 11/21/23 Assessment Was Performed Next Review Type Continued Stay Review
--- NOTE | 2023-11-21 13:43 | PC.NURSE ---
Discharge note: Patient discharged home per MD order. Discussed importance if F/U with PCP, signs of worsening symptoms, and home safety. Patient verbalized understanding of instructions, ambulating in room independently. Dressed self. Home via private vehicle.
== END 2023-11-21 13:20 | disposition home or self-care (01) ==
LOC: ED 04:28 → AC 04:36
PROVIDERS: Admitting Provider Internal Medicine; Emergency Provider Emergency Medicine; Family Provider Physician Assistant; PCP Registered Nurse Diabetes Educator; Referring Provider Emergency Medicine; Visit Provider Internal Medicine
DX: R41.82 Altered mental status, unspecified (principal); R29.700 NIHSS score 0; I10 Essential (primary) hypertension
CPT/HCPCS: 36415; 70450; 70496; 70498; 70551; 71045; 80053; 80061; 80305; 81003; 81015; 82550; 82962; 83735; 84443; 84484; 85025; 87086; 93005; 97161; 97535; 99284; G0378; Q9967

== ENCOUNTER → 2023-11-24 10:19 | Outpatient (CLI) | payer MEDICARE, SELFPAY ==
[2023-11-21 05:37] VITALS: BMI 28.3
== END ==
PROVIDERS: Family Provider Physician Assistant; PCP Registered Nurse Diabetes Educator; Visit Provider Nurse Practitioner Family
DX: R30.0 Dysuria (principal)
CPT/HCPCS: 87077; 87086; 87186

== ENCOUNTER 2024-05-04 13:00 | Outpatient (RCR) | payer MEDICARE, SELFPAY ==
[2023-11-21 05:37] VITALS: BMI 28.3
--- NOTE | 2023-11-25 16:41 | PT.OIE ---
Current Diagnoses Dorsalgia, unspecified (11/23/23) Past Medical History (Last Reviewed 11/21/23 @ 07:27 by Paresh Avalos MD) Allergies Anemia Chicken pox Coronary artery disease Dextroscoliosis Essential hypertension Gait instability Headache Heavy menstrual period Hip pain (~1997) History of kidney disease History of MA (myocardial infarction) (~2013) Lumbosacral radiculopathy at L5 Measles Mumps Skin cancer Spondylolisthesis at L4-L5 level Vision decreased Past Surgical History (Last Reviewed 11/21/23 @ 07:27 by Paresh Avalos MD) Anesthesia History of hysterectomy (~1992) History of oophorectomy (~1993) Visit Care Team Role Provider Type Jessica Del Rosario PA-C Family Provider Non-Staff Specialty: Medical Address: [address] [place] [address], [facility] Email: [email or web address] JORGE LUIS Khan Attending Provider Advanced Welfare Visitor Primary Care Provider Referring Provider Specialty: Medical Address: [address] [place] [address], [facility] Email: [email or web address] Physical Therapy Initial Evaluation PT-OP-A Visit Information Start: 11/23/23 13:49 Freq: Status: Active Protocol: Document 11/23/23 16:58 [facility] (Rec: 11/23/23 16:59 [facility] [id number]) Out-Patient Physical Therapy Visit Information Visit Information Visit Type Initial Evaluation Visit Start Time 13:45 Visit Stop Time 14:30 Visit Number 1 Evaluation Information Evaluation Date 11/23/23 PT-OP-B Current Condition Start: 11/23/23 13:49 Freq: Status: Active Protocol: Document 11/23/23 13:50 [facility] (Rec: 11/23/23 13:52 [facility] [id number]) Current Condition History of Current Condition Onset Date chronic History of Current Condition Puja has ahistoyr of chronic back and hp pain. She describes stiffness in the neck, low back, and hips with intermittent sciatic symptoms down the left leg. Puja also reports she is experienicng right sided thoracic stabbing pain that is intermittent. She is currently walking 2 times per day for [employer]. 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 that her thoracic spine as been more painful Treatment Goals Patient/Caregiver Goals To reduce pain and allow her to continue with her walking routine and typing without increased pain PT-OP-C Subjective Start: 11/23/23 13:49 Freq: Status: Active Protocol: Document 11/23/23 13:45 [facility] (Rec: 11/25/23 08:09 [facility] [id number]) Patient Questionnaires Oswestry Low Back Index Oswestry Score 17 Oswestry Impairment 1 to 19% Impaired (Score 1-19) OP-PT Pain Assessment Pain Assessment Grid Paper Pain Assessment Grid Completed Yes Location left hip Intensity 6 Scale Used Numeric (0 - 10) right side thoracic pain Intensity 7 Scale Used Numeric (0 - 10) Description Sharp Frequency Intermittent PT-OP-F Manual Assessment Start: 11/23/23 16:58 Freq: Status: Active Protocol: Document 11/23/23 13:45 [facility] (Rec: 11/25/23 08:09 [facility] [id number]) Manual Assessments Soft Tissue Assessment Soft Tissue Mobility Assessment left piriformis tightness and soft tissue guarding thoracic paraspinal guarding R >L Joint Mobility Assessment Joint Mobility Assessment hypomobility of the thoracic spine with a visual sidebend and curve of the right thoracic spine PT-OP-K Range of Motion Start: 11/25/23 16:30 Freq: Status: Active Protocol: Document 11/23/23 13:45 [facility] (Rec: 11/25/23 16:32 [facility] [id number]) Hip Goniometric Range of Motion Hip Left Hip ROM WFL No Testing Position Supine Flexion w/Knee Flexed 110 Straight Leg Raise 55 Abduction 20 Internal Rotation 15 Hip ROM Limitations Hip ROM Limitations Soft Tissue Tightness Comments hamstring, piriformis, and adductor tightness PT-OP-Q Treatments Start: 11/23/23 16:58 Freq: Status: Active Protocol: Document 11/23/23 13:27 [facility] (Rec: 11/24/23 13:28 [facility] [id number]) Manual Therapy Treatment Soft Tissue Mobilization left sided piriformis release Mobilization Type Myofascial Release Manual Techniques PA glides T4-T10 Body Location Thoracic T4-T10 Body Position Prone Reps/Duration gentle PA glides for the thoracic spine to mobilize into improved extension PT-OP-T Assessment and Plan Start: 11/23/23 16:58 Freq: Status: Active Protocol: Document 11/23/23 13:45 [facility] (Rec: 11/25/23 08:15 [facility] [id number]) Physical Therapy Assessment Rehab Potential Rehabilitation Potential Excellent Evaluation Complexity Number of Personal Factors/Comorbidities 0 Number of Body Systems Impaired 1-2 Clinical Presentation at Evaluation Stable Impairments Impairments Activity Tolerance,Functional Activities,Pain,Posture,ROM, Soft Tissue Mobility,Strength, Tone Goals 4 Impairment left sided hip pain rated 5-6/ 10 with tightness and guarding in the piriformis and right sided thoracic spine pain Cylinder Filler Goal (LTG) pt reports overall reduction in pain of the left hip and thoracic spine to 2/10 or better LTG Duration 12 weeks 2 Impairment Tightness of the hamstrings on the left to 55 Short Term Goal (STG) Puja is educated in a home stretching program for improved hamstring flexibility Cylinder Filler Goal (LTG) Puja presents with improved SLR to 65 deg or better on the left side LTG Duration 12 weeks 1 Impairment Modified oswestry score of 17 Cylinder Filler Goal (LTG) Puja is able to lower her score on the modified oswestry by 5-10 points LTG Duration 8 weeks Assessment Summary Assessment Puja is a 73 year old female who returns to physical therapy today with left sided posterior hip pain, and right sided thoracic pain as well as intermittent radicular symptoms down the posterior left LE. 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 Puja is walking 2 times per day and pain prevents her from walking longer than a mile at a time. Pain prevents Puja from sitting more than 30 min and sleep is occasionally disturbed due to pain. puja will benefit from a home stretching and strengthening program along with manual therapy techniques to reduce tension and muscle spasm. She is a good candidate for PT
--- NOTE | 2023-11-25 16:41 | PT.OPPOC ---
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 She describes stiffness in the neck, low back, and hips with intermittent sciatic symptoms down the left leg. Puja also reports she is experiencing right sided thoracic stabbing pain that is intermittent. She is currently walking 2 times per day for exercise. 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 that her thoracic spine as been more painful Treatment Goals Patient/Caregiver Goals To reduce pain and allow her to continue with her walking routine and typing without increased pain PT-OP-T Assessment and Plan Start: 11/23/23 16:58 Freq: Status: Active Protocol: Document 11/23/23 13:45 [facility] (Rec: 11/25/23 08:15 [facility] [id number]) Physical Therapy Assessment Rehab Potential Rehabilitation Potential Excellent Evaluation Complexity Number of Personal Factors/Comorbidities 0 Number of Body Systems Impaired 1-2 Clinical Presentation at Evaluation Stable Impairments Impairments Activity Tolerance,Functional Activities,Pain,Posture,ROM, Soft Tissue Mobility,Strength, Tone Goals 4 Impairment left sided hip pain rated 5-6/ 10 with tightness and guarding in the piriformis and right sided thoracic spine pain Mill Washer Goal (LTG) pt reports overall reduction in pain of the left hip and thoracic spine to 2/10 or better LTG Duration 12 weeks 2 Impairment Tightness of the hamstrings on the left to 55 Short Term Goal (STG) Puja is educated in a home stretching program for improved hamstring flexibility Retirement Goal (LTG) Puja presents with improved SLR to 65 deg or better on the left side LTG Duration 12 weeks 1 Impairment Modified oswestry score of 17 Mill Washer Goal (LTG) Puja is able to lower her score on the modified oswestry by 5-10 points LTG Duration 8 weeks Assessment Summary Assessment Puja is a 73 year old female who returns to physical therapy today with left sided posterior hip pain, and right sided thoracic pain as well as intermittent radicular symptoms down the posterior left LE. 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 Puja is walking 2 times per day and pain prevents her from walking longer than a mile at a time. Pain prevents Puja from sitting more than 30 min and sleep is occasionally disturbed due to pain. puja will benefit from a home stretching and strengthening program along with manual therapy techniques to reduce tension and muscle spasm. She is a good candidate for PT Electronically Signed by: Essence Hernandez, PT 11/25/23 2206 If you are in agreement with this Plan of Care, please return a signed and dated copy. I have reviewed this Plan of Care and certify that the skilled therapy services above are required to meet the patient?s needs. Physician Signature Date Printed Name and Credentials Clinical Instructor Signature Printed Name and Credentials
--- NOTE | 2023-11-30 17:02 | PT.OTN ---
Current Diagnoses Dorsalgia, unspecified (11/30/23) Physical Therapy Treatment Note PT-OP-A Visit Information Start: 11/23/23 13:49 Freq: Status: Active Protocol: Document 11/30/23 09:43 [facility] (Rec: 11/30/23 09:44 [facility] [id number]) Out-Patient Physical Therapy Visit Information Visit Information Visit Type Treatment Note Visit Start Time 09:00 Visit Stop Time 09:45 Visit Number 2 PT-OP-B Current Condition Start: 11/23/23 13:49 Freq: Status: Active Protocol: Document 11/23/23 13:50 [facility] (Rec: 11/23/23 13:52 [facility] [id number]) Current Condition History of Current Condition Onset Date chronic History of Current Condition Katelyn has ahistoyr of chronic back and hp pain. She describes stiffness in the neck, low back, and hips with intermittent sciatic symptoms down the left leg. Katelyn also reports she is experienicng right sided thoracic stabbing pain that is intermittent. She is currently walking 2 times per day for [employer]. 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 that her thoracic spine as been more painful Treatment Goals Patient/Caregiver Goals To reduce pain and allow her to continue with her walking routine and typing without increased pain PT-OP-C Subjective Start: 11/23/23 13:49 Freq: Status: Active Protocol: Document 11/23/23 13:45 [facility] (Rec: 11/25/23 08:09 [facility] [id number]) Patient Questionnaires Oswestry Low Back Index Oswestry Score 17 Oswestry Impairment 1 to 19% Impaired (Score 1-19) OP-PT Pain Assessment Pain Assessment Grid Paper Pain Assessment Grid Completed Yes Location left hip Intensity 6 Scale Used Numeric (0 - 10) right side thoracic pain Intensity 7 Scale Used Numeric (0 - 10) Description Sharp Frequency Intermittent PT-OP-F Manual Assessment Start: 11/23/23 16:58 Freq: Status: Active Protocol: Document 11/23/23 13:45 [facility] (Rec: 11/25/23 08:09 [facility] [id number]) Manual Assessments Soft Tissue Assessment Soft Tissue Mobility Assessment left piriformis tightness and soft tissue guarding thoracic paraspinal guarding R >L Joint Mobility Assessment Joint Mobility Assessment hypomobility of the thoracic spine with a visual sidebend and curve of the right thoracic spine PT-OP-K Range of Motion Start: 11/25/23 16:30 Freq: Status: Active Protocol: Document 11/23/23 13:45 [facility] (Rec: 11/25/23 16:32 [facility] [id number]) Hip Goniometric Range of Motion Hip Left Hip ROM WFL No Testing Position Supine Flexion w/Knee Flexed 110 Straight Leg Raise 55 Abduction 20 Internal Rotation 15 Hip ROM Limitations Hip ROM Limitations Soft Tissue Tightness Comments hamstring, piriformis, and adductor tightness PT-OP-Q Treatments Start: 11/23/23 16:58 Freq: Status: Active Protocol: Document 11/30/23 16:48 [facility] (Rec: 11/30/23 17:02 [facility] [id number]) Therapeutic Exercises Supine Exercises modified pelvic floor squat stretch Reps/Minutes hold 1-2 min souble knee to chest Reps/Minutes hold 1-2 min Other Exercises pop pose Reps/Minutes hold 1-2 min Manual Therapy Treatment Soft Tissue Mobilization thoracic paraspinal MFR Mobilization Type Myofascial Release Body Position Prone left sided piriformis release Mobilization Type Myofascial Release Manual Techniques PA glides T4-T10 Body Location Thoracic T4-T10 Body Position Prone Reps/Duration gentle PA glides for the thoracic spine to mobilize into improved extension PT-OP-T Assessment and Plan Start: 11/23/23 16:58 Freq: Status: Active Protocol: Document 11/30/23 16:48 [facility] (Rec: 11/30/23 17:02 [facility] [id number]) Physical Therapy Assessment Assessment Summary Assessment Katelyn is tight and guarded today, she is still feeling like she is recovering from being hospitalized and fells tight. Physical Therapy Plan Frequency and Duration Frequency of Treatment 1x/Week Duration of treatment (weeks) 12 Plan of Care Start Date 11/25/23 Plan of Care End Date 02/17/24 Therapeutic Interventions Therapeutic Interventions Home Exercise Program,Joint Mobilizations,Manual Therapy, Patient/Caregiver Education, Self-Care/Home Management,Soft Tissue Mobilization, Therapeutic Exercises Next Visit Focus/Plan Next Note Type Treatment Note Next Visit Plan review exercises given today and continue to progress home exercise program as well as manual therapy techniques
--- NOTE | 2023-12-02 12:04 | PT.OTN ---
Current Diagnoses Dorsalgia, unspecified (12/02/23) Physical Therapy Treatment Note PT-OP-A Visit Information Start: 11/23/23 13:49 Freq: Status: Active Protocol: Document 12/02/23 11:20 [facility] (Rec: 12/02/23 12:04 [facility] [id number]) Out-Patient Physical Therapy Visit Information Visit Information Visit Type Treatment Note Visit Start Time 11:20 Visit Stop Time 12:00 Visit Number 3 PT-OP-B Current Condition Start: 11/23/23 13:49 Freq: Status: Active Protocol: Document 11/23/23 13:50 [facility] (Rec: 11/23/23 13:52 [facility] [id number]) Current Condition History of Current Condition Onset Date chronic History of Current Condition Katelyn has ahistoyr of chronic back and hp pain. She describes stiffness in the neck, low back, and hips with intermittent sciatic symptoms down the left leg. Katelyn also reports she is experienicng right sided thoracic stabbing pain that is intermittent. She is currently walking 2 times per day for [employer]. 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 that her thoracic spine as been more painful Treatment Goals Patient/Caregiver Goals To reduce pain and allow her to continue with her walking routine and typing without increased pain PT-OP-C Subjective Start: 11/23/23 13:49 Freq: Status: Active Protocol: Document 12/02/23 11:20 [facility] (Rec: 12/02/23 12:04 [facility] [id number]) OP-PT Subjective Patient Comments Patient Comments pt notes she feels like she did something to her low back and feels shifted today PT-OP-F Manual Assessment Start: 11/23/23 16:58 Freq: Status: Active Protocol: Document 11/23/23 13:45 [facility] (Rec: 11/25/23 08:09 [facility] [id number]) Manual Assessments Soft Tissue Assessment Soft Tissue Mobility Assessment left piriformis tightness and soft tissue guarding thoracic paraspinal guarding R >L Joint Mobility Assessment Joint Mobility Assessment hypomobility of the thoracic spine with a visual sidebend and curve of the right thoracic spine PT-OP-K Range of Motion Start: 11/25/23 16:30 Freq: Status: Active Protocol: Document 11/23/23 13:45 [facility] (Rec: 11/25/23 16:32 [facility] [id number]) Hip Goniometric Range of Motion Hip Left Hip ROM WFL No Testing Position Supine Flexion w/Knee Flexed 110 Straight Leg Raise 55 Abduction 20 Internal Rotation 15 Hip ROM Limitations Hip ROM Limitations Soft Tissue Tightness Comments hamstring, piriformis, and adductor tightness PT-OP-Q Treatments Start: 11/23/23 16:58 Freq: Status: Active Protocol: Document 12/02/23 11:20 [facility] (Rec: 12/02/23 12:04 [facility] [id number]) Therapeutic Exercises Supine Exercises pelvic tilts Reps/Minutes x 10 reps hip roll outs with theraband Equipment Used level 3 Tb Reps/Minutes 3x 10 reps supine ball squeeze Reps/Minutes x 10 reps Manual Therapy Treatment Manual Techniques left LE distraction Comments intermittent distraction holding 20-30 seconds and repeating 5 times MET left posterior innominant Type MET Body Position Supine Comments x 5 reps PT-OP-T Assessment and Plan Start: 11/23/23 16:58 Freq: Status: Active Protocol: Document 12/02/23 11:20 [facility] (Rec: 12/02/23 12:04 [facility] [id number]) Physical Therapy Assessment Assessment Summary Assessment katelyn came in today with left sided sacral pain. Time was spent on manual techniques to align the pelvis and then stabilizing exercises for home . She tolerated this well Physical Therapy Plan Frequency and Duration Frequency of Treatment 1x/Week Duration of treatment (weeks) 12 Plan of Care Start Date 11/25/23 Plan of Care End Date 02/17/24 Therapeutic Interventions Therapeutic Interventions Home Exercise Program,Joint Mobilizations,Manual Therapy, Patient/Caregiver Education, Self-Care/Home Management,Soft Tissue Mobilization, Therapeutic Exercises Next Visit Focus/Plan Next Note Type Treatment Note Next Visit Plan assess pelvic alignment next visit, review HEP and manual therapy techniques as needed
--- NOTE | 2023-12-09 17:16 | PT.OTN ---
Current Diagnoses Dorsalgia, unspecified (12/09/23) Physical Therapy Treatment Note PT-OP-A Visit Information Start: 11/23/23 13:49 Freq: Status: Active Protocol: Document 12/09/23 11:18 [facility] (Rec: 12/09/23 12:01 [facility] [id number]) Out-Patient Physical Therapy Visit Information Visit Information Visit Type Treatment Note PT-OP-B Current Condition Start: 11/23/23 13:49 Freq: Status: Active Protocol: Document 11/23/23 13:50 [facility] (Rec: 11/23/23 13:52 [facility] [id number]) Current Condition History of Current Condition Onset Date chronic History of Current Condition Katelyn has ahistoyr of chronic back and hp pain. She describes stiffness in the neck, low back, and hips with intermittent sciatic symptoms down the left leg. Katelyn also reports she is experienicng right sided thoracic stabbing pain that is intermittent. She is currently walking 2 times per day for [employer]. 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 that her thoracic spine as been more painful Treatment Goals Patient/Caregiver Goals To reduce pain and allow her to continue with her walking routine and typing without increased pain PT-OP-C Subjective Start: 11/23/23 13:49 Freq: Status: Active Protocol: Document 12/09/23 11:18 [facility] (Rec: 12/09/23 12:01 [facility] [id number]) OP-PT Subjective Patient Comments Patient Comments KATELYN Notes the stretches really helped her back and hip PT-OP-F Manual Assessment Start: 11/23/23 16:58 Freq: Status: Active Protocol: Document 11/23/23 13:45 [facility] (Rec: 11/25/23 08:09 [facility] [id number]) Manual Assessments Soft Tissue Assessment Soft Tissue Mobility Assessment left piriformis tightness and soft tissue guarding thoracic paraspinal guarding R >L Joint Mobility Assessment Joint Mobility Assessment hypomobility of the thoracic spine with a visual sidebend and curve of the right thoracic spine PT-OP-K Range of Motion Start: 11/25/23 16:30 Freq: Status: Active Protocol: Document 11/23/23 13:45 [facility] (Rec: 11/25/23 16:32 [facility] [id number]) Hip Goniometric Range of Motion Hip Left Hip ROM WFL No Testing Position Supine Flexion w/Knee Flexed 110 Straight Leg Raise 55 Abduction 20 Internal Rotation 15 Hip ROM Limitations Hip ROM Limitations Soft Tissue Tightness Comments hamstring, piriformis, and adductor tightness PT-OP-Q Treatments Start: 11/23/23 16:58 Freq: Status: Active Protocol: Document 12/09/23 11:15 [facility] (Rec: 12/14/23 17:16 [facility] [id number]) Therapeutic Exercises Supine Exercises pelvic tilts Reps/Minutes x 10 reps hip roll outs with theraband Equipment Used level 3 Tb Reps/Minutes 3x 10 reps supine ball squeeze Reps/Minutes x 10 reps modified pelvic floor squat stretch Reps/Minutes hold 1-2 min souble knee to chest Reps/Minutes hold 1-2 min Manual Therapy Treatment Soft Tissue Mobilization thoracic paraspinal MFR Mobilization Type Myofascial Release Body Position Prone left sided piriformis release Mobilization Type Myofascial Release Manual Techniques left LE distraction Comments intermittent distraction holding 20-30 seconds and repeating 5 times MET left posterior innominant Type MET Body Position Supine Comments x 5 reps PA glides T4-T10 Body Location Thoracic T4-T10 Body Position Prone Reps/Duration gentle PA glides for the thoracic spine to mobilize into improved extension PT-OP-T Assessment and Plan Start: 11/23/23 16:58 Freq: Status: Active Protocol: Document 12/09/23 11:15 [facility] (Rec: 12/14/23 17:16 [facility] [id number]) Physical Therapy Assessment Assessment Summary Assessment Katelyn is doing well with her HEP and tolerates manual techniques well Physical Therapy Plan Frequency and Duration Frequency of Treatment 1x/Week Duration of treatment (weeks) 12 Plan of Care Start Date 11/25/23 Plan of Care End Date 02/17/24 Next Visit Focus/Plan Next Note Type Treatment Note Next Visit Plan assess pelvic alignment next visit, review HEP and manual therapy techniques as needed
--- NOTE | 2023-12-16 13:46 | PT.OTN ---
Current Diagnoses Dorsalgia, unspecified (12/16/23) Physical Therapy Treatment Note PT-OP-A Visit Information Start: 11/23/23 13:49 Freq: Status: Active Protocol: Document 12/16/23 09:45 [facility] (Rec: 12/16/23 13:42 [facility] [id number]) Out-Patient Physical Therapy Visit Information Visit Information Visit Type Treatment Note Visit Start Time 09:45 Visit Stop Time 10:30 Visit Number 5 PT-OP-B Current Condition Start: 11/23/23 13:49 Freq: Status: Active Protocol: Document 11/23/23 13:50 [facility] (Rec: 11/23/23 13:52 [facility] [id number]) Current Condition History of Current Condition Onset Date chronic History of Current Condition Katelyn has ahistoyr of chronic back and hp pain. She describes stiffness in the neck, low back, and hips with intermittent sciatic symptoms down the left leg. Katelyn also reports she is experienicng right sided thoracic stabbing pain that is intermittent. She is currently walking 2 times per day for [employer]. 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 that her thoracic spine as been more painful Treatment Goals Patient/Caregiver Goals To reduce pain and allow her to continue with her walking routine and typing without increased pain PT-OP-C Subjective Start: 11/23/23 13:49 Freq: Status: Active Protocol: Document 12/16/23 09:45 [facility] (Rec: 12/16/23 13:42 [facility] [id number]) OP-PT Subjective Patient Comments Patient Comments Katelyn reports her hip is not as sore today and she is trying to work on the stretches for her upper back PT-OP-F Manual Assessment Start: 11/23/23 16:58 Freq: Status: Active Protocol: Document 11/23/23 13:45 [facility] (Rec: 11/25/23 08:09 [facility] [id number]) Manual Assessments Soft Tissue Assessment Soft Tissue Mobility Assessment left piriformis tightness and soft tissue guarding thoracic paraspinal guarding R >L Joint Mobility Assessment Joint Mobility Assessment hypomobility of the thoracic spine with a visual sidebend and curve of the right thoracic spine PT-OP-K Range of Motion Start: 11/25/23 16:30 Freq: Status: Active Protocol: Document 11/23/23 13:45 [facility] (Rec: 11/25/23 16:32 [facility] [id number]) Hip Goniometric Range of Motion Hip Left Hip ROM WFL No Testing Position Supine Flexion w/Knee Flexed 110 Straight Leg Raise 55 Abduction 20 Internal Rotation 15 Hip ROM Limitations Hip ROM Limitations Soft Tissue Tightness Comments hamstring, piriformis, and adductor tightness PT-OP-Q Treatments Start: 11/23/23 16:58 Freq: Status: Active Protocol: Document 12/16/23 09:45 [facility] (Rec: 12/16/23 13:42 [facility] [id number]) Manual Therapy Treatment Soft Tissue Mobilization thoracic paraspinal MFR Mobilization Type Myofascial Release Body Position Prone left sided piriformis release Mobilization Type Myofascial Release Manual Techniques PA glides T4-T10 Body Location Thoracic T4-T10 Body Position Prone Reps/Duration gentle PA glides for the thoracic spine to mobilize into improved extension PT-OP-T Assessment and Plan Start: 11/23/23 16:58 Freq: Status: Active Protocol: Document 12/16/23 09:45 [facility] (Rec: 12/16/23 10:33 [facility] [id number]) Physical Therapy Plan Frequency and Duration Frequency of Treatment 1x/Week Duration of treatment (weeks) 12 Plan of Care Start Date 11/25/23 Plan of Care End Date 02/17/24 Therapeutic Interventions Therapeutic Interventions Home Exercise Program,Joint Mobilizations,Manual Therapy, Patient/Caregiver Education, Self-Care/Home Management,Soft Tissue Mobilization, Therapeutic Exercises Next Visit Focus/Plan Next Note Type Treatment Note Next Visit Plan assess pelvic alignment next visit, review HEP and manual therapy techniques as needed
--- NOTE | 2023-12-30 17:25 | PT.OTN ---
Current Diagnoses Dorsalgia, unspecified (12/30/23) Physical Therapy Treatment Note PT-OP-A Visit Information Start: 11/23/23 13:49 Freq: Status: Active Protocol: Document 12/30/23 09:47 [facility] (Rec: 12/30/23 09:53 [facility] [id number]) Out-Patient Physical Therapy Visit Information Visit Information Visit Type Treatment Note Visit Start Time 09:47 Visit Stop Time 10:30 Visit Number 6 PT-OP-B Current Condition Start: 11/23/23 13:49 Freq: Status: Active Protocol: Document 11/23/23 13:50 [facility] (Rec: 11/23/23 13:52 [facility] [id number]) Current Condition History of Current Condition Onset Date chronic History of Current Condition Katelyn has ahistoyr of chronic back and hp pain. She describes stiffness in the neck, low back, and hips with intermittent sciatic symptoms down the left leg. Katelyn also reports she is experienicng right sided thoracic stabbing pain that is intermittent. She is currently walking 2 times per day for [employer]. 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 SHe has been doing her stretches. PT-OP-F Manual Assessment Start: 11/23/23 16:58 Freq: Status: Active Protocol: Document 11/23/23 13:45 [facility] (Rec: 11/25/23 08:09 [facility] [id number]) Manual Assessments Soft Tissue Assessment Soft Tissue Mobility Assessment left piriformis tightness and soft tissue guarding thoracic paraspinal guarding R >L Joint Mobility Assessment Joint Mobility Assessment hypomobility of the thoracic spine with a visual sidebend and curve of the right thoracic spine PT-OP-K Range of Motion Start: 11/25/23 16:30 Freq: Status: Active Protocol: Document 11/23/23 13:45 [facility] (Rec: 11/25/23 16:32 [facility] [id number]) Hip Goniometric Range of Motion Hip Left Hip ROM WFL No Testing Position Supine Flexion w/Knee Flexed 110 Straight Leg Raise 55 Abduction 20 Internal Rotation 15 Hip ROM Limitations Hip ROM Limitations Soft Tissue Tightness Comments hamstring, piriformis, and adductor tightness PT-OP-Q Treatments Start: 11/23/23 16:58 Freq: Status: Active Protocol: Document 12/30/23 09:45 [facility] (Rec: 12/30/23 17:24 [facility] [id number]) Manual Therapy Treatment Soft Tissue Mobilization thoracic paraspinal MFR Mobilization Type Myofascial Release Body Position Prone left sided piriformis release Mobilization Type Myofascial Release Manual Techniques PA glides T4-T10 Body Location Thoracic T4-T10 Body Position Prone Reps/Duration gentle PA glides for the thoracic spine to mobilize into improved extension PT-OP-T Assessment and Plan Start: 11/23/23 16:58 Freq: Status: Active Protocol: Document 12/30/23 09:45 [facility] (Rec: 12/30/23 17:24 [facility] [id number]) Physical Therapy Assessment Assessment Summary Assessment Postural exercises were reviewed for home and Katelyn has been able to keep up with her walking 2 times per day, she is still tight in her thoracic spine and paraspinals Physical Therapy Plan Frequency and Duration Frequency of Treatment 1x/Week Duration of treatment (weeks) 12 Plan of Care Start Date 11/25/23 Plan of Care End Date 02/17/24 Therapeutic Interventions Therapeutic Interventions Home Exercise Program,Joint Mobilizations,Manual Therapy, Patient/Caregiver Education, Self-Care/Home Management,Soft Tissue Mobilization, Therapeutic Exercises Next Visit Focus/Plan Next Note Type Treatment Note Next Visit Plan assess pelvic alignment next visit, review HEP and manual therapy techniques as needed
--- NOTE | 2024-01-13 16:42 | PT.OTN ---
Current Diagnoses Dorsalgia, unspecified (01/13/24) Physical Therapy Treatment Note PT-OP-A Visit Information Start: 11/23/23 13:49 Freq: Status: Active Protocol: Document 01/13/24 09:05 [facility] (Rec: 01/13/24 09:08 [facility] [id number]) Out-Patient Physical Therapy Visit Information Visit Information Visit Type Treatment Note Visit Start Time 09:00 Visit Stop Time 09:45 Visit Number 7 PT-OP-B Current Condition Start: 11/23/23 13:49 Freq: Status: Active Protocol: Document 11/23/23 13:50 [facility] (Rec: 11/23/23 13:52 [facility] [id number]) Current Condition History of Current Condition Onset Date chronic History of Current Condition Katelyn has ahistoyr of chronic back and hp pain. She describes stiffness in the neck, low back, and hips with intermittent sciatic symptoms down the left leg. Katelyn also reports she is experienicng right sided thoracic stabbing pain that is intermittent. She is currently walking 2 times per day for [employer]. 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 that her thoracic spine as been more painful Treatment Goals Patient/Caregiver Goals To reduce pain and allow her to continue with her walking routine and typing without increased pain PT-OP-C Subjective Start: 11/23/23 13:49 Freq: Status: Active Protocol: Document 01/13/24 09:05 [facility] (Rec: 01/13/24 09:08 [facility] [id number]) OP-PT Subjective Patient Comments Patient Comments pt notes she is feeling more of a essential tremmor PT-OP-F Manual Assessment Start: 11/23/23 16:58 Freq: Status: Active Protocol: Document 11/23/23 13:45 [facility] (Rec: 11/25/23 08:09 [facility] [id number]) Manual Assessments Soft Tissue Assessment Soft Tissue Mobility Assessment left piriformis tightness and soft tissue guarding thoracic paraspinal guarding R >L Joint Mobility Assessment Joint Mobility Assessment hypomobility of the thoracic spine with a visual sidebend and curve of the right thoracic spine PT-OP-K Range of Motion Start: 11/25/23 16:30 Freq: Status: Active Protocol: Document 11/23/23 13:45 [facility] (Rec: 11/25/23 16:32 [facility] [id number]) Hip Goniometric Range of Motion Hip Left Hip ROM WFL No Testing Position Supine Flexion w/Knee Flexed 110 Straight Leg Raise 55 Abduction 20 Internal Rotation 15 Hip ROM Limitations Hip ROM Limitations Soft Tissue Tightness Comments hamstring, piriformis, and adductor tightness PT-OP-Q Treatments Start: 11/23/23 16:58 Freq: Status: Active Protocol: Document 01/13/24 16:38 [facility] (Rec: 01/13/24 16:40 [facility] [id number]) Manual Therapy Treatment Soft Tissue Mobilization thoracic paraspinal MFR Mobilization Type Myofascial Release Body Position Prone left sided piriformis release Mobilization Type Myofascial Release Manual Techniques PA glides T4-T10 Body Location Thoracic T4-T10 Body Position Prone Reps/Duration gentle PA glides for the thoracic spine to mobilize into improved extension PT-OP-T Assessment and Plan Start: 11/23/23 16:58 Freq: Status: Active Protocol: Document 01/13/24 16:38 [facility] (Rec: 01/13/24 16:40 [facility] [id number]) Physical Therapy Assessment Assessment Summary Assessment decreased left sided hip tightness today and slowly improving thoracic mobility, Katelyn is working on her HEP. She does note more tremors now but I feel this may be neurological and felt it would be good if she talked to her doctor about the tremors. Physical Therapy Plan Frequency and Duration Frequency of Treatment 1x/Week Duration of treatment (weeks) 12 Plan of Care Start Date 11/25/23 Plan of Care End Date 02/17/24 Therapeutic Interventions Therapeutic Interventions Home Exercise Program,Joint Mobilizations,Manual Therapy, Patient/Caregiver Education, Self-Care/Home Management,Soft Tissue Mobilization, Therapeutic Exercises Next Visit Focus/Plan Next Note Type Treatment Note Next Visit Plan assess pelvic alignment next visit, review HEP and manual therapy techniques as needed
--- NOTE | 2024-01-18 16:24 | PT.OTN ---
Current Diagnoses Dorsalgia, unspecified (01/18/24) Physical Therapy Treatment Note PT-OP-A Visit Information Start: 11/23/23 13:49 Freq: Status: Active Protocol: Document 01/18/24 08:58 [facility] (Rec: 01/18/24 09:07 [facility] [id number]) Out-Patient Physical Therapy Visit Information Visit Information Visit Type Treatment Note Visit Start Time 09:00 Visit Stop Time 09:45 Visit Number 8 Evaluation Information Evaluation Date 11/23/23 PT-OP-B Current Condition Start: 11/23/23 13:49 Freq: Status: Active Protocol: Document 11/23/23 13:50 [facility] (Rec: 11/23/23 13:52 [facility] [id number]) Current Condition History of Current Condition Onset Date chronic History of Current Condition Katelyn has ahistoyr of chronic back and hp pain. She describes stiffness in the neck, low back, and hips with intermittent sciatic symptoms down the left leg. Katelyn also reports she is experienicng right sided thoracic stabbing pain that is intermittent. She is currently walking 2 times per day for [employer]. 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 that her thoracic spine as been more painful Treatment Goals Patient/Caregiver Goals To reduce pain and allow her to continue with her walking routine and typing without increased pain PT-OP-C Subjective Start: 11/23/23 13:49 Freq: Status: Active Protocol: Document 01/18/24 08:58 [facility] (Rec: 01/18/24 09:07 [facility] [id number]) OP-PT Subjective Patient Comments Patient Comments Katelyn reports she has been achey, not as bad as last time The left hip pain is milder now PT-OP-F Manual Assessment Start: 11/23/23 16:58 Freq: Status: Active Protocol: Document 11/23/23 13:45 [facility] (Rec: 11/25/23 08:09 [facility] [id number]) Manual Assessments Soft Tissue Assessment Soft Tissue Mobility Assessment left piriformis tightness and soft tissue guarding thoracic paraspinal guarding R >L Joint Mobility Assessment Joint Mobility Assessment hypomobility of the thoracic spine with a visual sidebend and curve of the right thoracic spine PT-OP-K Range of Motion Start: 11/25/23 16:30 Freq: Status: Active Protocol: Document 11/23/23 13:45 [facility] (Rec: 11/25/23 16:32 [facility] [id number]) Hip Goniometric Range of Motion Hip Left Hip ROM WFL No Testing Position Supine Flexion w/Knee Flexed 110 Straight Leg Raise 55 Abduction 20 Internal Rotation 15 Hip ROM Limitations Hip ROM Limitations Soft Tissue Tightness Comments hamstring, piriformis, and adductor tightness PT-OP-Q Treatments Start: 11/23/23 16:58 Freq: Status: Active Protocol: Document 01/18/24 09:00 [facility] (Rec: 01/18/24 16:23 [facility] [id number]) Manual Therapy Treatment Soft Tissue Mobilization thoracic paraspinal MFR Mobilization Type Myofascial Release Body Position Prone left sided piriformis release Mobilization Type Myofascial Release Manual Techniques PA glides T4-T10 Body Location Thoracic T4-T10 Body Position Prone Reps/Duration gentle PA glides for the thoracic spine to mobilize into improved extension PT-OP-T Assessment and Plan Start: 11/23/23 16:58 Freq: Status: Active Protocol: Document 01/18/24 08:58 [facility] (Rec: 01/18/24 09:07 [facility] [id number]) Physical Therapy Assessment Assessment Summary Assessment Thoracic mobility is improving and Katelyn is working on postural modifications Physical Therapy Plan Frequency and Duration Frequency of Treatment 1x/Week Duration of treatment (weeks) 12 Plan of Care Start Date 11/25/23 Plan of Care End Date 02/17/24 Therapeutic Interventions Therapeutic Interventions Home Exercise Program,Joint Mobilizations,Manual Therapy, Patient/Caregiver Education, Self-Care/Home Management,Soft Tissue Mobilization, Therapeutic Exercises Next Visit Focus/Plan Next Note Type Treatment Note Next Visit Plan continue progressing postural modifications and manual therapy techniques for the thoracic spine
--- NOTE | 2024-02-09 13:13 | PT.OTN ---
Current Diagnoses Dorsalgia, unspecified (02/08/24) Physical Therapy Treatment Note PT-OP-A Visit Information Start: 11/23/23 13:49 Freq: Status: Active Protocol: Document 02/08/24 09:45 [facility] (Rec: 02/08/24 10:47 [facility] [id number]) Out-Patient Physical Therapy Visit Information Visit Information Visit Type Treatment Note Visit Start Time 09:45 Visit Stop Time 10:30 Visit Number 10 PT-OP-B Current Condition Start: 11/23/23 13:49 Freq: Status: Active Protocol: Document 11/23/23 13:50 [facility] (Rec: 11/23/23 13:52 [facility] [id number]) Current Condition History of Current Condition Onset Date chronic History of Current Condition Katelyn has ahistoyr of chronic back and hp pain. She describes stiffness in the neck, low back, and hips with intermittent sciatic symptoms down the left leg. Katelyn also reports she is experienicng right sided thoracic stabbing pain that is intermittent. She is currently walking 2 times per day for [employer]. 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 that her thoracic spine as been more painful Treatment Goals Patient/Caregiver Goals To reduce pain and allow her to continue with her walking routine and typing without increased pain PT-OP-C Subjective Start: 11/23/23 13:49 Freq: Status: Active Protocol: Document 02/08/24 09:45 [facility] (Rec: 02/08/24 16:52 [facility] [id number]) OP-PT Subjective Patient Comments Patient Comments Katelyn reports the treatment really helped her last visit Patient Reported Progress Improving PT-OP-F Manual Assessment Start: 11/23/23 16:58 Freq: Status: Active Protocol: Document 11/23/23 13:45 [facility] (Rec: 11/25/23 08:09 [facility] [id number]) Manual Assessments Soft Tissue Assessment Soft Tissue Mobility Assessment left piriformis tightness and soft tissue guarding thoracic paraspinal guarding R >L Joint Mobility Assessment Joint Mobility Assessment hypomobility of the thoracic spine with a visual sidebend and curve of the right thoracic spine PT-OP-K Range of Motion Start: 11/25/23 16:30 Freq: Status: Active Protocol: Document 11/23/23 13:45 [facility] (Rec: 11/25/23 16:32 [facility] [id number]) Hip Goniometric Range of Motion Hip Left Hip ROM WFL No Testing Position Supine Flexion w/Knee Flexed 110 Straight Leg Raise 55 Abduction 20 Internal Rotation 15 Hip ROM Limitations Hip ROM Limitations Soft Tissue Tightness Comments hamstring, piriformis, and adductor tightness PT-OP-Q Treatments Start: 11/23/23 16:58 Freq: Status: Active Protocol: Document 02/08/24 09:45 [facility] (Rec: 02/08/24 17:02 [facility] [id number]) Manual Therapy Treatment Soft Tissue Mobilization thoracic paraspinal MFR Mobilization Type Myofascial Release Body Position Prone left sided piriformis release Mobilization Type Myofascial Release Manual Techniques suboccipital release Body Location suboccipital release Body Position Hooklying Comments good tolerance and Katelyn is tight in the suboccipital muscles, she was educated on chin tucks to help stretch the suboccipitals PT-OP-T Assessment and Plan Start: 11/23/23 16:58 Freq: Status: Active Protocol: Document 02/08/24 09:45 [facility] (Rec: 02/09/24 13:13 [facility] [id number]) Physical Therapy Assessment Goals 4 Impairment left sided hip pain rated 5-6/ 10 with tightness and guarding in the piriformis and right sided thoracic spine pain Half-Way Goal (LTG) pt reports overall reduction in pain of the left hip and thoracic spine to 2/10 or better LTG Duration 12 weeks 3 Impairment muscle guarding and spasm of the right SCM, suboccipitals, left piriformis Half-Way Goal (LTG) Overall muscle guarding is reduced and pt notes decreased pain good progress 2 Impairment Tightness of the hamstrings on the left to 55 Short Term Goal (STG) Katelyn is educated in a home stretching program for improved hamstring flexibility good progress Half-Way Goal (LTG) Katelyn presents with improved SLR to 65 deg or better on the left side good progresss to 60 degrees now with SLR on the left LTG Duration 12 weeks 1 Impairment Modified oswestry score of 17 Half-Way Goal (LTG) Katelyn is able to lower her score on the midified oswestry by 5-10 points good progress LTG Duration 8 weeks Assessment Summary Assessment Katelyn is responding well to treatment and has been able to continue with her walking routine with decreased thoracic pain Physical Therapy Plan Frequency and Duration Frequency of Treatment 1x/Week Duration of treatment (weeks) 12 Plan of Care Start Date 02/08/24 Plan of Care End Date 05/02/24 Therapeutic Interventions Therapeutic Interventions Home Exercise Program,Joint Mobilizations,Manual Therapy, Patient/Caregiver Education, Self-Care/Home Management,Soft Tissue Mobilization, Therapeutic Exercises Next Visit Focus/Plan Next Note Type Treatment Note Next Visit Plan continue progressing postural modifications and manual therapy techniques for the thoracic spine
--- NOTE | 2024-02-09 13:14 | PT.OPPOC ---
Physical, Occupational & Speech Therapy At [facility] Current Diagnoses Dorsalgia, unspecified (02/08/24) Visit Care Team Role Provider Type Jessica Del Rosario PA-C Family Provider Non-Staff Specialty: Medical Address: [address] [place] [address], [id number] Email: [email or web address] JORGE LUIS Khan Attending Provider Advanced Test Engineering Technician Primary Care Provider Referring Provider Specialty: Medical Address: [address] [place] [address], [id number] Email: [email or web address] Plan Of Care PT-OP-B Current Condition Start: 11/23/23 13:49 Freq: Status: Active Protocol: Document 11/23/23 13:50 [facility] (Rec: 11/23/23 13:52 [facility] [id number]) Current Condition History of Current Condition Onset Date chronic History of Current Condition Katelyn has a history of chronic back and hip pain. She describes stiffness in the neck, low back, and hips with intermittent sciatic symptoms down the left leg. Katelyn also reports she is experiencing right sided thoracic stabbing pain that is intermittent. She is currently walking 2 times per day for exercise. 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 that her thoracic spine as been more painful Treatment Goals Patient/Caregiver Goals To reduce pain and allow her to continue with her walking routine and typing without increased pain PT-OP-T Assessment and Plan Start: 11/23/23 16:58 Freq: Status: Active Protocol: Document 02/08/24 09:45 [facility] (Rec: 02/09/24 13:13 [facility] [id number]) Physical Therapy Assessment Goals 4 Impairment left sided hip pain rated 5-6/ 10 with tightness and guarding in the piriformis and right sided thoracic spine pain Block Setter [place] Goal (LTG) pt reports overall reduction in pain of the left hip and thoracic spine to 2/10 or better LTG Duration 12 weeks 3 Impairment muscle guarding and spasm of the right SCM, suboccipitals, left piriformis Block Setter [place] Goal (LTG) Overall muscle guarding is reduced and pt notes decreased pain good progress 2 Impairment Tightness of the hamstrings on the left to 55 Short Term Goal (STG) Katelyn is educated in a home stretching program for improved hamstring flexibility good progress Halfway Goal (LTG) Katelyn presents with improved SLR to 65 deg or better on the left side good progress to 60 degrees now with SLR on the left LTG Duration 12 weeks 1 Impairment Modified oswestry score of 17 Block Setter [place] Goal (LTG) Katelyn is able to lower her score on the modified oswestry by 5-10 points good progress LTG Duration 8 weeks Assessment Summary Assessment Katelyn is responding well to treatment and has been able to continue with her walking routine with decreased thoracic pain Physical Therapy Plan Frequency and Duration Frequency of Treatment 1x/Week Duration of treatment (weeks) 12 Plan of Care Start Date 02/08/24 Plan of Care End Date 05/02/24 Therapeutic Interventions Therapeutic Interventions Home Exercise Program,Joint Mobilizations,Manual Therapy, Patient/Caregiver Education, Self-Care/Home Management,Soft Tissue Mobilization, Therapeutic Exercises Next Visit Focus/Plan Next Note Type Treatment Note Next Visit Plan continue progressing postural modifications and manual therapy techniques for the thoracic spine Plan of Care Dates Plan of Care Start Date 02/08/24 Plan of Care End Date 05/02/24 Electronically Signed by: Essence Hernandez, PT 02/09/24 8005 If you are in agreement with this Plan of Care, please return a signed and dated copy. I have reviewed this Plan of Care and certify that the skilled therapy services above are required to meet the patient?s needs. Physician Signature Date Printed Name and Credentials Clinical Instructor Signature Printed Name and Credentials
--- NOTE | 2024-02-29 13:33 | PT-OP ANOTE ---
Katelyn Rai/Juaquin for her appt at 1300 on February 23. I called and left a message for her regarding her no show and also told her I had 2:30 opening later that afternoon if she would like it. I did remind her of our no show policy.
--- NOTE | 2024-03-09 12:30 | PT.OTN ---
Current Diagnoses Dorsalgia, unspecified (03/09/24) Physical Therapy Treatment Note PT-OP-A Visit Information Start: 11/23/23 13:49 Freq: Status: Active Protocol: Document 03/09/24 11:36 [facility] (Rec: 03/09/24 11:39 [facility] [id number]) Out-Patient Physical Therapy Visit Information Visit Information Visit Type Treatment Note Visit Start Time 11:35 Visit Stop Time 12:15 Visit Number 11 PT-OP-B Current Condition Start: 11/23/23 13:49 Freq: Status: Active Protocol: Document 11/23/23 13:50 [facility] (Rec: 11/23/23 13:52 [facility] [id number]) Current Condition History of Current Condition Onset Date chronic History of Current Condition Katelyn has ahistoyr of chronic back and hp pain. She describes stiffness in the neck, low back, and hips with intermittent sciatic symptoms down the left leg. Katelyn also reports she is experienicng right sided thoracic stabbing pain that is intermittent. She is currently walking 2 times per day for [employer]. 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 that her thoracic spine as been more painful Treatment Goals Patient/Caregiver Goals To reduce pain and allow her to continue with her walking routine and typing without increased pain PT-OP-C Subjective Start: 11/23/23 13:49 Freq: Status: Active Protocol: Document 03/09/24 11:36 [facility] (Rec: 03/09/24 11:39 [facility] [id number]) OP-PT Subjective Patient Comments Patient Comments Katelyn reports she is feeling more of a essential tremmor, she feels PT is continuing to help her back and hips and she has been able to walk 2 times per day Patient Reported Progress Improving PT-OP-F Manual Assessment Start: 11/23/23 16:58 Freq: Status: Active Protocol: Document 11/23/23 13:45 [facility] (Rec: 11/25/23 08:09 [facility] [id number]) Manual Assessments Soft Tissue Assessment Soft Tissue Mobility Assessment left piriformis tightness and soft tissue guarding thoracic paraspinal guarding R >L Joint Mobility Assessment Joint Mobility Assessment hypomobility of the thoracic spine with a visual sidebend and curve of the right thoracic spine PT-OP-K Range of Motion Start: 11/25/23 16:30 Freq: Status: Active Protocol: Document 11/23/23 13:45 [facility] (Rec: 11/25/23 16:32 [facility] [id number]) Hip Goniometric Range of Motion Hip Left Hip ROM WFL No Testing Position Supine Flexion w/Knee Flexed 110 Straight Leg Raise 55 Abduction 20 Internal Rotation 15 Hip ROM Limitations Hip ROM Limitations Soft Tissue Tightness Comments hamstring, piriformis, and adductor tightness PT-OP-Q Treatments Start: 11/23/23 16:58 Freq: Status: Active Protocol: Document 03/09/24 11:30 [facility] (Rec: 03/13/24 08:03 [facility] [id number]) Therapeutic Exercises Standing Exercises standing side bending stretch Reps/Minutes x 4 times holding 10-20 seconds each side standing shoulder flexion up the wall Reps/Minutes x 5 standing chest stretch in doorway Reps/Minutes x 2 hold 30 sec each Manual Therapy Treatment Soft Tissue Mobilization thoracic paraspinal MFR Mobilization Type Myofascial Release Body Position Prone left sided piriformis release Mobilization Type Myofascial Release Manual Techniques PA glides T4-T10 Body Location Thoracic T4-T10 Body Position Prone Reps/Duration gentle PA glides for the thoracic spine to mobilize into improved extension PT-OP-T Assessment and Plan Start: 11/23/23 16:58 Freq: Status: Active Protocol: Document 03/09/24 11:30 [facility] (Rec: 03/13/24 08:03 [facility] [id number]) Physical Therapy Assessment Assessment Summary Assessment Katelyn continues to present with thoracic paraspinal tightness and tends to sidebend/collapse to the right side. I have encouraged her to work on her postural exercises including left sidebending Physical Therapy Plan Frequency and Duration Frequency of Treatment 1x/Week Duration of treatment (weeks) 12 Plan of Care Start Date 02/08/24 Plan of Care End Date 05/02/24 Therapeutic Interventions Therapeutic Interventions Home Exercise Program,Joint Mobilizations,Manual Therapy, Patient/Caregiver Education, Self-Care/Home Management,Soft Tissue Mobilization, Therapeutic Exercises Next Visit Focus/Plan Next Note Type Treatment Note Next Visit Plan continue progressing postural modifications and manual therapy techniques for the thoracic spine
--- NOTE | 2024-03-14 09:54 | PT.OTN ---
Current Diagnoses Dorsalgia, unspecified (03/14/24) Physical Therapy Treatment Note PT-OP-A Visit Information Start: 11/23/23 13:49 Freq: Status: Active Protocol: Document 03/14/24 08:23 [facility] (Rec: 03/14/24 08:27 [facility] [id number]) Out-Patient Physical Therapy Visit Information Visit Information Visit Type Treatment Note Visit Start Time 08:20 Visit Stop Time 09:00 Visit Number 12 Evaluation Information Evaluation Date 11/23/23 PT-OP-B Current Condition Start: 11/23/23 13:49 Freq: Status: Active Protocol: Document 11/23/23 13:50 [facility] (Rec: 11/23/23 13:52 [facility] [id number]) Current Condition History of Current Condition Onset Date chronic History of Current Condition Katelyn has ahistoyr of chronic back and hp pain. She describes stiffness in the neck, low back, and hips with intermittent sciatic symptoms down the left leg. Kaetlyn also reports she is experienicng right sided thoracic stabbing pain that is intermittent. She is currently walking 2 times per day for [employer]. 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 that her thoracic spine as been more painful Treatment Goals Patient/Caregiver Goals To reduce pain and allow her to continue with her walking routine and typing without increased pain PT-OP-C Subjective Start: 11/23/23 13:49 Freq: Status: Active Protocol: Document 03/14/24 08:23 [facility] (Rec: 03/14/24 08:27 [facility] [id number]) OP-PT Subjective Patient Comments Patient Comments Katelyn notes she has been working on all her exercises for her posture Patient Reported Progress Improving PT-OP-F Manual Assessment Start: 11/23/23 16:58 Freq: Status: Active Protocol: Document 11/23/23 13:45 [facility] (Rec: 11/25/23 08:09 [facility] [id number]) Manual Assessments Soft Tissue Assessment Soft Tissue Mobility Assessment left piriformis tightness and soft tissue guarding thoracic paraspinal guarding R >L Joint Mobility Assessment Joint Mobility Assessment hypomobility of the thoracic spine with a visual sidebend and curve of the right thoracic spine PT-OP-K Range of Motion Start: 11/25/23 16:30 Freq: Status: Active Protocol: Document 11/23/23 13:45 [facility] (Rec: 11/25/23 16:32 [facility] [id number]) Hip Goniometric Range of Motion Hip Left Hip ROM WFL No Testing Position Supine Flexion w/Knee Flexed 110 Straight Leg Raise 55 Abduction 20 Internal Rotation 15 Hip ROM Limitations Hip ROM Limitations Soft Tissue Tightness Comments hamstring, piriformis, and adductor tightness PT-OP-Q Treatments Start: 11/23/23 16:58 Freq: Status: Active Protocol: Document 03/14/24 08:23 [facility] (Rec: 03/14/24 08:27 [facility] [id number]) Manual Therapy Treatment Soft Tissue Mobilization right sided paraspinal release Mobilization Type Myofascial Release Intensity/Depth Moderate Body Position Prone thoracic paraspinal MFR Mobilization Type Myofascial Release Body Position Prone left sided piriformis release Mobilization Type Myofascial Release Manual Techniques PA glides T4-T10 Body Location Thoracic T4-T10 Body Position Prone Reps/Duration gentle PA glides for the thoracic spine to mobilize into improved extension PT-OP-T Assessment and Plan Start: 11/23/23 16:58 Freq: Status: Active Protocol: Document 03/14/24 08:23 [facility] (Rec: 03/14/24 08:27 [facility] [id number]) Physical Therapy Assessment Assessment Summary Assessment Katelyn continues to do well with her HEP and walking routine, I worked on releasing her parapspinals today especially on the right side as she has a great deal of tightness with the scoliosis curve on the right side. Physical Therapy Plan Frequency and Duration Frequency of Treatment 1x/Week Duration of treatment (weeks) 12 Plan of Care Start Date 02/08/24 Plan of Care End Date 05/02/24 Therapeutic Interventions Therapeutic Interventions Home Exercise Program,Joint Mobilizations,Manual Therapy, Patient/Caregiver Education, Self-Care/Home Management,Soft Tissue Mobilization, Therapeutic Exercises Next Visit Focus/Plan Next Note Type Treatment Note Next Visit Plan continue progressing postural modifications and manual therapy techniques for the thoracic spine
--- NOTE | 2024-03-23 17:31 | PT.OTN ---
Current Diagnoses Dorsalgia, unspecified (03/23/24) Physical Therapy Treatment Note PT-OP-A Visit Information Start: 11/23/23 13:49 Freq: Status: Active Protocol: Document 03/23/24 09:45 [facility] (Rec: 03/23/24 17:31 [facility] [id number]) Out-Patient Physical Therapy Visit Information Visit Information Visit Type Treatment Note Visit Start Time 09:45 Visit Stop Time 10:30 Visit Number 13 PT-OP-B Current Condition Start: 11/23/23 13:49 Freq: Status: Active Protocol: Document 11/23/23 13:50 [facility] (Rec: 11/23/23 13:52 [facility] [id number]) Current Condition History of Current Condition Onset Date chronic History of Current Condition Katelyn has ahistoyr of chronic back and hp pain. She describes stiffness in the neck, low back, and hips with intermittent sciatic symptoms down the left leg. Katelyn also reports she is experienicng right sided thoracic stabbing pain that is intermittent. She is currently walking 2 times per day for [employer]. 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 that her thoracic spine as been more painful Treatment Goals Patient/Caregiver Goals To reduce pain and allow her to continue with her walking routine and typing without increased pain PT-OP-C Subjective Start: 11/23/23 13:49 Freq: Status: Active Protocol: Document 03/23/24 09:45 [facility] (Rec: 03/23/24 17:31 [facility] [id number]) OP-PT Subjective Patient Comments Patient Comments Katelyn reports she has been able to keep up walking and is working on postural exercises PT-OP-F Manual Assessment Start: 11/23/23 16:58 Freq: Status: Active Protocol: Document 11/23/23 13:45 [facility] (Rec: 11/25/23 08:09 [facility] [id number]) Manual Assessments Soft Tissue Assessment Soft Tissue Mobility Assessment left piriformis tightness and soft tissue guarding thoracic paraspinal guarding R >L Joint Mobility Assessment Joint Mobility Assessment hypomobility of the thoracic spine with a visual sidebend and curve of the right thoracic spine PT-OP-K Range of Motion Start: 11/25/23 16:30 Freq: Status: Active Protocol: Document 11/23/23 13:45 [facility] (Rec: 11/25/23 16:32 [facility] [id number]) Hip Goniometric Range of Motion Hip Left Hip ROM WFL No Testing Position Supine Flexion w/Knee Flexed 110 Straight Leg Raise 55 Abduction 20 Internal Rotation 15 Hip ROM Limitations Hip ROM Limitations Soft Tissue Tightness Comments hamstring, piriformis, and adductor tightness PT-OP-Q Treatments Start: 11/23/23 16:58 Freq: Status: Active Protocol: Document 03/23/24 09:45 [facility] (Rec: 03/23/24 17:31 [facility] [id number]) Therapeutic Exercises Standing Exercises standing row and extension with theraband Reps/Minutes level 2 TB 3 x 10 reps standing side bending stretch Reps/Minutes x 4 times holding 10-20 seconds each side standing shoulder flexion up the wall Reps/Minutes x 5 standing chest stretch in doorway Reps/Minutes x 2 hold 30 sec each Manual Therapy Treatment Soft Tissue Mobilization right sided paraspinal release Mobilization Type Myofascial Release Intensity/Depth Moderate Body Position Prone thoracic paraspinal MFR Mobilization Type Myofascial Release Body Position Prone left sided piriformis release Mobilization Type Myofascial Release Manual Techniques PA glides T4-T10 Body Location Thoracic T4-T10 Body Position Prone Reps/Duration gentle PA glides for the thoracic spine to mobilize into improved extension PT-OP-T Assessment and Plan Start: 11/23/23 16:58 Freq: Status: Active Protocol: Document 03/23/24 09:45 [facility] (Rec: 03/23/24 17:31 [facility] [id number]) Physical Therapy Assessment Assessment Summary Assessment Katelyn is progressing well with her HEP and was not as tight today in her paraspinals Physical Therapy Plan Frequency and Duration Frequency of Treatment 1x/Week Duration of treatment (weeks) 12 Plan of Care Start Date 02/08/24 Plan of Care End Date 05/02/24 Therapeutic Interventions Therapeutic Interventions Home Exercise Program,Joint Mobilizations,Manual Therapy, Patient/Caregiver Education, Self-Care/Home Management,Soft Tissue Mobilization, Therapeutic Exercises Next Visit Focus/Plan Next Note Type Treatment Note Next Visit Plan continue progressing postural modifications and manual therapy techniques for the thoracic spine
--- NOTE | 2024-04-04 16:18 | PT.OTN ---
Current Diagnoses Dorsalgia, unspecified (04/04/24) Physical Therapy Treatment Note PT-OP-A Visit Information Start: 11/23/23 13:49 Freq: Status: Active Protocol: Document 04/04/24 14:32 [facility] (Rec: 04/04/24 15:18 [facility] [id number]) Out-Patient Physical Therapy Visit Information Visit Information Visit Type Treatment Note Visit Start Time 14:30 Visit Stop Time 15:15 Visit Number 14 PT-OP-B Current Condition Start: 11/23/23 13:49 Freq: Status: Active Protocol: Document 11/23/23 13:50 [facility] (Rec: 11/23/23 13:52 [facility] [id number]) Current Condition History of Current Condition Onset Date chronic History of Current Condition Katelyn has ahistoyr of chronic back and hp pain. She describes stiffness in the neck, low back, and hips with intermittent sciatic symptoms down the left leg. Katelyn also reports she is experienicng right sided thoracic stabbing pain that is intermittent. She is currently walking 2 times per day for [employer]. 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 that her thoracic spine as been more painful Treatment Goals Patient/Caregiver Goals To reduce pain and allow her to continue with her walking routine and typing without increased pain PT-OP-C Subjective Start: 11/23/23 13:49 Freq: Status: Active Protocol: Document 04/04/24 14:30 [facility] (Rec: 04/04/24 16:15 [facility] [id number]) OP-PT Subjective Patient Comments Patient Comments Katelyn notes she has been doing better and has been able to walk without as much pain Patient Reported Progress Improving PT-OP-F Manual Assessment Start: 11/23/23 16:58 Freq: Status: Active Protocol: Document 11/23/23 13:45 [facility] (Rec: 11/25/23 08:09 [facility] [id number]) Manual Assessments Soft Tissue Assessment Soft Tissue Mobility Assessment left piriformis tightness and soft tissue guarding thoracic paraspinal guarding R >L Joint Mobility Assessment Joint Mobility Assessment hypomobility of the thoracic spine with a visual sidebend and curve of the right thoracic spine PT-OP-K Range of Motion Start: 11/25/23 16:30 Freq: Status: Active Protocol: Document 11/23/23 13:45 [facility] (Rec: 11/25/23 16:32 [facility] [id number]) Hip Goniometric Range of Motion Hip Left Hip ROM WFL No Testing Position Supine Flexion w/Knee Flexed 110 Straight Leg Raise 55 Abduction 20 Internal Rotation 15 Hip ROM Limitations Hip ROM Limitations Soft Tissue Tightness Comments hamstring, piriformis, and adductor tightness PT-OP-Q Treatments Start: 11/23/23 16:58 Freq: Status: Active Protocol: Document 04/04/24 14:30 [facility] (Rec: 04/04/24 16:15 [facility] [id number]) Manual Therapy Treatment Soft Tissue Mobilization right sided paraspinal release Mobilization Type Myofascial Release Intensity/Depth Moderate Body Position Prone thoracic paraspinal MFR Mobilization Type Myofascial Release Body Position Prone left sided piriformis release Mobilization Type Myofascial Release Manual Techniques PA glides T4-T10 Body Location Thoracic T4-T10 Body Position Prone Reps/Duration gentle PA glides for the thoracic spine to mobilize into improved extension PT-OP-T Assessment and Plan Start: 11/23/23 16:58 Freq: Status: Active Protocol: Document 04/04/24 14:32 [facility] (Rec: 04/04/24 15:18 [facility] [id number]) Physical Therapy Assessment Assessment Summary Assessment Right sided parapsinal are not as guarded and tight as they were, Katelyn has been working on her sidebending stretches and is doing well with her HEP Physical Therapy Plan Frequency and Duration Frequency of Treatment 1x/Week Duration of treatment (weeks) 12 Plan of Care Start Date 02/08/24 Plan of Care End Date 05/02/24 Therapeutic Interventions Therapeutic Interventions Home Exercise Program,Joint Mobilizations,Manual Therapy, Patient/Caregiver Education, Self-Care/Home Management,Soft Tissue Mobilization, Therapeutic Exercises Next Visit Focus/Plan Next Note Type Treatment Note Next Visit Plan continue progressing postural modifications and manual therapy techniques for the thoracic spine
--- NOTE | 2024-04-13 16:47 | PT.OTN ---
Current Diagnoses Dorsalgia, unspecified (04/13/24) Physical Therapy Treatment Note PT-OP-A Visit Information Start: 11/23/23 13:49 Freq: Status: Active Protocol: Document 04/13/24 16:44 [facility] (Rec: 04/13/24 16:47 [facility] [id number]) Out-Patient Physical Therapy Visit Information Visit Information Visit Type Treatment Note Visit Start Time 14:30 Visit Stop Time 15:15 Visit Number 15 PT-OP-B Current Condition Start: 11/23/23 13:49 Freq: Status: Active Protocol: Document 11/23/23 13:50 [facility] (Rec: 11/23/23 13:52 [facility] [id number]) Current Condition History of Current Condition Onset Date chronic History of Current Condition Katelyn has ahistoyr of chronic back and hp pain. She describes stiffness in the neck, low back, and hips with intermittent sciatic symptoms down the left leg. Katelyn also reports she is experienicng right sided thoracic stabbing pain that is intermittent. She is currently walking 2 times per day for [employer]. 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 that her thoracic spine as been more painful Treatment Goals Patient/Caregiver Goals To reduce pain and allow her to continue with her walking routine and typing without increased pain PT-OP-C Subjective Start: 11/23/23 13:49 Freq: Status: Active Protocol: Document 04/13/24 16:44 [facility] (Rec: 04/13/24 16:47 [facility] [id number]) OP-PT Subjective Patient Comments Patient Comments Katelyn is frustrated about the increase in pay for her co pay and is unsure if she will be able to continue PT due to this PT-OP-F Manual Assessment Start: 11/23/23 16:58 Freq: Status: Active Protocol: Document 11/23/23 13:45 [facility] (Rec: 11/25/23 08:09 [facility] [id number]) Manual Assessments Soft Tissue Assessment Soft Tissue Mobility Assessment left piriformis tightness and soft tissue guarding thoracic paraspinal guarding R >L Joint Mobility Assessment Joint Mobility Assessment hypomobility of the thoracic spine with a visual sidebend and curve of the right thoracic spine PT-OP-K Range of Motion Start: 11/25/23 16:30 Freq: Status: Active Protocol: Document 11/23/23 13:45 [facility] (Rec: 11/25/23 16:32 [facility] [id number]) Hip Goniometric Range of Motion Hip Left Hip ROM WFL No Testing Position Supine Flexion w/Knee Flexed 110 Straight Leg Raise 55 Abduction 20 Internal Rotation 15 Hip ROM Limitations Hip ROM Limitations Soft Tissue Tightness Comments hamstring, piriformis, and adductor tightness PT-OP-Q Treatments Start: 11/23/23 16:58 Freq: Status: Active Protocol: Document 04/13/24 16:44 [facility] (Rec: 04/13/24 16:47 [facility] [id number]) Manual Therapy Treatment Soft Tissue Mobilization right sided paraspinal release Mobilization Type Myofascial Release Intensity/Depth Moderate Body Position Prone thoracic paraspinal MFR Mobilization Type Myofascial Release Body Position Prone left sided piriformis release Mobilization Type Myofascial Release PT-OP-T Assessment and Plan Start: 11/23/23 16:58 Freq: Status: Active Protocol: Document 04/13/24 16:44 [facility] (Rec: 04/13/24 16:47 [facility] [id number]) Physical Therapy Assessment Assessment Summary Assessment Katelyn presents with decreased overall tightness of the glutels and lumbar paraspinals . She is feeling good with her walking Physical Therapy Plan Frequency and Duration Frequency of Treatment 1x/Week Duration of treatment (weeks) 12 Plan of Care Start Date 02/08/24 Plan of Care End Date 05/02/24 Therapeutic Interventions Therapeutic Interventions Home Exercise Program,Joint Mobilizations,Manual Therapy, Patient/Caregiver Education, Self-Care/Home Management,Soft Tissue Mobilization, Therapeutic Exercises Next Visit Focus/Plan Next Note Type Treatment Note Next Visit Plan review HEP as pt will be transitioning to Ind with HEP
--- NOTE | 2024-04-27 14:48 | PT.OTN ---
Current Diagnoses Dorsalgia, unspecified (04/27/24) Physical Therapy Treatment Note PT-OP-A Visit Information Start: 11/23/23 13:49 Freq: Status: Active Protocol: Document 04/27/24 13:06 [facility] (Rec: 04/27/24 13:44 [facility] [id number]) Out-Patient Physical Therapy Visit Information Visit Information Visit Type Treatment Note Visit Start Time 13:00 Visit Stop Time 13:45 Visit Number 16 PT-OP-B Current Condition Start: 11/23/23 13:49 Freq: Status: Active Protocol: Document 11/23/23 13:50 [facility] (Rec: 11/23/23 13:52 [facility] [id number]) Current Condition History of Current Condition Onset Date chronic History of Current Condition Katelyn has ahistoyr of chronic back and hp pain. She describes stiffness in the neck, low back, and hips with intermittent sciatic symptoms down the left leg. Katelyn also reports she is experienicng right sided thoracic stabbing pain that is intermittent. She is currently walking 2 times per day for [employer]. 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 that her thoracic spine as been more painful Treatment Goals Patient/Caregiver Goals To reduce pain and allow her to continue with her walking routine and typing without increased pain PT-OP-C Subjective Start: 11/23/23 13:49 Freq: Status: Active Protocol: Document 04/27/24 13:06 [facility] (Rec: 04/27/24 13:44 [facility] [id number]) OP-PT Subjective Patient Comments Patient Comments Katelyn reports she cracked a rib on the left side PT-OP-F Manual Assessment Start: 11/23/23 16:58 Freq: Status: Active Protocol: Document 11/23/23 13:45 [facility] (Rec: 11/25/23 08:09 [facility] [id number]) Manual Assessments Soft Tissue Assessment Soft Tissue Mobility Assessment left piriformis tightness and soft tissue guarding thoracic paraspinal guarding R >L Joint Mobility Assessment Joint Mobility Assessment hypomobility of the thoracic spine with a visual sidebend and curve of the right thoracic spine PT-OP-K Range of Motion Start: 11/25/23 16:30 Freq: Status: Active Protocol: Document 11/23/23 13:45 [facility] (Rec: 11/25/23 16:32 [facility] [id number]) Hip Goniometric Range of Motion Hip Left Hip ROM WFL No Testing Position Supine Flexion w/Knee Flexed 110 Straight Leg Raise 55 Abduction 20 Internal Rotation 15 Hip ROM Limitations Hip ROM Limitations Soft Tissue Tightness Comments hamstring, piriformis, and adductor tightness PT-OP-Q Treatments Start: 11/23/23 16:58 Freq: Status: Active Protocol: Document 04/27/24 14:44 [facility] (Rec: 04/27/24 14:45 [facility] [id number]) Manual Therapy Treatment Soft Tissue Mobilization right sided paraspinal release Mobilization Type Myofascial Release Intensity/Depth Moderate Body Position Prone thoracic paraspinal MFR Mobilization Type Myofascial Release Body Position Prone left sided piriformis release Mobilization Type Myofascial Release Manual Techniques PA glides T4-T10 Body Location Thoracic T4-T10 Body Position Prone Reps/Duration gentle PA glides for the thoracic spine to mobilize into improved extension PT-OP-T Assessment and Plan Start: 11/23/23 16:58 Freq: Status: Active Protocol: Document 04/27/24 13:06 [facility] (Rec: 04/27/24 13:44 [facility] [id number]) Physical Therapy Assessment Goals 4 Impairment left sided hip pain rated 5-6/ 10 with tightness and guarding in the piriformis Knife Changer Goal (LTG) pt reports overall reduction in pain of the left hip and thoracic spine to 2/10 or better LTG Duration 12 weeks 3 Impairment muscle guarding and spasm of the right SCM, suboccipitals, left piriformis Knife Changer Goal (LTG) Overall muscle guarding is reduced and pt notes decreased pain good progress 2 Impairment Decreased cervical spine ROM Short Term Goal (STG) Katelyn is educated in a home stretching program for improved hamstring flexibility good progress Knife Changer Goal (LTG) Katelyn presents with improved SLR to 65 deg or better on the left side good progresss to 60 degrees now with SLR on the left LTG Duration 12 weeks 1 Impairment decreased walking speed with gait Knife Changer Goal (LTG) Katelyn is able to lower her score on the midified oswestry by 5-10 points good progress LTG Duration 8 weeks Assessment Summary Assessment Katelyn is responding well to PT , she has one visit left and then I plan on DC her to a I HEP. She has benefited from both exercises working on her posture as well as manual therapy techniques. Physical Therapy Plan Frequency and Duration Frequency of Treatment 1x/Week Duration of treatment (weeks) 1 Plan of Care Start Date 04/27/24 Plan of Care End Date 05/04/24 Therapeutic Interventions Therapeutic Interventions Home Exercise Program,Joint Mobilizations,Manual Therapy, Patient/Caregiver Education, Self-Care/Home Management,Soft Tissue Mobilization, Therapeutic Exercises Next Visit Focus/Plan Next Note Type Treatment Note Next Visit Plan review HEP as pt will be transitioning to Ind with HEP
--- NOTE | 2024-04-27 14:49 | PT.OPPOC ---
Physical, Occupational & Speech Therapy At [facility] Current Diagnoses Dorsalgia, unspecified (04/27/24) Visit Care Team Role Provider Type Jessica Del Rosario PA-C Family Provider Non-Staff Specialty: Medical Address: [address] [place] [address], [id number] Email: [email or web address] JORGE LUIS Khan Attending Provider Advanced Computer Programming Manager Primary Care Provider Referring Provider Specialty: Medical Address: [address] [place] [address], [id number] Email: [email or web address] Plan Of Care PT-OP-B Current Condition Start: 11/23/23 13:49 Freq: Status: Active Protocol: Document 11/23/23 13:50 [facility] (Rec: 11/23/23 13:52 [facility] [id number]) Current Condition History of Current Condition Onset Date chronic History of Current Condition Katelyn has ahistoyr of chronic back and hp pain. She describes stiffness in the neck, low back, and hips with intermittent sciatic symptoms down the left leg. Katelyn also reports she is experienicng right sided thoracic stabbing pain that is intermittent. She is currently walking 2 times per day for [employer]. 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 that her thoracic spine as been more painful Treatment Goals Patient/Caregiver Goals To reduce pain and allow her to continue with her walking routine and typing without increased pain PT-OP-T Assessment and Plan Start: 11/23/23 16:58 Freq: Status: Active Protocol: Document 04/27/24 13:06 [facility] (Rec: 04/27/24 13:44 [facility] [id number]) Physical Therapy Assessment Goals 4 Impairment left sided hip pain rated 5-6/ 10 with tightness and guarding in the piriformis Alf Goal (LTG) pt reports overall reduction in pain of the left hip and thoracic spine to 2/10 or better LTG Duration 12 weeks 3 Impairment muscle guarding and spasm of the right SCM, suboccipitals, left piriformis Signing Agent Goal (LTG) Overall muscle guarding is reduced and pt notes decreased pain good progress 2 Impairment Decreased cervical spine ROM Short Term Goal (STG) Katelyn is educated in a home stretching program for improved hamstring flexibility good progress Alf Goal (LTG) Katelyn presents with improved SLR to 65 deg or better on the left side good progresss to 60 degrees now with SLR on the left LTG Duration 12 weeks 1 Impairment decreased walking speed with gait Signing Agent Goal (LTG) Katelyn is able to lower her score on the midified oswestry by 5-10 points good progress LTG Duration 8 weeks Assessment Summary Assessment Katelyn is responding well to PT , she has one visit left and then I plan on DC her to a I HEP. She has benefited from both exercises working on her posture as well as manual therapy techniques. Physical Therapy Plan Frequency and Duration Frequency of Treatment 1x/Week Duration of treatment (weeks) 1 Plan of Care Start Date 04/27/24 Plan of Care End Date 05/04/24 Therapeutic Interventions Therapeutic Interventions Home Exercise Program,Joint Mobilizations,Manual Therapy, Patient/Caregiver Education, Self-Care/Home Management,Soft Tissue Mobilization, Therapeutic Exercises Next Visit Focus/Plan Next Note Type Treatment Note Next Visit Plan review HEP as pt will be transitioning to Ind with HEP Plan of Care Dates Plan of Care Start Date 04/27/24 Plan of Care End Date 05/04/24 Electronically Signed by: Essence Hernandez, PT 04/27/24 9320 If you are in agreement with this Plan of Care, please return a signed and dated copy. I have reviewed this Plan of Care and certify that the skilled therapy services above are required to meet the patient?s needs. Physician Signature Date Printed Name and Credentials Clinical Instructor Signature Printed Name and Credentials
--- NOTE | 2024-05-04 13:52 | PT.OTN ---
Current Diagnoses Dorsalgia, unspecified (05/04/24) Physical Therapy Treatment Note PT-OP-A Visit Information Start: 11/23/23 13:49 Freq: Status: Active Protocol: Document 05/04/24 13:06 [facility] (Rec: 05/04/24 13:50 [facility] [id number]) Out-Patient Physical Therapy Visit Information Visit Information Visit Type Treatment Note Visit Start Time 13:00 Visit Stop Time 13:45 Visit Number 17 PT-OP-B Current Condition Start: 11/23/23 13:49 Freq: Status: Active Protocol: Document 11/23/23 13:50 [facility] (Rec: 11/23/23 13:52 [facility] [id number]) Current Condition History of Current Condition Onset Date chronic History of Current Condition Katelyn has ahistoyr of chronic back and hp pain. She describes stiffness in the neck, low back, and hips with intermittent sciatic symptoms down the left leg. Katelyn also reports she is experienicng right sided thoracic stabbing pain that is intermittent. She is currently walking 2 times per day for [employer]. 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 that her thoracic spine as been more painful Treatment Goals Patient/Caregiver Goals To reduce pain and allow her to continue with her walking routine and typing without increased pain PT-OP-C Subjective Start: 11/23/23 13:49 Freq: Status: Active Protocol: Document 04/27/24 13:06 [facility] (Rec: 04/27/24 13:44 [facility] [id number]) OP-PT Subjective Patient Comments Patient Comments Katelyn reports she cracked a rib on the left side PT-OP-F Manual Assessment Start: 11/23/23 16:58 Freq: Status: Active Protocol: Document 11/23/23 13:45 [facility] (Rec: 11/25/23 08:09 [facility] [id number]) Manual Assessments Soft Tissue Assessment Soft Tissue Mobility Assessment left piriformis tightness and soft tissue guarding thoracic paraspinal guarding R >L Joint Mobility Assessment Joint Mobility Assessment hypomobility of the thoracic spine with a visual sidebend and curve of the right thoracic spine PT-OP-K Range of Motion Start: 11/25/23 16:30 Freq: Status: Active Protocol: Document 11/23/23 13:45 [facility] (Rec: 11/25/23 16:32 [facility] [id number]) Hip Goniometric Range of Motion Hip Left Hip ROM WFL No Testing Position Supine Flexion w/Knee Flexed 110 Straight Leg Raise 55 Abduction 20 Internal Rotation 15 Hip ROM Limitations Hip ROM Limitations Soft Tissue Tightness Comments hamstring, piriformis, and adductor tightness PT-OP-Q Treatments Start: 11/23/23 16:58 Freq: Status: Active Protocol: Document 04/27/24 14:44 [facility] (Rec: 04/27/24 14:45 [facility] [id number]) Manual Therapy Treatment Soft Tissue Mobilization right sided paraspinal release Mobilization Type Myofascial Release Intensity/Depth Moderate Body Position Prone thoracic paraspinal MFR Mobilization Type Myofascial Release Body Position Prone left sided piriformis release Mobilization Type Myofascial Release Manual Techniques PA glides T4-T10 Body Location Thoracic T4-T10 Body Position Prone Reps/Duration gentle PA glides for the thoracic spine to mobilize into improved extension PT-OP-T Assessment and Plan Start: 11/23/23 16:58 Freq: Status: Active Protocol: Document 05/04/24 13:06 [facility] (Rec: 05/04/24 13:50 [facility] [id number]) Physical Therapy Assessment Goals 4 Impairment left sided hip pain rated 5-6/ 10 with tightness and guarding in the piriformis Electrical Plumbing Supervisor Goal (LTG) pt reports overall reduction in pain of the left hip and thoracic spine to 2/10 or better excellent progress LTG Duration 12 weeks 3 Impairment muscle guarding and spasm of the right SCM, suboccipitals, left piriformis Electrical Plumbing Supervisor Goal (LTG) Overall muscle guarding is reduced and pt notes decreased pain good progress 2 Impairment Decreased cervical spine ROM Short Term Goal (STG) Katelyn is educated in a home stretching program for improved hamstring flexibility goal met Correction Goal (LTG) Katelyn presents with improved SLR to 65 deg or better on the left side good progresss to 60 degrees now with SLR on the left LTG Duration 12 weeks 1 Impairment decreased walking speed with gait Electrical Plumbing Supervisor Goal (LTG) Katelyn is able to lower her score on the midified oswestry by 5-10 points good progress LTG Duration 8 weeks Assessment Summary Assessment Katelyn is doing better overall with her low back. Today is her last visit in PT for her back. She is experiencing right rib pain and will see her MD about a referral to PT for that Physical Therapy Plan Discharge Physical Therapy Discharge Reasons Plateau in Progress Discharge Comments pt has reached a plateau with progress and at this time will be discharged to a I HEP
--- NOTE | 2024-05-04 13:53 | PT.OPDS ---
Current Diagnoses Dorsalgia, unspecified (05/04/24) Visit Care Team Role Provider Type Jessica Del Rosario PA-C Family Provider Non-Staff Specialty: Medical Address: [address] [place] [address], [id number] Email: [email or web address] JORGE LUIS Khan Attending Provider Advanced Medical Surgical Tech Primary Care Provider Referring Provider Specialty: Medical Address: [address] [place] [address], [id number] Email: [email or web address] Visit Number Visit Number 17 Discharge Summary PT-OP-B Current Condition Start: 11/23/23 13:49 Freq: Status: Active Protocol: Document 11/23/23 13:50 [facility] (Rec: 11/23/23 13:52 [facility] [id number]) Current Condition History of Current Condition Onset Date chronic History of Current Condition Katelyn has ahistoyr of chronic back and hp pain. She describes stiffness in the neck, low back, and hips with intermittent sciatic symptoms down the left leg. Katelyn also reports she is experienicng right sided thoracic stabbing pain that is intermittent. She is currently walking 2 times per day for [employer]. 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 that her thoracic spine as been more painful Treatment Goals Patient/Caregiver Goals To reduce pain and allow her to continue with her walking routine and typing without increased pain PT-OP-C Subjective Start: 11/23/23 13:49 Freq: Status: Active Protocol: Document 04/27/24 13:06 [facility] (Rec: 04/27/24 13:44 [facility] [id number]) OP-PT Subjective Patient Comments Patient Comments Katelyn reports she cracked a rib on the left side PT-OP-F Manual Assessment Start: 11/23/23 16:58 Freq: Status: Active Protocol: Document 11/23/23 13:45 [facility] (Rec: 11/25/23 08:09 [facility] [id number]) Manual Assessments Soft Tissue Assessment Soft Tissue Mobility Assessment left piriformis tightness and soft tissue guarding thoracic paraspinal guarding R >L Joint Mobility Assessment Joint Mobility Assessment hypomobility of the thoracic spine with a visual sidebend and curve of the right thoracic spine PT-OP-K Range of Motion Start: 11/25/23 16:30 Freq: Status: Active Protocol: Document 11/23/23 13:45 [facility] (Rec: 11/25/23 16:32 [facility] [id number]) Hip Goniometric Range of Motion Hip Left Hip ROM WFL No Testing Position Supine Flexion w/Knee Flexed 110 Straight Leg Raise 55 Abduction 20 Internal Rotation 15 Hip ROM Limitations Hip ROM Limitations Soft Tissue Tightness Comments hamstring, piriformis, and adductor tightness PT-OP-T Assessment and Plan Start: 11/23/23 16:58 Freq: Status: Active Protocol: Document 05/04/24 13:06 [facility] (Rec: 05/04/24 13:50 [facility] [id number]) Physical Therapy Assessment Goals 4 Impairment left sided hip pain rated 5-6/ 10 with tightness and guarding in the piriformis Half-Way Goal (LTG) pt reports overall reduction in pain of the left hip and thoracic spine to 2/10 or better excellent progress LTG Duration 12 weeks 3 Impairment muscle guarding and spasm of the right SCM, suboccipitals, left piriformis Half-Way Goal (LTG) Overall muscle guarding is reduced and pt notes decreased pain good progress 2 Impairment Decreased cervical spine ROM Short Term Goal (STG) Katelyn is educated in a home stretching program for improved hamstring flexibility goal met Half-Way Goal (LTG) Katelyn presents with improved SLR to 65 deg or better on the left side good progresss to 60 degrees now with SLR on the left LTG Duration 12 weeks 1 Impairment decreased walking speed with gait Half-Way Goal (LTG) Katelyn is able to lower her score on the midified oswestry by 5-10 points good progress LTG Duration 8 weeks Assessment Summary Assessment Katelyn is doing better overall with her low back. Today is her last visit in PT for her back. She is experiencing right rib pain and will see her MD about a referral to PT for that Physical Therapy Plan Discharge Physical Therapy Discharge Reasons Plateau in Progress Discharge Comments pt has reached a plateau with progress and at this time will be discharged to a HEP
== END 2024-07-19 14:39 | disposition home or self-care (01) ==
LOC: PHYS 13:00
PROVIDERS: Family Provider Physician Assistant; PCP Registered Nurse Diabetes Educator; Referring Provider Registered Nurse Diabetes Educator; Visit Provider Registered Nurse Diabetes Educator
DX: M54.9 Dorsalgia, unspecified (principal)
CPT/HCPCS: 97110; 97140; 97161

== ENCOUNTER → 2024-05-10 09:31 | Outpatient (CLI) | payer MEDICARE, SELFPAY ==
[2023-11-21 05:37] VITALS: BMI 28.3
[2024-05-10 10:11] LABS: Add Manual Diff / Slide Review NO; Basophils Absolute Auto 0 /uL (0-100); Basophils Percent Auto 0.4 % (0-2); Eosinophils Absolute Auto 100 /uL (0-450); Eosinophils Percent Auto 1.3 % (2-4); Hemoglobin 14.7 g/dL (12.0-16.0); Lymphocytes Absolute Auto 1500 /uL (1100-4500); Lymphocytes Percent Auto 18.9 % (25-40); Mean Corpuscular HGB Conc 32.7 % (30-36); Mean Corpuscular Hemoglobin 27.1 PG (26-34); Mean Corpuscular Volume 82.9 fL (80-100); Monocytes Absolute Auto 900 /uL (0-900); Monocytes Percent Auto 10.5 % (3-14); Neutrophils Absolute Auto 5700 /uL (1500-7000); Neutrophils Percent Auto 68.9 % (50-75); Platelet Count 314 X10^3/uL (150-400); Red Blood Cell Count 5.43 X10^6/uL (4.0-5.2); Red Cell Distribution Width 13.3 % (11.6-14.8); White Blood Cell Count 8.2 X10^3/uL (4.5-11.0)
[2024-05-10 10:22] LABS: Hemoglobin A1C% w Est Avg Glu 5.5 % (4.0-6.0)
[2024-05-10 10:28] LABS: Iron 113 ug/dL (37-170)
[2024-05-10 10:29] LABS: Alanine Aminotransferase 28 IU/L (<35); Albumin 4.6 g/dL (3.5-5.0); Albumin Globulin Ratio 1.7 (1.0-2.8); Alkaline Phosphatase 88 U/L (38-126); Aspartate Aminotransferase 33 IU/L (14-36); BUN Creatinine Ratio 16.2 (6-22); Bilirubin Total 0.6 mg/dL (0.2-1.3); Blood Urea Nitrogen 12 mg/dL (7-17); Calcium 9.7 mg/dL (8.4-10.2); Carbon Dioxide 29 mmol/L (22-32); Chloride 104 mmol/L (98-107); Estimated Glomerular Filt Rate > 60 mL/min (>60); Globulin 2.7 g/dL (1.7-4.1); Glucose 112 mg/dL (80-110); HEMOLYSIS < 15 (0-50); Potassium 4.1 mmol/L (3.4-5.1); Sodium 141 mmol/L (137-145); Total Protein 7.3 g/dL (6.3-8.2)
[2024-05-10 10:45] LABS: Free T4, Direct Thyroxine 0.99 ng/dL (0.78-2.19)
[2024-05-10 10:59] LABS: Thyroid Stimulating Hormone 0.579 uIU/mL (0.47-4.68)
[2024-05-10 11:05] LABS: Ferritin 33 ng/mL (11-264)
[2024-05-10 11:18] LABS: Vitamin B12 602 pg/mL (239-931)
== END ==
PROVIDERS: Family Provider Physician Assistant; PCP Registered Nurse Diabetes Educator; Referring Provider Registered Nurse Diabetes Educator; Visit Provider Registered Nurse Diabetes Educator
DX: D64.9 Anemia, unspecified (principal); R73.03 Prediabetes; L65.0 Telogen effluvium; I25.10 Atherosclerotic heart disease of native coronary artery without angina pectoris; I10 Essential (primary) hypertension; R41.3 Other amnesia
CPT/HCPCS: 36415; 80053; 82607; 82728; 83036; 83540; 84439; 84443; 85025

== ENCOUNTER → 2024-05-15 08:46 | Outpatient (CLI) | payer MEDICARE, MEDICAID, SELFPAY ==
[2023-11-21 05:37] VITALS: BMI 28.3
--- NOTE | 2024-05-15 08:48 | DI.RAD.S_ITS ---
PROCEDURE: XR HAND RT MIN 3V INDICATIONS: eval 1st CMC joint pain TECHNIQUE: 3 views of the hand(s) acquired. COMPARISON: None. FINDINGS: Bones: No fractures or dislocations. Carpal bones are normally aligned. Increased sclerosis and loss of joint space noted at the 1st carpometacarpal joint with evidence of osseous remodeling, likely secondary to degenerative and/or posttraumatic change. No suspicious bony lesions. Soft tissues: No suspicious soft tissue calcifications. 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 Dictated by: Zachary Cobb M.D. on 05/15/2024 at 22:24 Approved by: Zachary Cobb M.D. on 05/15/2024 at 22:26
== END ==
PROVIDERS: Family Provider Physician Assistant; PCP Registered Nurse Diabetes Educator; Referring Provider Registered Nurse Diabetes Educator; Visit Provider Registered Nurse Diabetes Educator
DX: M79.641 Pain in right hand (principal); G89.29 Other chronic pain
CPT/HCPCS: 73130

== ENCOUNTER → 2024-06-12 09:37 | Outpatient (CLI) | payer MEDICARE, SELFPAY ==
[2023-11-21 05:37] VITALS: BMI 28.3
[2024-06-12 10:28] LABS: Appearance Urine UA CLEAR; Bilirubin Urine UA NEGATIVE (NEGATIVE); Color Urine UA YELLOW; Glucose Urine UA NEGATIVE (Negative); Ketones Urine UA NEGATIVE (NEGATIVE); Leukocyte Esterase Urine UA NEGATIVE (NEGATIVE); Nitrite Urine UA NEGATIVE (Negative); Occult Blood Urine UA NEGATIVE (Negative); Protein Urine UA NEGATIVE (Negative); Specific Gravity Urine UA 1.025 (1.000-1.035); Urobilinogen Urine UA 0.2 E.U./dL (0.2)
[2024-06-12 10:30] LABS: Urine Volume 10mL (spun)
[2024-06-12 10:31] LABS: Bacteria Urine None Seen; Culture Indicated Urine Cult Not Indicated; RBC Urine None Seen (0-5/HPF); Squamous Epithelial Cell Urine None Seen (0-5/HPF); WBC Urine None Seen (0-5/HPF)
[2024-06-12 11:20] LABS: Blood Urea Nitrogen 15 mg/dL (7-17); Calcium 9.5 mg/dL (8.4-10.2); Carbon Dioxide 25 mmol/L (22-32); Chloride 107 mmol/L (98-107); Estimated Glomerular Filt Rate > 60 mL/min (>60); Glucose 107 mg/dL (80-110); HEMOLYSIS < 15 (0-50); Potassium 3.8 mmol/L (3.4-5.1); Sodium 142 mmol/L (137-145)
== END ==
LOC: LAB 09:38
PROVIDERS: Family Provider Physician Assistant; PCP Registered Nurse Diabetes Educator; Referring Provider Registered Nurse Diabetes Educator; Visit Provider Registered Nurse Diabetes Educator
DX: I16.0 Hypertensive urgency (principal)
CPT/HCPCS: 36415; 80048; 81001